=== PATIENT | male | born 1960 | race Caucasian/White ===

== ENCOUNTER 2018-07-24 13:16 | Outpatient (CLI) | payer MEDICAID, SELFPAY ==
--- NOTE | 2018-07-24 13:39 | DI.US_ITS ---
SYMPTOMS/DIAGNOSIS: RIGHT INGUINAL HERNIA REPAIR IN 2016, PAIN X 2 WEEKS, R10.31 ULTRASOUND OF THE RIGHT GROIN: No hernia is identified. No mass or hematoma is seen. Small lymph nodes are seen, which have a normal configuration with a central fatty hilum. The largest measures 11 mm in greatest dimension. Some tenderness was associated with the larger of the lymph nodes. IMPRESSION: Normal-appearing groin lymph nodes. No evidence of an inguinal hernia.
== END 2018-07-24 13:36 ==
PROVIDERS: PCP Family Medicine; Visit Provider Surgery
DX: R10.31 Right lower quadrant pain (principal); Z98.890 Other specified postprocedural states
CPT/HCPCS: 76857

== ENCOUNTER 2018-08-01 12:00 | Emergency (ER) | payer MEDICAID, SELFPAY ==
[2018-08-01 12:07] VITALS: BP 143/92; PULSE 79; RESP 16; TEMP 37; O2SAT 97
--- NOTE | 2018-08-01 12:17 | DI.CT_ITS ---
SYMPTOMS/DIAGNOSIS: RT FLANK PAIN RENAL COLIC CT: The extreme cephalad portion of the kidneys has been coned from this examination. There is bilateral nonobstructing nephrolithiasis. There is no evidence of hydronephrosis. There is no evidence of ureterectasis or ureterolithiasis. The bladder is intact. The visualized portions of the liver appear unremarkable. The gallbladder, pancreas, spleen and adrenals appear intact. There is no evidence of bowel obstruction, free air or free fluid in the abdomen or pelvis. A considerable quantity of fecal material and scattered gas is noted in the right colon. The appendix is normal. There is no abnormality involving the reproductive organs as visualized. There is no evidence of a hernia. There are atherosclerotic changes involving the aorta without evidence of an aneurysm. Minimal degenerative changes involving the lumbar spine are apparent. No other bony abnormality is seen. SUMMARY: There is evidence of nonobstructing bilateral nephrolithiasis. There is no evidence of ureterolithiasis or ureterectasis. Note is also made of a considerable quantity of fecal material and scattered gas in the right colon. Findings consistent with constipation.
--- NOTE | 2018-08-01 12:19 | W.ED.GENAD ---
Discharge Plan Disposition Patient Disposition: HOME Condition: Stable Discharge Details Chief Complaint: FlankPain Clinical Impression: Bilateral kidney stones, Right lumbar pain, Lumbar strain Primary Care Provider: Calderon Huynh ED Provider: Richard Kwan Home Meds and New Rx's Prescriptions: No Action aspirin [Aspir-81] 81 MG tablet,delayed release (DR/EC) 81 mg PO DAILY Qty: 90 RF: 3 terazosin 1 MG capsule 1 mg PO HS Qty: 90 RF: 3 Discharge Instructions Additional Instructions: Your blood work did not show any concerning findings Your cat scan showed kidney stones in both kidneys, but none in the ureter which typically causes the pain due to kidney stones This could be a back strain. You can take 1000mg tylenol and 600mg ibuprofen every 6 hours for pain as needed Follow up with your primary care provider in 1-2 weeks especially if symptoms continue return to the emergency department for severe worsening of pain, fevers, or persistent vomit Medical Decision Making 58 yo male who has a hx of prior right groin hernia and had u/s of this last week and was told it was normal as he was having some discomfort in the right groin. He states the right groin feels well since but has had right lower back pain for a week. Denies fevers, vomit, dysuria, chest pain or abdominal pain. Has pain in the right lower lumbar region. Denies midline pain, ivdu, fevers, difficulty urinating and has no weakness, sensation deficits and no saddle anesthesia. Suspect possible lumbar strain but given location of pain eval for kidney stone. Has no abodminal tenderness so doubt surgical pathology such as appendicitis. HAs no findings to suggest sea or cauda equina at this time and do not feel emergent mri indicated pt has remained stable, still no deficits on exam and no tenderness. CT per Dr. Salomon shows bilateral nonbustructing stones otherwise no acute findings. Given lack of other concering findings, reassuring abdominal and neuro exam I feel the pt can be safely d/c'd and advised he f/u with pcp with return precautions go come to the ED Differential Diagnosis kidney stone, muscle spasm, lumbar strain Imaging Data Radiologic Study: Attestation: I personally reviewed and interpreted this imaging study as follows: Imaging: CT Scan Radiologist's impression: bilateral nonobstructing kidney stones Lab Data Lab results reviewed: Yes I reviewed the patient's lab results. HPI General Mode of arrival: ambulatory. Date/Time Provider Initiated Documentation: 08/01/18 12:01. Limitations to Documentation: no limitations. Information obtained by: patient. History of Present Illness 58 year old M presents to the emergency department with the chief complaint of right lower back pain, described as moderate, with intensity rated at 5. Quality is described as aching, and is localized to the back. Patient reports no radiation. Patient started experiencing this week(s) (1) and it has been constant. No relieving factors improve symptom(s), No exacerbating factors reported . Patient notes no other symptoms.. Related Data Home Medications Medication Instructions Recorded Confirmed aspirin [Aspir 81] 81 mg PO DAILY #90 tab-cap 17 08/01/18 terazosin 1 mg PO HS #90 tab-cap 11/19/17 08/01/18 Previous Rx's Medication Instructions Recorded aspirin [Aspir 81] 81 mg PO DAILY #90 tab-cap 04/10/17 terazosin 1 mg PO HS #90 tab-cap 11/19/17 Allergies Allergy/AdvReac Type Severity Reaction Status Date / Time bupropion HCl [From Zyban] Allergy Severe swelling Unverified 08/01/18 12:11 Penicillins Allergy Severe Swelling Unverified 08/01/18 12:11 General Stated Complaint: FlankPain ROB: 3 Review of Systems Review of Systems All systems reviewed & are unremarkable except as noted in HPI and below Constitutional Denies chills, Denies fever(s) and Denies weakness Cardiovascular Denies chest pain and Denies dyspnea Respiratory Denies cough and Denies dyspnea Gastrointestinal Denies nausea and Denies vomiting Genitourinary Denies dysuria Musculoskeletal Denies joint swelling Integumentary/Breasts Denies rash Neurologic Denies weakness Psychiatric Denies depression Endocrine Denies cold intolerance and Denies heat intolerance Allergic/Immunologic Denies urticaria [facility] Medical History Colon polyp Headache Hyperlipidemia Reflux esophagitis Surgical History H/O right inguinal hernia repair (Acute ~2015) Colonoscopy - IV Sedation (05/03/16) Extraction of cataract Social History household members: other details: 2 highest education level completed: high school graduate pets and animals: Yes pets and animals: cat(s) frequency: does not exercise Smoking and Tabacco status: Current every day tobacco type: cigarettes Pasive smoking exposure: Yes alcohol intake: former substance use type: does not use sebas/lutheran: No preference special sebas needs: No Course Vital Signs Temperature 37 C 08/01/18 12:07 Pulse 79 08/01/18 12:07 Respiratory Rate 16 08/01/18 12:07 Blood Pressure 143/92 H 08/01/18 12:07 Pulse Oximetry 97 08/01/18 12:07 Temperature 37 C 08/01/18 12:07 Temperature Source Skin 08/01/18 12:07 Pulse 79 08/01/18 12:07 Respiratory Rate 16 08/01/18 12:07 Respiratory Effort Non-Labored 08/01/18 12:07 Blood Pressure 143/92 H 08/01/18 12:07 Blood Pressure Position Sitting 08/01/18 12:07 Pulse Oximetry 97 08/01/18 12:07 Oxygen Delivery Method Room Air 08/01/18 12:07 Oxygen Flow Rate 0 08/01/18 12:07 Pain Level 10 08/01/18 12:07
[2018-08-01 12:30] LABS: Abs Immature Grans 0.02 k/cumm (0.0-0.09); Absolute Basophil Count 0.02 k/cumm (0.0-0.2); Absolute Eosinophil Count 0.11 k/cumm (0.0-0.7); Absolute Lymphocyte Count 1.56 k/cumm (1.2-3.4); Absolute Monocyte Count 0.49 k/cumm (0.11-0.7); Absolute Neutrophil Count 4.89 k/cumm (1.2-6.7); Basophils % 0.3; Eosinophils % 1.6; HCT 45.3 % (40.0-50.0); HGB 15.7 g/dL (13.5-17.5); Immature Grans % 0.3; Mean Corp. HGB Concentration 34.7 g/dL (32.0-36.0); Mean Corpuscular Hemoglobin 32.2 pg (27.0-33.0); Mean Corpuscular Volume 92.8 fL (80-95); Mean Platelet Volume 10.9 fL (8.0-11.0); Monocytes % 6.9; Neutrophils % 68.9; Platelet Count 151 x1000/uL (130-400); RBC 4.88 m/cumm (4.50-6.00); RBC Distribution Width 12.1 % (11.8-14.1); White Blood Cell Count 7.09 k/cumm (4.4-10.8)
[2018-08-01 12:46] LABS: ALT 51 U/L (12-78); AST 28 U/L (15-37); Alkaline Phosphatase 84 U/L (46-116); Anion Gap 11.6 mmol/L (3-11); BUN 13 mg/dL (7-18); Bilirubin, Total 0.4 mg/dL (0.2-1.0); CO2 26.4 mmol/L (21.0-32.0); CREATININE 0.96 mg/dL (0.70-1.30); Calcium 9.1 mg/dL (8.5-10.1); Chloride 104 mmol/L (98-107); Glucose 99 mg/dL (70-100); Lipase 211 U/L (73-393); Magnesium 1.9 mg/dL (1.8-2.4); Potassium 4.1 mmol/L (3.5-5.1); Sodium 142 mmol/L (136-145); Total Protein 7.7 g/dL (6.4-8.2)
[2018-08-01 13:27] LABS: Bilirubin Negative (Negative); Blood Negative (Negative); Clarity Clear; Glucose Negative (Negative); Ketones Negative (Negative); Leukocyte Esterase Negative (Negative); Nitrite Negative (Negative); Urobilinogen 0.2 EU/dL (Up TO 0.2); pH 6.5 (5-8)
[2018-08-01 14:01] VITALS: BP 107/70; PULSE 62; RESP 18; TEMP 36.6; O2SAT 96
== END 2018-08-01 14:05 | disposition home or self-care (01) ==
PROVIDERS: Emergency Provider Emergency Medicine; PCP Family Medicine
DX: N20.0 Calculus of kidney (principal)
CPT/HCPCS: 36415; 80053; 80076; 83690; 99284; 74176; 81003; 83735; 85025; J3490

== ENCOUNTER 2019-04-15 09:58 | Outpatient (CLI) | payer BC, SELFPAY ==
[2019-04-15 13:08] LABS: Calculated LDL 112 mg/dL; Cholesterol 169 mg/dL (50-200); HDL Cholesterol 29 mg/dL (40-60); Triglyceride 143 mg/dL (30-150)
[2019-04-16 10:25] LABS: PSA, Screening 0.4 ng/ml (0-3.5)
== END 2019-04-15 10:18 ==
PROVIDERS: PCP Family Medicine; Visit Provider Family Medicine
DX: Z00.00 Encounter for general adult medical examination without abnormal findings (principal); Z13.220 Encounter for screening for lipoid disorders; Z12.5 Encounter for screening for malignant neoplasm of prostate
CPT/HCPCS: 36415; 80061; 84153

== ENCOUNTER 2019-07-10 01:32 | Outpatient (CLI) | payer BC, SELFPAY ==
--- NOTE | 2019-07-10 08:35 | DI.CT_ITS ---
EXAM: CT CHEST WO CLINICAL HISTORY: reassess lung nodule,R91.1. TECHNIQUE: Imaging protocol: Axial computed tomography images were obtained and coronal and sagittal reformatted images were created and reviewed. COMPARISON: CHEST WITHOUT CONTRAST from 10/22/2017 CT renal colic wo from 08/01/2018 CT renal colic wo from 08/01/2018 FINDINGS: Tracheobronchial tree: Patent where visualized. Mediastinum and Rissa: Stable lymph nodes in the mediastinum. Pulmonary parenchyma: Moderate emphysematous changes are present in the lungs. There are now multipl e nodular opacities within the lungs. Findings are suspicious for metastatic disease. There are als o ground-glass opacities scattered throughout the lungs. Findings are most marked in the upper lobes . No focal consolidating infiltrate is present. The nodule in the anterior aspect of the right uppe r lobe appears stable. Scarring or atelectasis is seen in the left lung base. Pleura: No effusion or pneumothorax. Heart: The heart is not dilated. Minimal coronary artery calcification is present. Aorta: Thoracic aorta non-dilated. Atherosclerosis. Upper abdomen: Unremarkable. Lymph nodes: Within normal limits. Bones:There is an unchanged sclerotic focus in the right 2nd rib. IMPRESSION: 1. Multiple pulmonary nodules. Multiple small foci of ground-glass opacity in the lungs. Differenti al considerations include metastatic disease, infectious or inflammatory process. 2. Moderate pulmonary emphysema. DATA REPOSITORY: All CT scans at this facility are submitted to the National Radiology Data Registry (NRDR) Dose Index Registry (DIR) with the [employer] (ACR). RADIATION OPTIMIZATION: All CT scans at this facility use at least one of these dose optimization te chniques: automated exposure control; mA and/or kV adjustment per patient size (includes targeted exa ms where dose is matched to clinical indication); or iterative reconstruction.
== END 2019-07-10 01:52 ==
PROVIDERS: PCP Family Medicine; Visit Provider Family Medicine
DX: R91.1 Solitary pulmonary nodule (principal); J43.8 Other emphysema; R91.8 Other nonspecific abnormal finding of lung field; J98.4 Other disorders of lung
CPT/HCPCS: 71250

== ENCOUNTER 2019-12-09 10:59 | Outpatient (REF) | payer BC, SELFPAY ==
[2020-01-06 10:10] LABS: Fungus Smear No Fungi Seen
== END 2019-12-09 11:19 ==
LOC: LBN 10:59
PROVIDERS: PCP Family Medicine; Visit Provider Internal Medicine
DX: R05 Cough (principal)
CPT/HCPCS: 87102; 87116; 87206; 87070; 87205

== ENCOUNTER 2020-03-02 00:42 | Outpatient (CLI) | payer BC, SELFPAY ==
--- NOTE | 2020-03-02 08:30 | DI.CT_ITS ---
EXAM: CT CHEST WO CLINICAL HISTORY: BRONCHIECTASIS,J47.9,F/U LUNG NODULES TECHNIQUE: COMPARISON: CT CT CHEST WO from 07/10/2019 FINDINGS: CT examination the chest was performed without contrast administration. Current examination is [place] red with prior study July 10, 2019 which showed numerous bilateral small ground-glass opacities an d predominantly ground-glass intrapulmonary nodules. On today's examination, the previously noted no dules and ground-glass opacities have essentially resolved. There is a 3 millimeter incidental right upper lobe noncalcified nodule seen anteriorly, unchanged from prior study. There are severe change s of centrilobular emphysema and slight bronchiectasis. No mediastinal or hilar adenopathy. No pleu ral effusion. Ectasias of ascending aorta at noted at 40 millimeters. Images obtained through the upper abdomen show unremarkable appearance of visualized portions of live r, spleen, pancreas, kidneys, and adrenals. IMPRESSION: Resolution of previously noted scattered nodular and and ground-glass opacities seen on CT of June 2019. Severe underlying emphysema noted. RADIATION DOSE DELIVERED: 532.01mGy.cm Total DLP
== END 2020-03-02 01:02 ==
PROVIDERS: PCP Family Medicine; Visit Provider Internal Medicine
DX: J43.9 Emphysema, unspecified (principal); J47.9 Bronchiectasis, uncomplicated
CPT/HCPCS: 71250

== ENCOUNTER 2020-05-03 00:25 | Outpatient (CLI) | payer BC, SELFPAY ==
--- NOTE | 2020-05-03 07:00 | DI.US_ITS ---
EXAM: US AAA SCREENING CLINICAL HISTORY: screening FOR AAA,H/O TOBACCO ABUSE,Z87.891 COMPARISON: CT CT renal colic wo from 08/01/2018 FINDINGS: Abdominal Aorta: Proximal: 2.6 x 2.8 cm Mid: 2.1 x 2.2 cm Distal: 1.9 x 2.3 cm Iliac's: Right: 1.2 x 1.3 cm Left: 1.2 x 1.2 cm Mild atherosclerosis is present. IMPRESSION: No evidence of abdominal aortic aneurysm. DATA REPOSITORY:
== END 2020-05-03 00:45 ==
PROVIDERS: PCP Family Medicine; Visit Provider Family Medicine
DX: Z87.891 Personal history of nicotine dependence (principal)
CPT/HCPCS: 76706

== ENCOUNTER 2020-07-16 21:51 | Emergency (ER) | payer BC, SELFPAY ==
[2020-07-16 22:01] VITALS: BP 146/99; PULSE 90; RESP 16; TEMP 36.7; O2SAT 95
[2020-07-16] MEDS: Normal Saline 500 ML IV (22:22)
--- NOTE | 2020-07-16 22:27 | W.ED.GENAD ---
Discharge Plan Disposition Patient Disposition: HOME Condition: Good Discharge Details Clinical Impression: Calculus of left kidney, Hematuria Primary Care Provider: Calderon Huynh ED Provider: Jeremy Aranda Home Meds and New Rx's Prescriptions: Continued Chantix Continuing Month Box 1 mg tablet 1 mg PO BID Qty: 56 RF: 5 terazosin 2 mg capsule 2 mg PO QHS Qty: 90 RF: 3 fluticasone propion-salmeterol [Advair Diskus] 250-50 mcg/dose blister with device 1 inh inhalation BID Qty: 60 RF: 11 mirtazapine 45 mg tablet 45 mg PO QHS Qty: 30 RF: 11 aspirin [Aspir-81] 81 MG tablet,delayed release (DR/EC) 81 mg PO DAILY Qty: 90 RF: 3 Discharge Instructions Instructions: Kidney Stones (ED) Additional Instructions: At this time you have evidence of a kidney stone in your left ureter. It is not the smallest of stones, so there is a chance that it may not pass. Please continue taking your Terazosin, but doubled the dose to 4 mg. Please take this while you are still having the blood in your urine and discomfort. This may help it pass more quickly. You can take Tylenol and Motrin to help with your pain. You can take a maximum dose of 1000 mg of Tylenol every 6 hours and a maximum dose of 600 mg of ibuprofen every 6 hours. Drink plenty of fluids, as well as cranberry juice. Please take the [place] pill only as needed for breakthrough pain. If you do take the [place] pills, do not take any Tylenol with it as it has Tylenol in it. If you notice any worsening of your symptoms, or any new symptoms such as vomiting, diarrhea, fever, chills, shortness of breath, chest pain, numbness, weakness, or fainting , please return immediately to the emergency department for reevaluation. Please follow up with Dr. Graham as soon as possible for reassessment and reevaluation. As always, it was a pleasure participating in your medical care today. 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 Patient states that 2 hours ago he had a sudden onset notable hematuria, no clots present. He admits to mild bilateral back soreness, but denies any significant pain to speak of. He denies any falls or trauma. No dysuria or difficulty urinating. He is not on any blood thinners aside for aspirin, and he denies any history of hematuria. He does have a history of previous renal pelvis stones noted on CT scan incidentally, but no other complaints or problems aside for this. Patient denies any other modifying factors. Physical exam demonstrates an unremarkable genital exam, no blood at the urethral meatus. He has a chronic small lesion by the epididymis/right testicle. No other abnormalities though. Normal cremasteric reflex. Differential includes prostate issue causing mild hematuria, bladder ulcer or lesion, or potential kidney stone. Discussed risk and benefits of imaging and work-up, we will get a CT scan at this time to evaluate for presence of stone or notable renal mass, will gently rehydrate, get basic labs. 11:[address] scan results have returned, 4 mm calculus noted in the left proximal ureter, mild hydronephrosis. Renal function good, no evidence of infection, no white count, fever, or other significant abnormality noted. Patient's pain well tolerated, he does not want anything for pain at this time. No other significant abnormalities noted on imaging. Hemoglobin stable. At this time patient stable for discharge, source of hematuria likely the small stone. Will recommend that he increase his Peng and dose to 4 mg daily, strain his urine, drink plenty of fluids, and follow-up closely with Dr. Graham. I discussed the case with the patient as well as his significant other over the phone. I have extensively reviewed the treatment plan and discharge instructions with the patient and their family. I have addressed all patient concerns at this time. The patient and family was made aware of what symptoms to monitor for that would warrant a return to the emergency department. Discussed the plan with the patient and family, they demonstrate verbal understanding and agreement with our assessment and plan at this time. The documentation in this chart was dictated using [email or web address] dictation software. Please excuse any dictation errors. FINDINGS: Liver: The visualized liver is unremarkable. Gallbladder and bile ducts: No calcified stones. No ductal dilation. Pancreas: No ductal dilation. No masses. Spleen: No splenomegaly or focal lesions. Adrenal glands: No mass. Kidneys and ureters: Nonobstructive subcentimeter right nephrolithiasis. 4 mm calculus in the proximal left ureter causing mild left hydronephrosis. No left nephrolithiasis. Stomach and bowel: 1-2 distal colonic diverticula without inflammation. No focal pathology in the small bowel. Appendix: No evidence of appendicitis. Intraperitoneal space: No free air. No significant fluid collection. Vasculature: Atherosclerosis with minimal dilation of the aortoiliac system. Lymph nodes: No significantly enlarged lymph nodes. Urinary bladder: Unremarkable as visualized. Reproductive: Unremarkable as visualized. Bones/joints: No acute fracture. Soft tissues: No suspicious lesions. IMPRESSION: 1. 4 mm calculus in the proximal left ureter causing mild left hydronephrosis. 2. Nonobstructive subcentimeter right nephrolithiasis. Thank you for allowing us to participate in the care of your patient. Dictated and Authenticated by: Sindi Moseley MD 07/16/2020 11:10 PM Eastern Time ([place] & [place]) HPI General Date/Time Provider Initiated Documentation: 07/16/20 21:59. 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 Patient states that 2 hours ago he had a sudden onset notable hematuria, no clots present. He admits to mild bilateral back soreness, but denies any significant pain to speak of. He denies any falls or trauma. No dysuria or difficulty urinating. He is not on any blood thinners aside for aspirin, and he denies any history of hematuria. He does have a history of previous renal pelvis stones noted on CT scan incidentally, but no other complaints or problems aside for this. Patient denies any other modifying factors. Related Data Home Medications Medication Instructions Recorded Confirmed aspirin [Aspir-81] 81 mg PO DAILY #90 tab-cap 04/10/17 07/16/20 varenicline 1 mg tablet 1 mg PO BID #56 tab 01/21/20 07/16/20 fluticasone 250 mcg-salmeterol 50 1 inh INHALATION BID #60 ea 04/23/20 07/16/20 mcg/dose blistr powdr for inhalation mirtazapine 45 mg tablet 45 mg PO QHS #30 tab 04/23/20 07/16/20 terazosin 2 mg capsule 2 mg PO QHS #90 cap 04/23/20 07/16/20 Previous Rx's Medication Instructions Recorded aspirin [Aspir-81] 81 mg PO DAILY #90 tab-cap 04/10/17 varenicline 1 mg tablet 1 mg PO BID #56 tab 01/21/20 fluticasone 250 mcg-salmeterol 50 1 inh INHALATION BID #60 ea 04/23/20 mcg/dose blistr powdr for inhalation mirtazapine 45 mg tablet 45 mg PO QHS #30 tab 04/23/20 terazosin 2 mg capsule 2 mg PO QHS #90 cap 04/23/20 Allergies Allergy/AdvReac Type Severity Reaction Status Date / Time bupropion HCl [From Evento] Allergy Severe swelling Verified 07/16/20 22:12 Penicillins Allergy Severe Swelling Verified 07/16/20 22:12 General Stated Complaint: FlankPain ROB: 2 Review of Systems All systems reviewed & are unremarkable except as noted in HPI and below PFSH Medical History Colon polyp COPD (chronic obstructive pulmonary disease) Headache Hyperlipidemia Insomnia Lung nodule Reflux esophagitis Tobacco abuse Surgical History Colonoscopy - IV Sedation (05/03/16) Extraction of cataract 02/17/16; LEFT H/O right inguinal hernia repair (~2014) Dr. Tapia Family History Mother , AGE 67 Heart disease Father , AGE 72 Heart disease Sister Essential hypertension Sister No problems noted. Sister No problems noted. Sister No problems noted. Brother Essential hypertension Brother No problems noted. Brother No problems noted. Brother No problems noted. Brother No problems noted. Daughter No problems noted. Daughter Depression Social History Smoking/Tobacco Use Status: Current every day Tobacco Type: cigarettes Tobacco: How many years used: 20 Quit status: has quit before Smoking risk assessment performed?: Yes Alcohol Intake: never Drug use: Never Substance use type: does not use Caregiver/Support person: No Household members: significant other and other Details: 2 Housing: house Do you need help understanding health information?: Never Pets and animals: Yes Pets and animals: cat(s) Sexually active: No Do you think of yourself as: straight/heterosexual Current gender identity: male What is your relationship status?: living with partner How often do you talk on the phone with friends or family?: decline to answer How often do you get together with friends or relatives?: decline to answer How often do you attend orthodoxy or judaism services?: decline to answer Do you belong to any clubs or organized social groups?: decline to answer Panel score (0-1 are the most socially isolated patients): 1 What type of physical activity do you participate in: walking Duration: > 90 minutes/day Frequency: 5-6 times per week Taylor/Sabianist: None Special taylor needs: No Seatbelt use: always Helmet use: No Drive intox or ride w/intox four horse hitch driver: No Do you feel safe at home: Yes Do you feel safe in your relationship?: Yes Exam Narrative Exam Narrative: 1.Const: Well-nourished, Well-developed, appearing stated age 2.Eyes: PERRL, no conjunctival injection, and symmetrical lids. 3.ENT: Atraumatic external nose and ears. Moist MM. Neck: Symmetric, trachea midline, No thyromegaly. 4.CVS: +S1/S2, No murmurs or gallops. Peripheral pulses 2+ and equal in all extremities. Brisk capillary refill in all extremities. 5.RESP: Unlabored respiratory effort. Clear to auscultation bilaterally. No wheezes rales or rhonchi 6.GI: Soft, Nontender/Nondistended, No hepatosplenomegaly. No guarding or rebound. Genital exam demonstrates circumcised penis, right testicle demonstrates a chronic nontender mass near the testicle/epididymis. No inguinal mass. No genital tenderness, no penile tenderness, no blood at the urethral meatus. No abdominal tenderness on exam, minimal left CVA tenderness. No right CVA tenderness. 7.MSK: Normocephalic/Atraumatic, Extremities w/o deformity or ttp No cyanosis or clubbing, Normal movement of all extremities 8.Skin: Warm, Dry. No rashes or lesions. 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 Sensation grossly intact, no focal neurologic deficits. 10.Psych: (AAO) x3. Appropriate mood and affect Course Vital Signs Vital signs: Vital Signs Temperature 36.7 C 07/16/20 22:01 Pulse 90 07/16/20 22:01 Respiratory Rate 16 07/16/20 22:01 Blood Pressure 146/99 H 07/16/20 22:01 Pulse Oximetry 95 07/16/20 22:01 Temperature 36.7 C 07/16/20 22:01 Temperature Source Skin 07/16/20 22:01 Pulse 90 07/16/20 22:01 Respiratory Rate 16 07/16/20 22:01 Blood Pressure 146/99 H 07/16/20 22:01 Blood Pressure Position Sitting 07/16/20 22:01 Pulse Oximetry 95 07/16/20 22:01 Oxygen Delivery Method Room Air 07/16/20 22:01 Oxygen Flow Rate 0 07/16/20 22:01 Pain Level 4 07/16/20 22:01
[2020-07-16 22:32] LABS: Abs Immature Grans 0.02 10^3/uL (0.0-0.06); Absolute Basophil Count 0.06 10^3/uL (0.0-0.2); Absolute Eosinophil Count 0.21 10^3/uL (0.0-0.7); Absolute Lymphocyte Count 1.98 10^3/uL (1.2-3.4); Absolute Monocyte Count 0.72 10^3/uL (0.1-0.8); Absolute Neutrophil Count 4.73 10^3/uL (1.2-6.7); Basophils % 0.8; Eosinophils % 2.7; HCT 45.2 % (40.0-50.0); HGB 15.4 g/dL (13.5-17.5); Immature Grans % 0.3; Lymphocytes % 25.6; MCH 31.4 pg (27.0-33.0); MCHC 34.1 % (32.0-36.0); MCV 92.2 fL (80-95); MPV 10.6 fL (8.0-11.0); Monocytes % 9.3; Neutrophils % 61.3; Nucleated RBC 0 %; Platelet Count 198 10^3/uL (130-400); RDW 11.8 % (11.8-14.1); RDW-SD 39.8 fL; WBC 7.72 10^3/uL (4.4-10.8)
[2020-07-16 22:36] LABS: Clarity Cloudy (Clear)
--- NOTE | 2020-07-16 22:39 | DI.CT_ITS ---
EXAM: CT RENAL COLIC WO CLINICAL HISTORY: hematuria, tiny bit L flank pain,r/o stone. TECHNIQUE: Imaging Protocol: Axial computed tomography images with coronal and sagittal reformatted images were created and reviewed. CONTRAST MATERIAL: Noncontrast COMPARISON: CT CT renal colic wo from 08/01/2018 FINDINGS: ABDOMEN: Lung Bases: Normal where visualized. Liver: Normal attenuation. No measurable mass. Gallbladder and biliary tract: No radiodense calculus or dilation. Pancreas: Normal density, no calcifications or inflammatory process. Spleen: Normal. Kidneys: Normal size, contour and axis. 9 x 5 millimeter smoothly marginated stone just beneath the l eft ureteropelvic junction causing mild left hydronephrosis. Tiny nonobstructing stone lower pole ri ght kidney. No masses seen. Adrenal glands: No masses seen. Abdominal Aorta: Abdominal portion non-dilated. Mildly ectatic. Moderate calcification. PELVIS: Bladder: Symmetric distention, no wall thickening or stones. Bowel: Normal appendix. No obstruction or bowel wall thickening. Moderate quantity of stool. Peritoneal cavity: No ascites, collection or mesenteric inflammatory response. Bones: Degenerative disc changes. Reproductive: Normal size prostate. Mild prostate calcifications. IMPRESSION: Mild left hydronephrosis secondary to 5 x 9 millimeter stone just beneath the level of the ureteropel irish junction. RADIATION DOSE DELIVERED: 845.18mGy.cm Total DLP DATA REPOSITORY: All CT scans at this facility are submitted to the National Radiology Data Registry (NRDR) Dose Index Registry (DIR) with the [employer] (A[employer]). RADIATION OPTIMIZATION: All CT scans at this facility use at least one of these dose optimization te chniques: automated exposure control; mA and/or kV adjustment per patient size (includes targeted exa ms where dose is matched to clinical indication); or iterative reconstruction.
[2020-07-16 22:44] LABS: C & S Indicated? No; RBC >50 HPF (0-2)
[2020-07-16 22:46] LABS: PTT Activated 23.9 sec (21.0-27.5); Prothrombin Time 10.2 sec (9.3-11.0)
[2020-07-16 22:51] LABS: ALT 44 U/L (16-63); AST 21 U/L (15-37); Alkaline Phosphatase 85 U/L (46-116); Anion Gap 7.4 mmol/L (3-11); BUN 19 mg/dL (7-18); Bilirubin, Total 0.3 mg/dL (0.2-1.0); CO2 27.6 mmol/L (21.0-32.0); Calcium 8.8 mg/dL (8.5-10.1); Chloride 102 mmol/L (98-107); Glucose 97 mg/dL (74-106); Sodium 137 mmol/L (136-145); Total Protein 7.7 g/dL (6.4-8.2)
--- NOTE | 2020-07-16 23:10 | DI.VRAD_ITS ---
PROCEDURE INFORMATION: Exam: CT Abdomen And Pelvis Without Contrast Exam date and time: 07/16/2020 22:12 Age: 60 years old Clinical indication: Abdominal pain; Patient HX: Left flank pain with hematuria TECHNIQUE: Imaging protocol: Computed tomography of the abdomen and pelvis without contrast. Radiation optimization: All CT scans at this facility use at least one of these dose optimization techniques: automated exposure control; mA and/or kV adjustment per patient size (includes targeted exams where dose is matched to clinical indication); or iterative reconstruction. COMPARISON: CT renal colic wo 08/01/2018 12:47 FINDINGS: Liver: The visualized liver is unremarkable. Gallbladder and bile ducts: No calcified stones. No ductal dilation. Pancreas: No ductal dilation. No masses. Spleen: No splenomegaly or focal lesions. Adrenal glands: No mass. Kidneys and ureters: Nonobstructive subcentimeter right nephrolithiasis. 4 mm calculus in the proximal left ureter causing mild left hydronephrosis. No left nephrolithiasis. Stomach and bowel: 1-2 distal colonic diverticula without inflammation. No focal pathology in the small bowel. Appendix: No evidence of appendicitis. Intraperitoneal space: No free air. No significant fluid collection. Vasculature: Atherosclerosis with minimal dilation of the aortoiliac system. Lymph nodes: No significantly enlarged lymph nodes. Urinary bladder: Unremarkable as visualized. Reproductive: Unremarkable as visualized. Bones/joints: No acute fracture. Soft tissues: No suspicious lesions. IMPRESSION: 1. 4 mm calculus in the proximal left ureter causing mild left hydronephrosis. 2. Nonobstructive subcentimeter right nephrolithiasis. Dictated and Authenticated by: Sindi Moseley MD. Ordering:TAMERA Luna MD
--- NOTE | 2020-07-16 23:35 | NUR.NOTE ---
Sent referral to urology for 4 mm kidneystone follow up Ned Machuca Note:
== END 2020-07-16 22:30 | disposition home or self-care (01) ==
PROVIDERS: Emergency Provider Student in an Organized Health Care Education/Training Program; PCP Family Medicine
DX: N13.2 Hydronephrosis with renal and ureteral calculous obstruction (principal); R31.9 Hematuria, unspecified; M54.5 Low back pain; J44.9 Chronic obstructive pulmonary disease, unspecified; F17.210 Nicotine dependence, cigarettes, uncomplicated
CPT/HCPCS: 36415; 80053; 96360; 99285; 74176; 81003; 81015; 85025; 85610; 85730

== ENCOUNTER 2020-07-19 05:22 | Observation (INO) | payer BC, SELFPAY ==
[2020-07-19] VITALS (9 sets, daily range): BP systolic 117–148; BP diastolic 60–92; PULSE 60–95; RESP 15–20; TEMP 35.8–36.9; O2SAT 94–97
--- NOTE | 2020-07-19 05:31 | W.ED.GENAD ---
Discharge Plan Disposition Patient Disposition: [facility] INPATIENT Condition: Good Discharge Details Clinical Impression: Kidney stone Primary Care Provider: Calderon Huynh ED Provider: Jeremy Aranda Home Meds and New Rx's Prescriptions: No Action Chantix Continuing Month Box 1 mg tablet 1 mg PO BID Qty: 56 RF: 5 terazosin 2 mg capsule 2 mg PO QHS Qty: 90 RF: 3 fluticasone propion-salmeterol [Advair Diskus] 250-50 mcg/dose blister with device 1 inh inhalation BID Qty: 60 RF: 11 mirtazapine 45 mg tablet 45 mg PO QHS Qty: 30 RF: 11 aspirin [Aspir-81] 81 MG tablet,delayed release (DR/EC) 81 mg PO DAILY Qty: 90 RF: 3 Medical Decision Making Very pleasant 60-year-old male with a past medical history of COPD, high cholesterol, right scrotal mass that is chronic, prostatic hypertrophy and lower urinary tract syndrome, who was diagnosed with a kidney stone on 07/16/2020. Per virtual radiology it was 4 mm and noted in the proximal left ureter, with mild hydronephrosis. Pain was well controlled with NSAIDs, patient was discharged home recommendations for continued fluid. Patient returns again tonight with continuation of the pain, this evening he began vomiting because of the pain, he took a Browns but this did not help. He is noticing a decrease in his urinary output, he denies any significant change in hematuria. No other complaints this time. No other changes in symptomatology otherwise. Physical exam demonstrates mild left CVA tenderness. Concern is for a stone that will not pass. We will get laboratory work-up to evaluate for change in renal function, we will control his pain, gently rehydrate, and contact Dr. Graham for potential stenting. 6:30 AM Patient's laboratory work-up shows a minimal white count overloaded foot 3 8, no bandemia. Electrolytes stable, renal function normal. Still pending urinalysis. Pain was not controlled with morphine, Zofran and Dilaudid was subsequently given which did give adequate pain control. Contacted Dr. Graham and discussed the case with him. He recommends admission for evaluation for potential stenting. Contacted the hospitalist Dr. Wayne, he agrees with the assessment and plan. I will place bridging orders on his behalf. Patient will be admitted to the floor. I have extensively reviewed the treatment plan with the patient. I have addressed all patient concerns at this time. I have also discussed the plan with the admitting physician and they agree with the current assessment and plan and have agreed to assume responsibility for the patient. All parties demonstrate verbal understanding and agreement with our assessment and plan at this time. The documentation in this chart was dictated using [employer] dictation software. Please excuse any dictation errors. HPI General Date/Time Provider Initiated Documentation: 07/19/20 05:23. HPI Narrative: Very pleasant 60-year-old male with a past medical history of COPD, high cholesterol, right scrotal mass that is chronic, prostatic hypertrophy and lower urinary tract syndrome, who was diagnosed with a kidney stone on 07/16/2020. Per virtual radiology it was 4 mm and noted in the proximal left ureter, with mild hydronephrosis. Pain was well controlled with NSAIDs, patient was discharged home recommendations for continued fluid. Patient returns again tonight with continuation of the pain, this evening he began vomiting because of the pain, he took a Browns but this did not help. He is noticing a decrease in his urinary output, he denies any significant change in hematuria. No other complaints this time. No other changes in symptomatology otherwise. Related Data Home Medications Medication Instructions Recorded Confirmed aspirin [Aspir-81] 81 mg PO DAILY #90 tab-cap 04/10/17 07/19/20 varenicline 1 mg tablet 1 mg PO BID #56 tab 01/21/20 07/19/20 fluticasone 250 mcg-salmeterol 50 1 inh INHALATION BID #60 ea 04/23/20 07/19/20 mcg/dose blistr powdr for inhalation mirtazapine 45 mg tablet 45 mg PO QHS #30 tab 04/23/20 07/19/20 terazosin 2 mg capsule 2 mg PO QHS #90 cap 04/23/20 07/19/20 Previous Rx's Medication Instructions Recorded aspirin [Aspir-81] 81 mg PO DAILY #90 tab-cap 04/10/17 varenicline 1 mg tablet 1 mg PO BID #56 tab 01/21/20 fluticasone 250 mcg-salmeterol 50 1 inh INHALATION BID #60 ea 04/23/20 mcg/dose blistr powdr for inhalation mirtazapine 45 mg tablet 45 mg PO QHS #30 tab 04/23/20 terazosin 2 mg capsule 2 mg PO QHS #90 cap 04/23/20 Allergies Allergy/AdvReac Type Severity Reaction Status Date / Time bupropion HCl [From Zyban] Allergy Severe swelling Verified 07/16/20 22:12 Penicillins Allergy Severe Swelling Verified 07/16/20 22:12 General Stated Complaint: FlankPain ROB: 3 Review of Systems All systems reviewed & are unremarkable except as noted in HPI and below PFSH Medical History Colon polyp COPD (chronic obstructive pulmonary disease) Headache Hyperlipidemia Insomnia Lung nodule Reflux esophagitis Tobacco abuse Surgical History Colonoscopy - IV Sedation (05/03/16) Extraction of cataract 02/17/16; LEFT H/O right inguinal hernia repair (~2014) Dr. Tapia Family History Mother , AGE 67 Heart disease Father , AGE 72 Heart disease Sister Essential hypertension Sister No problems noted. Sister No problems noted. Sister No problems noted. Brother Essential hypertension Brother No problems noted. Brother No problems noted. Brother No problems noted. Brother No problems noted. Daughter No problems noted. Daughter Depression Social History Smoking/Tobacco Use Status: Current every day Tobacco Type: cigarettes Tobacco: How many years used: 20 Quit status: has quit before Smoking risk assessment performed?: Yes Alcohol Intake: never Drug use: Never Substance use type: does not use Caregiver/Support person: No Household members: significant other and other Details: 2 Housing: house Do you need help understanding health information?: Never Pets and animals: Yes Pets and animals: cat(s) Sexually active: No Do you think of yourself as: straight/heterosexual Current gender identity: male What is your relationship status?: living with partner How often do you talk on the phone with friends or family?: decline to answer How often do you get together with friends or relatives?: decline to answer How often do you attend oriental orthodox or restorationist services?: decline to answer Do you belong to any clubs or organized social groups?: decline to answer Panel score (0-1 are the most socially isolated patients): 1 What type of physical activity do you participate in: walking Duration: > 90 minutes/day Frequency: 5-6 times per week Taylor/Spiritism: None Special taylor needs: No Seatbelt use: always Helmet use: No Drive intox or ride w/intox cat driver: No Do you feel safe at home: Yes Do you feel safe in your relationship?: Yes Exam Narrative Exam Narrative: 1.Const: Well-nourished, Well-developed, appearing stated age 2.Eyes: PERRL, no conjunctival injection, and symmetrical lids. 3.ENT: Atraumatic external nose and ears. Moist MM. Neck: Symmetric, trachea midline, No thyromegaly. 4.CVS: +S1/S2, No murmurs or gallops. Peripheral pulses 2+ and equal in all extremities. Brisk capillary refill in all extremities. 5.RESP: Unlabored respiratory effort. Clear to auscultation bilaterally. No wheezes rales or rhonchi 6.GI: Soft, nondistended, mild left CVA tenderness. Mild abdominal discomfort on palpation in the left. 7.MSK: Normocephalic/Atraumatic, Extremities w/o deformity or ttp No cyanosis or clubbing, Normal movement of all extremities 8.Skin: Warm, Dry. No rashes or lesions. 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 Sensation grossly intact, no focal neurologic deficits. 10.Psych: (AAO) x3. Appropriate mood and affect Course Vital Signs Vital signs: Vital Signs Temperature 36.1 C L 07/19/20 05:26 Pulse 95 H 07/19/20 05:26 Respiratory Rate 16 07/19/20 05:26 Blood Pressure 133/92 H 07/19/20 05:26 Pulse Oximetry 95 07/19/20 05:26 Temperature 36.1 C L 07/19/20 05:26 Temperature Source Skin 07/19/20 05:26 Pulse 95 H 07/19/20 05:26 Respiratory Rate 16 07/19/20 05:26 Blood Pressure 133/92 H 07/19/20 05:26 Blood Pressure Position Sitting 07/19/20 05:26 Pulse Oximetry 95 07/19/20 05:26 Pain Level 10 07/19/20 05:26
[2020-07-19] MEDS: Normal Saline 1,000 ML 1000 ML IV (05:41)
[2020-07-19 05:42] LABS: Abs Immature Grans 0.03 10^3/uL (0.0-0.06); Absolute Basophil Count 0.05 10^3/uL (0.0-0.2); Absolute Eosinophil Count 0.03 10^3/uL (0.0-0.7); Absolute Lymphocyte Count 0.98 10^3/uL (1.2-3.4); Absolute Monocyte Count 0.59 10^3/uL (0.1-0.8); Basophils % 0.4; Eosinophils % 0.3; HCT 45.7 % (40.0-50.0); HGB 15.6 g/dL (13.5-17.5); Immature Grans % 0.3; Lymphocytes % 8.6; MCH 31.3 pg (27.0-33.0); MCHC 34.1 % (32.0-36.0); MCV 91.6 fL (80-95); MPV 10.6 fL (8.0-11.0); Monocytes % 5.2; Neutrophils % 85.2; Nucleated RBC 0 %; Platelet Count 169 10^3/uL (130-400); RBC 4.99 10^6/uL (4.36-5.78); RDW 11.7 % (11.8-14.1); RDW-SD 39.4 fL; WBC 11.38 10^3/uL (4.4-10.8)
[2020-07-19 05:56] LABS: ALT 36 U/L (16-63); AST 17 U/L (15-37); Alkaline Phosphatase 87 U/L (46-116); Anion Gap 11.8 mmol/L (3-11); BUN 18 mg/dL (7-18); Bilirubin, Total 0.4 mg/dL (0.2-1.0); CO2 25.2 mmol/L (21.0-32.0); CREATININE 1.2 mg/dL (0.70-1.30); Calcium 9.5 mg/dL (8.5-10.1); Chloride 103 mmol/L (98-107); Glucose 150 mg/dL (74-106); Sodium 140 mmol/L (136-145); Total Protein 7.4 g/dL (6.4-8.2)
[2020-07-19] MEDS: Ondansetron 4 MG/2 ML VIAL IVP (05:58)
[2020-07-19] MEDS: HYDROmorphone 2 MG/ML VIAL 1 MG IVP (05:58)
[2020-07-19 06:47] LABS: Source Nasopharynx
[2020-07-19 07:26] LABS: COVID-19 PCR Negative (Negative); Influenza A PCR Negative (Negative); Influenza B PCR Negative (Negative); RSV PCR Negative (Negative)
[2020-07-19] MEDS: Normal Saline 1,000 ML 150 ML IV ×3 (08:05→21:37)
[2020-07-19] MEDS: Budesonide/Formoterol 160/4.5 6 GM 60 PUFF INH IH ×2 (09:42→20:21)
--- NOTE | 2020-07-19 10:24 | W.UROLOGYCON ---
Date of service: 07/19/20 Time of Service: 10:25 Assessment and Plan Assessment and plan (1) Left ureteral stone: Status: Acute Assessment and plan: He is quite symptomatic, so we have agreed to move forward with cystoscopy left retrograde pyelogram and stent placement. If we are able to pass the flexible ureteroscope up the ureter, treat the stone with the holmium laser lithotripsy and extract the stone fragments, we will do so at the same anesthetic. If we are unable to access the stone, we will place a stent and make arrangements for a staged procedure. History of Present Illness History of Present Illness Chief Complaint: Left ureteral stone Narrative: This is a 60-year-old gentleman who is followed in my office for lower urinary tract symptoms and an epididymal cyst. He noticed gross painless hematuria about 3 days ago and presented to the emergency room. He was not having any flank pain at that time but he was identified as having a 4 mm left proximal ureteral stone with mild hydronephrosis. He was discharged with oral pain medications and alpha blockers. He returned to the emergency room when he developed an acute onset of the left abdominal and flank pain last evening. His pain could not be well controlled for outpatient management, so he was admitted to the hospital. He is known that he had bilateral kidney stones for a few years now, but he has never had symptoms until this episode. He has no known metabolic abnormality such as gout or hyperparathyroid disease. He has never had any type of urologic surgery. Review of Systems Narrative: No fevers or chills No vision change or dysphasia No diabetes or thyroid No r hemoptysis No chest pain or palpitations No hepatitis, ulcers, jaundice, diarrhea or constipation No seizures, strokes or peripheral neuropathy No bleeding disorders or anemia No gout [facility] Medical History Colon polyp COPD (chronic obstructive pulmonary disease) Headache Hyperlipidemia Insomnia Lung nodule Reflux esophagitis Tobacco abuse Surgical History Colonoscopy - IV Sedation (05/03/16) Extraction of cataract 02/17/16; LEFT H/O right inguinal hernia repair (~2014) Dr. Tapia Family History Mother , AGE 67 Heart disease Father , AGE 72 Heart disease Sister Essential hypertension Sister No problems noted. Sister No problems noted. Sister No problems noted. Brother Essential hypertension Brother No problems noted. Brother No problems noted. Brother No problems noted. Brother No problems noted. Daughter No problems noted. Daughter Depression Social History Smoking/Tobacco Use Status: Current every day Tobacco Type: cigarettes Tobacco: How many years used: 20 Quit status: has quit before Smoking risk assessment performed?: Yes Alcohol Intake: never Drug use: Never Substance use type: does not use Caregiver/Support person: No Household members: significant other and other Details: 2 Housing: house Do you need help understanding health information?: Never Pets and animals: Yes Pets and animals: cat(s) Sexually active: No Do you think of yourself as: straight/heterosexual Current gender identity: male What is your relationship status?: living with partner How often do you talk on the phone with friends or family?: decline to answer How often do you get together with friends or relatives?: decline to answer How often do you attend sikhism or pentecostalism services?: decline to answer Do you belong to any clubs or organized social groups?: decline to answer Panel score (0-1 are the most socially isolated patients): 1 What type of physical activity do you participate in: walking Duration: > 90 minutes/day Frequency: 5-6 times per week Taylor/Anglican: None Special taylor needs: No Seatbelt use: always Helmet use: No Drive intox or ride w/intox sanitation truck driver: No Do you feel safe at home: Yes Do you feel safe in your relationship?: Yes Exam Narrative Exam Narrative: I reviewed his CT scan along with the scan from 2019. On his previous scan, there were nonobstructing stones bilaterally. The previously identified left lower pole stone is now present in the left proximal ureter. Const General: cooperative and uncomfortable Neck Neck: supple Resp Effort & Inspection: normal respiratory effort Cardio Rate: regular rate Rhythm: regular rhythm GI Palpation: soft, no guarding and no masses Neuro General: patient alert, patient awake and patient oriented x3 Results Last Vital Signs Temp 36.2 C L 07/19/20 08:06 Pulse 65 07/19/20 08:06 Resp 18 07/19/20 08:06 BP 132/80 07/19/20 08:06 Pulse Ox 94 07/19/20 08:06 Labs Result diagrams: 07/19/20 05:35 07/19/20 05:35 Labs: Laboratory Results - last 24 hr 07/19/20 07/19/20 07/19/20 05:35 05:35 06:35 WBC 11.38 H RBC 4.99 Hgb 15.6 Hct 45.7 MCV 91.6 MCH 31.3 MCHC 34.1 RDW 11.7 L Plt Count 169 MPV 10.6 Immature Gran % 0.3 Neutrophils % 85.2 Lymphocytes % 8.6 Monocytes % 5.2 Eosinophils % 0.3 Basophils % 0.4 Nucleated RBC % 0 Absolute Neutrophils 9.70 H Absolute Lymphocytes 0.98 L Absolute Monocytes 0.59 Absolute Eosinophils 0.03 Absolute Basophils 0.05 Sodium 140 Potassium 4.0 Chloride 103 Carbon Dioxide 25.2 Anion Gap 11.8 H BUN 18 Creatinine 1.2 Estimated GFR/1.73 m2 >= 60.00 Glucose 150 H Calcium 9.5 Total Bilirubin 0.4 AST 17 ALT 36 Alkaline Phosphatase 87 Total Protein 7.4 Albumin 4.0 COVID-19 Source Nasopharynx SARS-CoV-2 (PCR) Negative Influenza Type A (PCR) Negative Influenza Type B (PCR) Negative RSV (PCR) Negative
[2020-07-19] MEDS: Ketorolac 15 MG/ML VIAL IVP (10:41)
[2020-07-19] MEDS: HYDROmorphone 2 MG/ML VIAL IVP (10:41)
[2020-07-19] MEDS: Normal Saline Flush 10 ML SYR IVP (10:42)
--- NOTE | 2020-07-19 12:30 | DI.RAD_ITS ---
EXAM: XR RETROGRADE IN OR CLINICAL HISTORY: LEFT URETERAL STONE TECHNIQUE: 2D and realtime digital imaging was performed. CONTRAST MATERIAL: Refer to procedure report. COMPARISON: No exams were available for comparison FINDINGS: Fluoroscopy was provided for Dr. Graham during the performance of a retrograde evaluation of the laxmi l collecting system. Please refer to the procedure report for complete details. Fluoro time: 72.6 seconds IMPRESSION:
[2020-07-19] MEDS: Lidocaine 2% Jelly 6 ML SYR (13:27)
--- NOTE | 2020-07-19 13:48 | PDOC.CMIN ---
- If Service Date Differs Date of service: 07/19/20 Time of Service: 13:48 Care Management Initial Assess REASON FOR HOSPITALIZATION:: left ureteral stone PAST MEDICAL HISTORY/PAST SURGICAL HISTORY:: Medical History . Colon polyp. COPD (chronic obstructive pulmonary disease). Headache. Hyperlipidemia. Insomnia. Lung nodule. Reflux esophagitis. Tobacco abuse. Surgical History . Colonoscopy - IV Sedation (05/03/16). Extraction of cataract. 02/17/16; LEFT. H/O right inguinal hernia repair (~2014). Dr. Tapia PREVIOUS FUNCTIONAL STATUS/SOCIAL/FAMILY SUPPORTS:: Blair lives in [place] with his long time partner of 24 years, Syl. 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 He does not need or use any assistive devices and does not receive any community services. Blair is independent at baseline. CURRENT FUNCTIONAL STATUS:: Blair was sitting up in bed and was very receptive to conversation when CM met with him. He shared that he anticipates going to the OR this afternoon. He hopes to be discharged soon but has not been given a time line by his physician. Blair stated he does not anticipate needing any services at home. ADVANCE DIRECTIVES:: None completed. CM supplied him with 2 copies of [place]. AD forms as requested. Has patient been provided with info about the portal/API?: Yes Did the patient sign up for the portal?: Yes (previously) CODE STATUS:: Full Code INSURANCE COVERAGE / FINANCIAL ISSUES:: BS CURRENT HOME/COMMUNITY SERVICES/EQUIPMENT:: none currently PRIMARY CARE PHYSICIAN:: Calderon Huynh POTENTIAL DISCHARGE NEEDS:: Follow up with Urology and PCP PATIENT/FAMILY EDUCATION NEEDS:: Discharge plan, expectations, limitations, follow up plan, Ask Me Three TRANSPORTATION:: via private vehicle with family PLAN:: Blair will likely be discharged home with no new services. He will follow up with his community providers and discharge plan of care. Blair will transport with family via private vehicle. CM will continue to support patient, family and assess for discharge planning needs.
[2020-07-19] MEDS: Omnipaque 300 MG/ML 50 ML BTL (13:50)
--- NOTE | 2020-07-19 14:06 | ROE_ITS ---
Date of service: 07/19/20 Time of Service: 14:06 Operative Note Operative Note DATE OF PROCEDURE: 07/19/20 PRE-OP DIAGNOSIS: Left ureteral stone POST-OP DIAGNOSIS: same PROCEDURE: Cystoscopy, left retrograde pyelogram, left flexible ureteroscopy, holmium laser lithotripsy of left ureteral stone, extraction of stone fragments, insert left ureteral stent SURGEON: Terence Graham ANESTHESIA: other (General without intubation) ESTIMATED BLOOD LOSS: 10 PATHOLOGY: other (stone for chemical analysis) Patient was transported to: PACU Patient's condition: stable Implants: 4.8 Tristanian by 22 to 30 cm left ureteral stent Indications: This is a 60-year-old gentleman who was found to have nonobstructing stones in each kidney about 2 years ago. He remained asymptomatic until 3 days ago when he developed gross hematuria. He was evaluated in the emergency room and it was found that his left kidney stone had migrated into the proximal ureter. He was treated conservatively but he developed severe left flank and abdominal pain earlier today. He no longer could be managed as an outpatient, so he was admitted to the hospital with plans for surgical intervention Findings: Impacted left proximal ureteral stone Procedure Description: The patient was brought to the operating room on 07/19/2020. After successful induction of general anesthesia, he was placed in the dorsal lithotomy position. His genitalia was prepped and draped. 2% Xylocaine jelly was instilled into the urethra to act as a local anesthetic. A 21 Tristanian rigid cystoscope was passed through the urethra into the bladder. The urethra and bladder were inspected with the 30 degree lens. The pendulous, bulbous membranous urethra was all appeared normal. The prostatic urethra showed some lateral lobe enlargement but no papillary or nodular lesions. The bladder neck was entered and the bladder mucosa was inspected. The left ureteral orifice was identified and the orifice was cannulated with a 6 Tristanian access catheter. Retrograde film was obtained by injecting Omnipaque through th e access catheter under fluoroscopic guidance. The previously identified left proximal ureteral stone was again visualized on retrograde pyelogram. We then passed a guidewire through the access catheter and removed the catheter. A dual-lumen catheter was passed over the wire and a second wire was positioned. We chose one of the wires as a working wire and the other is a safety wire. We passed a ureteral access sheath over the working wire leaving the safety wire in place. We then passed a flexible ureteroscope through the lumen of the access sheath and advanced the scope up until the stone could be visualized. We were able to treat the stone with a 272 ?m holmium laser fiber. We utilized dusting settings with a rate of 8 and a power of 200. As the stone was broken, it became more mobilized from the wall of the ureter. I was eventually able to grasp the largest remaining stone fragment in a ZeroTip basket and remove the fragment in its entirety. That stone was sent to pathology for chemical analysis. I then passed a 6 Tristanian access catheter back over the safety wire. I did a retrograde pyelogram and no urine extravasation was seen from the ureter. Because of the trauma however, we elected to place a ureteral stent. We chose a 4.8 Tristanian variable length stent and left the safety string attached. The stent was placed such that the proximal end was curled in the renal pelvis and the distal end was curled in the bladder. The safety string was brought out through the patient's urethra and taped onto the dorsum of the penis. He tolerated the procedure well with no complications.
--- NOTE | 2020-07-19 15:37 | NUR.NOTE ---
Nursing Note: 1220 pt transferred from OR to med/surg floor at this time. VSS and pt is comfortable.
[2020-07-19] MEDS: Varenicline 1 MG TAB PO (20:21)
[2020-07-19] MEDS: Mirtazapine 15 MG TAB 45 MG PO (21:37)
[2020-07-19] MEDS: Terazosin 2 MG CAP PO (21:37)
[2020-07-20 03:35] VITALS: BP 129/73; PULSE 79; RESP 17; TEMP 38.2; O2SAT 95
[2020-07-20] MEDS: Normal Saline 1,000 ML 150 ML IV ×2 (03:57→12:01)
[2020-07-20] MEDS: CIPROFLOXACIN 400 MG/200 ML BAG 200 MG IVPB (05:10)
[2020-07-20 05:11] VITALS: TEMP 38.2
[2020-07-20] MEDS: Acetaminophen 500 MG TAB 1000 MG PO (05:11)
[2020-07-20 07:05] VITALS: TEMP 37.3
[2020-07-20 07:23] VITALS: BP 118/70; PULSE 66; RESP 18; TEMP 36.9; O2SAT 94
--- NOTE | 2020-07-20 07:29 | W.PM.PROGNOT ---
Date of Service Date of service: 07/20/20 Time of Service: 07:30 Assessment and Plan Assessment and plan (1) Left ureteral stone: Status: Acute Assessment and plan: He looks good clinically, although the development of a fever postoperatively can be concerning. We had given him a preop dose of gentamicin and he has received a postop dose of ciprofloxacin. We will see what this morning's blood work looks like. As long as the blood work is stable and he remains afebrile this morning, we should be able to discharge him to home with oral antibiotics. He would then need to come into my office later this week to have his stent removed. Subjective Subjective Interval history since last seen: He no longer has flank pain, but he did develop a fever overnight. He had no chills and no real dysuria. He has noticed that the urine remains discolored. He was given a dose of Cipro and acetaminophen overnight and he defervesced. His morning blood work is pending. Exam Narrative Exam Narrative: He looks comfortable. He does not appear septic or toxic. His vital signs are documented elsewhere His abdomen is soft with no guarding or rebound tenderness He is awake and alert Objective Last Vital Signs Temp 36.9 C 07/20/20 07:23 Pulse 66 07/20/20 07:23 Resp 18 07/20/20 07:23 BP 118/70 07/20/20 07:23 Pulse Ox 94 07/20/20 07:23 Laboratory Results - last 24 hr 07/19/20 06:35 COVID-19 Source Nasopharynx SARS-CoV-2 (PCR) Negative Influenza Type A (PCR) Negative Influenza Type B (PCR) Negative RSV (PCR) Negative
[2020-07-20 07:30] VITALS: BP 116/70; PULSE 68; RESP 18; TEMP 37; O2SAT 95
[2020-07-20 07:30] LABS: Abs Immature Grans 0.02 10^3/uL (0.0-0.06); Absolute Basophil Count 0.03 10^3/uL (0.0-0.2); Absolute Monocyte Count 0.77 10^3/uL (0.1-0.8); Absolute Neutrophil Count 5.49 10^3/uL (1.2-6.7); Basophils % 0.4; Eosinophils % 1.2; HCT 37.9 % (40.0-50.0); HGB 12.9 g/dL (13.5-17.5); Immature Grans % 0.2; MCH 31.4 pg (27.0-33.0); MCV 92.2 fL (80-95); MPV 10.9 fL (8.0-11.0); Monocytes % 9.6; Neutrophils % 68.6; Nucleated RBC 0 %; RBC 4.11 10^6/uL (4.36-5.78); RDW 12.1 % (11.8-14.1); RDW-SD 41.4 fL; WBC 8.01 10^3/uL (4.4-10.8)
[2020-07-20 07:53] LABS: ALT 31 U/L (16-63); AST 16 U/L (15-37); Albumin 2.9 g/dL (3.4-5.0); Alkaline Phosphatase 67 U/L (46-116); Anion Gap 9.1 mmol/L (3-11); BUN 11 mg/dL (7-18); Bilirubin, Total 0.4 mg/dL (0.2-1.0); CO2 23.9 mmol/L (21.0-32.0); Calcium 8.1 mg/dL (8.5-10.1); Chloride 108 mmol/L (98-107); Glucose 107 mg/dL (74-106); Potassium 3.6 mmol/L (3.5-5.1); Sodium 141 mmol/L (136-145); Total Protein 5.9 g/dL (6.4-8.2)
[2020-07-20] MEDS: Budesonide/Formoterol 160/4.5 6 GM 60 PUFF INH IH (08:06)
[2020-07-20 08:16] LABS: Platelet Count 142 10^3/uL (130-400)
[2020-07-20 08:17] LABS: Diff Comment PLT Morph Reviewed; RBC Morphology Normal
[2020-07-20] MEDS: Varenicline 1 MG TAB PO (08:30)
[2020-07-20] MEDS: Docusate Sodium 100 MG CAP PO (10:36)
[2020-07-20] MEDS: Milk of Magnesia 30 ML CUP PO (10:36)
[2020-07-20 11:14] VITALS: BP 126/75; PULSE 65; RESP 18; TEMP 36.8; O2SAT 94
--- NOTE | 2020-07-20 12:50 | W.PM.DS.N ---
Date of service: 07/20/20 Time of Service: 12:51 DS: Diagnosis Discharge Diagnosis (1) Left ureteral stone: Status: Acute Discharge Plan Disposition Patient Disposition: HOME Condition: Good Discharge Details Reason For Visit: URETERAL LITHIASIS, LEFT Admit Date/Time: 07/19/20 06:31 Admit Provider: Terence Graham Attending Provider: Terence Graham Primary Care Provider: Calderon Huynh Hospital Course Hospital Course: The patient was admitted and given IV hydration and analgesics. He was taken to the operating room on 07/19/2020 where he underwent ureteroscopic stone manipulation. We did a holmium laser lithotripsy of the stone and extracted the residual stone fragment. We placed a ureteral stent. We kept him hospitalized overnight for continued hydration. He spiked a temperature on the evening of surgery but he defervesced with a dose of antibiotics and Tylenol. His white blood count on postoperative day #1 was back to normal. He remained afebrile on the morning of postoperative day #1, so he is being discharged to home. Home Meds and New Rx's Prescriptions: New ciprofloxacin HCl [Cipro] 500 mg tablet 500 mg PO Q12H Qty: 6 RF: 0 Continued Chantix Continuing Month Box 1 mg tablet 1 mg PO BID Qty: 56 RF: 5 terazosin 2 mg capsule 2 mg PO QHS Qty: 90 RF: 3 fluticasone propion-salmeterol [Advair Diskus] 250-50 mcg/dose blister with device 1 inh inhalation BID Qty: 60 RF: 11 mirtazapine 45 mg tablet 45 mg PO QHS Qty: 30 RF: 11 aspirin [Aspir-81] 81 MG tablet,delayed release (DR/EC) 81 mg PO DAILY Qty: 90 RF: 3 Discharge Instructions Additional Instructions: No need to strain urine Follow-up later this week in my office for stent removal (tell my staff that he has a string on his stent) Follow-up appointment with provider in my office in 4 to 6 weeks with renal ultrasound Activity:: Activity as Tolerated Equipment/Supplies:: No Equipment Needed Diet:: As Tolerated Discharge Orders Discharge Orders: Discharge Order (Routine); Ordered 07/20/20 Ordered By: Terence Graham DS: Summary Time Spent with Patient providing and/or coordinating discharge services: Less than 30 minutes Status at Discharge Functional status at discharge: independent ambulation Overall status at discharge: patient is back to baseline Mental Status: mental status grossly normal Speech and Movement: speech and movement normal Mood: congruent mood Affect: normal affect Exam Narrative Exam Narrative: At the time of discharge, he looks well. He does not appear septic or toxic His vital signs are documented elsewhere His abdomen is soft. There is no CVA tenderness He is awake, alert and oriented. Psych Mental Status: mental status grossly normal Speech and Movement: speech and movement normal Mood: congruent mood Affect: normal affect DS: Data Vitals/I&O Vitals and I&O: Vital Signs Temperature 36.8 C 07/20/20 11:14 Temperature Source Tympanic 07/20/20 11:14 Pulse 65 07/20/20 11:14 Pulse Rhythm Regular 07/20/20 07:34 Respiratory Rate 18 07/20/20 11:14 Respiratory Effort Non-Labored 07/20/20 07:34 Respiratory Depth Normal 07/20/20 07:34 Respiratory Pattern Normal 07/20/20 07:34 Blood Pressure 126/75 07/20/20 11:14 Blood Pressure Position Sitting 07/19/20 05:26 Pulse Oximetry 94 07/20/20 11:14 Oxygen Delivery Method Room Air 07/20/20 11:14 Oxygen Flow Rate 0 07/20/20 11:14 Pain Level 0 07/20/20 12:02 Comment 07/20/20 12:02 Intake & Output 07/19/20 07/20/20 07/20/20 23:59 11:59 23:59 Intake Total 2272 / 3272 2060 / 3060 1000 / 3060 Output Total 1475 / 1475 3050 / 3550 500 / 3550 Balance 797 / 1797 -990 / -490 500 / -490 Weight 91.8 kg Intake: IV 2032 / 3032 1150 / 2150 1000 / 2150 Oral 240 / 240 910 / 910 Output: Urine 1475 / 1475 3050 / 3550 500 / 3550 Other: Urine Color Nunn Dark Randi Nunn Urine Appearance Hematuria Clear Clear Hematuria Urine Odor None Normal Normal Strain Urine Result Negative-No Stones/Gravel Negative-No Stones/Gravel Comment same strained no calculi noted Void x1 in the urinal. No gravel noted. Void x1 in the urinal. No gravel noted. Voiding Methods Urinal Urinal Urinal Data Completed and Pending Labs on day of discharge: Labs from last 24 hours 07/20/20 07/20/20 07/19/20 07:06 07:06 13:59 WBC 8.01 RBC 4.11 L Hgb 12.9 L D Hct 37.9 L MCV 92.2 MCH 31.4 MCHC 34.0 RDW 12.1 Plt Count 142 MPV 10.9 Immature Gran % 0.2 Neutrophils % 68.6 Lymphocytes % 20.0 Monocytes % 9.6 Eosinophils % 1.2 Basophils % 0.4 Nucleated RBC % 0 Absolute Neutrophils 5.49 Absolute Lymphocytes 1.60 Absolute Monocytes 0.77 Absolute Eosinophils 0.10 Absolute Basophils 0.03 RBC Morphology Normal Sodium 141 Potassium 3.6 Chloride 108 H Carbon Dioxide 23.9 Anion Gap 9.1 BUN 11 D Creatinine 1.0 Estimated GFR/1.73 m2 >= 60.00 Glucose 107 H Calcium 8.1 L Total Bilirubin 0.4 AST 16 ALT 31 Alkaline Phosphatase 67 Total Protein 5.9 L Albumin 2.9 L Urine Color Urine Clarity Urine pH Ur Specific [place] Urine Protein Urine Ketones Urine Blood Urine Nitrite Urine Bilirubin Urine Urobilinogen Ur Leukocyte Esterase Urine Glucose Stone Source Pending Stone Comment Pending Kidney Stone Analysis Pending 07/19/20 05:46 WBC RBC Hgb Hct MCV MCH MCHC RDW Plt Count MPV Immature Gran % Neutrophils % Lymphocytes % Monocytes % Eosinophils % Basophils % Nucleated RBC % Absolute Neutrophils Absolute Lymphocytes Absolute Monocytes Absolute Eosinophils Absolute Basophils RBC Morphology Sodium Potassium Chloride Carbon Dioxide Anion Gap BUN Creatinine Estimated GFR/1.73 m2 Glucose Calcium Total Bilirubin AST ALT Alkaline Phosphatase Total Protein Albumin Urine Color Cancelled Urine Clarity Cancelled Urine pH Cancelled Ur Specific [place] Cancelled Urine Protein Cancelled Urine Ketones Cancelled Urine Blood Cancelled Urine Nitrite Cancelled Urine Bilirubin Cancelled Urine Urobilinogen Cancelled Ur Leukocyte Esterase Cancelled Urine Glucose Cancelled Stone Source Stone Comment Kidney Stone Analysis 07/20/20 04:31 Blood Blood Culture - Pending 07/20/20 04:25 Blood Blood Culture - Pending Preliminary micro results at discharge 07/20/20 04:31 Blood Culture - Pending Blood 07/20/20 04:25 Blood Culture - Pending Blood [facility] Medical History Colon polyp COPD (chronic obstructive pulmonary disease) Headache Hyperlipidemia Insomnia Lung nodule Reflux esophagitis Tobacco abuse Surgical History Colonoscopy - IV Sedation (05/03/16) Extraction of cataract 02/17/16; LEFT H/O right inguinal hernia repair (~2014) Dr. Tapia Family History Mother , AGE 67 Heart disease Father , AGE 72 Heart disease Sister Essential hypertension Sister No problems noted. Sister No problems noted. Sister No problems noted. Brother Essential hypertension Brother No problems noted. Brother No problems noted. Brother No problems noted. Brother No problems noted. Daughter No problems noted. Daughter Depression Social History Smoking/Tobacco Use Status: Current every day Tobacco Type: cigarettes Tobacco: How many years used: 20 Quit status: has quit before Smoking risk assessment performed?: Yes Alcohol Intake: never Drug use: Never Substance use type: does not use Caregiver/Support person: No Household members: significant other and other Details: 2 Housing: house Do you need help understanding health information?: Never Pets and animals: Yes Pets and animals: cat(s) Sexually active: No Do you think of yourself as: straight/heterosexual Current gender identity: male What is your relationship status?: living with partner How often do you talk on the phone with friends or family?: decline to answer How often do you get together with friends or relatives?: decline to answer How often do you attend gnosticism or anglican services?: decline to answer Do you belong to any clubs or organized social groups?: decline to answer Panel score (0-1 are the most socially isolated patients): 1 What type of physical activity do you participate in: walking Duration: > 90 minutes/day Frequency: 5-6 times per week Taylor/Shinto: None Special taylor needs: No Seatbelt use: always Helmet use: No 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
--- NOTE | 2020-07-20 16:34 | PDOC.CMDIS ---
- If Service Date Differs Date of service: 07/20/20 Time of Service: 16:34 LACE Index Scoring Tool - Questions: Length of Stay (in days): 1 Acuity (Admit via E.D.?): Yes Comorbidities: Chronic Pulmonary Disease E.D. Visits: 2 - Answers: Total Score: 8 Risk of Readmission: Low Risk Care Management Discharge Reason for Hospitalization: left ureteral stone Discharge Plan: Blair will be discharged home with no new services. He will follow up with his community providers and discharge plan of care. Blair will transport with family via private vehicle. Patient/Family Education Needs: Discharge plan, expectations, limitations, follow up plan, Ask Me Three
[2020-07-23 18:22] LABS: Source: Left Ureter
== END 2020-07-20 14:08 | disposition home or self-care (01) ==
LOC: ER 06:49 → MS 07:03
PROVIDERS: Family Medicine; Admitting Provider Urology; Emergency Provider Student in an Organized Health Care Education/Training Program; PCP Family Medicine; Visit Provider Urology
PROC: (CPT 52356; principal; 2020-07-19 11:45)
DX: N20.1 Calculus of ureter (principal); R31.0 Gross hematuria; J44.9 Chronic obstructive pulmonary disease, unspecified; E78.5 Hyperlipidemia, unspecified; G47.00 Insomnia, unspecified; K21.9 Gastro-esophageal reflux disease without esophagitis; F17.210 Nicotine dependence, cigarettes, uncomplicated
CPT/HCPCS: 52356; 36415; 80053; 87040; 94640; 96361; 96374; 96375; 99232; 99238; 99253; 99285; 74420; 81003; 82365; 85025; 99284; G0378; J0744; J1580; J1885; J2001; J2405; J3490; Q9967

== ENCOUNTER 2020-08-17 01:27 | Outpatient (CLI) | payer BC, SELFPAY ==
--- NOTE | 2020-08-17 06:30 | DI.US_ITS ---
EXAM: US RENAL CLINICAL HISTORY: r/o hydronephrosis after ureteroscopy,CALCULUS OF URETER,N20.1 TECHNIQUE: Ultrasound performed using standard protocol. COMPARISON: US US AAA SCREENING from 05/03/2020 FINDINGS: Renal ultrasounds performed according to the usual protocol. The kidneys are normal in size and shap e. There is no evidence of a renal mass, hydronephrosis, or nephrolithiasis. Ureteral jets are note d in the urinary bladder bilaterally. Urinary bladder shows pre and post void volume measurements 86 cc and 0 cc respectively, bladder wall is unremarkable. IMPRESSION: Negative renal ultrasound. DATA REPOSITORY:
== END 2020-08-17 01:47 ==
PROVIDERS: PCP Family Medicine; Visit Provider Urology
DX: N20.1 Calculus of ureter (principal)
CPT/HCPCS: 76770

== ENCOUNTER 2021-04-27 09:02 | Outpatient (CLI) | payer BC, SELFPAY ==
[2021-04-27 12:47] LABS: HCT 47.6 % (40.0-50.0); HGB 15.7 g/dL (13.5-17.5); MCH 30.7 pg (27.0-33.0); MCV 93.2 fL (80-95); MPV 11.5 fL (8.0-11.0); Platelet Count 174 10^3/uL (130-400); RBC 5.11 10^6/uL (4.36-5.78); RDW 11.9 % (11.8-14.1); WBC 5.14 10^3/uL (4.4-10.8)
[2021-04-27 15:26] LABS: Calculated LDL 121 mg/dL (<100); Cholesterol 180 mg/dL (<200); HDL Cholesterol 35 mg/dL (40-60); Triglyceride 124 mg/dL (<150)
[2021-04-27 15:46] LABS: Hemoglobin A1C 5.2 % (<5.7)
[2021-04-27 22:46] LABS: PSA, Screening 0.4 ng/mL (0.0-4.5)
== END 2021-04-27 09:03 | disposition home or self-care (01) ==
LOC: LOS 09:02
PROVIDERS: PCP Family Medicine; Referring Provider Family Medicine; Visit Provider Family Medicine
DX: E78.5 Hyperlipidemia, unspecified (principal); R53.83 Other fatigue; R73.9 Hyperglycemia, unspecified; Z12.5 Encounter for screening for malignant neoplasm of prostate
CPT/HCPCS: 36415; 80061; 84153; 85027; 83036

== ENCOUNTER 2021-08-03 08:50 | Emergency (ER) | payer OTHER, SELFPAY ==
[2021-08-03 08:54] VITALS: BP 137/86; PULSE 73; RESP 14; TEMP 36.5; O2SAT 96
[2021-08-03] MEDS: Lidocaine 5% Patch 1 PATCH TP (09:13)
--- NOTE | 2021-08-03 09:15 | DI.RAD_ITS ---
Exam(s) XR THORACIC SPINE COMPLETE EXAM: XR THORACIC SPINE COMPLETE CLINICAL HISTORY: pain in mid thoracic spine left. TECHNIQUE: 2D digital imaging was performed of the thoracic spine. Three views were obtained. AP, swimmer's and lateral views were obtained. COMPARISON: CT CHEST WITHOUT CONTRAST from 10/22/[address] CHEST LUNG CANCER SCREEN from 05/11/2021 FINDINGS: BONES: There is no definite fracture or destructive lesion. The vertebral bodies and posterior elemen ts are unremarkable. There is mild anterior wedging of the T7 vertebral body. But no definite fractu re is appreciated. DISKS:Alignment is within normal limits. Interverebral disc spaces are maintained. Mild degenerative changes are seen throughout the thoracic spine. SOFT TISSUE: Visualized lungs are clear. The paraspinal lines are unremarkable. IMPRESSION: No definite acute fracture or subluxation in the thoracic spine. DATA REPOSITORY: RADIATION DOSE DELIVERED:
[2021-08-03] MEDS: Ketorolac 30 MG/ML VIAL IM (09:26)
--- NOTE | 2021-08-03 10:05 | ED.GENADUL_ITS ---
Discharge Plan Disposition Patient Disposition: HOME Condition: Stable Discharge Details Clinical Impression: Acute left-sided thoracic back pain, Paresthesia Primary Care Provider: Calderon Huynh ED Provider: Stewart Montanez Home Meds and New Rx's Prescriptions: Continued mirtazapine 45 mg tablet 45 mg PO QHS Qty: 30 11RF terazosin 2 mg capsule 2 mg PO QHS Qty: 90 3RF aspirin [Aspir-81] 81 MG tablet,delayed release (DR/EC) 81 mg PO DAILY Qty: 90 3RF No Action cyclobenzaprine 10 mg tablet 10 mg PO TID Qty: 30 0RF capsaicin 0.025 % cream 1 applic topical TID Qty: 50 1RF Rx Instructions: do not wash area for at least 30 min after application Discharge Instructions Instructions: Back Pain (ED) Additional Instructions: Please take ibuprofen over the counter. Take 600mg by mouth every 6 hours as needed for pain. Please take acetaminophen (tylenol) - 650mg every 6 hours by mouth as needed for pain. Use lidocaine patches. These are [id number]. Dose according to label. Avoid any activities that worsen pain. Please contact your primary care physician to arrange follow-up. Return to the ER immediately for any worsening or new concerning symptoms. Referrals: Calderon Huynh MD [Primary Care Provider] - Discharge Data Discharge Date/Time-TO BE ENTERED AT DEPARTURE: 08/03/21 11:06 Medical Decision Making 61-year-old male here after back injury yesterday where he experienced a popping sensation in his left upper back mild flexing forward quickly trying to lower a heavy object to the ground. Patient has some mild diminished sensation to light touch left t4-5. Toradol 30mg IM administered and lidocaine patch applied. xray thoracic spine reviewed and interpreted by radiology: FINDINGS: BONES: There is no definite fracture or destructive lesion. The vertebral bodies and posterior elements are unremarkable. There is mild anterior wedging of the T7 vertebral body.? But no definite fracture is appreciated. DISKS:Alignment is within normal limits. Interverebral disc spaces are maintained. Mild degenerative changes are seen throughout the thoracic spine. SOFT TISSUE: Visualized lungs are clear. The paraspinal lines are unremarkable. IMPRESSION: No definite acute fracture or subluxation in the thoracic spine.? Patient was reassessed and did demonstrate improvement in condition. Plan for discharge with outpatient follow-up. Disposition decision was made weighing the risks and benefits of hospitalization versus outpatient treatment, the risk for further decompensation, and the patient's wishes. The patient was stable and requested discharge. Prior to discharge, my usual and customary return precautions were reviewed with the patient - this included follow-up instructions and reason to return to the emergency department if condition worsens, does not improve as expected, or other new concerns arise. HPI General Mode of arrival: ambulatory . Date/Time Provider Initiated Documentation: 08/03/21 09:08 . Limitations to Documentation: no limitations . Information obtained by: patient . HPI Narrative: 61-year-old male presents with chief complaint of back pain. Patient notes he was unloading a cabin cleaner from his truck yesterday evening and lost balance and dropped the object. He felt a pop in his back as he tried to prevent the heavy object from falling. He had pain in his back since the event. Pain is localized to his left upper back. Pain is moderate and worse with certain positions. No associated bowel or bladder dysfunction. No weakness. Patient denies sustaining additional injuries. Related Data Home Medications Medication Instructions Recorded Confirmed aspirin 81 mg tablet,delayed 81 mg PO DAILY #90 tab-cap 04/10/17 08/05/21 release (Aspir-) mirtazapine 45 mg tablet 45 mg PO QHS #30 tab 04/27/21 08/05/21 terazosin 2 mg capsule 2 mg PO QHS #90 cap 04/27/21 08/05/21 capsaicin 0.025 % topical cream 1 applic TOPICAL TID #50 g 08/05/21 08/05/21 cyclobenzaprine 10 mg tablet 10 mg PO TID #30 tab 08/05/21 08/05/21 Previous Rx's Medication Instructions Recorded aspirin 81 mg tablet,delayed 81 mg PO DAILY #90 tab-cap 04/10/17 release (Aspir-) mirtazapine 45 mg tablet 45 mg PO QHS #30 tab 04/27/21 terazosin 2 mg capsule 2 mg PO QHS #90 cap 04/27/21 capsaicin 0.025 % topical cream 1 applic TOPICAL TID #50 g 08/05/21 cyclobenzaprine 10 mg tablet 10 mg PO TID #30 tab 08/05/21 Allergies Allergy/AdvReac Type Severity Reaction Status Date / Time bupropion HCl [From Zyban] Allergy Severe swelling Verified 08/05/21 10:39 Penicillins Allergy Severe Swelling Verified 08/05/21 10:39 General Stated Complaint: Nk/Back Pain ROB: 4 Review of Systems Constitutional Constitutional: Denies fever(s) Cardiovascular Cardiovascular: Denies chest pain Gastrointestinal Gastrointestinal: Denies abdominal pain Genitourinary Genitourinary: Denies urinary incontinence Musculoskeletal Musculoskeletal: Reports as per HPI Neurologic Neurologic: Reports as per HPI PFSH All Active Problems Acute left-sided thoracic back pain (Acute) Paresthesia (Acute) Pinna infection, acute (Acute) Cervical lymphadenopathy (Acute) Mood disorder (Acute) Left ureteral stone (Acute) Kidney stone (Chronic) COPD (chronic obstructive pulmonary disease) (Chronic) Toe pain, left (Acute) Lung nodule (Acute) Tobacco abuse (Acute) Insomnia (Acute) Epididymal cyst (Acute) Bradycardia (Acute) Impacted cerumen of both ears (Acute) History of cataract removal with insertion of prosthetic lens (Acute 02/17/16) History of esophagogastroduodenoscopy (Acute) Status post hernia repair (Acute 06/02/15) BPH (benign prostatic hyperplasia) (Chronic) Bilateral nephrolithiasis (Chronic) Reflux esophagitis (Chronic) Nodule of right lung (Chronic 05/08/17) 04/20/17 RIGHT UPPER LOBE Hyperlipidemia (Chronic) Headache (Acute) Personal history of colonic polyps (Chronic) Medical History Colon polyp Headache Hyperlipidemia Reflux esophagitis Surgical History Colonoscopy - IV Sedation (05/03/16) Extraction of cataract 02/17/16; LEFT H/O right inguinal hernia repair (~2014) Dr. Tapia Family History Mother , AGE 67 Heart disease Father , AGE 72 Heart disease Sister Essential hypertension Sister No problems noted. Sister No problems noted. Sister No problems noted. Brother Essential hypertension Brother No problems noted. Brother No problems noted. Brother No problems noted. Brother No problems noted. Daughter No problems noted. Daughter Depression Social History Smoking/Tobacco Use Status: Current every day Tobacco Type: cigarettes Tobacco: How many years used: 20 Quit status: has quit before Smoking risk assessment performed?: Yes Alcohol Intake: former Drug use: Never Substance use type: does not use Caregiver/Support person: No Do you need help understanding health information?: Never Pets and animals: Yes Pets and animals: cat(s) Sexually active: No Do you think of yourself as: straight/heterosexual Current gender identity: male What is your relationship status?: living with partner Panel score (0-1 are the most socially isolated patients): 1 Taylor/Congregation: None Special taylor needs: No Seatbelt use: always Helmet use: No Drive 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 Do you feel safe at home: Yes Do you feel safe in your relationship?: Yes Exam Const General: cooperative and no acute distress HENMT Head: normocephalic and atraumatic Eyes Conjunctivae: normal conjunctivae Resp Auscultation: clear to auscultation bilaterally, no rales, no rhonchi and no wheezes Cardio Rate: regular rate and not tachycardic Rhythm: regular rhythm GI Palpation: soft and nontender Back/Spine/Pelvis Back: No mass, No erythema and No warmth Cervical Spine: cervical ROM normal, No cervical spinal tenderness and No step off deformity Thoracic/Lumbar Spine: paraspinal tenderness (left upper paraspinal ttp), No thoracic spinal tenderness and No lumbar spinal tenderness Skin General skin exam: no rashes or lesions noted Neuro General: patient alert, patient awake, patient oriented x3 and tone normal Cognition: normal cognition Speech: speech normal Motor: strength 5/5 throughout Sensory Exam: other (Mild paresthesia left T 4-5 to light touch) Extrem General: no edema Course Vital Signs Vital signs: Vital Signs Temperature 36.5 C 08/03/21 08:54 Pulse 73 08/03/21 08:54 Respiratory Rate 14 08/03/21 08:54 Blood Pressure 137/86 08/03/21 08:54 Pulse Oximetry 96 08/03/21 08:54 Temperature 36.5 C 08/03/21 08:54 Temperature Source Temporal Artery Scan 08/03/21 08:54 Pulse 73 08/03/21 08:54 Respiratory Rate 14 08/03/21 08:54 Respiratory Effort Non-Labored 08/03/21 08:57 Blood Pressure 137/86 08/03/21 08:54 Blood Pressure Position Sitting 08/03/21 08:54 Pulse Oximetry 96 08/03/21 08:54 Oxygen Delivery Method Room Air 08/03/21 08:54 Oxygen Flow Rate 0 08/03/21 08:54 Pain Level 5 08/03/21 09:56
[2021-08-03 10:50] VITALS: BP 108/78; PULSE 66; TEMP 36.6; O2SAT 97
--- NOTE | 2021-08-03 10:57 | NUR.NOTE ---
Addendum entered by Winifred Cortes 08/03/21 11:27: Appt for SundayAug 08 Original Note: Nursing Note: Referral faxed to PCP, [facility] for back pain w/paresthias after injury, will need MRI if symptoms persist. Winifred Cortes
== END 2021-08-03 11:06 | disposition home or self-care (01) ==
PROVIDERS: Emergency Provider Student in an Organized Health Care Education/Training Program; PCP Family Medicine
DX: M54.6 Pain in thoracic spine (principal); X50.0XXA Overexertion from strenuous movement or load, initial encounter; R20.2 Paresthesia of skin
CPT/HCPCS: 96372; 99284; 72072; 99283; J1885

== ENCOUNTER 2022-12-02 11:34 | Emergency (ER) | payer BC, SELFPAY ==
--- NOTE | 2022-12-02 11:30 | DI.CT_ITS ---
Exam(s) CT RENAL COLIC WO EXAM: CT RENAL COLIC WO CLINICAL HISTORY: Right flank pain. TECHNIQUE: Imaging Protocol: Axial computed tomography images with coronal and sagittal reformatted images were created and reviewed CONTRAST MATERIAL: Intravenous: none Oral: None COMPARISON: CT CT RENAL COLIC WO from 07/16/2020 FINDINGS: VISUALIZED LUNG BASES: Benign-appearing increased markings noted in the left lower lobe left lung bas e. No pleural effusions.. ABDOMEN: There is no ascites. LIVER: There are no obvious focal hepatic lesions evident of this noninfused study. GALLBLADDER/BILIARY: No obvious gallbladder pathology. CBD is not dilated. PANCREAS: No evidence of pancreatic mass nor dilatation of the pancreatic duct. SPLEEN: Spleen is not enlarged. No obvious intrasplenic lesions. ADRENALS: There are no significant adrenal masses. KIDNEYS:Left kidney unremarkable. There is a nonobstructive calculus towards the lower pole of the r ight kidney which measures approximately 3 mm, slightly increased in size from 07/16/2020. There are no calculi in the renal pelvis nor in the right ureter nor within the urinary bladder. No other kaylin al findings.. ABDOMINAL AORTA: Abdominal aorta is calcified. There is a mild fusiform infrarenal abdominal aortic aneurysm which exhibits maximum diameter 2.9 cm, slightly larger than previous. 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 LYMPH NODES: There is no retroperitoneal nor paraaortic adenopathy. ABDOMINAL WALL: No evidence of significant anterior abdominal wall nor inguinal hernia. GI: There is no evidence of bowel obstruction, free air, nor abscess. PELVIS: LYMPH NODES: There is no intrapelvic nor inguinal adenopathy. GI: No evidence of appendicitis.No evidence of sigmoid diverticulitis. URINARY BLADDER: No calculi nor obvious masses evident REPRODUCTIVE: Unremarkable OSSEOUS: No significant osseous lesions. No fractures. IMPRESSION: 1. There is a 3 millimeter nonobstructive calculus in lower pole the right kidney, slightly larger me asurement but unchanged in location from the previous CT scan of 07/16/2020. No other renal findings and no calculi in the ureters and urinary bladder. 2. Mild abdominal aortic aneurysm 2.9 cm but larger than previous. In addition, there is a 2.5 cm si gnificant aneurysm in the left common iliac artery. RADIATION DOSE DELIVERED: 1,009.61mGy.cm Total DLP DATA REPOSITORY: All CT scans at this facility are submitted to the National Radiology Data Registry (NRDR) Dose Index Registry (DIR) with the [employer] (ACR). RADIATION OPTIMIZATION: All CT scans at this facility use at least one of these dose optimization te chniques: automated exposure control; mA and/or kV adjustment per patient size (includes targeted exa ms where dose is matched to clinical indication); or iterative reconstruction.
[2022-12-02 11:36] VITALS: BP 125/89; PULSE 74; RESP 18; TEMP 36.6; O2SAT 98
--- NOTE | 2022-12-02 11:46 | ED.GENADUL_ITS ---
Discharge Plan Disposition Patient Disposition: Home Discharge Details Clinical Impression: Acute right flank pain, Aneurysm artery, iliac Primary Care Provider: Calderon Huynh ED Provider: Devin Gao Home Meds and New Rx's Prescriptions: Continued mirtazapine 45 mg tablet 45 mg PO QHS Qty: 30 11RF terazosin 2 mg capsule 2 mg PO QHS Qty: 90 3RF aspirin [Aspir-81] 81 MG tablet,delayed release (DR/EC) 81 mg PO DAILY Qty: 90 3RF Discharge Instructions Instructions: Flank Pain (ED) Additional Instructions: At this time no kidney stone or other intra-abdominal pathology was found to explain your right flank pain. This could also be muscular. In either case it is okay to take [id number] pain medication as you normally would for further discomfort. If you have any new or significant worsening of symptoms return immediately to the emergency department for reassessment. On your CT today there was an incidental finding of a iliac aneurysm. At this time it appears to be stable but you will need to follow-up with [facility] vascular surgery team in [place] for further evaluation of this. If you begin having any severe discomfort to your left lower leg, severe left-sided abdominal lower discomfort, or severe tearing abdominal pain please return immediately to the emergency department for reassessment. Referrals: [facility] [Outside] - 1 week (If if you do not hear from [facility] by Sunday please call the office and arrange follow-up appointment) Calderon Huynh MD [Primary Care Provider] - 1 week Discharge Data Discharge Date/Time-TO BE ENTERED AT DEPARTURE: 12/02/22 16:22 Medical Decision Making Patient presenting to the emergency department for chief complaint of right flank pain. Patient reports that yesterday evening while at work just standing he started having severe right flank and kidney pain. Patient states history of renal stones with similar type pain in presentation. He did have to have lithotripsy with his last stone due to its size. He was informed that he had multiple intrarenal stones at that time. Patient denies any blood in the urine, fever chills, abdominal pain bowel or bladder changes. Physical exam does show right CVA tenderness otherwise is unremarkable. Will plan on checking labs and doing CT imaging to evaluate for size of stone given no ultrasound availability. Pending results will give fluids and ketorolac. Reviewed patient's labs and CBC and CMP are unremarkable with no abnormalities noted Reviewed CT imaging and shows no renal calculi or hydronephrosis but does show a 26 mm left iliac artery aneurysm that does not show any signs of rupture. Reassessed patient and patient states pain is significant improved after Toradol, patient has no history of aneurysm in the past is not hypertensive denies any other symptoms. Given new finding of aneurysm will contact vascular surgery for consult at [facility]. Spoke with vascular surgery fellow Julia (?) Whom upon review of imaging and discussing case does feel this is more of a chronic aneurysm which does make sense given that patient has no pain discomfort no peripheral symptoms. She did state that patient should follow up on an outpatient basis for further screening but nothing else needed to be done in the emergency department. Discussed this plan of care with patient who agreed with plan but was informed that he should return for any new or significant worsening of symptoms. After discussion of diagnosis and plan of care patient has no further needs, questions, or concerns and states clear understanding to return to the emergency department for any worsening symptoms. This documentation was generated using [employer] dictation system, please disregard any oddities of phrase or misspellings. Imaging Data Radiologic Study: Attestation: I personally reviewed and interpreted this imaging study as follows: Imaging: CT Scan Radiologist's impression: Exam(s) PROCEDURE INFORMATION: Exam: CT Abdomen And Pelvis Without Contrast Exam date and time: 12/02/2022 12:58 PM Age: 62 years old Clinical indication: Other: Flank pain TECHNIQUE: Imaging protocol: Computed tomography of the abdomen and pelvis without contrast. COMPARISON: CT RENAL COLIC WO 07/16/2020 10:37 PM FINDINGS: Lungs: Bibasilar atelectasis Liver: Normal. No mass. Gallbladder and bile ducts: Normal. No calcified stones. No ductal dilation. Pancreas: Normal. No ductal dilation. Spleen: Normal. No splenomegaly. Adrenal glands: Normal. No mass. Kidneys and ureters: Punctate nonobstructing right renal calculus. No ureteral calculus a Stomach and bowel: Unremarkable. No obstruction. No mucosal thickening. Appendix: No evidence of appendicitis. Intraperitoneal space: Unremarkable. No free air. No significant fluid collection. Vasculature: Unruptured aneurysm left common iliac artery 26 mm. Lymph nodes: Unremarkable. No enlarged lymph nodes. Urinary bladder: Unremarkable as visualized. Reproductive: Unremarkable as visualized. Bones/joints: Unremarkable. No acute fracture. Soft tissues: Unremarkable. IMPRESSION: No acute process Unruptured aneurysm left common iliac artery 26 mm. HPI General Mode of arrival: ambulatory . Date/Time Provider Initiated Documentation: 12/02/22 11:40 . Limitations to Documentation: no limitations . Information obtained by: patient and RN notes reviewed . History of Present Illness 62 year old M presents to the emergency department with the chief complaint of Right flank pain, described as moderate, with intensity rated at 7. Quality is described as aching and sharp, and is localized to the back. Patient reports no radiation. Patient started experiencing this hour(s) (12) and it has been constant. No relieving factors improve symptom(s), No exacerbating factors reported . Patient notes no other symptoms.. Patient did receive the following treatments prior to arrival, none Related Data Home Medications Medication Instructions Recorded Confirmed aspirin 81 mg tablet,delayed 81 mg PO DAILY #90 tab-caps 04/10/17 12/02/22 release (Aspir-) mirtazapine 45 mg tablet 45 mg PO QHS #30 tabs 05/02/22 12/02/22 terazosin 2 mg capsule 2 mg PO QHS #90 caps 05/02/22 12/02/22 Previous Rx's Medication Instructions Recorded aspirin 81 mg tablet,delayed 81 mg PO DAILY #90 tab-caps 04/10/17 release (Aspir-) mirtazapine 45 mg tablet 45 mg PO QHS #30 tabs 05/02/22 terazosin 2 mg capsule 2 mg PO QHS #90 caps 05/02/22 Allergies Allergy/AdvReac Type Severity Reaction Status Date / Time bupropion HCl [From Zyban] Allergy Severe swelling Verified 12/02/22 11:38 Penicillins Allergy Severe Swelling Verified 12/02/22 11:38 General Stated Complaint: FlankPain ROB: 3 Review of Systems Constitutional Constitutional: Denies chills, Denies fever(s) and Denies poor appetite Cardiovascular Cardiovascular: Denies chest pain and Denies dyspnea Respiratory Respiratory: Denies cough and Denies dyspnea Gastrointestinal Gastrointestinal: Reports as per HPI, Denies abdominal pain, Denies melena, Denies change in bowel habits, Denies constipation, Denies diarrhea, Denies nausea and Denies vomiting Genitourinary Genitourinary: Denies hematuria, Denies oliguria, Denies difficulty urinating, Reports flank pain and Denies testicular pain Integumentary/Breasts Skin/Breast: Denies rash PFSH All Active Problems (Updated 12/02/22 @ 15:39 by Devin Gao NP) Acute right flank pain (Acute) Aneurysm artery, iliac (Acute) Screening for colon cancer (Acute) Pinna infection, acute (Acute) Cervical lymphadenopathy (Acute) Mood disorder (Acute) Left ureteral stone (Acute) Kidney stone (Chronic) COPD (chronic obstructive pulmonary disease) (Chronic) Toe pain, left (Acute) Lung nodule (Acute) Tobacco abuse (Acute) Insomnia (Acute) Epididymal cyst (Acute) Bradycardia (Acute) Impacted cerumen of both ears (Acute) History of cataract removal with insertion of prosthetic lens (Acute 02/17/16) History of esophagogastroduodenoscopy (Acute) Status post hernia repair (Acute 06/02/15) BPH (benign prostatic hyperplasia) (Chronic) Bilateral nephrolithiasis (Chronic) Reflux esophagitis (Chronic) Nodule of right lung (Chronic 05/08/17) 04/20/17 RIGHT UPPER LOBE Hyperlipidemia (Chronic) Headache (Acute) Personal history of colonic polyps (Chronic) Medical History Colon polyp Headache Hyperlipidemia Reflux esophagitis Surgical History Colonoscopy - IV Sedation (05/03/16) Extraction of cataract 02/17/16; LEFT H/O right inguinal hernia repair (~2014) Dr. Tapia Family History Mother , AGE 67 Heart disease Father , AGE 72 Heart disease Sister Essential hypertension Sister No problems noted. Sister No problems noted. Sister No problems noted. Brother Essential hypertension Brother No problems noted. Brother No problems noted. Brother No problems noted. Brother No problems noted. Daughter No problems noted. Daughter Depression Social History Smoking/Tobacco Use Status: Current every day Tobacco Type: cigarettes Tobacco: How many years used: 20 Quit status: not considering quitting Counseling given: patient declined Smoking risk assessment performed?: Yes Alcohol Intake: former Drug use: Never Substance use type: does not use Caregiver/Support person: No Household members: significant other Communication Needs: None Do you need help understanding health information?: Never Pets and animals: Yes Pets and animals: cat(s) Sexually active: No Do you think of yourself as: straight/heterosexual Current gender identity: male What is your relationship status?: living with partner How often do you talk on the phone with friends or family?: decline to answer How often do you get together with friends or relatives?: decline to answer How often do you attend confucianism or islam services?: decline to answer Do you belong to any clubs or organized social groups?: decline to answer Panel score (0-1 are the most socially isolated patients): 1 What type of physical activity do you participate in: none Taylor/Jew: None Special taylor needs: No Seatbelt use: always Helmet use: No Drive intox or ride w/intox motor vehicle escort driver: No Do you feel safe at home: Yes Do you feel safe in your relationship?: Yes Exam Const General: cooperative Orientation: alert, awake and oriented x3 Resp Effort & Inspection: normal respiratory effort and able to speak in complete sentences Auscultation: clear to auscultation bilaterally Cardio Rate: regular rate Rhythm: regular rhythm Heart Sounds: S1 normal and S2 normal GI Palpation: soft, no hepatosplenomegaly, not firm, no guarding, no masses, no pulsatile masses, not rigid, no splenomegaly and nontender Auscultation: normal bowel sounds General: CVA tenderness on the right Back/Spine/Pelvis Back: no CVA tenderness Neuro General: patient alert, patient awake, patient oriented x3, gait normal and moves all extremities Course Vital Signs Vital signs: Vital Signs Temperature 36.6 C 12/02/22 11:36 Pulse 74 12/02/22 11:36 Respiratory Rate 18 12/02/22 11:36 Blood Pressure 125/89 12/02/22 11:36 Pulse Oximetry 98 12/02/22 11:36 Temperature 36.6 C 12/02/22 11:36 Temperature Source Oral 12/02/22 11:36 Pulse 74 12/02/22 11:36 Respiratory Rate 18 12/02/22 11:36 Respiratory Effort Normal, Non-Labored 12/02/22 11:38 Blood Pressure 125/89 12/02/22 11:36 Pulse Oximetry 98 12/02/22 11:36 Oxygen Delivery Method Room Air 12/02/22 11:36 Oxygen Flow Rate 0 12/02/22 11:36
[2022-12-02] MEDS: Ketorolac 15 MG/ML VIAL IVP (11:59)
[2022-12-02] MEDS: Normal Saline 1,000 ML 1000 ML IV (12:00)
--- NOTE | 2022-12-02 12:02 | NUR.NOTE ---
Nursing Note: Pt provided with anticipitory guidance for care. PIV established without issue and meds infusing. Call light within reach and blanket offered for comfort. Pt thanked this nurse for care.
[2022-12-02 12:06] LABS: Abs Immature Grans 0.01 10^3/uL (0.0-0.06); Absolute Basophil Count 0.05 10^3/uL (0.0-0.2); Absolute Eosinophil Count 0.12 10^3/uL (0.0-0.7); Absolute Lymphocyte Count 1.34 10^3/uL (1.2-3.4); Absolute Monocyte Count 0.45 10^3/uL (0.1-0.8); Absolute Neutrophil Count 2.84 10^3/uL (1.2-6.7); Eosinophils % 2.5; HCT 46.7 % (40.0-50.0); HGB 16.4 g/dL (13.5-17.5); Immature Grans % 0.2; Lymphocytes % 27.9; MCH 31.7 pg (27.0-33.0); MCHC 35.1 % (32.0-36.0); MCV 90 fL (80-95); MPV 10.7 fL (8.0-11.0); Monocytes % 9.4; Platelet Count 163 10^3/uL (130-400); RBC 5.17 10^6/uL (4.36-5.78); RDW 11.9 % (11.8-14.1); RDW-SD 39.8 fL; WBC 4.81 10^3/uL (4.4-10.8)
[2022-12-02 12:18] LABS: ALT 20 U/L (16-63); AST 16 U/L (15-37); Albumin 3.9 g/dL (3.4-5.0); Alkaline Phosphatase 92 U/L (46-116); Anion Gap 8.9 mmol/L (3-11); BUN 9 mg/dL (7-18); Bilirubin, Total 0.5 mg/dL (0.2-1.0); CO2 27.1 mmol/L (21.0-32.0); CREATININE 0.9 mg/dL (0.70-1.30); Calcium 8.8 mg/dL (8.5-10.1); Chloride 106 mmol/L (98-107); Estimated GFR 95.97 (mL/min/1.73m2); Glucose 94 mg/dL (74-106); Potassium 4.6 mmol/L (3.5-5.1); Sodium 142 mmol/L (136-145); Total Protein 7.7 g/dL (6.4-8.2)
--- NOTE | 2022-12-02 13:20 | NUR.NOTE ---
Nursing Note: Pt and pt's SO updated. Pt denies pain at this time and declined blanket. Call light within reach.
--- NOTE | 2022-12-02 14:08 | DI.VRAD_ITS ---
PROCEDURE INFORMATION: Exam: CT Abdomen And Pelvis Without Contrast Exam date and time: 12/02/2022 12:58 PM Age: 62 years old Clinical indication: Other: Flank pain TECHNIQUE: Imaging protocol: Computed tomography of the abdomen and pelvis without contrast. COMPARISON: CT RENAL COLIC WO 07/16/2020 10:37 PM FINDINGS: Lungs: Bibasilar atelectasis Liver: Normal. No mass. Gallbladder and bile ducts: Normal. No calcified stones. No ductal dilation. Pancreas: Normal. No ductal dilation. Spleen: Normal. No splenomegaly. Adrenal glands: Normal. No mass. Kidneys and ureters: Punctate nonobstructing right renal calculus. No ureteral calculus a Stomach and bowel: Unremarkable. No obstruction. No mucosal thickening. Appendix: No evidence of appendicitis. Intraperitoneal space: Unremarkable. No free air. No significant fluid collection. Vasculature: Unruptured aneurysm left common iliac artery 26 mm. Lymph nodes: Unremarkable. No enlarged lymph nodes. Urinary bladder: Unremarkable as visualized. Reproductive: Unremarkable as visualized. Bones/joints: Unremarkable. No acute fracture. Soft tissues: Unremarkable. IMPRESSION: No acute process Unruptured aneurysm left common iliac artery 26 mm. Dictated and Authenticated by: Hosea England MD. Ordering:RAQUEL Beltran MD
[2022-12-02 15:05] VITALS: BP 148/100; PULSE 58; RESP 18
--- NOTE | 2022-12-02 15:56 | NUR.NOTE ---
Addendum entered by Winifred Cortes 12/02/22 16:31: Referral faxed to [facility] for [facility] Vascular Surgery/ iliac aneurysm/appt at their discretion. Original Note: Nursing Note: Referral faxed to PCP for right flank pain to be seen in 1 week.
[2022-12-02 16:17] VITALS: BP 131/94; PULSE 62; RESP 18; O2SAT 97
== END 2022-12-02 16:22 | disposition home or self-care (01) ==
PROVIDERS: Emergency Provider Nurse Practitioner Family; PCP Family Medicine
DX: I72.3 Aneurysm of iliac artery (principal); R10.9 Unspecified abdominal pain
CPT/HCPCS: 80053; 96361; 96374; 99284; 74176; 85025; J1885

== ENCOUNTER 2023-01-26 10:06 | Day surgery (SDC) | payer BC, SELFPAY ==
--- NOTE | 2023-01-25 22:36 | W.COLOREPORT ---
Date of service: 01/26/23 Time of Service: 13:00 Colonoscopy Report Date of procedure: 01/26/23 Pre-op diagnosis general: adenomatous polyps Post-op diagnosis procedure note: other (polyps) Surgeon: Danyelle Vargas Anesthesia Type: General:No Airway Estimated blood loss (mL): 1 Pathology: other Complications: None Disposition: same day Prep: Miralax/Dulcolax Retraction Time: 12 Procedure Description: After informed consent was obtained the patient was taken to the procedure room and placed in a left decubitous position. Monitors were applied and a time out was done. The patients name, date of , procedure, allergies to medications and metal in their body was reviewed. The patient was then sedated. Once sedated and comfortable a rectal exam was done. External exam was normal. Internal exam revealed a normal sphincter tone and no palpable masses. The prostate normal. The scope was then introduced and retrofelexed. No internal hemorrhoids were identified. The scope was then advanced to the cecum without difficulty. The TI and appendiceal orifice were identified. The prep was BBPS 3 in all segments for a total of 9. The scope was then slowly retracted over 12 minutes back into the rectum. He had two 5 mm flat polyps at 20 cm that are removed with a cold biting forcep. He had a flat 5 mm polyp at 50 cm that is removed with a cold biting forcep. All specimen is retrieved and no bleeding is noted. No diverticula or AVMs are visualized today. The mucosa is pink and healthy with a normal vascular pattern the scope was removed and the patient was woken up and taken back to Same day surgery in stable condition. The patient tolerated the procedure well and there were no immediate complications. Follow up: The patient should follow up in ~7 years, path pd, unless they develop changes in bowel habits or other new gastrointestinal complaints.
--- NOTE | 2023-01-25 22:38 | PDOC.DSDIS_ITS ---
Date of service: 01/26/23 Time of Service: 14:14 Discharge Plan Disposition Patient Disposition: Home Condition: Good Discharge Details Reason For Visit: crc screening Attending Provider: Danyelle Vargas Primary Care Provider: Calderon Huynh Home Meds and New Rx's Prescriptions: Continued mirtazapine 45 mg tablet 45 mg PO QHS Qty: 30 11RF terazosin 2 mg capsule 2 mg PO QHS Qty: 90 3RF polyethylene glycol 3350 17 gram/dose powder 238 g PO ONCE Qty: 238 0RF Rx Instructions: take per colonoscopy instructions Linzess 72 mcg capsule 72 mcg PO DAILY Qty: 30 3RF Patient Comments: new medication, haven't started yet nicotine [Nicoderm CQ] 14 mg/24 hr patch 24 hour 1 patch transdermal DAILY Qty: 14 0RF aspirin [Aspir-81] 81 MG tablet,delayed release (DR/EC) 81 mg PO DAILY Qty: 90 3RF Discontinued bisacodyl [Dulcolax (bisacodyl)] 5 mg tablet,delayed release (DR/EC) 5 mg PO ONCE Qty: 8 0RF Rx Instructions: take per colonoscopy instructions Discharge Instructions Instructions: Aspiration Pneumonia (DC) Additional Instructions: DSU Colonoscopy Post- Op Instructions Instructions for Everyone who is given Anesthesia: For your safety, please do the following for the next twenty-four (24) hours: *Do Not operate a motor vehicle (car, truck, motorcycle, etc.) *Do Not drink alcoholic beverages or use any recreational drugs for the first 24 hours or while taking pain medications. The medications in your body may have a reaction that can be dangerous. *Do Not make any important decisions or sign any important papers. Findings: -polyps (small) Follow up: -My office will send a letter in 2 to 3 weeks time with the results of the pathology and when we want you to repeat the colonoscopy. -You may have a sore throat for the next 1 to 2 days. Gargle with salt water 4- 5 times a day as needed for sore throat.- 1. No lifting over 20 pounds or strenuous activity for the first 24 hours after your procedure. After 24 hours there are no restrictions on your activity but you may feel fatigued for a few days. 2. After you arrive home you may have a light meal and return to your normal diet as you can tolerate it without feeling sick to your stomach. 3. You may have a bloated, gaseous feeling in your belly (abdomen) after a colonoscopy. Passing gas and belching will help. Walking or lying down on your left side with your knees flexed may relieve the discomfort. Call the office at [phone] (Office) or [phone] (Hospital) right away if you notice any of the following: a.Vomiting of blood or ?coffee ground stools?. b.Rectal bleeding 1Tbsp, blood clots or continuous bleeding. c.Severe belly (abdominal) pain. d.A hard distended belly (abdomen) and an inability to pass gas. 4. Please don?t expect to have a normal BM (bowel movement) for 2-3 days after your procedure. 5. If there are questions regarding the findings of your procedure, please contact your doctor 6. If you are unable to contact your doctor with a problem, contact the hospital at [phone]. 7. Continue all your regular medications unless directed otherwise. I understand the above instructions and have no questions. Signature of Patient or Adult Escort Name of Responsible Adult Escort Signature of Nurse Date/Time Stand Alone Forms: Anesthesia Discharge Inst., Press Ganey (DSU) Activity:: see above Diet:: see above Discharge Orders Discharge Orders: Discharge Order (Routine); Ordered 01/26/23 Ordered By: Danyelle Vargas DS: Diagnosis Discharge Diagnosis (1) Chronic idiopathic constipation: Status: Acute (2) Adenomatous polyps: Status: Acute Asessment and Plan: Speaking he has had 3 and 1. It is some in his groin the patient is seen and examined after their colonoscopy.? The patient has been able to pass gas.? They are not having abdominal pain.? They have been able to tolerate liquids and a snack.? They do not have any nausea or vomiting.? They are not having any chest pain or shortness of breath.??? They are not having any rectal bleeding. Their vital signs have been stable-see nursing notes. We discussed findings during their colonoscopy, and any biopsies that were done/polyps that were removed. The patient will be sent a letter with any biopsy results, and when to repeat the colonoscopy.-see discharge instructions. Patient was given explicit instructions to follow-up regarding colonoscopy-refer to discharge instructions.? We reviewed resumption of medications. Patient verbalized understanding and discharged in stable and satisfactory condition- See nursing notes. (3) Atherosclerosis of aorta: Status: Acute (4) TIA (transient ischemic attack): Status: Acute (5) GERD (gastroesophageal reflux disease): Status: Chronic (6) Aneurysm: Status: Acute (7) Right sided abdominal pain: Status: Acute (8) Screening for colon cancer: Status: Acute (9) COPD (chronic obstructive pulmonary disease): Status: Chronic (10) Colon polyp: (11) Hyperlipidemia: (12) Reflux esophagitis: Anemia profile Hgb 16.4 g/dL (13.5-17.5) 12/02/22 Hct 46.7 % (40.0-50.0) 12/02/22 MCV 90 fL (80-95) 12/02/22 RDW 11.9 % (11.8-14.1) 12/02/22 Basic Metabolic Sodium 142 mmol/L (136-145) 12/02/22 Potassium 4.6 mmol/L (3.5-5.1) 12/02/22 Chloride 106 mmol/L (98-107) 12/02/22 Carbon Dioxide 27.1 mmol/L (21.0-32.0) 12/02/22 BUN 9 mg/dL (7-18) 12/02/22 Creatinine 0.9 mg/dL (0.70-1.30) 12/02/22 Estimated GFR/1.73 m2 >= 60.00 (mL/min/1.73m2) 07/20/20 Glucose 94 mg/dL (74-106) 12/02/22 CBC White Blood Count 4.81 10^3/uL (4.4-10.8) 12/02/22 Red Blood Count 5.17 10^6/uL (4.36-5.78) 12/02/22 Hemoglobin 16.4 g/dL (13.5-17.5) 12/02/22 Hematocrit 46.7 % (40.0-50.0) 12/02/22 Mean Corpuscular Volume 90 fL (80-95) 12/02/22 Mean Corpuscular Hemoglobin 31.7 pg (27.0-33.0) 12/02/22 Mean Corpuscular Hemoglobin Concent 35.1 % (32.0-36.0) 11/16 01/07 Red Cell Distribution Width 11.9 % (11.8-14.1) 12/02/22 Platelet Count 163 10^3/uL (130-400) 12/02/22 Mean Platelet Volume 10.7 fL (8.0-11.0) 12/02/22 Neutrophils % 59.0 12/02/22 Lymphocytes % 27.9 12/02/22 Monocytes % 9.4 12/02/22 Eosinophils % 2.5 12/02/22 Basophils % 1.0 12/02/22 Immature Granulocytes % 0.2 12/02/22 Comprehensive Metabolic Panel Sodium 142 mmol/L (136-145) 12/02/22 11:50 Potassium 4.6 mmol/L (3.5-5.1) 12/02/22 11:50 Chloride 106 mmol/L (98-107) 12/02/22 11:50 Carbon Dioxide 27.1 mmol/L (21.0-32.0) 12/02/22 11:50 BUN 9 mg/dL (7-18) 12/02/22 11:50 Creatinine 0.9 mg/dL (0.70-1.30) 12/02/22 11:50 Estimated GFR/1.73 m2 >= 60.00 (mL/min/1.73m2) 07/20/20 07:06 Glucose 94 mg/dL (74-106) 12/02/22 11:50 Calcium 8.8 mg/dL (8.5-10.1) 12/02/22 11:50 Conjugated Bilirubin 0.10 mg/dL (0.00-0.20) 08/01/18 12:25 Total Bilirubin 0.5 mg/dL (0.2-1.0) 12/02/22 11:50 ALT 20 U/L (16-63) 12/02/22 11:50 AST 16 U/L (15-37) 12/02/22 11:50 Alkaline Phosphatase 92 U/L (46-116) 12/02/22 11:50 Total Protein 7.7 g/dL (6.4-8.2) 12/02/22 11:50 Albumin 3.9 g/dL (3.4-5.0) 12/02/22 11:50 Diabetes results Hemoglobin A1c 5.2 % (<5.7) 04/27/21 Glucose 94 mg/dL (74-106) 12/02/22 Total Cholesterol 180 mg/dL (<200) 04/27/21 LDL Cholesterol, Calc 121 mg/dL (<100) H 04/27/21 LDL Cholesterol Direct 114 mg/dL (<100) 02/02/16 HDL Cholesterol 35 mg/dL (40-60) L 04/27/21 Triglycerides 124 mg/dL (<150) 04/27/21 BUN 9 mg/dL (7-18) 12/02/22 Creatinine 0.9 mg/dL (0.70-1.30) 12/02/22 Estimated GFR/1.73 m2 >= 60.00 (mL/min/1.73m2) 07/20/20 Est GFR (CKD-EPI 2020) 95.97 (mL/min/1.73m2) 12/02/22 Sodium 142 mmol/L (136-145) 12/02/22 Potassium 4.6 mmol/L (3.5-5.1) 12/02/22 Chloride 106 mmol/L (98-107) 12/02/22 Carbon Dioxide 27.1 mmol/L (21.0-32.0) 12/02/22 Calcium 8.8 mg/dL (8.5-10.1) 12/02/22 AST 16 U/L (15-37) 12/02/22 ALT 20 U/L (16-63) 12/02/22 Total Protein 7.7 g/dL (6.4-8.2) 12/02/22 Albumin 3.9 g/dL (3.4-5.0) 12/02/22 TSH 1.60 uIU/mL (0.36-3.74) 04/10/17 Stool tests (SJP) No Data to Display Thyroid results Thyroid Dysfunction Results: TSH 1.60 uIU/mL (0.36-3.74) 04/10/17
[2023-01-26 11:14] VITALS: BP 111/79; PULSE 73; RESP 18; TEMP 36.6; O2SAT 94
[2023-01-26] MEDS: Lactated Ringers 1,000 ML 80 ML IV (11:29)
--- NOTE | 2023-01-26 12:25 | W.ANESPRE ---
General Info Date of Service Date Performed: 01/26/23 Height: 6 ft 3 in Weight: 81.7 kg Body Mass Index (BMI): 22.5 Surgical Procedure: Operation Date: 01/26/23 12:05 Proposed Procedure Side Surgeon alex Vargas, Meds Allergies and Home Medications Allergies Allergy/AdvReac Type Severity Reaction Status Date / Time bupropion HCl [From Zyban] Allergy Severe swelling, Verified 01/26/23 11:21 throat-diffuse Penicillins Allergy Severe Swelling , Verified 01/26/23 11:21 throat diffuse Home Medication Medication Instructions Recorded aspirin 81 mg tablet,delayed 81 mg PO DAILY #90 tab-caps 04/10/17 release (Aspir-) mirtazapine 45 mg tablet 45 mg PO QHS #30 tabs 05/02/22 terazosin 2 mg capsule 2 mg PO QHS #90 caps 05/02/22 nicotine 14 mg/24 hr daily 1 patch transdermal DAILY #14 ea 12/05/22 transdermal patch (Nicoderm CQ) linaclotide 72 mcg capsule 72 mcg PO DAILY #30 caps 01/22/23 (Linzess) polyethylene glycol 3350 17 238 g PO ONCE colonoscopy prep 01/22/23 gram/dose oral powder #238 grams Current Visit Medications: Current Medications Generic Name Dose Route Start Last Admin Trade Name Freq PRN Reason Stop Dose Admin Hyoscyamine Sulfate 0.125 mg 01/26/23 07:44 Hyoscyamine 0.125 Mg Sl/Oral/Chew SL 02/25/23 07:43 DIRECTED PRN Ringer's Solution 1,000 mls @ 80 mls/hr 01/26/23 06:00 01/26/23 11:29 IV 02/24/23 23:59 80 mls/hr INFUSION ADAN Administration IV Miscellaneous Supplies 1 each 01/26/23 06:00 Iv Access IV 02/24/23 23:59 DIRECTED ADAN Ondansetron HCl 4 mg 01/26/23 07:44 Ondansetron 4 Mg/2 Ml Vial IVP 02/25/23 07:43 Q4H PRN PRN Nausea / Vomiting Sodium Chloride 0 ml 01/26/23 06:00 Normal Saline Flush 10 Ml Syr IV 02/24/23 23:59 PRN PRN Sodium Chloride 0 ml 01/26/23 06:00 Normal Saline 10 Ml Vial IJ 02/24/23 23:59 DIRECTED PRN Sterile Water 0 ml 01/26/23 06:00 Water,Injection,Sterile 10 Ml Vial IJ 02/24/23 23:59 DIRECTED PRN PFSH Active Problems Active Problems: Problem Status Onset Code Chronic idiopathic constipation K59.04 Adenomatous polyps D36.9 Atherosclerosis of aorta I70.0 TIA (transient ischemic attack) G45.9 GERD (gastroesophageal reflux disease) K21.9 Depression F32.A Right sided abdominal pain R10.9 Aneurysm I72.9 Screening for colon cancer Z12.11 Pinna infection, acute H60.399 Cervical lymphadenopathy R59.0 Mood disorder F39 Left ureteral stone N20.1 Kidney stone N20.0 COPD (chronic obstructive pulmonary disease) J44.9 Toe pain, left M79.675 Lung nodule R91.1 Tobacco abuse Z72.0 Insomnia G47.00 Epididymal cyst N50.3 Bradycardia R00.1 Impacted cerumen of both ears H61.23 History of cataract removal with insertion of prosthetic lens 02/17/16 Z98.49, Z96.1 History of esophagogastroduodenoscopy Z98.890 Status post hernia repair 06/02/15 Z98.890, Z87.19 BPH (benign prostatic hyperplasia) N40.0 Bilateral nephrolithiasis N20.0 Tubular adenoma of colon 05/03/16 D12.6 Reflux esophagitis K21.0 Nodule of right lung 05/08/17 R91.1 Hyperlipidemia E78.5 Headache R51 Personal history of colonic polyps Z86.010 Medical History Medical History Colon polyp Headache Hyperlipidemia Reflux esophagitis Surgical History Surgical History Colonoscopy - IV Sedation (05/03/16) Extraction of cataract 02/17/16; LEFT H/O right inguinal hernia repair (~2014) Dr. Tapia Tobacco Smoking/Tobacco Use Status: Current every day Tobacco Type: cigarettes Passive smoking exposure: Yes Counseling given: patient declined Alcohol Alcohol Intake: former Substance Use Substance use: Never Substance use type: does not use Vital Signs and Lab Results Vital Signs Most Recent Vital Signs in EMR: Most Recent Vital Signs Temp Pulse Resp BP Pulse Ox 36.6 C 73 18 111/79 94 01/26/23 11:14 01/26/23 11:14 01/26/23 11:14 01/26/23 11:14 01/26/23 11:14 Lab Results Blood Type / Crossmatch: No Data to Display Complete Blood Count: No Data to Display Complete Metabolic Panel: No Data to Display Liver Function Panel: No Data to Display Coagulation Panel: No Data to Display Cardiac Panel: No Data to Display Arterial Blood Gas: No Data to Display Venous Blood Gas: No Data to Display Pancreas Panel: No Data to Display Thyroid Panel: No Data to Display Infectious Disease: No Data to Display Blood Cultures: No Data to Display Toxicology Panel: No Data to Display Anesthesia Assessment and Plan Anesthesia History Personal History: No History of Anesthesia Complications Family History: No Family History of Anesthesia Complications Exercise Tolerance Exercise Tolerance: Metabolic Equivalents>4 Pertinent Negatives Pertinent Negatives: No Symptoms of GERD Cardiac & Pulmonary Exam Cardiac Exam: Normal S1/S2 Heart Sounds Pulmonary Exam: Clear Bilateral Breath Sounds Implantable Cardiac Device Does patient have a Pacemaker or an ICD?: No Airway Exam Known Difficult Airway: No Mallampati Class: 2 Mouth Opening: Normal (> 3cm) Thyromental Distance: Greater than 3 cm Neck Range of Motion: Full ROM Neck Circumference: Normal Teeth Condition: Normal Dentition ASA Classification ASA Score: ASA 3 Emergency Case?: No NPO Status NPO Status: NPO Clears >2 hours, Solids >8 hours Anesthesia Plan Resuscitation Status: Full Code Anesthesia Technique: General Anesthesia Airway Planned: Natural Airway Monitors Used: Standard Monitors Preoperative Comments:: Pt denies TIA but states had an asymptomatic CVA 20 years ago.
[2023-01-26 12:29] VITALS: BMI 22.5
--- NOTE | 2023-01-26 12:45 | BOWEL_PTH ---
PATIENT: Blair Taveras LOC: [facility] U#:[id number] AGE/SX: 62/M ROOM: RE01/26/[address]: Danyelle Vargas : 1960 BED: DIS: 01/26/2023 SPEC #: [id number] RECD: 01/26/23 13:29 STATUS: LOW RE #: [id number] RIZWAN: 01/26/23 12:[address]: Danyelle Vargas DEPT: Surgical Specimen RECD BY: Krista Caldwell ENTERED: 01/26/23 13:31 SP TYPE: Bowel OTHR DR: Calderon Huynh MD Tissues: 1 - BIOPSY BOWEL 2 - BIOPSY BOWEL Procedures: GROSS AND MICRO LEVEL 4 Comments: [id number]
[2023-01-26 13:07] VITALS: BP 91/71; PULSE 63; RESP 18; TEMP 36.5; O2SAT 94
[2023-01-26 13:39] VITALS: BP 112/86; PULSE 62; RESP 16; TEMP 36.5; O2SAT 95
--- NOTE | 2023-01-26 14:01 | W.ANESPOSTOP ---
Postoperative Evaluation Date, Time and Location Date Performed: 01/26/23 Time Performed: 14:01 Patient Location: Day Surgery Unit Vital Signs Most Recent Imported Vital Signs: Most Recent Vital Signs Temp Pulse Resp BP Pulse Ox 36.5 C 62 16 112/86 95 01/26/23 13:39 01/26/23 13:39 01/26/23 13:39 01/26/23 13:39 01/26/23 13:39 Pain Score Most Recent Pain Score: Most Recent Pain Score Pain Level 3 01/26/23 13:39 Assessment Mental Status: Awake (Alert & Oriented to Patient Baseline) Airway and Respiratory Function: Patent airway with normal (patient baseline) respiratory exam Cardiovascular Function: Hemodynamically Stable Hydration Status: Adequately Hydrated Nausea & Vomiting: No Nausea or Vomiting Pain: Pain is tolerable per patient (Right abdomen) Peripheral Nerve Block: Patient did not receive a nerve block Postoperative Comments:: Advised on possibility of aspiration event while under anesthesia. He and understand what to watch for and will be given written instructions as well. He is having some abdominal discomfort and I asked for him not to be discharged until surgeon sees him to assess.
== END 2023-01-26 14:40 | disposition home or self-care (01) ==
PROVIDERS: PCP Family Medicine; Visit Provider Surgery
PROC: 0DJD8ZZ Inspection of Lower Intestinal Tract, Via Natural or Artificial Opening Endoscopic (ICD-10-PCS; CPT 45378; principal; 2023-01-26 12:00)
DX: Z12.11 Encounter for screening for malignant neoplasm of colon; K63.5 Polyp of colon; Z86.010 Personal history of colon polyps; K63.89 Other specified diseases of intestine
CPT/HCPCS: 45380; 88305

== ENCOUNTER 2023-05-25 01:37 | Outpatient (CLI) | payer BC, SELFPAY ==
[2023-05-25 12:43] LABS: Calculated LDL 121 mg/dL (<100); Cholesterol 180 mg/dL (<200); HDL Cholesterol 38 mg/dL (40-60); Triglyceride 105 mg/dL (<150)
[2023-05-25 20:05] LABS: PSA, Screening 0.4 ng/mL (<=4.5)
== END 2023-05-25 01:38 | disposition home or self-care (01) ==
LOC: LOS 01:39
PROVIDERS: PCP Family Medicine; Visit Provider Family Medicine
DX: E78.5 Hyperlipidemia, unspecified (principal); Z12.5 Encounter for screening for malignant neoplasm of prostate
CPT/HCPCS: 36415; 80061; 84153

== ENCOUNTER → 2023-12-25 01:10 | Outpatient (CLI) | payer BC, SELFPAY ==
--- NOTE | 2023-12-25 09:17 | DI.RAD_ITS ---
Exam(s) XR CHEST 2V PA LATERAL EXAM: XR CHEST 2V PA LATERAL CLINICAL HISTORY: reassess RLL infiltrate seen on CT,R91.8 TECHNIQUE: 2D digital imaging was performed. Two views. COMPARISON: CR XR THORACIC SPINE COMPLETE from 08/03/[address] CHEST LUNG CANCER SCREEN from 05/18/[address] CHEST LUNG CANCER SCREEN from 06/05/2023 FINDINGS: HEART: Normal size. Aorta: Not dilated. PULMONARY VASCULATURE: Normal. MEDIASTINUM: Unremarkable. LUNGS: Emphysematous changes and fibrotic changes. Faint increased density persists in the posterior right lower lobe. PLEURAL SPACE: No pleural effusion or pneumothorax. BONE:Unremarkable for age. SOFT TISSUES: Unremarkable. IMPRESSION: Vein increased density does persist in the posterior right lower lobe, consistent with findings on pr ior chest CT. Direct comparison difficult due to differences in sensitivity between the modalities. Consider follow-up chest CT. DATA REPOSITORY: RADIATION DOSE DELIVERED:
== END ==
PROVIDERS: PCP Family Medicine; Visit Provider Family Medicine
DX: R91.8 Other nonspecific abnormal finding of lung field (principal)
CPT/HCPCS: 71046

== ENCOUNTER 2024-01-21 03:19 | Outpatient (CLI) | payer BC, SELFPAY ==
[2024-01-21 13:05] LABS: Calculated LDL 121 mg/dL (<100); Cholesterol 179 mg/dL (<200); HDL Cholesterol 39 mg/dL (40-60); Triglyceride 96 mg/dL (<150)
== END 2024-01-21 03:20 | disposition home or self-care (01) ==
PROVIDERS: PCP Family Medicine; Visit Provider Surgery Vascular Surgery
DX: I70.229 Atherosclerosis of native arteries of extremities with rest pain, unspecified extremity (principal); I72.3 Aneurysm of iliac artery
CPT/HCPCS: 36415; 80061

== ENCOUNTER 2024-03-23 17:22 | Inpatient (IN) | payer BC, SELFPAY ==
[2024-03-23] VITALS (91 sets, daily range): BP systolic 104–141; BP diastolic 67–107; PULSE 57–99; RESP 5–22; TEMP 36.9–37; O2SAT 92–97
--- NOTE | 2024-03-23 17:15 | RT.EKG_ITS ---
APPROVED REPORT Exam: Resting ECG Reason for Exam: chest pain Patient Location: E HR:96 bpm ECG Measurements Heart Rate 96 AXIS ID 158 P 74 QRSd 89 QRS -47 QT 349 T 76 QTc 442 Conclusion Sinus rhythm...normal P axis, V-rate 60- 99 Left anterior fascicular block...axis(240,-40), init forces inf Anterior infarct, old...Q >40mS, abnormal ST-T, V2-V5 I have reviewed and interpreted ECG and agree with software generated interpretation. Abnormal Electrocardiogram
[2024-03-23] MEDS: Aspirin 81 MG CHEW 324 MG CH (18:05)
[2024-03-23 18:09] LABS: Abs Immature Grans 0.01 10^3/uL (0.0-0.06); Absolute Basophil Count 0.05 10^3/uL (0.0-0.2); Absolute Lymphocyte Count 1.09 10^3/uL (1.2-3.4); Absolute Monocyte Count 0.52 10^3/uL (0.1-0.8); Absolute Neutrophil Count 4.97 10^3/uL (1.2-6.7); Basophils % 0.7 %; Eosinophils % 1.5 %; HCT 42.3 % (40.0-50.0); HGB 14.2 g/dL (13.5-17.5); Immature Grans % 0.1 %; Lymphocytes % 16.2 %; MCH 30.7 pg (27.0-33.0); MCHC 33.6 % (32.0-36.0); MCV 92 fL (80-95); MPV 10.5 fL (8.0-11.0); Monocytes % 7.7 %; Neutrophils % 73.8 %; Platelet Count 172 10^3/uL (130-400); RBC 4.62 10^6/uL (4.36-5.78); RDW 11.9 % (11.8-14.1); WBC 6.74 10^3/uL (4.4-10.8)
[2024-03-23] MEDS: nitroGLYcerin 0.4 MG TAB SL ×2 (18:10→18:16)
[2024-03-23 18:23] LABS: PTT Activated 24.3 sec (23.6-32.8); Prothrombin Time 10.4 sec (9.1-11.1)
--- NOTE | 2024-03-23 18:30 | RT.EKG_ITS ---
APPROVED REPORT Exam: Resting ECG Reason for Exam: chest p[ain Patient Location: E HR:79 bpm ECG Measurements Heart Rate 79 AXIS OK 161 P 67 QRSd 96 QRS -31 QT 380 T 65 QTc 437 Conclusion Sinus rhythm...normal P axis, V-rate 60- 99 Left axis deviation...QRS axis (-30,-90) Anteroseptal infarct, age indeterminate...Q >35mS, T neg, V1-V2 Abnormal Electrocardiogram, no STEMI I have reviewed and interpreted ECG and agree with software generated interpretation.
[2024-03-23 18:31] LABS: ALT 31 U/L (16-63); AST 22 U/L (15-37); Albumin 3.4 g/dL (3.4-5.0); Alkaline Phosphatase 94 U/L (46-116); Anion Gap 6.8 mmol/L (3-11); BUN 13 mg/dL (7-18); Bilirubin, Total 0.32 mg/dL (0.2-1.0); CO2 28.2 mmol/L (21.0-32.0); CREATININE 0.9 mg/dL (0.70-1.30); Chloride 107 mmol/L (98-107); Estimated GFR 95.37 (mL/min/1.73m2); Glucose 113 mg/dL (74-106); Magnesium 1.8 mg/dL (1.8-2.4); NT-proBNP 868 pg/mL (<300); Potassium 3.6 mmol/L (3.5-5.1); Sodium 142 mmol/L (136-145); Total Protein 7.1 g/dL (6.4-8.2)
--- NOTE | 2024-03-23 18:32 | ED.GENADUL_ITS ---
Discharge Plan Disposition Patient Disposition: Admit to [facility] Condition: Fair Discharge Details Chief Complaint: Chest Pain Clinical Impression: Acute non-ST elevation myocardial infarction (NSTEMI) Primary Care Provider: Calderon Huynh ED Provider: Ajay Morales Home Meds and New Rx's Prescriptions: No Action terazosin 2 mg capsule 2 mg PO QHS Qty: 90 3RF atorvastatin 10 mg tablet 40 mg PO DAILY HPI General Date/Time Provider Initiated Documentation: 03/23/24 17:49 . Limitations to Documentation: no limitations . Information obtained by: patient . HPI Narrative: 63-year-old gentleman with past medical history of tobacco use, incidental iliac aneurysm presents for evaluation of chest pain. Patient reports that for the last week he has been having some indigestion and taking Tums. He reports that this has been intermittent and new, but not really bothering him that much. He reports that a few days ago he had an episode of severe pain that occurred while he was asleep. I woke him up it was very brief and went away so he did not think anything more of it. Today while at the grocery store, just prior to arrival, he reports that initially he had recurrence of the indigestion pain, but then it went up higher in his chest. He reports that the pain was severe very uncomfortable and that it scared him. He reports that he had numbness in the left arm. And no shortness of breath diaphoresis or nausea. He reports the symptoms lasted for some time, but resolved prior to arrival. He reports that he now just has chest pressure. He reports that he quit smoking a couple months ago. He states that he was recently diagnosed with an aneurysm in his groin and was started on a statin for this. Related Data Home Medications ?Medication ?Instructions ?Recorded ?Confirmed terazosin 2 mg capsule 2 mg PO QHS #90 caps 05/22/23 03/23/24 atorvastatin 10 mg tablet 40 mg PO DAILY 03/23/24 03/23/24 Previous Rx's ?Medication ?Instructions ?Recorded terazosin 2 mg capsule 2 mg PO QHS #90 caps 05/22/23 Allergies Allergy/AdvReac Type Severity Reaction Status Date / Time bupropion HCl (From Zyban) Allergy Severe swelling, Verified 03/23/24 17:29 throat-diffuse Penicillins Allergy Severe Swelling , Verified 03/23/24 17:29 throat diffuse General Stated Complaint: Chest Pain ROB: 3 Exam Narrative Exam Narrative: Review of Systems: All systems reviewed & are unremarkable except as noted in HPI and below Well-developed, no acute distress NCAT RRR no murmur Unlabored respiratory effort clear bilaterally Nondistended abdomen soft nontender Extremities w/o edema No rashes or lesions. no focal neurologic deficits Appropriate mood and affect Course Vital Signs Vital signs: Vital Signs Temperature 36.9 C 03/23/24 17:23 Pulse 92 H 03/23/24 17:23 Respiratory Rate 16 03/23/24 17:23 Blood Pressure 115/73 03/23/24 17:23 Pulse Oximetry 96 03/23/24 17:23 Temperature 36.9 C 03/23/24 17:23 Temperature Source Temporal Artery Scan 03/23/24 17:23 Pulse 94 H 03/23/24 18:15 Pulse 95 H 03/23/24 18:15 Respiratory Rate 17 03/23/24 18:15 Respiratory Effort Normal 03/23/24 17:31 Respiratory Depth Normal 03/23/24 17:31 Respiratory Pattern Normal 03/23/24 17:31 Blood Pressure 116/72 03/23/24 18:15 Blood Pressure Mean 80 03/23/24 18:15 Blood Pressure Position Sitting 03/23/24 17:23 Pulse Oximetry 92 03/23/24 18:15 Oxygen Delivery Method Room Air 03/23/24 17:23 Oxygen Flow Rate 0 03/23/24 17:23 Pain Level 0 03/23/24 18:18 Lab/Test Results Lab/Test Results: Laboratory Tests Range/Units 03/23/24 17:59 WBC (4.4-10.8) 10^3/uL 6.74 RBC (4.36-5.78) 10^6/uL 4.62 Hgb (13.5-17.5) g/dL 14.2 Hct (40.0-50.0) % 42.3 MCV (80-95) fL 92 MCH (27.0-33.0) pg 30.7 MCHC (32.0-36.0) % 33.6 RDW (11.8-14.1) % 11.9 Plt Count (130-400) 10^3/uL 172 MPV (8.0-11.0) fL 10.5 Immature Gran % % 0.1 Neutrophils % % 73.8 Lymphocytes % % 16.2 Monocytes % % 7.7 Eosinophils % % 1.5 Basophils % % 0.7 Nucleated RBC % (0.0-0.3) % 0.0 Absolute Neutrophils (1.2-6.7) 10^3/uL 4.97 Absolute Lymphocytes (1.2-3.4) 10^3/uL 1.09 L Absolute Monocytes (0.1-0.8) 10^3/uL 0.52 Absolute Eosinophils (0.0-0.7) 10^3/uL 0.10 Absolute Basophils (0.0-0.2) 10^3/uL 0.05 PT (9.1-11.1) sec 10.4 INR (0.9-1.1) 1.0 APTT (23.6-32.8) sec 24.3 Medical Decision Making Emergent evaluation of chest pain. Initial differential includes unstable angina, ACS, unlikely dissection given vital signs and lack of symptomatology. Patient's risk factors include smoking history. Patient's history is very suspicious. His EKG was reviewed and independently interpreted: Sinus 79 normal axis, no acute ischemic change, Q waves noted. The last EKG in the system was from 2014 and was fairly normal with normal T waves. The patient does not have evidence of a STEMI on his EKG. Plan for full dose aspirin. Nitro for chest pressure, lab work including serial troponins. 1844 Notified of significantly elevated troponin. Will load with Plavix and start heparin infusion. Patient is chest pain-free after 2 doses of nitroglycerin. Given not reporting issues and lack of cardiology, I have reached out to [facility] for transfer. 190 Discussed with [facility] cardiology. They concur this is type I NSTEMI. Recommend nitro as needed. N.p.o. at midnight. Will accept to their facility, currently not listing until tomorrow but when patient arrives tomorrow they plan for cath. They concur with Plavix load, heparin drip. Patient will also be given his nightly Lipitor. The accepting physician is Dr. De La Garza. Given that he will not be leaving until tomorrow, I have reached out to the hospitalist to admit this patient until transfer and continue management of his NSTEMI. Quality:SDOH Health Related Social Needs: No Data to Display Critical Care Time Critical Care Time Critical Care Time: Yes Total Critical Care Time: 34 Attestation: CRITICAL CARE Upon my evaluation, this patient had a high probability of imminent or life- threatening deterioration due to NSTEMI which required my direct attention, intervention, and personal management. I have personally provided 34 minutes of critical care time exclusive of time spent on separately billable procedures. Time includes review of laboratory data, radiology results, discussion with consultants, and monitoring for potential decompensation. Interventions were performed as documented above [facility] All Active Problems (Updated 03/23/24 @ 20:09 by Ajay Morales MD) Acute non-ST elevation myocardial infarction (NSTEMI) (Acute) NSTEMI (non-ST elevated myocardial infarction) (Acute) Right lower lobe pulmonary infiltrate (Acute) Emphysema lung (Acute) Chronic idiopathic constipation (Acute) Adenomatous polyps (Acute) Atherosclerosis of aorta (Acute) TIA (transient ischemic attack) (Acute) GERD (gastroesophageal reflux disease) (Chronic) Depression (Chronic) Right sided abdominal pain (Acute) Aneurysm (Acute) Screening for colon cancer (Acute) Pinna infection, acute (Acute) Cervical lymphadenopathy (Acute) Mood disorder (Acute) Left ureteral stone (Acute) Kidney stone (Chronic) Toe pain, left (Acute) Lung nodule (Acute) Tobacco abuse (Acute) Insomnia (Acute) Epididymal cyst (Acute) Bradycardia (Acute) Impacted cerumen of both ears (Acute) History of cataract removal with insertion of prosthetic lens (Acute 02/17/16) History of esophagogastroduodenoscopy (Acute) Status post hernia repair (Acute 06/02/15) BPH (benign prostatic hyperplasia) (Chronic) Bilateral nephrolithiasis (Chronic) Reflux esophagitis (Chronic) Nodule of right lung (Chronic 05/08/17) 04/20/17 RIGHT UPPER LOBE Hyperlipidemia (Chronic) Headache (Acute) Personal history of colonic polyps (Chronic) Medical History Hyperlipidemia Headache Colon polyp Reflux esophagitis Surgical History H/O right inguinal hernia repair (~2014) Dr. Tapia Colonoscopy - IV Sedation (01/2023) 05/03/16 Extraction of cataract 02/17/16; LEFT Family History Mother , AGE 67 Heart disease Father , AGE 72 Heart disease Sister Essential hypertension Sister No problems noted. Sister No problems noted. Sister No problems noted. Brother Essential hypertension Brother No problems noted. Brother No problems noted. Brother No problems noted. Brother No problems noted. Daughter No problems noted. Daughter Depression Social History Smoking/Tobacco Use Status: Former Tobacco Use Tobacco: How many years used: 30 Smokeless tobacco user: other Quit status: has quit before Smoking risk assessment performed?: Yes Alcohol Intake: former Drug use: Never Substance use type: does not use Caregiver/Support person: No Household members: significant other Housing: house Communication Needs: None Do you need help understanding health information?: Never Pets and animals: Yes Pets and animals: cat(s) Sexually active: No Do you think of yourself as: straight/heterosexual Current gender identity: male What is your relationship status?: living with partner How often do you talk on the phone with friends or family?: decline to answer How often do you get together with friends or relatives?: decline to answer How often do you attend nondenominational or muslim services?: decline to answer Do you belong to any clubs or organized social groups?: decline to answer Panel score (0-1 are the most socially isolated patients): 1 What type of physical activity do you participate in: none Taylor/Worship: None Special taylor needs: No Seatbelt use: always Helmet use: No Drive intox or ride w/intox transporter driver: No Do you feel safe at home: Yes Do you feel safe in your relationship?: Yes
[2024-03-23 18:34] LABS: Troponin I 1152 ng/L (<or=76)
--- NOTE | 2024-03-23 18:45 | DI.RAD_ITS ---
Exam(s) XR PORTABLE CHEST AP EXAM: XR PORTABLE CHEST AP CLINICAL HISTORY: chest pain TECHNIQUE: 2D digital imaging was performed. COMPARISON: CT CT CHEST LUNG CANCER SCREEN from 06/05/2023 CR XR CHEST 2V PA LATERAL from 12/25/2023 FINDINGS: LUNGS: Underlying emphysematous and fibrotic changes. No pleural abnormality seen. HEART: Normal size. Pulmonary arteries: Prominent. AORTA: Tortuous. BONES: Unremarkable for age. Soft tissues: Unremarkable. IMPRESSION: Increased interstitial markings and pulmonary vascular prominence. The findings appear slightly more prominent on the compared to the prior exam and mild CHF is not excluded. DATA REPOSITORY: RADIATION DOSE DELIVERED:
[2024-03-23] MEDS: Clopidogrel 300 MG TAB 600 MG PO (18:46)
[2024-03-23] MEDS: Heparin in 0.45% NaCl 25,000 UNIT/250 ML BAG 10 UNIT IV (18:46)
[2024-03-23 19:23] LABS: Troponin I 1185 ng/L (<or=76)
--- NOTE | 2024-03-23 19:43 | W.PM.HP.N ---
Date of service: 03/23/24 Time of Service: 19:43 Assessment and Plan Assessment and plan (1) NSTEMI (non-ST elevated myocardial infarction): Status: Acute Assessment and plan: NSTEMI. Given the presence of new Q waves on EKG I wonder if it is possible that he may have had an ACS event earlier in the week, though of course this may stem from something more remote. In any case will treat for NSTEMI. Will continue heparin and DUAP but will add NTG infusion given brief return of symptoms here during my visit. Will have NPO after midnight in anticipation of cath in AM. History of Present Illness History of Present Illness Chief Complaint: CP Narrative: 63 male former smoker (30PY) reports one week of resting lower chest burning sensation, lasting between 30 minutes to several hours. Today had episode while grocery shopping in which the discomfort was more mid-sternal, morphing into a pressure, with radiation to LUE and associated SOB. Presented to ER. In ER findings of note for EKG showing Q waves V1-3 (new since 2014) with nonspecific TW changes in similar leads, but no acute ST changes. CXR WNL. Troponin 1 was 1152. Patient given NTG x 2 with relief of pain. Given ASA, Plavix and started on heparin drip. Case reviewed with [facility], accepted for transfer in AM. One hour trop is 1185. I was asked to evaluate for admission. During visit patient states that the burning sensation is starting to come back, though by the end of the visit it has resolved. Review of Systems Narrative: per HPI PFSH All Active Problems (Updated 03/23/24 @ 19:55 by Kamran Cordova MD) NSTEMI (non-ST elevated myocardial infarction) (Acute) Right lower lobe pulmonary infiltrate (Acute) Emphysema lung (Acute) Chronic idiopathic constipation (Acute) Adenomatous polyps (Acute) Atherosclerosis of aorta (Acute) TIA (transient ischemic attack) (Acute) GERD (gastroesophageal reflux disease) (Chronic) Depression (Chronic) Right sided abdominal pain (Acute) Aneurysm (Acute) Screening for colon cancer (Acute) Pinna infection, acute (Acute) Cervical lymphadenopathy (Acute) Mood disorder (Acute) Left ureteral stone (Acute) Kidney stone (Chronic) Toe pain, left (Acute) Lung nodule (Acute) Tobacco abuse (Acute) Insomnia (Acute) Epididymal cyst (Acute) Bradycardia (Acute) Impacted cerumen of both ears (Acute) History of cataract removal with insertion of prosthetic lens (Acute 02/17/16) History of esophagogastroduodenoscopy (Acute) Status post hernia repair (Acute 06/02/15) BPH (benign prostatic hyperplasia) (Chronic) Bilateral nephrolithiasis (Chronic) Reflux esophagitis (Chronic) Nodule of right lung (Chronic 05/08/17) 04/20/17 RIGHT UPPER LOBE Hyperlipidemia (Chronic) Headache (Acute) Personal history of colonic polyps (Chronic) Medical History Hyperlipidemia Headache Colon polyp Reflux esophagitis Surgical History H/O right inguinal hernia repair (~2014) Dr. Tapia Colonoscopy - IV Sedation (01/2023) 05/03/16 Extraction of cataract 02/17/16; LEFT Family History Mother , AGE 67 Heart disease Father , AGE 72 Heart disease Sister Essential hypertension Sister No problems noted. Sister No problems noted. Sister No problems noted. Brother Essential hypertension Brother No problems noted. Brother No problems noted. Brother No problems noted. Brother No problems noted. Daughter No problems noted. Daughter Depression Social History Smoking/Tobacco Use Status: Former Tobacco Use Tobacco: How many years used: 30 Smokeless tobacco user: other Quit status: has quit before Smoking risk assessment performed?: Yes Alcohol Intake: former Drug use: Never Substance use type: does not use Caregiver/Support person: No Household members: significant other Housing: house Communication Needs: None Do you need help understanding health information?: Never Pets and animals: Yes Pets and animals: cat(s) Sexually active: No Do you think of yourself as: straight/heterosexual Current gender identity: male What is your relationship status?: living with partner How often do you talk on the phone with friends or family?: decline to answer How often do you get together with friends or relatives?: decline to answer How often do you attend catholic or islam services?: decline to answer Do you belong to any clubs or organized social groups?: decline to answer Panel score (0-1 are the most socially isolated patients): 1 What type of physical activity do you participate in: none Taylor/Protestant: None Special taylor needs: No Seatbelt use: always Helmet use: No Drive intox or ride w/intox food mobile driver: No Do you feel safe at home: Yes Do you feel safe in your relationship?: Yes Meds Allergies and Home Medications Allergies Allergy/AdvReac Type Severity Reaction Status Date / Time bupropion HCl (From Multistatyban) Allergy Severe swelling, Verified 03/23/24 17:29 throat-diffuse Penicillins Allergy Severe Swelling , Verified 03/23/24 17:29 throat diffuse Home Medications ?Medication ?Instructions ?Recorded ?Confirmed ?Type terazosin 2 mg capsule 2 mg PO QHS #90 caps 05/22/23 03/23/24 Rx atorvastatin 10 mg tablet 40 mg PO DAILY 03/23/24 03/23/24 History Exam Narrative Exam Narrative: 107/78, 75, 36.9, 17, 95% RA. HEENT atraumatic; neck supple, neck veins flat; lungs clear; heart RRR w/o MRG; abdomen soft and NT; extremities w/o edema, pedal pulses 2+/=; neuro Ox3, lucid, moves all 4s Results Labs 03/23/24 17:59 03/23/24 17:59 Labs: Laboratory Results - last 24 hr 03/23/24 03/23/24 17:59 18:52 WBC 6.74 RBC 4.62 Hgb 14.2 Hct 42.3 MCV 92 MCH 30.7 MCHC 33.6 RDW 11.9 Plt Count 172 MPV 10.5 Immature Gran % 0.1 Neutrophils % 73.8 Lymphocytes % 16.2 Monocytes % 7.7 Eosinophils % 1.5 Basophils % 0.7 Nucleated RBC % 0.0 Absolute Neutrophils 4.97 Absolute Lymphocytes 1.09 L Absolute Monocytes 0.52 Absolute Eosinophils 0.10 Absolute Basophils 0.05 PT 10.4 INR 1.0 APTT 24.3 Sodium 142 Potassium 3.6 Chloride 107 Carbon Dioxide 28.2 Anion Gap 6.8 BUN 13 Creatinine 0.9 Est GFR (CKD-EPI 2020) 95.37 Glucose 113 H Calcium 9.0 Magnesium 1.8 Total Bilirubin 0.32 AST 22 ALT 31 Alkaline Phosphatase 94 Troponin I 1152 H* 1185 H* NT-Pro-B Natriuret Pep 868 H Total Protein 7.1 Albumin 3.4 Last Vital Signs Temp 36.9 C 03/23/24 17:23 Pulse 75 03/23/24 18:56 Resp 17 03/23/24 18:56 BP 107/78 03/23/24 18:56 Pulse Ox 95 03/23/24 18:56 Time Spent Time spent with Patient: 55-74 minutes Time was spent: preparing to see the patient(eg.review tests), obtaining and/or reviewing separately otained hiistory, ordering medications,tests, procedures, referring, communicating with other health intensive care unit registered nurse and indepentently interpreting results
[2024-03-23] MEDS: Atorvastatin 40 MG TAB PO (19:46)
[2024-03-23] MEDS: nitroGLYcerin in D5W 50 MG/250 ML BTL IV ×2 (20:03→22:24)
--- NOTE | 2024-03-23 21:23 | DI.VRAD_ITS ---
PROCEDURE INFORMATION: Exam: XR Chest Exam date and time: 03/23/2024 7:06 PM Age: 63 years old Clinical indication: Other: Unspecified; Patient HX: Chest pain TECHNIQUE: Imaging protocol: Radiologic exam of the chest. Views: 1 view. Other technique: Portable exam. COMPARISON: CR XR CHEST 2V PA LATERAL 12/25/2023 9:09 AM. Report not available. FINDINGS: Lungs: Unremarkable. No consolidation. Pleural spaces: Unremarkable. No pleural effusion. No pneumothorax. Heart/Mediastinum: Unremarkable. No cardiomegaly. Vasculature: Aortic ectasia again seen. Bones/joints: Unremarkable. IMPRESSION: No acute abnormality evident in the chest. Dictated and Authenticated by: Lin Stark MD. Ordering:SocratesKITTY Mauro MD
[2024-03-23 21:32] LABS: Troponin I 1374 ng/L (<or=76)
--- NOTE | 2024-03-23 22:09 | W.PC.ACHO ---
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 Pt states he thought he had 'high indigestion' and took a tums while he was walking around the grocery store. Pt states his entire chest hurts and radiates to his left arm. Pt states 'it felt like someone was pushing on my chest'. Denies n/v/d, h/a, dizziness , lightheadedness. Denies cardiac hx. Medical / Surgical History (Last Reviewed 03/23/24 @ 20:04 by Ajay Morales MD) Hyperlipidemia Headache Colon polyp Reflux esophagitis (Last Reviewed 03/23/24 @ 20:04 by Ajay Morales MD) H/O right inguinal hernia repair (~2014) Colonoscopy - IV Sedation (01/2023) Extraction of cataract Most Recent Vital Signs Temperature 36.9 C 03/23/24 17:23 Temperature Source Temporal Artery Scan 03/23/24 17:23 Pulse 75 03/23/24 18:56 Pulse 77 03/23/24 18:56 Respiratory Rate 17 03/23/24 18:56 Respiratory Effort Normal 03/23/24 17:31 Respiratory Depth Normal 03/23/24 17:31 Respiratory Pattern Normal 03/23/24 17:31 Blood Pressure 107/78 03/23/24 18:56 Blood Pressure Mean 82 03/23/24 18:56 Blood Pressure Position Sitting 03/23/24 17:23 Pulse Oximetry 95 03/23/24 18:56 Oxygen Delivery Method Room Air 03/23/24 17:23 Oxygen Flow Rate 0 03/23/24 17:23 Pain Level 0 03/23/24 18:18 Allergies bupropion HCl (From Zyban) Allergy (Severe, Verified 03/23/24 17:29) swelling, throat-diffuse Penicillins Allergy (Severe, Verified 03/23/24 17:29) Swelling , throat diffuse Active Medications Generic Name Dose Route Start Last Admin Trade Name Freq PRN Reason Stop Dose Admin Heparin Sodium/Sodium Chloride 25,000 unit in 250 mls @ 10 mls/hr 03/23/24 18:45 03/23/24 18:46 IV 1,000 units/hr INFUSION ADAN 10 mls/hr Administration Protocol 1,000 UNITS/HR Nitroglycerin 0.4 mg 03/23/24 17:49 03/23/24 18:16 Nitroglycerin 0.4 Mg Tab SL 0.4 mg Q5 MIN PRN X3 PRN Administration IV IV Catheter Type [Left Saline Lock Antecubital] IV Catheter Type [Right Saline Lock Antecubital] IV Catheter Gauge [Left 18 Antecubital] IV Catheter Gauge [Right 18 Antecubital] Diet Orders Category Date Time Status Heart Healthy Eating [DIET] Nutrition 03/24/24 Breakfast Ordered Diagnostics 03/23/24 03/23/24 03/23/24 Range/Units 21:00 18:52 17:59 WBC 6.74 (4.4-10.8) 10^3/uL RBC 4.62 (4.36-5.78) 10^6/uL Hgb 14.2 (13.5-17.5) g/dL Hct 42.3 (40.0-50.0) % MCV 92 (80-95) fL MCH 30.7 (27.0-33.0) pg MCHC 33.6 (32.0-36.0) % RDW 11.9 (11.8-14.1) % Plt Count 172 (130-400) 10^3/uL MPV 10.5 (8.0-11.0) fL Immature Gran % 0.1 % Neutrophils % 73.8 % Lymphocytes % 16.2 % Monocytes % 7.7 % Eosinophils % 1.5 % Basophils % 0.7 % Nucleated RBC % 0.0 (0.0-0.3) % Absolute Neutrophils 4.97 (1.2-6.7) 10^3/uL Absolute Lymphocytes 1.09 L (1.2-3.4) 10^3/uL Absolute Monocytes 0.52 (0.1-0.8) 10^3/uL Absolute Eosinophils 0.10 (0.0-0.7) 10^3/uL Absolute Basophils 0.05 (0.0-0.2) 10^3/uL PT 10.4 (9.1-11.1) sec INR 1.0 (0.9-1.1) APTT 24.3 (23.6-32.8) sec Sodium 142 (136-145) mmol/L Potassium 3.6 (3.5-5.1) mmol/L Chloride 107 (98-107) mmol/L Carbon Dioxide 28.2 (21.0-32.0) mmol/L Anion Gap 6.8 (3-11) mmol/L BUN 13 (7-18) mg/dL Creatinine 0.9 (0.70-1.30) mg/dL Est GFR (CKD-EPI 2020) 95.37 (mL/min/1.73m2) Glucose 113 H (74-106) mg/dL Calcium 9.0 (8.5-10.1) mg/dL Magnesium 1.8 (1.8-2.4) mg/dL Total Bilirubin 0.32 (0.2-1.0) mg/dL AST 22 (15-37) U/L ALT 31 (16-63) U/L Alkaline Phosphatase 94 (46-116) U/L Troponin I 1374 H* 1185 H* 1152 H* (<or=76) ng/L NT-Pro-B Natriuret Pep 868 H (<300) pg/mL Total Protein 7.1 (6.4-8.2) g/dL Albumin 3.4 (3.4-5.0) g/dL Intake and Output - 24 Hour Total 03/23/24 17:22 thru 03/23/24 18:57 Intake Total 20 Balance 20 Weight 88.1 kg Intake: IV 20 Falls Risk Assessment History of Falls No History 03/23/24 17:31 Contributing Factors No Factors 03/23/24 17:31 Ambulatory Aids Independent 03/23/24 17:31 Tubes/Lines None 03/23/24 17:31 Gait Evaluation No gait disturbance 03/23/24 17:31 Cognition No cognitive impairment 03/23/24 17:31 Fall Total Score 0 03/23/24 17:31 Level of Risk Standard/Low Risk 03/23/24 17:31 Problems (Last Reviewed 03/23/24 @ 20:04 by Ajay Morales MD) Acute non-ST elevation myocardial infarction (NSTEMI) (Acute) NSTEMI (non-ST elevated myocardial infarction) (Acute) v v v v v v v v v Sending and/or Receiving Nurses: Please use comment section below to note any information pertinent to the patient hand-off not included above. Information / Comments: Report received from: jerome MEYERS
[2024-03-24] VITALS (35 sets, daily range): BP systolic 109–135; BP diastolic 72–92; PULSE 51–71; RESP 5–24; TEMP 36.8; O2SAT 93–96
[2024-03-24] MEDS: Lactated Ringers 1,000 ML 75 ML IV ×2 (00:06→13:33)
[2024-03-24 03:35] LABS: PTT Activated 35.3 sec (23.6-32.8)
[2024-03-24 07:20] LABS: Troponin I 2231 ng/L (<or=76)
[2024-03-24] MEDS: Clopidogrel 75 MG TAB PO (08:34)
[2024-03-24] MEDS: Normal Saline Flush 10 ML SYR IVP (08:34)
[2024-03-24] MEDS: Aspirin 325 MG TAB PO (08:34)
[2024-03-24] MEDS: Atorvastatin 10 MG TAB 40 MG PO (08:34)
[2024-03-24 09:47] LABS: PTT Activated 47.6 sec (23.6-32.8)
[2024-03-24] MEDS: Heparin in 0.45% NaCl 25,000 UNIT/250 ML BAG 13 UNIT IV (11:28)
--- NOTE | 2024-03-24 14:48 | INITIAL_ITS ---
Date of service: 03/24/24 Time of Service: 13:15 Care Management Initial Assmt Initial Assessment Reason for Hospitalization: NSTEMI Functional Status/Living Situation Patient Presentation: Blair was sitting up in the bed, talking with his daughter who was visiting, when CM met with him this afternoon. He stated he has had about a week of indigestion, and has been using a lot of Tums. Yesterday he went to the grocery store with his , had indigestion, and took Tums. In the store, he noted that the pain had moved, became more severe, and did not seem like indigestion anymore. He finished the shopping, put all of the perishables away, and symptoms were still present so he had his bring him to the ED. Blair looked well, although he had multiple IV lines running, and said he felt really, pretty good. He is in fairly good shape. His work keeps him very physically active, and he no longer smokes. Town of Residence: [place] Resides with: Spouse (Homer) Significant Other/Family: Local (Blair's 2 daughters, Veronica and Adrienne live within 5 minutes. 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 Medications Medication Management: No Issues/Barriers identified Advance Directives Advance Directives: Do you have an Advance Directive: N 03/20/14 09:11 AD On File at [facility]: N 03/20/14 09:11 Date Asked 01/21/24 01/18/24 12:13 AD Date Reviewed COLST On File at [facility] COLST Date Scanned Comment: AD assistance was offered by ANDREW. He stated that he did not want to think about it at this time. Code Status Resuscitation Status Full Code Portal Pt does not currently have a portal and education provided: No Portal Education: Patient declined Insurance Coverage/Financial Issues Insurance: BCBS Financial Issues: denies Care Team Visit Care Team Role Provider Type Calderon Huynh MD Primary Care Provider [facility] STAFF PHYSICIAN Ajay Morales MD Emergency Provider [facility] STAFF PHYSICIAN Kamran Cordova MD Admit Provider [facility] STAFF PHYSICIAN Attending Provider Discharge Potential Discharge Needs: Other ([place] [facility] [place] Anticipated Barriers to Discharge: Bed availability (Currently accepted [place] [facility] Patient/Family Education Needs: Review discharge instructions, discuss Ask Me Three Transportation: EMS Plan: Blair is currently waiting for transfer [place] [facility] [place]. He will transport via EMS facilitated by the warehouse checker wood mill supervisor. Blair and his da marcus are fully aware of this plan. [facility] All Active Problems (Updated 03/23/24 @ 20:09 by Ajay Morales MD) Acute non-ST elevation myocardial infarction (NSTEMI) (Acute) NSTEMI (non-ST elevated myocardial infarction) (Acute) Right lower lobe pulmonary infiltrate (Acute) Emphysema lung (Acute) Chronic idiopathic constipation (Acute) Adenomatous polyps (Acute) Atherosclerosis of aorta (Acute) TIA (transient ischemic attack) (Acute) GERD (gastroesophageal reflux disease) (Chronic) Depression (Chronic) Right sided abdominal pain (Acute) Aneurysm (Acute) Screening for colon cancer (Acute) Pinna infection, acute (Acute) Cervical lymphadenopathy (Acute) Mood disorder (Acute) Left ureteral stone (Acute) Kidney stone (Chronic) Toe pain, left (Acute) Lung nodule (Acute) Tobacco abuse (Acute) Insomnia (Acute) Epididymal cyst (Acute) Bradycardia (Acute) Impacted cerumen of both ears (Acute) History of cataract removal with insertion of prosthetic lens (Acute 02/17/16) History of esophagogastroduodenoscopy (Acute) Status post hernia repair (Acute 06/02/15) BPH (benign prostatic hyperplasia) (Chronic) Bilateral nephrolithiasis (Chronic) Reflux esophagitis (Chronic) Nodule of right lung (Chronic 05/08/17) 04/20/17 RIGHT UPPER LOBE Hyperlipidemia (Chronic) Headache (Acute) Personal history of colonic polyps (Chronic) Medical History Hyperlipidemia Headache Colon polyp Reflux esophagitis Surgical History H/O right inguinal hernia repair (~2014) Dr. Tapia Colonoscopy - IV Sedation (01/2023) 05/03/16 Extraction of cataract 02/17/16; LEFT Family History Mother , AGE 67 Heart disease Father , AGE 72 Heart disease Sister Essential hypertension Sister No problems noted. Sister No problems noted. Sister No problems noted. Brother Essential hypertension Brother No problems noted. Brother No problems noted. Brother No problems noted. Brother No problems noted. Daughter No problems noted. Daughter Depression Social History Smoking/Tobacco Use Status: Former Tobacco Use Tobacco: How many years used: 30 Smokeless tobacco user: other Quit status: has quit before Smoking risk assessment performed?: Yes Alcohol Intake: former Drug use: Never Substance use type: does not use Caregiver/Support person: No Household members: significant other Housing: house Communication Needs: None Do you need help understanding health information?: Never Pets and animals: Yes Pets and animals: cat(s) Sexually active: No Do you think of yourself as: straight/heterosexual Current gender identity: male What is your relationship status?: living with partner How often do you talk on the phone with friends or family?: decline to answer How often do you get together with friends or relatives?: decline to answer How often do you attend methodist or druze services?: decline to answer Do you belong to any clubs or organized social groups?: decline to answer Panel score (0-1 are the most socially isolated patients): 1 What type of physical activity do you participate in: none Taylor/Zoroastrianism: None Special taylor needs: No Seatbelt use: always Helmet use: No Drive intox or ride w/intox route driver: No Do you feel safe at home: Yes Do you feel safe in your relationship?: Yes Readmission Within the Past 30 Days Yes or No: No SDOH(Care Management) Screening Will the Patient Participate in the Screening?: Yes Do you worry about having a steady place to live?: no In the past 12 months, have you had to go without electric, gas, oil or water in your home?: no Have you or anyone in your house had to go without enough food to eat?: no Has lack of transportation kept you from medical appointments or from doing things needed for daily living?: no Has anyone in your support network made you feel unsafe for any reason?: no
--- NOTE | 2024-03-24 15:30 | DSE_ITS ---
Date of service: 03/24/24 Time of Service: 15:30 DS: Diagnosis Discharge Diagnosis (1) NSTEMI (non-ST elevated myocardial infarction): Status: Acute Discharge Plan Disposition Patient Disposition: Transfer-Acute Inpatient Care Specific Acute Inpt Facility: [facility] Condition: Fair Discharge Details Reason For Visit: NSTEMI Admit Date/Time: 03/23/24 19:59 Admit Provider: Kamran Cordova Attending Provider: Kamran Cordova Primary Care Provider: Calderon Huynh Hospital Course Hospital Course: Patient initially presented with chest pain and was determined to have a NSTEMI. [place] [facility] [place] consulted recommended. Patient be placed on dual antiplatelet therapy and heparin drip. He did have recurrence of his chest pain was placed on 5 mics nitro drip for which she has been stable since that time. Ultimately, bed was available [place] [facility] and patient was determined to be stable for transfer for left heart catheterization in the setting of NSTEMI. Home Meds and New Rx's Prescriptions: No Action terazosin 2 mg capsule 2 mg PO QHS Qty: 90 3RF atorvastatin 10 mg tablet 40 mg PO DAILY Discharge Instructions Activity:: Activity as Tolerated Equipment/Supplies:: No Equipment Needed Diet:: As Tolerated Discharge Orders Discharge Orders: Discharge Order (Routine); Ordered 03/24/24 Ordered By: Wiley Stark DS: Summary Time Spent with Patient providing and/or coordinating discharge services: Greater than 30 minutes Status at Discharge Functional status at discharge: independent ambulation Overall status at discharge: patient is back to baseline Mental Status: mental status grossly normal Speech and Movement: speech and movement normal Mood: congruent mood Affect: normal affect Quality:SDOH Health Related Social Needs: No Data to Display Exam Narrative Exam Narrative: Well-appearing gentleman laying in bed in no acute distress, ANO x 4, heart regular rhythm, lungs clear to auscultation bilaterally, abdomen soft, nontender, nondistended Psych Mental Status: mental status grossly normal Speech and Movement: speech and movement normal Mood: congruent mood Affect: normal affect DS: Data Vitals/I&O Vitals and I&O: Vital Signs Temperature 98.2 F 03/24/24 04:01 Temperature Source Temporal Artery Scan 03/24/24 04:01 Pulse 54 L 03/24/24 13:00 Pulse 55 L 03/24/24 13:00 Respiratory Rate 17 03/24/24 13:00 Respiratory Effort Normal 03/23/24 20:20 Respiratory Depth Normal 03/23/24 20:20 Respiratory Pattern Normal 03/23/24 20:20 Blood Pressure 110/86 03/24/24 13:00 Blood Pressure Mean 94 03/24/24 13:00 Blood Pressure Position Sitting 03/23/24 17:23 Pulse Oximetry 94 03/24/24 13:00 Oxygen Delivery Method Room Air 03/23/24 20:20 Oxygen Flow Rate 0 03/23/24 20:20 Pain Level 0 03/23/24 20:20 Intake & Output 03/23/24 03/24/24 03/24/24 17:59 05:59 17:59 Intake Total 99.333 / 012.614 4342.442 / 1096.442 Output Total 600 / 600 Balance 99.333 / 109.333 496.442 / 496.442 Weight 194 lb 3.636 oz 191 lb 9.307 oz Intake: IV 99.333 / 830.873 0380.442 / 1096.442 Output: Urine 600 / 600 Other: Urine Color Yellow Urine Appearance Clear Urine Odor None Data Completed and Pending Labs on day of discharge: Labs from last 24 hours 03/24/24 03/24/24 03/24/24 17:35 09:25 06:19 WBC RBC Hgb Hct MCV MCH MCHC RDW Plt Count MPV Immature Gran % Neutrophils % Lymphocytes % Monocytes % Eosinophils % Basophils % Nucleated RBC % Absolute Neutrophils Absolute Lymphocytes Absolute Monocytes Absolute Eosinophils Absolute Basophils PT INR APTT Pending 47.6 H Sodium Potassium Chloride Carbon Dioxide Anion Gap BUN Creatinine Est GFR (CKD-EPI 2020) Glucose Calcium Magnesium Total Bilirubin AST ALT Alkaline Phosphatase Troponin I 2231 H* NT-Pro-B Natriuret Pep Total Protein Albumin 03/24/24 03/23/24 03/23/24 03:15 21:00 18:52 WBC RBC Hgb Hct MCV MCH MCHC RDW Plt Count MPV Immature Gran % Neutrophils % Lymphocytes % Monocytes % Eosinophils % Basophils % Nucleated RBC % Absolute Neutrophils Absolute Lymphocytes Absolute Monocytes Absolute Eosinophils Absolute Basophils PT INR APTT 35.3 H Sodium Potassium Chloride Carbon Dioxide Anion Gap BUN Creatinine Est GFR (CKD-EPI 2020) Glucose Calcium Magnesium Total Bilirubin AST ALT Alkaline Phosphatase Troponin I 1374 H* 1185 H* NT-Pro-B Natriuret Pep Total Protein Albumin 03/23/24 17:59 WBC 6.74 RBC 4.62 Hgb 14.2 Hct 42.3 MCV 92 MCH 30.7 MCHC 33.6 RDW 11.9 Plt Count 172 MPV 10.5 Immature Gran % 0.1 Neutrophils % 73.8 Lymphocytes % 16.2 Monocytes % 7.7 Eosinophils % 1.5 Basophils % 0.7 Nucleated RBC % 0.0 Absolute Neutrophils 4.97 Absolute Lymphocytes 1.09 L Absolute Monocytes 0.52 Absolute Eosinophils 0.10 Absolute Basophils 0.05 PT 10.4 INR 1.0 APTT 24.3 Sodium 142 Potassium 3.6 Chloride 107 Carbon Dioxide 28.2 Anion Gap 6.8 BUN 13 Creatinine 0.9 Est GFR (CKD-EPI 2020) 95.37 Glucose 113 H Calcium 9.0 Magnesium 1.8 Total Bilirubin 0.32 AST 22 ALT 31 Alkaline Phosphatase 94 Troponin I 1152 H* NT-Pro-B Natriuret Pep 868 H Total Protein 7.1 Albumin 3.4 PFSH All Active Problems (Updated 03/23/24 @ 20:09 by Ajay Morales MD) Acute non-ST elevation myocardial infarction (NSTEMI) (Acute) NSTEMI (non-ST elevated myocardial infarction) (Acute) Right lower lobe pulmonary infiltrate (Acute) Emphysema lung (Acute) Chronic idiopathic constipation (Acute) Adenomatous polyps (Acute) Atherosclerosis of aorta (Acute) TIA (transient ischemic attack) (Acute) GERD (gastroesophageal reflux disease) (Chronic) Depression (Chronic) Right sided abdominal pain (Acute) Aneurysm (Acute) Screening for colon cancer (Acute) Pinna infection, acute (Acute) Cervical lymphadenopathy (Acute) Mood disorder (Acute) Left ureteral stone (Acute) Kidney stone (Chronic) Toe pain, left (Acute) Lung nodule (Acute) Tobacco abuse (Acute) Insomnia (Acute) Epididymal cyst (Acute) Bradycardia (Acute) Impacted cerumen of both ears (Acute) History of cataract removal with insertion of prosthetic lens (Acute 02/17/16) History of esophagogastroduodenoscopy (Acute) Status post hernia repair (Acute 06/02/15) BPH (benign prostatic hyperplasia) (Chronic) Bilateral nephrolithiasis (Chronic) Reflux esophagitis (Chronic) Nodule of right lung (Chronic 05/08/17) 04/20/17 RIGHT UPPER LOBE Hyperlipidemia (Chronic) Headache (Acute) Personal history of colonic polyps (Chronic) Medical History Hyperlipidemia Headache Colon polyp Reflux esophagitis Surgical History H/O right inguinal hernia repair (~2014) Dr. Tapia Colonoscopy - IV Sedation (01/2023) 05/03/16 Extraction of cataract 02/17/16; LEFT Family History Mother , AGE 67 Heart disease Father , AGE 72 Heart disease Sister Essential hypertension Sister No problems noted. Sister No problems noted. Sister No problems noted. Brother Essential hypertension Brother No problems noted. Brother No problems noted. Brother No problems noted. Brother No problems noted. Daughter No problems noted. Daughter Depression Social History Smoking/Tobacco Use Status: Former Tobacco Use Tobacco: How many years used: 30 Smokeless tobacco user: other Quit status: has quit before Smoking risk assessment performed?: Yes Alcohol Intake: former Drug use: Never Substance use type: does not use Caregiver/Support person: No Household members: significant other Housing: house Communication Needs: None Do you need help understanding health information?: Never Pets and animals: Yes Pets and animals: cat(s) Sexually active: No Do you think of yourself as: straight/heterosexual Current gender identity: male What is your relationship status?: living with partner How often do you talk on the phone with friends or family?: decline to answer How often do you get together with friends or relatives?: decline to answer How often do you attend zoroastrianism or gnosticism services?: decline to answer Do you belong to any clubs or organized social groups?: decline to answer Panel score (0-1 are the most socially isolated patients): 1 What type of physical activity do you participate in: none Taylor/Baptism: None Special taylor needs: No Seatbelt use: always Helmet use: No Drive intox or ride w/intox driver education instructor: No Do you feel safe at home: Yes Do you feel safe in your relationship?: Yes Time Spent with Patient Time Spent with Patient: <45 minutes Time was spent: preparing to see the patient(eg.review tests), obtaining and/or reviewing separately otained hiistory, ordering medications,tests, procedures, referring, communicating with other health home care manager, indepentently interpreting results, counseling the patient and care coordination
== END 2024-03-24 18:55 | disposition short-term general hospital (02) | DRG 282 ==
LOC: ER 21:03 → ICU 22:08
PROVIDERS: Admitting Provider General Practice; Emergency Provider Emergency Medicine; PCP Family Medicine; Visit Provider General Practice
DX: I21.4 Non-ST elevation (NSTEMI) myocardial infarction (principal); R06.02 Shortness of breath; J43.9 Emphysema, unspecified; K59.04 Chronic idiopathic constipation; I70.0 Atherosclerosis of aorta; K21.00 Gastro-esophageal reflux disease with esophagitis, without bleeding; F32.A Depression, unspecified; R91.1 Solitary pulmonary nodule; G47.00 Insomnia, unspecified; E78.5 Hyperlipidemia, unspecified; N40.0 Benign prostatic hyperplasia without lower urinary tract symptoms; Z87.891 Personal history of nicotine dependence; Z86.73 Personal history of transient ischemic attack (TIA), and cerebral infarction without residual deficits
CPT/HCPCS: 00123; 36415; 80053; 93005; 96365; 96366; 96375; 99291; 71045; 83735; 83880; 84484; 85025; 85610; 85730; 93010; 99222; 99239; J1644; J2305

== ENCOUNTER 2024-04-16 09:00 | Outpatient (RCR) | payer BC, SELFPAY ==
--- NOTE | 2024-04-02 11:00 | RT.EKG_ITS ---
APPROVED REPORT Exam: Resting ECG Reason for Exam: CR Intake Patient Location: O HR:60 bpm ECG Measurements Heart Rate 60 AXIS ND 174 P 69 QRSd 93 QRS -42 QT 417 T 88 QTc 417 Conclusion Sinus rhythm...normal P axis, V-rate 50- 99 Left anterior fascicular block...axis(240,-40), init forces inf Anteroseptal infarct, age indeterminate...Q >35mS, T neg, V1-V2 Lateral leads are also involved...lat Q or ST-T abnormalities
== END 2024-04-17 23:59 | disposition home or self-care (01) ==
LOC: CR 09:00
PROVIDERS: PCP Family Medicine; Visit Provider Internal Medicine Cardiovascular Disease
DX: Z51.89 Encounter for other specified aftercare (principal); I21.4 Non-ST elevation (NSTEMI) myocardial infarction
CPT/HCPCS: S9472

== ENCOUNTER 2024-04-18 12:08 | Outpatient (CLI) | payer BC, SELFPAY ==
--- NOTE | 2024-04-18 12:00 | RT.EKG_ITS ---
APPROVED REPORT Exam: Resting ECG Reason for Exam: chest pain Patient Location: O HR:108 bpm ECG Measurements Heart Rate 108 AXIS AZ 169 P 76 QRSd 80 QRS -58 QT 317 T 83 QTc 425 Conclusion Sinus tachycardia...rate> 99 Left anterior fascicular block...axis(240,-40), init forces inf Anteroseptal infarct, age indeterminate...Q >35mS, T neg, V1-V2
== END 2024-04-18 12:09 | disposition home or self-care (01) ==
LOC: DI.CM 12:09
PROVIDERS: PCP Family Medicine; Visit Provider Physician Assistant
DX: R07.9 Chest pain, unspecified (principal)
CPT/HCPCS: 93010

== ENCOUNTER 2024-04-18 12:39 | Emergency (ER) | payer BC, SELFPAY ==
[2024-04-18] VITALS (30 sets, daily range): BP systolic 113–136; BP diastolic 67–91; PULSE 61–94; RESP 10–17; TEMP 36.6; O2SAT 93–96
--- NOTE | 2024-04-18 12:30 | RT.EKG_ITS ---
APPROVED REPORT Exam: Resting ECG Reason for Exam: Chest Pain Patient Location: E HR:83 bpm ECG Measurements Heart Rate 83 AXIS AL 174 P 74 QRSd 86 QRS -36 QT 353 T 82 QTc 415 Conclusion Sinus rhythm 83 left axis TWI no change from prior
--- OUTSIDE RECORDS SUMMARY | 2024-04-18 12:51 | XMS_ITS | Clinical Summary ---
Author Organization [facility] Address [facility] [place] [address] Care Team Providers Care Personal Injury Paralegal Name Role Phone Calderon Huynh MD Primary Care Provider [phone] Allergies Active Allergy Reactions Criticality Noted Date Comments Bupropion Hcl CIS - edema Penicillins CIS - edema Medications Medication Sig Dispensed Refills Start Date End Date Status pantoprazole (PROTONIX) 40 mg tablet 04/20/2010 Active topiramate (TOPAMAX) 50 mg tablet 50 MG = 1 Tablet(s), PO, QHS 04/20/2010 Active aspirin (BABY ASPIRIN) 81 mg chewable tablet 04/20/2010 Active naproxen sodium (ALEVE) 220 mg tablet 04/20/2010 Act oswaldo SUMAtriptan (IMITREX) 100 mg tablet 100 MG = 1 Tablet(s), PO, Twice daily,PRN 04/20/2010 Active mirtazapine (Remeron) 45 mg tablet Take 45 mg by mouth nightly. Active terazosin (Hytrin) 2 mg capsule Take 2 mg by mouth nightly. Active clopidogreL (Plavix) 75 mg tablet Take 1 tablet by mouth daily. 90 tablet 3 03/27/2024 Active atorvastatin (Lipitor) 80 mg tablet Take 1 tablet by mouth every evening. 90 tablet 3 03/27/2024 Active losartan (Cozaar) 25 mg tablet Take 0.5 tablets by mouth daily. 90 tablet 3 03/27/2024 Active nitroGLYcerin (Nitrostat) 0.[address] 1 tablet under the tongue every 5 minutes as needed for Chest pain. 90 tablet 12 03/27/2024 Active metoprolol succinate XL (Toprol-XL) 25 mg ER 24 hr tablet Take 1 tablet by mouth daily. 30 tablet 12 03/27/2024 Active Active Problems Problem Noted Date Diagnosed Date NSTEMI (non-ST elevated myocardial infarction) 1 Aneurysm of ascending aorta without rupture 11/2023 Aneurysm of left common iliac artery 01/22/2024 Encounters Date Type Department Care Team Description 03/25/2024 1:30 PM EDT - 03/25/2024 2:30 PM EDT [place] [address] Suleiman Chapa MD CARDIAC CATHETERIZATION 03/25/2024 Orders Only Cardiology [place] [id number] Unknown 03/24/2024 8:16 PM EDT - 03/27/2024 12:14 PM EDT Hospital Encounter Heart and Vascular Unit Level [address] [place] [address] Bryant De La Garza MD Flint, Danette L, MD Ajayi, Tinuola B, MD Acute non-ST elevation myocardial infarction (NSTEMI); NSTEMI (non-ST elevated myocardial infarction) Discharge Disposition: Home 03/23/2024 [place] [id number] Kim Lozano MD 03/23/2024 External [place] [address] 01/18/2024 Orders [place] [address] Juli Mayer RN 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 No 03/25/2024 Hunger Vital Sign Answer Date Recorded Within the past 12 months, y ou worried that your food would run out before you got the money to buy more. Never true 03/25/20 24 Within the past 12 months, t he food you bought just didn't last and you didn't have money to get more. Never true 03/25/2024 PRAPARE - Transportation Answer Date Re corded In the past 12 months, has l ack of transportation kept you from medical appointments or from getting medications? No 01/2024 In the past 12 months, has l ack of transportation kept you from meetings, work, or from getting things needed for daily living? No 03/25/2024 Housing Stability Vital Sign Answer Rolly e Recorded In the last 12 months, was t here a time when you were not able to pay the mortgage or rent on time? No 03/25/2024 In the past 12 months, how m any times have you moved where you were living? 0 03/25/2024 At any time in the past 12 m [facility], were you homeless or living in a fci (including now)? No 03/25/2024 DH IPV Inpatient Questions Answer Date Recorded Does Anyone Try to Keep You From Having Contact with Others or Doing Things Outside Your Home? no 03/25/2024 Feels Threatened by Someone no 01/2024 Feels Unsafe at Home or Work/School no 03/25/2024 Physical Signs of Abuse Present no 03/25/2024 Sex and Gender Information Value Date Recorded Sex Assigned at Not on file Gender Identity Not on file Sexual Orientation Not on file Last Filed Vital Signs Vital Sign Reading Time Taken Comments Blood Pressure 106/68 03/27/2024 11:27 AM EDT Pulse 54 03/27/2024 11:27 AM EDT Temperature 36.4 ??C (97.5 ??F) 03/27/2024 11:27 AM E DT Respiratory Rate 16 03/27/2024 11:27 AM EDT Oxygen Saturation 95% 03/27/2024 11:27 AM EDT Inhaled Oxygen Concentration - - Weight 83.5 kg (184 lb) 03/27/2024 4:07 AM EDT Height 190.5 cm (6' 3) 03/24/2024 8:21 PM EDT Body Mass Index 23 03/24/2024 8:21 PM EDT Plan of Treatment Health Maintenance Due Date Last Done Comments CT Colonography 1959 Colonoscopy 1959 Colorectal Cancer Screening 1959 FIT DNA 1959 FIT 1959 Sigmoidoscopy (10 year) with FIT yearly 1959 Sigmoidoscopy 1959 Pneumococcal Vaccine: At-Ris k 5-64yrs (1 of 2 - PCV) 1965 HIV screen 1977 Hepatitis C Screening 1977 Tetanus/Diphtheria/Pertussis Vaccines (1 - Tdap) 1978 Zoster vaccine (1 of 2) 2009 Covid-19 Vaccine (1 - season) 2024 Influenza (Flu) vaccine (1 o f 1 - Influenza standard series) 02/17/2024 04/20/2006, 04/14/2005 Lipid Screening Discontinued 03/24/2024 Procedures Procedure Name Priority Date/Time Associated Diagnosis Comments SCAN DOC: TELEMETRY STRIPS 03/27/2024 8:07 AM EDT SCAN DOC: TELEMETRY STRIPS 03/27/2024 7:34 AM EDT MAGNESIUM Routine 03/27/2024 2:22 AM EDT BASIC METABOLIC PANEL Routine 03/27/2024 2:22 AM EDT SCAN DOC: TELEMETRY STRIPS 03/26/2024 8:04 PM EDT SCAN DOC: TELEMETRY STRIPS 03/26/2024 7:37 AM EDT SCAN DOC: TELEMETRY STRIPS 03/26/2024 7:32 AM EDT MAGNESIUM Routine 03/26/2024 4:01 AM EDT BASIC METABOLIC PANEL Routine 03/26/2024 4:01 AM EDT CBC (WITH DIFF) Routine 03/26/2024 4:01 AM EDT SCAN DOC: TELEMETRY STRIPS 03/26/2024 1:26 AM EDT SCAN DOC: TELEMETRY STRIPS 03/26/2024 1:26 AM EDT SCAN DOC: TELEMETRY STRIPS 03/25/2024 7:44 PM EDT EKG 12-LEAD Routine 03/25/2024 3:16 PM EDT CARDIAC CATHETERIZATION Routine 03/25/20 3:05 PM EDT SCAN DOC: TELEMETRY STRIPS 03/25/2024 11:04 AM EDT HEPARIN (UNFRACTIONATED) LEVEL Timed 03/25/2024 9:26 AM EDT ECHO COMPLETE W CONTRAST Routine 03/25/2024 8:42 AM EDT Acute non-ST elevation myocardial infarction (NSTEMI) SCAN DOC: TELEMETRY STRIPS 03/25/2024 7:39 AM EDT HEPARIN (UNFRACTIONATED) LEVEL Timed 03/25/2024 3:09 AM EDT MAGNESIUM Routine 03/25/2024 3:09 AM EDT BASIC METABOLIC PANEL Routine 03/25/2024 3:09 AM EDT CBC (WITH DIFF) Routine 03/25/2024 3:09 AM EDT ECHOCARDIOGRAM TRANSTHORACIC Routine 03/25/2024 1:47 AM EDT EKG 12-LEAD Routine 03/24/2024 11:28 PM EDT Acute non-ST elevation myocardial infarction (NSTEMI) TROPONIN-T, HIGH SENSITIVITY 3 HOUR PERFORMABLE STAT 03/24/2024 11:19 PM EDT SCAN DOC: TELEMETRY STRIPS 03/24/2024 10:32 PM EDT XR CHEST ONE VIEW Routine 03/24/2024 9:5 5 PM EDT TROPONIN-T, HIGH SENSITIVITY 1 HOUR PERFORMABLE STAT 03/24/2024 9:38 PM EDT SCAN DOC: TELEMETRY STRIPS 03/24/2024 8:45 PM EDT D-DIMER, QUANTITATIVE Routine 03/24/2024 8:43 PM EDT TSH Routine 03/24/2024 8:42 PM EDT MAGNESIUM Routine 03/24/2024 8:42 PM EDT HEMOGLOBIN A1C Routine 03/24/2024 8:42 PM EDT LIPID PANEL (REFLEX DIRECT LDL) Routine 03/24/2024 8:42 PM EDT PRO-BRAIN NATRIURETIC PEPTIDE Routine 03/24/2024 8:42 PM EDT TROPONIN-T, HIGH SENSITIVITY INITIAL PERFORMABLE STAT 03/24/2024 8:42 PM EDT TROPONIN - SERIES STAT 03/24/2024 8:4 2 PM EDT COMPREHENSIVE METABOLIC PANEL Routine 03/24/2024 8:42 PM EDT CBC (WITH DIFF) Routine 03/24/2024 8:42 PM EDT MISC EXTERNAL CARDIOLOGY RESULT Routine 03/23/2024 6:47 PM EDT from Last 3 Months Results * Scan Doc: Telemetry Strips (03/27/2024 8:07 AM EDT) Only the most recent of12 resultswithin the time period is included. Narrative 03/27/2024 8:07 AM EDT Ordered by an unspecified provider. Scanning Provider MEDIA MGR SCAN EXT O RDR/RSLT * Magnesium (03/27/2024 2:22 AM EDT) Only the most recent of4 resultswithin the time period is included. Magnesium 0.83 0.69 - 1.07 mMol/L 03/27/2024 3:15 AM EDT [facility] Blood VENOUS BLOOD SPECIMEN / Unknown IP Care Team Draw / Unknown 03/27/2024 2:22 AM EDT 03/27/2024 2:45 AM EDT Roman Giang MD CHEMISTRY ORDERABLES [facility] [place] [address] * (ABNORMAL) Basic Metabolic Panel (03/27/2024 2:22 AM EDT) Only the most recent of3 resultswithin the time period is included. Glucose 95 65 - 199 mg/dL 03/27/2024 3:15 AM EDT [facility] Comment:Glucose Concentratio n >=200 mg/dL plus symptoms is consistent with Diabetes Mellitus. Blood Urea Nitrogen 11 10 - 20 mg/dL 03/27/2024 3:15 AM EDT [facility] Creatinine 0.72(L) 0.80 - 1.50 mg/dL 03/27/2024 3:15 AM EDT [facility] Sodium 138 135 - 145 mMol/L 03/27/2024 3:15 AM EDT [facility] Potassium 3.7 3.5 - 5.0 mMol/L 03/27/2024 3:15 AM EDT [facility] Chloride 106 98 - 107 mMol/L 03/27/2024 3:15 AM EDT [facility] Carbon Dioxide 22 22 - 31 mMol/L 03/27/2024 3:15 AM EDT [facility] Anion Gap 10 5 - 15 mMol/L 03/27/2024 3:15 AM EDT [facility] Calcium 9.0 8.5 - 10.5 mg/dL 03/27/2024 3:15 AM EDT [facility] Est Glomerular Filtration Rate - Male 102 mL/min/1. 73 m?? 03/27/2024 3:15 AM EDT [facility] Comment: This patient's estimated GFR was calculated using the 2020 CKD-EPI equation. The estimated GFR can vary from the measured GFR by up to 30% in the absence of rapidly changing kidney function. Assessment of the estimated GFR is not appropriate when creatinine concentrations are rapidly changing. For clinical situations in which a more precise estimate of GFR is necessary, consider alternative methods of GFR estimation such as a 24-hour urine creatinine clearance. Assignment of CKD stage 1 - 5 for patients with an eGFR near the transition point between stages may be based on clinical assessment of muscle mass and symptoms in addition to eGFR. Link: eGFR Calculator [employer] Blood VENOUS BLOOD SPECIMEN / Unknown IP Care Team Draw / Unknown 03/27/2024 2:22 AM EDT 03/27/2024 2:45 AM EDT Roman Giang MD CHEMISTRY ORDERABLES [facility] [place] [address] * CBC (with Diff) (03/26/2024 4:01 AM EDT) Only the most recent of3 resultswithin the time period is included. White Blood Cell 7.80 4.00 - 9.50 x10(3)/mcL 03/26/2024 4:23 AM EDT [facility] Red Blood Cell 4.88 4.58 - 5.54 x10(6)/mcL 03/26/2024 4:[address] [facility] Hemoglobin 14.8 13.7 - 16.5 g/dL 03/26/2024 4:[address] [facility] Hematocrit 44.1 40.5 - 48.5 % 03/26/2024 4:[address] [facility] Mean Cell Volume 90.4 82.9 - 93.1 fL 03/26/2024 4:[address] [facility] Mean Cell Hemoglobin 30.3 27.5 - 32.1 pg 03/26/2024 4:[address] [facility] Mean Cell Hemoglobin Concentration 33.6 32.0 - 35.7 g/dL 03/26/2024 4:[address] [facility] Platelet 180 145 - 357 x10(3)/mcL 03/26/2024 4:[address] [facility] Mean Platelet Volume 11.0 7.6 - 12.9 fL 03/26/2024 4:[address] [facility] RDW Standard Deviation 39.7 36.0 - 45.0 fL 03/26/2024 4:[address] [facility] RDW coefficient of variation 11.9 11.4 - 13.8 % 03/26/2024 4:[address] [facility] NRBC% auto 0.0 % 03/26/2024 4:[address] [facility] NRBC Absolute <0.01 <0.01 x10(3)/mcL 03/26/2024 4:[address] [facility] Neutrophil % 68.9 % 03/26/2024 4:[address] [facility] Neutrophil Absolute (ANC) - Automated 5.38 1.70 - 6.10 x10(3)/mcL 03/26/2024 4:[address] [facility] Lymph % 16.8 % 03/26/2024 4:[address] [facility] Lymph Absolute 1.31 0.90 - 3.20 x10(3)/mcL 03/26/2024 4:23 AM EDT [facility] Monocyte % 10.8 % 03/26/2024 4:23 AM EDT [facility] Monocyte Absolute 0.84 0.30 - 0.90 x10(3)/mcL 03/26/2024 4:23 AM EDT [facility] Eos % 2.6 % 03/26/2024 4:23 AM EDT [facility] Eos Absolute 0.20 0.00 - 0.40 x10(3)/mcL 03/26/2024 4:23 AM EDT [facility] Basophil % 0.6 % 03/26/2024 4:23 AM EDT [facility] Baso Absolute 0.05 0.00 - 0.10 x10(3)/mcL 03/26/2024 4:23 AM EDT [facility] Immature Gran % 0.3 % 4:23 AM EDT [facility] Immature Gran Absolute <0.04 0.00 - 0.04 x10(3)/mcL 03/26/2024 4:23 AM EDT [facility] Blood VENOUS BLOOD SPECIMEN / Unknown IP Care Team Draw / Unknown 03/26/2024 4:01 AM EDT 03/26/2024 4:10 AM EDT Roman Giang MD HEMATOLOGY ORDERABLE S [facility] [place] [address] * EKG 12 Lead (03/25/2024 3:16 PM EDT) Only the most recent of2 resultswithin the time period is included. Ventricular rate 57 BPM MUSE SYSTEM Atrial Rate 57 BPM MUSE SYSTEM P-R Interval 172 ms MUSE SYSTEM QRS Duration 94 ms MUSE SYSTEM Q-T Interval 442 ms MUSE SYSTEM QTC Calculated (Bezet) 430 ms MUSE SYSTEM Calculated P [place] 60 degrees MUSE SYSTEM Calculated R [place] -50 degrees MUSE SYSTEM Calculated T [place] 69 degrees MUSE SYSTEM INTERPRETATION Sinus bradycardia Left anterior fascicular block Septal infarct (cited on or before 24-MAR-2024) T wave abnormality, consider anterior ischemia Abnormal ECG When compared with ECG of 24-MAR-2024 23:28, No significant change was found Confirmed by MD Jesus, Lyndon ([id number]) on 03/26/2024 7:10:06 PM MUSE SYSTEM 03/25/2024 3:16 PM EDT 03/26/2024 7:10 PM EDT Unknown ECG ORDERABLES MUSE SYSTEM * CARDIAC CATHETERIZATION (03/25/2024 3:05 PM EDT) Anatomical Region Laterality Modality Other Narrative 03/25/2024 5:12 PM EDT ?[facility] ? Cardiac Catheterization/Intervention Report ? Patient Name: Yessy Taveras. ? Procedure Date: 03/25/2024 ? A #: [id number] ? Primary Physician: Eduard, Suleiman T ? Case #: [id number] ? File Name: [id number] ? Catheterization Order Number: [id number] ? [facility] ? Final Report [place], [place] ? Patient Name: ? Yessy L. Nitin ?ID#: ?[id number] ? : ?1960 ? Procedure Date: ? March 25, 2024 ?Case #: ? [id number] ? Room: ? 2 ? Case Physician: ? Suleiman Chapa M.D. ?Start: ?14:08 ?Fellow: ? Gerardo Yao M.D. ?Admission: ??03/24/2024 ?Frandy Bowen Jr., M.D. ? Referring Physician: ??Ajay Diaz M.D. ? Procedures: ?* Coronary Angiography ?* Left Heart Catheterization ?* Coronary Ultrasound ?* Coronary Angioplasty ?* Coronary Stent Insertion ? History ?Yessy Taveras is a 63 year old man. He has hypertension. The patient's ?smoking status is Former. He has hypercholesterolemia. The patient is ?also status post an acute non-ST elevation myocardial infarction. Prior ?to the initiation of this procedure, the patient was designated as ASA ?Class III. The [facility] clinical frailty scale is 3: Managing Well. ? Diagnostic Tests: ?Medications Prior to Procedure: ? Aspirin, Beta Russ and Statin. ? Indications for Diagnostic Cath: ?The priority of the diagnostic procedure was Urgent. The indication for ?the lab assistant visit is ACS less than or equal to 24 hrs. Chest pain ?symptom assessment was: Typical Angina. ? Technique: ?A 6 SLFr sheath was inserted in the right radial artery utilizing the ?Seldinger technique. The left coronary artery was injected utilizing a ?5Fr IAN RADIAL catheter. A 5Fr IAN RADIAL catheter was used to inject ?the right coronary artery. Left ventricular pressure was performed ?utilizing a 5Fr IAN RADIAL catheter. Coronary angioplasty and coronary ?stent insertion were performed and the equipment utilized will be ?described in the intervention summary section. 5,000 units of heparin ?were administered. A total of 200cc of Omnipaque were opened, 148cc of ?Omnipaque were administered and 52cc of Omnipaque were wasted. Radiation: ?Fluoro time was 14.9 minutes, dose area product was 44.70 Gy/cm2 and air ?kerma was 645 mGY. See the case log for additional details. ?The patient received the following medications prior to and during the ?procedure: ? Unfractionated Heparin, Glycoprotein IIb IIIa Inhibitors and ? Clopidogrel. ? Hemodynamics: ?Left Heart Pressures ? Resting: ? Syst Diast ? EDP ?a ?v ? m ?Ao 113 ?? 71 ?91 ?LV 112 ? 15 ? Coronary Angiography: ?Dominance: Right ?Left Main ? The left main was normal, free of disease. ?Left Anterior Descending ? There was a 95% hazy and ulcerated single discrete stenosis of the ? mid segment of the left anterior descending artery (LAD). ??The LAD ? was large. ? There was a hazy single discrete total occlusion of the proximal ? segment of the first diagonal branch (Diagonal 1) of the LAD. ??The ? Diagonal 1 was large. ?Left Circumflex ? There was mild diffuse (<=25% stenosis) disease of the entire vessel ? segment of the left circumflex artery (LCX). ??The LCX was large. ?Right Coronary Artery ? There was mild diffuse (<=25% stenosis) disease of the entire vessel ? segment of the right coronary artery (RCA). ??The RCA was large. ? Intravascular Imaging/Physiology: ?Intravascular Ultrasound was performed in the mid LAD using a 6 Fr EBU ?3.75 guiding catheter and a 3.[address] ??20 Mhz using ?Manual pullback. ??Imaging was successful. ?Indication: IVUS performed for post intervention assessment. ?IVUS performed after pre-dilation. ??IVUS performed after vessel ?manipulation. ?Findings Pre-Intervention: diffuse plaque and thrombus. These ?measurements were performed after pre-dilation of the lesion. ?Findings Post-Intervention: The stent was well expanded and apposed. ?Conclusions: stent/intervention appears optimized. ? Indication for Intervention: ?Coronary intervention was indicated for primary therapy for an acute ?myocardial infarction. The priority for the procedure was Urgent. The ?NCDR indication for the procedure was NSTE-ACS. LVEF within one week was ?45%. Syntax Score was Low. ? Intervention Summary: ?Left Anterior Descending Artery ? Mid 95% ? Stent insertion was performed on the 95% stenosis in the mid ? segment of the LAD. This was a de kyra lesion. According to ? the ACC/AHA classification system, this lesion was a type B2 ? moderate risk lesion. Primary prevention of restenosis was the ? indication for stent insertion. This was the culprit lesion. A ? guidewire was placed across this lesion. Vessel flow pre ? intervention was LINDA 2. Lesion length was 14mm. This lesion ? was contiguous with D1-proximal. The lesion involves a ? bifurcation with the D1. This bifurcation lesion was treated ? with a single stent, side branch pre-dilated only technique ? and a final kissing balloon post-dilation. ? Stent insertion was accomplished through a 6 Fr. EBU 3.75 ? guide. ??The lesion was predilated with a 2.50mm EUPHORA 15 MM ? balloon with a maximum inflation pressure of 16 atmospheres. ? A premounted 3.50 x 22 mm Lyons Joaquin (ALFIE) was deployed ? with a maximum inflation pressure of 15 atmospheres. ? Following stent deployment, the lesion was dilated using a ? 4.00mm NC EUPHORA 15 MM balloon with a maximum inflation ? pressure of 18 atmospheres. ? The final outcome was defined as successful. A coronary ? arteriolar vasodilator was administered as part of the ? intervention on this lesion. There was no residual stenosis ? following this intervention. The final LINDA flow was 3. ?First Diagonal Branch of the LAD ? Proximal 100% ? Angioplasty was performed on the total occlusion in the ? proximal segment of the Diagonal 1. This was a de kyra lesion. ? This lesion was designated a type B1 low risk lesion based on ? ACC/AHA classification system. This was the culprit lesion. A ? guidewire was placed across this lesion. Vessel flow pre ? intervention was LINDA 1. Lesion length was 10mm. The lesion ? involves a bifurcation with the D1. This bifurcation lesion ? was treated with a single stent, side branch pre-dilated only ? technique and a final kissing balloon post-dilation. ? Angioplasty was accomplished through a 6 Fr EBU 3.75 guide ? utilizing an EUPHORA 20 MM balloon with a maximum size of ? 2.50mm and a maximum inflation pressure of 14 atmospheres. ? The final outcome was defined as successful. A coronary ? arteriolar vasodilator was administered as part of the ? intervention on this lesion. The residual stenosis following ? this intervention was 40%. The final LINDA flow was 3. ? Vascular Access: ?Vascular Access Management: ? Mechanical Compression of the right radial artery access site was ? performed. ? Dual Antiplatelet (DAPT) Recommendations: ?Drug eluting stent (ALFIE) inserted. ?P2Y12 Loading dose administered prior to arrival in the lab assistant. ?Recommended anti-platelet/anti-thrombotic regimen: ?Continue aspirin 81 mg daily for 12 months then stop. ?Continue clopidogrel 75 mg daily for indefinitely. ?These recommendations are made at the time of the intervention. Patient ?and provider preferences or a changing clinical situation may require ?modification of this regimen. Consult [facility] Interventional Cardiology for ?questions. ? Conclusions: ?* One vessel coronary artery disease (LAD) ?* Successful stent insertion of the mid LAD lesion ?* Successful angioplasty of the proximal D1 lesion ?* See Dual Antiplatelet (DAPT) Recommendations above ? Complications/Events: ?The patient had no complications during these procedures. ? Post Procedure Fluid Recommendations: ?IV fluid at 426 mL/hr for 2 hours for a total of 852 mL. These ?recommendations are made at the time of the procedure. Patient and ?provider preferences or a changing clinical situation may require ?modification of this regimen. ? Recommendations: ?Based upon the results of these procedures, it was recommended that the ?patient be managed with medical therapy and have coronary intervention. ? Comments: ?The patient was found to have high grade disease in the mid LAD and an ?occluded proximal D1. The D1 vessel was of moderate size. A kissing ?inflation was performed to dilate both the mid LAD and D1 vessel. A ?single stent was placed to the mid LAD. ?The attending physician was present for the entire procedure. ?Dr. Suleiman Chapa M.D. was present during the moderate sedation ?intraservice time as documented by the sedation nurse. ??Case time = 00:53. ?Dr. Suleiman Chapa M.D. performed the coronary angiography, left heart ?catheterization, IVUS # coronary, angioplasty-coronary and stent ?insertion-coronary. ? Suleiman Chapa M.D. ? Electronically Signed by: Suleiman Chapa M.D. ? Report Finalized: 03/25/2024 ??17:08 ? Procedure Note Suleiman Chapa MD - 03/25/2024 [facility] Cardiac Catheterization/Intervention Report Patient Name: Yessy Taveras Procedure Date: 03/25/2024 A #: [id number] Primary Physician: Suleiman Chapa Case #: [id number] File Name: [id number] Catheterization Order Number: [id number] [facility] FinalReport [place], [place] Patient Name: Yessy Taveras ID#:[id number] :1960 Procedure Date: March 25, 2024 Case #: [id number] Room: 2 Case Physician: Suleiman Chapa M.D. Start: 14:08 Fellow: Gerardo Yao M.D. Admission:03/24/2024 Frandy Bowen Jr., M.D. Referring Physician: Ajay Diaz M.D. Procedures: * Coronary Angiography * Left Heart Catheterization * Coronary Ultrasound * Coronary Angioplasty * Coronary Stent Insertion History Yessy Taveras is a 63 year old man. He has hypertension. Thepatient's smoking status is Former. He has hypercholesterolemia. The patientis also status post an acute non-ST elevation myocardial infarction.Prior to the initiation of this procedure, the patient was designated asASA Class III. The [facility] clinical frailty scale is 3: Managing Well. Diagnostic Tests: Medications Prior to Procedure: Aspirin, Beta Russ and Statin. Indications for Diagnostic Cath: The priority of the diagnostic procedure was Urgent. The indicationfor the lab assistant visit is ACS less than or equal to 24 hrs. Chest pain symptom assessment was: Typical Angina. Technique: A 6 SLFr sheath was inserted in the right radial artery utilizingthe Seldinger technique. The left coronary artery was injected utilizinga 5Fr IAN RADIAL catheter. A 5Fr IAN RADIAL catheter was used toinject the right coronary artery. Left ventricular pressure was performed utilizing a 5Fr IAN RADIAL catheter. Coronary angioplasty andcoronary stent insertion were performed and the equipment utilized will be described in the intervention summary section. 5,000 units ofheparin were administered. A total of 200cc of Omnipaque were opened, 148ccof Omnipaque were administered and 52cc of Omnipaque were wasted.Radiation: Fluoro time was 14.9 minutes, dose area product was 44.70 Gy/cm2 andair kerma was 645 mGY. See the case log for additional details. The patient received the following medications prior to and duringthe procedure: Unfractionated Heparin, Glycoprotein IIb IIIa Inhibitors and Clopidogrel. Hemodynamics: Left Heart Pressures Resting: Syst Diast EDP a v m Ao 113 71 91 LV 112 15 Coronary Angiography: Dominance: Right Left Main The left main was normal, free of disease. Left Anterior Descending There was a 95% hazy and ulcerated single discrete stenosis ofthe mid segment of the left anterior descending artery (LAD). TheLAD was large. There was a hazy single discrete total occlusion of theproximal segment of the first diagonal branch (Diagonal 1) of the LAD.The Diagonal 1 was large. Left Circumflex There was mild diffuse (<=25% stenosis) disease of the entirevessel segment of the left circumflex artery (LCX). The LCX waslarge. Right Coronary Artery There was mild diffuse (<=25% stenosis) disease of the entirevessel segment of the right coronary artery (RCA). The RCA was large. Intravascular Imaging/Physiology: Intravascular Ultrasound was performed in the mid LAD using a 6 FrEBU 3.75 guiding catheter and a 3.[address] 20 Mhzusing Manual pullback. Imaging was successful. Indication: IVUS performed for post intervention assessment. IVUS performed after pre-dilation. IVUS performed after vessel manipulation. Findings Pre-Intervention: diffuse plaque and thrombus. These measurements were performed after pre-dilation of the lesion. Findings Post-Intervention: The stent was well expanded and apposed. Conclusions: stent/intervention appears optimized. Indication for Intervention: Coronary intervention was indicated for primary therapy for an acute myocardial infarction. The priority for the procedure was Urgent.The NCDR indication for the procedure was NSTE-ACS. LVEF within one weekwas 45%. Syntax Score was Low. Intervention Summary: Left Anterior Descending Artery Mid 95% Stent insertion was performed on the 95% stenosis in themid segment of the LAD. This was a de kyra lesion. Accordingto the ACC/AHA classification system, this lesion was a typeB2 moderate risk lesion. Primary prevention of restenosiswas the indication for stent insertion. This was the culpritlesion. A guidewire was placed across this lesion. Vessel flow pre intervention was LINDA 2. Lesion length was 14mm. Thislesion was contiguous with D1-proximal. The lesion involves a bifurcation with the D1. This bifurcation lesion wastreated with a single stent, side branch pre-dilated onlytechnique and a final kissing balloon post-dilation. Stent insertion was accomplished through a 6 Fr. EBU 3.75 guide. The lesion was predilated with a 2.50mm [id number] MM balloon with a maximum inflation pressure of 16atmospheres. A premounted 3.50 x 22 mm Lyons Joaquin (ALFIE) wasdeployed with a maximum inflation pressure of 15 atmospheres. Following stent deployment, the lesion was dilated usinga 4.00mm NC EUPHORA 15 MM balloon with a maximum inflation pressure of 18 atmospheres. The final outcome was defined as successful. A coronary arteriolar vasodilator was administered as part of the intervention on this lesion. There was no residualstenosis following this intervention. The final LINDA flow was 3. First Diagonal Branch of the LAD Proximal 100% Angioplasty was performed on the total occlusion in the proximal segment of the Diagonal 1. This was a de novolesion. This lesion was designated a type B1 low risk lesionbased on ACC/AHA classification system. This was the culpritlesion. A guidewire was placed across this lesion. Vessel flow pre intervention was LINDA 1. Lesion length was 10mm. Thelesion involves a bifurcation with the D1. This bifurcationlesion was treated with a single stent, side branch pre-dilatedonly technique and a final kissing balloon post-dilation. Angioplasty was accomplished through a 6 Fr EBU 3.75guide utilizing an EUPHORA 20 MM balloon with a maximum size of 2.50mm and a maximum inflation pressure of 14atmospheres. The final outcome was defined as successful. A coronary arteriolar vasodilator was administered as part of the intervention on this lesion. The residual stenosisfollowing this intervention was 40%. The final LINDA flow was 3. Vascular Access: Vascular Access Management: Mechanical Compression of the right radial artery access sitewas performed. Dual Antiplatelet (DAPT) Recommendations: Drug eluting stent (ALFIE) inserted. P2Y12 Loading dose administered prior to arrival in the lab assistant. Recommended anti-platelet/anti-thrombotic regimen: Continue aspirin 81 mg daily for 12 months then stop. Continue clopidogrel 75 mg daily for indefinitely. These recommendations are made at the time of the intervention.Patient and provider preferences or a changing clinical situation mayrequire modification of this regimen. Consult [facility] Interventional Cardiologyfor questions. Conclusions: * One vessel coronary artery disease (LAD) * Successful stent insertion of the mid LAD lesion * Successful angioplasty of the proximal D1 lesion * See Dual Antiplatelet (DAPT) Recommendations above Complications/Events: The patient had no complications during these procedures. Post Procedure Fluid Recommendations: IV fluid at 426 mL/hr for 2 hours for a total of 852 mL. These recommendations are made at the time of the procedure. Patient and provider preferences or a changing clinical situation may require modification of this regimen. Recommendations: Based upon the results of these procedures, it was recommended thatthe patient be managed with medical therapy and have coronaryintervention. Comments: The patient was found to have high grade disease in the mid LAD andan occluded proximal D1. The D1 vessel was of moderate size. A kissing inflation was performed to dilate both the mid LAD and D1 vessel. A single stent was placed to the mid LAD. The attending physician was present for the entire procedure. Dr. Suleiman Chapa M.D. was present during the moderate sedation intraservice time as documented by the sedation nurse. Case time =00:53. Dr. Suleiman Chapa M.D. performed the coronary angiography, leftheart catheterization, IVUS # coronary, angioplasty-coronary and stent insertion-coronary. Suleiman Chapa M.D. Electronically Signed by: Suleiman Chapa M.D. Report Finalized: 03/25/2024 17:08 Suleiman Chapa MD CARDIAC CATH ORDERAB LES * Heparin (unfractionated) Level (03/25/2024 9:26 AM EDT) Only the most recent of2 resultswithin the time period is included. UF Heparin 0.27 IU/mL 03/25/2024 9:48 AM EDT [facility] Comment: Heparin (anti-Xa) levels should be determined in a plasma sample that has been drawn 6 hours after a dose change to approximate steady-state for continuous heparin infusions. Indication specific Heparin (anti-Xa) levels based on order set selection: Acute DVT or PE prevention: ? 0.3-0.7 IU/mL Thrombosis Prevention (e.g. atrial fibrillation, farrukh-procedural bridging, mechanical valves): ? 0.3-0.7 IU/mL Acute Coronary Syndrome: ? 0.3-0.7 IU/mL Stroke Indications: ? 0.3-0.5 IU/mL Ultra-low intensity (select indications in cardiac surgery): ? 0.1-0.3 IU/mL Blood VENOUS BLOOD SPECIMEN / Unknown IP Care Team Draw / Unknown 03/25/2024 9:26 AM EDT 03/25/2024 9:34 AM EDT Roman Giang MD HEMATOLOGY ORDERABLE S [facility] [place] [address] * ECHO COMPLETE W CONTRAST (03/25/2024 8:42 AM EDT) Anatomical Region Laterality Modality Cardiac Other 03/25/2024 7:06 AM EDT Narrative 03/25/2024 9:05 AM EDT [address] [place] [id number] ? Echocardiogram Report Name: YESSY TAVERAS ? Study Date: 03/25/2024 07:06 AMBP: 109/81 mmHg : 1960 ? Height: 191 cm ? Account: [id number] Age: 63 yrs ? Weight: 85 kg Gender: Male ?BSA: 2.1 m2 Ordering Physician: ROMAN GIANG Referring Physician: AJAY DIAZ Performed By: LUCIA Reyes Reason For Study: NSTEMI Exam Location: [facility]. Interpretation Summary -The left ventricular ejection fraction is 47% by Mcintosh's biplane. Left ventricular systolic function is mildly reduced. There are segmental wall motion abnormalities in the LAD territory (apical akinesis and mid septal and anterior hypokinesis). There is contrast swirling in the apex consistent with slow flow. There is no organized thrombus. -Right ventricular systolic function is normal. -No significant valvular disease noted on this study. No prior formal study for comparison. Compared to the overnight study by the data visualization developer fellow there is no significant change. See report for additional findings. Procedure Complete-[id number]. Image enhancement Definity was used for left ventricular opacification. Suboptimal quality. Left Ventricle Left ventricle is of normal size. Wall thickness is normal. The left ventricular ejection fraction is 47% by Mcintosh's biplane. Left ventricular systolic function is mildly reduced. There are segmental wall motion abnormalities. There is contrast swirling in the apex consistent with slow flow without an organized thrombus. Right Ventricle The right ventricle is of normal size. Right ventricular systolic function is normal. RV function by tissue Doppler of the tricuspid annulus is normal. RV function by TAPSE (tricuspid annular plane systolic excursion) is normal. Left Atrium The left atrium is normal. No abnormality of the interatrial septum is identified. Right Atrium The right atrium is normal. Aortic Valve The aortic valve is tricuspid. The aortic valve is mildly thickened. There is calcification of the aortic annulus. There is no aortic stenosis. There is trace aortic regurgitation. Mitral Valve The mitral valve is structurally normal. The mitral valve leaflets are thickened. There is trace mitral regurgitation. Tricuspid Valve The tricuspid valve is structurally and functionally normal. There is trace tricuspid regurgitation. Pulmonic Valve The pulmonic valve appears to be structurally and functionally normal. There is no pulmonic valve regurgitation. Great Arteries The diameter at the level of the sinuses of Valsalva is 3.8 cm. The maximum diameter of the proximal ascending aorta is 4.1 cm. No abnormalities of the pulmonary artery are identified. Venous Inferior vena cava is dilated. Inferior vena cava collapse greater than 50% with respiration. Pericardium/Pleural The pericardium appears normal. Hemodynamics Left ventricular filling pressure is normal. Left ventricular diastolic function is abnormal. There is Grade I LV diastolic dysfunction (abnormal relaxation with normal left ventricular filling pressure). Ejection Fraction ?2D Measurements ? Volumes EF(MOD-bp): 46.9 % ?IVSd: 0.74 cm ?LAV(MOD- bp) Indexed: ?LVIDd: 4.7 cm ?LVIDs: 3.1 cm ?27.5 ml/m2 ?LVPWd: 0.85 cm ? RA A4Cs_phl: 17.3 cm2 ? EDV(MOD-bp) Indexed: ?RWT: 0.36 {ratio} ?LV mass(C)d: 120.3 grams ? 56.7 ml/m2 ?LV mass(C)dI: 56.3 grams/m2 ?ESV(MOD- bp) Indexed: ?Ao root diam: 3.8 cm ? 30.1 ml/m2 ?Ao root diam index: 1.8 ?SV(LVOT): 74.3 ml ?asc Aorta Diam: 4.1 cm ?LVOT diam: 2.2 cm ?SI(LVOT): 34.7 ml/m2 ?TAPSE_phl: 2.4 cm Doppler LV V1 VTI: 20.4 cm Ao V2 VTI: 22.3 cm Ao Max Yimi: 122.3 cm/sec Ao valve max: 6.0 mmHg Ao valve mean: 2.5 mmHg MV E max yimi: 63.6 cm/sec MV A max yimi: 61.2 cm/sec MV E/A: 1.0 Lat Peak E' Yimi: 9.0 cm/sec E/e' (lat): 7.0 Med Peak E' Yimi: 8.4 cm/sec E/e' (med): 7.6 E/e' Average: 7.3 MILAN(I,D): 3.3 cm2 Dimensionless index Aov: 0.92 TR max yimi: 236.1 cm/sec I ?WMSI = 1.69 ? % Normal = 56 ?Segments ??Size X - Cannot ?2 - ?4 - ?1-2 ? small Interpret ?1 - Normal ?? Hypokinetic 3 - Akinetic Dyskinetic ?? 3-5 ? moderate 5 - ? 6-14 ?large Aneurysmal ?15-16 ?? diffuse Procedure Note Magalie Smith MD - 03/25/2024 [address] [place] [address] Echocardiogram Report Name: YESSY TAVERAS Study Date: 407:06 AMBP: 109/81 mmHg : 1960 Height: 191 cm Account: [id number] Age: 63 yrs Weight: 85 kg Gender: Male BSA: 2.1 m2 Ordering Physician: ROMAN GIANG Referring Physician: AJAY DIAZ Performed By: LUCIA Reyes Reason For Study: NSTEMI Exam Location: [facility]. Interpretation Summary -The left ventricular ejection fraction is 47% by Mcintosh's biplane.Left ventricular systolic function is mildly reduced. There are segmental wallmotion abnormalities in the LAD territory (apical akinesis and mid septal andanterior hypokinesis). There is contrast swirling in the apex consistent with slowflow. There is no organized thrombus. -Right ventricular systolic function is normal. -No significant valvular disease noted on this study. No prior formal study for comparison. Compared to the overnight study bythe data visualization developer fellow there is no significant change. See report for additional findings. Procedure Complete-[id number]. Image enhancement Definity was used for left ventricular opacification. Suboptimal quality. Left Ventricle Left ventricle is of normal size. Wall thickness is normal. The leftventricular ejection fraction is 47% by Mcintosh's biplane. Left ventricular systolicfunction is mildly reduced. There are segmental wall motion abnormalities. Thereis contrast swirling in the apex consistent with slow flow without anorganized thrombus. Right Ventricle The right ventricle is of normal size. Right ventricular systolic functionis normal. RV function by tissue Doppler of the tricuspid annulus is normal.RV function by TAPSE (tricuspid annular plane systolic excursion) isnormal. Left Atrium The left atrium is normal. No abnormality of the interatrial septum isidentified. Right Atrium The right atrium is normal. Aortic Valve The aortic valve is tricuspid. The aortic valve is mildly thickened. Thereis calcification of the aortic annulus. There is no aortic stenosis. There istrace aortic regurgitation. Mitral Valve The mitral valve is structurally normal. The mitral valve leaflets arethickened. There is trace mitral regurgitation. Tricuspid Valve The tricuspid valve is structurally and functionally normal. There istrace tricuspid regurgitation. Pulmonic Valve The pulmonic valve appears to be structurally and functionally normal.There is no pulmonic valve regurgitation. Great Arteries The diameter at the level of the sinuses of Valsalva is 3.8 cm. Themaximum diameter of the proximal ascending aorta is 4.1 cm. No abnormalities ofthe pulmonary artery are identified. Venous Inferior vena cava is dilated. Inferior vena cava collapse greater than50% with respiration. Pericardium/Pleural The pericardium appears normal. Hemodynamics Left ventricular filling pressure is normal. Left ventricular diastolicfunction is abnormal. There is Grade I LV diastolic dysfunction (abnormalrelaxation with normal left ventricular filling pressure). Ejection Fraction 2D Measurements Volumes EF(MOD-bp): 46.9 % IVSd: 0.74 cm LAV(MOD-bp)Indexed: LVIDd: 4.7 cm LVIDs: 3.1 cm 27.5 ml/m2 LVPWd: 0.85 cm RA A4Cs_phl: 17.3cm2 EDV(MOD-bp)Indexed: RWT: 0.36 {ratio} LV mass(C)d: 120.3 grams 56.7 ml/m2 LV mass(C)dI: 56.3 grams/m2 ESV(MOD-bp)Indexed: Ao root diam: 3.8 cm 30.1 ml/m2 Ao root diam index: 1.8 SV(LVOT): 74.3ml asc Aorta Diam: 4.1 cm LVOT diam: 2.2 cm SI(LVOT): 34.7ml/m2 TAPSE_phl: 2.4 cm Doppler LV V1 VTI: 20.4 cm Ao V2 VTI: 22.3 cm Ao Max Yimi: 122.3 cm/sec Ao valve max: 6.0 mmHg Ao valve mean: 2.5 mmHg MV E max yimi: 63.6 cm/sec MV A max yimi: 61.2 cm/sec MV E/A: 1.0 Lat Peak E' Yimi: 9.0 cm/sec E/e' (lat): 7.0 Med Peak E' Yimi: 8.4 cm/sec E/e' (med): 7.6 E/e' Average: 7.3 MILAN(I,D): 3.3 cm2 Dimensionless index Aov: 0.92 TR max yimi: 236.1 cm/sec I WMSI = 1.69 % Normal = 56 SegmentsSize X - Cannot 2 - 4 - 1-2small Interpret 1 - Normal Hypokinetic 3 - Akinetic Dyskinetic 3-5moderate 5 - 6-14large Aneurysmal 15-16diffuse Roman Giang MD ECHO ORDERABLES * Echocardiogram Transthoracic (03/25/2024 1:47 AM EDT) Anatomical Region Laterality Modality Cardiac Other 03/25/2024 1:47 AM EDT Narrative 03/27/2024 9:34 AM EDT [address] [place] [address] ? Echocardiogram Report Name: YESSY TAVERAS ? Study Date: 03/25/2024 01:47 AM : 1960 ? Height: 191 cm Age: 63 yrs ? Weight: 85 kg Gender: Male ?BSA: 2.1 m2 Performed By: Kim Lozano MD Reason For Study: NSTEMI History: NSTEMI Interpreting Fellow: Kim Lozano. Interpretation Summary This is a limited study performed by the fellow data visualization developer. Left ventricle is of normal size. Left ventricular systolic function is mildly reduced and estimated visually at 45%. There are RWMAs in an LAD distribution (including apical akinesis); see diagram in PDF. Right ventricle is normal in size and systolic function. No significant valvular abnormalities observed on limited assessment. There is no prior study available for comparison. Procedure Limited - [id number]. Suboptimal quality. There is normal sinus rhythm. Left Ventricle Left ventricle is of normal size. Left ventricular ejection fraction is estimated visually at 45%. Left ventricular systolic function is mildly reduced. There is akinesis of the apical region. Right Ventricle The right ventricle is of normal size. Right ventricular systolic function is normal. Left Atrium The left atrium is mildly dilated. Right Atrium The right atrium is probably normal in size. Aortic Valve The aortic valve is not well visualized. The aortic valve is tricuspid. The aortic leaflet excursion is normal. Mitral Valve The mitral valve is structurally normal. There is trace mitral regurgitation. Tricuspid Valve The tricuspid valve is structurally normal. There is mild tricuspid regurgitation. Pulmonic Valve The pulmonic valve is not well visualized. Pericardium/Pleural There is no pericardial effusion. ? 2D Measurements ?TAPSE_phl: 1.9 cm I ?WMSI = 1.81 ? % Normal = 50 ?Segments ??Size X - Cannot ?2 - ?4 - ?1-2 ? small Interpret ?1 - Normal ?? Hypokinetic 3 - Akinetic Dyskinetic ?? 3-5 ? moderate 5 - ? 6-14 ?large Aneurysmal ?15-16 ?? diffuse Procedure Note Corby Mata MD - 03/27/2024 [address] [place] [address] Echocardiogram Report Name: NITIN YESSY Goode Study Date: 03/25/2024 01:47AM : 1960 Height: 191 cm Age: 63 yrs Weight: 85 kg Gender: Male BSA: 2.1 m2 Performed By: Kim Lozano MD Reason For Study: NSTEMI History: NSTEMI Interpreting Fellow: Kim Lozano. Interpretation Summary This is a limited study performed by the fellow data visualization developer. Left ventricle is of normal size. Left ventricular systolic function ismildly reduced and estimated visually at 45%. There are RWMAs in an LADdistribution (including apical akinesis); see diagram in PDF. Right ventricle is normal in size and systolic function. No significant valvular abnormalities observed on limited assessment. There is no prior study available for comparison. Procedure Limited - [id number]. Suboptimal quality. There is normal sinus rhythm. Left Ventricle Left ventricle is of normal size. Left ventricular ejection fraction isestimated visually at 45%. Left ventricular systolic function is mildly reduced.There is akinesis of the apical region. Right Ventricle The right ventricle is of normal size. Right ventricular systolic functionis normal. Left Atrium The left atrium is mildly dilated. Right Atrium The right atrium is probably normal in size. Aortic Valve The aortic valve is not well visualized. The aortic valve is tricuspid.The aortic leaflet excursion is normal. Mitral Valve The mitral valve is structurally normal. There is trace mitralregurgitation. Tricuspid Valve The tricuspid valve is structurally normal. There is mild tricuspidregurgitation. Pulmonic Valve The pulmonic valve is not well visualized. Pericardium/Pleural There is no pericardial effusion. 2D Measurements TAPSE_phl: 1.9 cm I WMSI = 1.81 % Normal = 50 SegmentsSize X - Cannot 2 - 4 - 1-2small Interpret 1 - Normal Hypokinetic 3 - Akinetic Dyskinetic 3-5moderate 5 - 6-14large Aneurysmal 15-16diffuse Unknown ECHO ORDERABLES * (ABNORMAL) Troponin-T, Nikhil Sensitivity 3 Hour (03/24/2024 11:19 PM EDT) Troponin-T, High Sensitivity 465(H) <=22 ng/L 03/24/2024 11:56 PM EDT [facility] Comment: This patient's troponin T concentration was determined using the [place] 5th Generation troponin T assay. According to the fourth universal definition of myocardial infarction, the term acute myocardial infarction should be used when there is acute myocardial injury with clinical evidence of acute myocardial ischemia and with detection of a rise and/or fall of cardiac troponin values with at least one value above the 99th percentile and at least one of the following: - Symptoms of myocardial ischemia; - New ischemic ECG changes; - Development of pathological Q waves; - Imaging evidence of new loss of viable myocardium or new regional wall motion ?? abnormality in a pattern consistent with an ischemic etiology; - Identification of a coronary thrombus by angiography or autopsy (not for type 2 or 3 ?? MIs) Serial measurement of troponin and the change in troponin concentration over time (delta) is crucial for the diagnosis of acute myocardial infarction. Guidance on the interpretation of the new 5th Generation Troponin T values and the delta troponin value can be found in the [facility] Test Catalog Troponin - [email or web address] Reference: Fourth Dell Definition of Myocardial Infarction. Journal of the [place] [employer] 2018;72:0023-9282 Troponin-T, HS 3 hr delta 03/24/2024 11:56 PM EDT [facility] Comment:Delta troponin value not calculated, sample collected outside of delta calculation time limit. Blood VENOUS BLOOD SPECIMEN / Unknown IP Care Team Draw / Unknown 03/24/2024 11:19 PM EDT 03/24/2024 11:25 PM EDT Roman Giang MD CHEMISTRY ORDERABLES [facility] [place] [address] * XR Chest One View (03/24/2024 9:55 PM EDT) WORKSTATION ID [id number] RAD Anatomical Region Laterality Modality Chest N/A Digital Radiogra phy Impressions 03/24/2024 11:21 PM EDT Pulmonary vascular congestion. Thank you for letting us participate in the care of this patient. ??If you are a health care provider and have any questions regarding this report, please contact the number below. ??For patients who have questions please contact the health daycare teacher that requested your imaging first. ? Electronically signed by: Janine Kunz MD, [facility] ([phone]), at 03/24/2024 11:21 PM Narrative 03/24/2024 11:21 PM EDT EXAMINATION: XR CHEST ONE VIEW CLINICAL HISTORY: 63 yo M with hx of chest pain and elevated troponin TECHNIQUE: 1 view of the chest COMPARISON: CT scan January 14, 2024 FINDINGS: Pulmonary vascular distribution. Bronchovascular haziness throughout. No pleural effusion. No consolidation. Cardiac, mediastinal hilar contours are within normal limits. Right apical scarring. No displaced rib fracture. Procedure Note Janine Kunz MD - 03/24/2024 EXAMINATION: XR CHEST ONE VIEW CLINICAL HISTORY: 63 yo M with hx of chest pain and elevated troponin TECHNIQUE: 1 view of the chest COMPARISON: CT scan January 14, 2024 FINDINGS: Pulmonary vascular distribution. Bronchovascular haziness throughout. Nopleural effusion. No consolidation. Cardiac, mediastinal hilar contours arewithin normal limits. Right apical scarring. No displaced rib fracture. IMPRESSION Pulmonary vascular congestion. Thank you for letting us participate in the care of this patient. If youare a health care provider and have any questions regarding this report,please contact the number below. For patients who have questions please contactthe health daycare teacher that requested your imaging first. Electronically signed by: Janine Kunz MD, [facility]([phone]), at 03/24/2024 11:21 PM Roman Giang MD IMG DX ORDERABLES * (ABNORMAL) Troponin-T, High Sensitivity 1 Hour (03/24/2024 9:38 PM EDT) Troponin-T, High Sensitivity 469(H) <=22 ng/L 03/24/2024 10:29 PM EDT [facility] Comment: This patient's troponin T concentration was determined using the [place] 5th Generation troponin T assay. According to the fourth universal definition of myocardial infarction, the term acute myocardial infarction should be used when there is acute myocardial injury with clinical evidence of acute myocardial ischemia and with detection of a rise and/or fall of cardiac troponin values with at least one value above the 99th percentile and at least one of the following: - Symptoms of myocardial ischemia; - New ischemic ECG changes; - Development of pathological Q waves; - Imaging evidence of new loss of viable myocardium or new regional wall motion ?? abnormality in a pattern consistent with an ischemic etiology; - Identification of a coronary thrombus by angiography or autopsy (not for type 2 or 3 ?? MIs) Serial measurement of troponin and the change in troponin concentration over time (delta) is crucial for the diagnosis of acute myocardial infarction. Guidance on the interpretation of the new 5th Generation Troponin T values and the delta troponin value can be found in the [facility] Test Catalog Troponin - https://[email or web address]-dh.testcatalog.org/catalogs/565/files/86099 Reference: Fourth Dell Definition of Myocardial Infarction. Journal of the [place] [employer] 2018;72:1600-8738 Troponin-T, HS 1 hr delta 27 ng/L 03/24/2024 10:29 PM EDT [facility] Comment:The 1 hour Troponin T delta value is the absolute difference between the Troponin T concentrations of the initial and subsequent sample collected between 45 - 120 minutes following the initial collection. Blood VENOUS BLOOD SPECIMEN / Unknown IP Care Team Draw / Unknown 03/24/2024 9:38 PM EDT 03/24/2024 9:53 PM EDT Roman Giagn MD CHEMISTRY ORDERABLES [facility] [place] [address] * (ABNORMAL) D-Dimer, Quantitative (03/24/2024 8:43 PM EDT) Pathologist [facility] D-Dimer 576(H) 0 - 500 FEU ng/ml 03/24/2024 9:03 PM EDT [facility] Comment: The D-Dimer assay is used to aid in the diagnosis of deep vein thrombosis and pulmonary embolism. A normal D-Dimer result (less than 500 FEU ng/mL) has a negative predictive value of approximately 95% for the exclusion of acute PE and DVT when there is a low to moderate pretest probability. Blood VENOUS BLOOD SPECIMEN / Unknown Venipuncture / Unknown 03/24/2024 8:43 PM EDT 03/24/2024 8:50 PM EDT Roman Giang MD HEMATOLOGY ORDERABLE S [facility] [place] [address] * (ABNORMAL) Troponin-T, High Sensitivity (03/24/2024 8:42 PM EDT) [facility] Troponin-T, High Sensitivity Initial 496(H) <=22 ng/L 03/24/2024 9:32 PM EDT [facility] Comment: This patient's troponin T concentration was determined using the [place] 5th Generation troponin T assay. The 99th percentile for Troponin T for this test is 14 ng/L for females, and 22 ng/L for males. According to the fourth universal definition of myocardial infarction, the term acute myocardial infarction should be used when there is acute myocardial injury with clinical evidence of acute myocardial ischemia and with detection of a rise and/or fall of cardiac troponin values with at least one value above the 99th percentile and at least one of the following: - Symptoms of myocardial ischemia; - New ischemic ECG changes; - Development of pathological Q waves; - Imaging evidence of new loss of viable myocardium or new regional wall motion ?? abnormality in a pattern consistent with an ischemic etiology; - Identification of a coronary thrombus by angiography or autopsy (not for type 2 or 3 ?? MIs) Serial measurement of troponin and the change in troponin concentration over time (delta) is crucial for the diagnosis of acute myocardial infarction. Guidance on the interpretation of the new 5th Generation Troponin T values and the delta troponin value can be found in the [facility] Test Catalog Troponin - https://one-.testcatalog.org/catalogs/565/files/98416 Reference: Fourth Dell Definition of Myocardial Infarction. Journal of the [place] [employer] 2018;72:0498-5964 Blood VENOUS BLOOD SPECIMEN / Unknown Venipuncture / Unknown 03/24/2024 8:42 PM EDT 03/24/2024 8:50 PM EDT Roman Giang MD CHEMISTRY ORDERABLES Performing Organization Address City/[facility]/ZIP Co de Phone Number [facility] [place] [address] * TSH (03/24/2024 8:42 PM EDT) Thyroid Stimulating Hormone 2.01 0.27 - 4.20 mcIU/mL 03/24/2024 9:32 PM EDT [facility] Blood VENOUS BLOOD SPECIMEN / Unknown Venipuncture / Unknown 03/24/2024 8:42 PM EDT 03/24/2024 8:50 PM EDT Roman Giang MD CHEMISTRY ORDERABLES [facility] [place] [address] * (ABNORMAL) pro-Brain Natriuretic Peptide (03/24/2024 8:42 PM EDT) NT-proBNP 1,310(H) <=124 pg/mL 03/24/2024 9:32 PM EDT [facility] Blood VENOUS BLOOD SPECIMEN / Unknown Venipuncture / Unknown 03/24/2024 8:42 PM EDT 03/24/2024 8:50 PM EDT Roman Giang MD CHEMISTRY ORDERABLES [facility] [place] [address] * Hemoglobin A1c (03/24/2024 8:42 PM EDT) Pathologist [facility] Hemoglobin A1c 5.3 4.3 - 5.6 % 03/24/2024 9:21 PM EDT [facility] Comment: Per ADA guidelines, without clear symptoms of hyperglycemia or a random plasma glucose >199 mg/dL, a single abnormal A1c measurement cannot be used to diagnose diabetes mellitus. The diagnosis must be confirmed by either 1) a concurrent abnormal fasting plasma glucose or impaired response to oral glucose tolerance testing, or 2) an additional abnormal A1c, impaired fasting plasma glucose, or impaired response to oral glucose tolerance testing on a different day. A1c results obtained on patients with altered red blood cell turnover may not be contact center representative of glycemic control. Reference Interval: 4.3 - 5.6% 5.7 - 6.4%: Consistent with prediabetes >=6.5%: Consistent with diagnosis of diabetes mellitus Estimated Average Glucose 105 mg/dL 03/24/2024 9:21 PM EDT [facility] Blood VENOUS BLOOD SPECIMEN / Unknown Venipuncture / Unknown 03/24/2024 8:42 PM EDT 03/24/2024 8:50 PM EDT Roman Giang MD CHEMISTRY ORDERABLES [facility] [place] [address] * Lipid Panel (Reflex Direct LDL) (03/24/2024 8:42 PM EDT) Cholesterol, Total 80 mg/dL 03/24/2024 9:32 PM EDT [facility] Comment: Desirable: < 200 mg/dL Borderline High: 200 - 239 mg/dL High: > or = 240 mg/dL Triglyceride 52 mg/dL 03/24/2024 9:32 PM EDT [facility] Comment: Normal: <150 mg/dL Borderline High: 150-199 mg/dL High: 200-499 mg/dL Very High: > or =500 mg/dL HDL Cholesterol 35 mg/dL 9:32 PM EDT [facility] Comment:Males: High Risk: <4 0 mg/dL LDL Cholesterol 32 mg/dL 9:32 PM EDT [facility] Comment: Desirable: <100 mg/dL Above Desirable: 100-129 mg/dL Borderline High: 130-159 mg/dL High: 160-189 mg/dL Very High: > or =190 mg/dL Note: LDL calculation updated to the NIH LDL formula as of 01/20/2024 Non-HDL Cholesterol 45 mg/dL 03/24/2024 9:32 PM EDT [facility] Comment: Desirable: <130 mg/dL Above Desirable: 130-159 mg/dL Borderline High: 160-189 mg/dL High: 190-219 mg/dL Very High: > or = 220 mg/dL Blood VENOUS BLOOD SPECIMEN / Unknown Venipuncture / Unknown 03/24/2024 8:42 PM EDT 03/24/2024 8:50 PM EDT [facility] - 03/24/2024 9:32 PM EDT It is important to review the results of your lipid panel with your health care provider. You can compare your lipid results to the ranges below and whether they are in the desirable range. These ranges are only meant to be used for people without known cardiac disease, history of stroke, or peripheral vascular disease (blockages in the leg arteries or diabetes). If you have one of these conditions, your desirable LDL-C (bad cholesterol) will likely be even lower. ?? ACC/AHA Guidelines (most recently Calli et al. [facility] 03/21/22): * For individuals with atherosclerotic cardiovascular disease (ASCVD) or LDL >=190 mg/dL, use a high-intensity statin(40-80 mg atorvastatin or 20-40 mg rosuvastatin with goal >=50% LDL reduction) * For individuals with diabetes, age 40-75 without ASCVD, moderate-intensity statin (goal 30-49% LDL reduction); consider high intensity statin for those with increased risk. * For adults without diabetes or ASCVD, aged 40-75 with LDL 70-189 mg/dL, estimate 10 year ASCVD risk with smartphrase ??.ASCVDRISK ??or Dynamed Decisions. If 10 year risk is 7.5%-19.9% (intermediate risk), consider moderate intensity statin based on risk enhancers and patient preference. Consider coronary artery calcium test (CT)if there is concern regarding the benefit of a statin. If ten year risk is >=20%, initiate high-intensity statin. * Evaluate for secondary causes of Triglycerides >500 mg/dL or LDL >190 mg/dL. * Lifestyle modification is a critical component of ASCVD risk reduction. * If not reaching LDL goals on maximally tolerated statin, consider ezetimibe and/or a PCSK9 inhibitor: ?* Target for primary prevention: LDL<100 ?* Target for those with ASCVD or diabetes and 10-year risk >=20%: LDL<70 ?* Target for those with very high risk ASCVD: LDL<55 (Very high risk being the presence of 2 or more of: recent acute coronary syndrome, past ? myocardial infarction, ischemic stroke, symptomatic peripheral artery disease) Roman Giang MD CHEMISTRY ORDERABLES [facility] [place] [address] * (ABNORMAL) Comprehensive metabolic panel (03/24/2024 8:42 PM EDT) [facility] Glucose 81 65 - 199 mg/dL 03/24/2024 9:32 PM EDT [facility] Comment:Glucose Concentratio n >=200 mg/dL plus symptoms is consistent with Diabetes Mellitus. Blood Urea Nitrogen 9(L) 10 - 20 mg/dL 03/24/2024 9:32 PM EDT [facility] Creatinine 0.70(L) 0.80 - 1.50 mg/dL 03/24/2024 9:32 PM EDT [facility] Sodium 138 135 - 145 mMol/L 03/24/2024 9:[address] [facility] Potassium 3.9 3.5 - 5.0 mMol/L 03/24/2024 9:[address] [facility] Chloride 105 98 - 107 mMol/L 03/24/2024 9:[address] [facility] Carbon Dioxide 21(L) 22 - 31 mMol/L 03/24/2024 9:[address] [facility] Anion Gap 12 5 - 15 mMol/L 03/24/2024 9:[address] [facility] Calcium 8.8 8.5 - 10.5 mg/dL 03/24/2024 9:[address] [facility] Protein, Total 6.8 6.1 - 8.0 g/dL 03/24/2024 9:[address] [facility] Albumin 3.8 3.2 - 5.2 g/dL 03/24/2024 9:[address] [facility] Aspartate Aminotransferase 18 <=39 unit/L 03/24/2024 9:[address] [facility] Alanine Aminotransferase 21 0 - 55 unit/L 03/24/2024 9:[address] [facility] Alkaline Phosphatase 91 40 - 130 unit/L 03/24/2024 9:[address] [facility] Bilirubin, Total 0.6 <=1.3 mg/dL 03/24/2024 9:[address] [facility] Est Glomerular Filtration Rate - Male 103 mL/min/1. 73 m?? 03/24/2024 9:[address] [facility] Comment: This patient's estimated GFR was calculated using the 2020 CKD-EPI equation. The estimated GFR can vary from the measured GFR by up to 30% in the absence of rapidly changing kidney function. Assessment of the estimated GFR is not appropriate when creatinine concentrations are rapidly changing. For clinical situations in which a more precise estimate of GFR is necessary, consider alternative methods of GFR estimation such as a 24-hour urine creatinine clearance. Assignment of CKD stage 1 - 5 for patients with an eGFR near the transition point between stages may be based on clinical assessment of muscle mass and symptoms in addition to eGFR. 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
--- OUTSIDE RECORDS SUMMARY | 2024-04-18 12:51 | XMS_ITS | Encounter Summary ---
Author Organization [facility] [place] [address] Care Team Providers Care Electrical Service Technician Name Role Phone Calderon Huynh MD Primary Care Provider [phone] Reason for Referral * Consultation (Routine) - Authorized Specialty Diagnoses / Procedures Referred By Zac del toro Referred To Contact Cardiology Diagnoses Acute non-ST elevation myocardial infarction (NSTEMI) NSTEMI (non-ST elevated myocardial infarction) S/P D/C - LAD stent placed @ Soham Aviles MD [facility] [place] [address] [facility] [address] [place] [phone] Referral ID Status Reason Start Date Expiration Date Visits Requested Visits Authorized [id number] Authorized Consult, Test & Treat 03/27/2024 03/27/2025 1 1 * Consultation (Routine) - Authorized Specialty Diagnoses / Procedures Referred By Zac t Referred To Contact Cardiology Diagnoses Acute non-ST elevation myocardial infarction (NSTEMI) Joie Mejia MD [facility] [place] [address] Cardiac Rehab, [address] [place] [address] Referral ID Status Reason Start Date Expiration Date Visits Requested Visits Authorized [id number] Authorized Consult, Test & Treat 03/27/2024 09/23/2024 36 36 Reason for Visit * Auth/Cert (Routine) Specialty Diagnoses / Procedures Referred By Contac t Referred To Contact Diagnoses NSTEMI (non-ST elevated myocardial infarction) NSTEMI Procedures EMERGENCY IPI Roman Giang MD [facility] [place] [place] [address] [facility] Referral ID Status Reason Start Date Expiration Date Visits Re quested Visits Authorized [id number] 1 1 Encounter Details Date Type Department Care Team (Latest Contact Info) Description 03/24/2024 8:16 PM EDT - 03/27/2024 12:14 PM EDT Hospital Encounter Heart and Vascular Unit Level 3 [place] [id number] Marlys De La Garza MD [facility] [place] [address] Joie Mejia MD [facility] [place] [place] [address] Roman Giang MD [facility] [place] [place] [address] Acute non-ST elevation myocardial infarction (NSTEMI); NSTEMI (non-ST elevated myocardial infarction) Discharge Disposition: Home Social History Tobacco Use Types Packs/Day Years Used Date Smoking Tobacco: Former Cigarettes 0.5 30 Q uit: 12/2022 Smokeless Tobacco: Never [facility] Utilities Answer Date Recorded In the past 12 months has [employer], gas, oil, or water company threatened to [...] any time in the past 12 m [facility], were you homeless or living in a correction (including now)? No 03/25/2024 DH IPV Inpatient [...] on file Sexual Orientation Not on file documented as of this encounter Last Filed Vital Signs Vital Sign Reading [...] Mass Index 23 03/24/2024 8:21 PM EDT documented in this encounter Discharge Summaries * Wiley Díaz, - 03/27/2024 9:08 AM EDT Discharge Summary Patient Name: Yessy Taveras Patient Age: 63 y.o. Language: Afghan Race: White Ethnicity: Not nor Admit date: 03/24/2024 Discharge date and time: 03/27/2024 11:35 AM Attending Physician: Marlys De La Garza MD Discharge Physician: Wiley Díaz, Follow-up Recommendations for Providers: Patient received PCI s/p stent in mid LAD artery and angioplasty of proximal D1 lesion. Should continue Dual antiplatelet therapy. Aspirin 81 mg daily for 12 months then stop. Continue Plavix 75 mg daily for indefinitely. Medications he is discharged at aspirin 81 mg, clopidogrel 75 mg, Metoprolol XL 25 mg, Losartan 12.5 mg DIANA and atorvastatin 80 mg. Regular monitoring of blood pressure, cholesterol levels, and other relevant labs. Follow-up appointment with the drama critic. Education on Lifestyle Modifications and dietary changes (e.g., low sodium, heart-healthy diet). Recommend regular physical activity, tailored to the patient???s condition. Follow-up on Referral to cardiac rehabilitation Provide education on the importance of adherence to medication and lifestyle changes. Inpatient Provider Contact Information: For questions regarding this document or issues relating to this hospitalization on the Medical Service, please contact your inpatient physician through the [facility] Supply Chain Project Manager . Issues afterhours and on weekends will be handled by the Hospitalist staff on-call. Discharge Diagnoses (Hospital Problems) and Secondary Diagnoses (Chronic Problems): Active Hospital Problems Diagnosis NSTEMI (non-ST elevated myocardial infarction) Resolved Hospital Problems No resolved problems to display. Active Non-Hospital Problems Diagnosis Aneurysm of ascending aorta without rupture Aneurysm of left common iliac artery ID: [id number] w.h.o HTN, HLD, TUD in remission, L common iliac aneurysm (followed by Dr. Beth, Vascular Surgery) who had 2-3 days of stuttering chest pain followed by a persistent episode prompting him to seek care. History of Presentation: (per 03/24/2024 Admission H&P): The patient was in his usual state of health until 1 week ago when he began experiencing intermittent nonexertional chest pressure and epigastric discomfort. 3 nights ago patient had an episode of severe central chest pain which was transient lasting about an hour. It was 10/10 in intensity. The next day during grocery shopping, he noted similar chest pain chest pain was radiating to the left arm, but in this case it did not resolve hence he presented to the ED at [facility]. He denies associated cough , shortness of breath, lower extremity edema, orthopnea, PND, p alpitations, loss of consciousness, focal weakness. Mother of a heart attack at 72 years old and mother of heart failure In the ED he was given sublingual nitro x 2 which improved his pain. VS BP 115/73, HR 92 , Spo2 96,EKG: uploaded, pertinent for T wave inversion in aVL, poor R wave progression, and pathologic Q waves in anterior leads. BNP 868 Troponin I 2231-->1374-->1152-->1152. CBC wnl Na 142 ,K 3.6 Cr 0.6 Mg 1.8 . CXR wnlHe was given aspirin and Plavix load and started on heparin and nitro drip forconcern for NSTEMI type I. He was transferred to [facility] for further ischemic evaluation. Hospital Course: Yessy Taveras was admitted to the cardiology Service on 03/24/2024. The following issues were addressed and he was discharged on 03/27/2024 #NSTEMI type I vs (missed) STEMI: Patient presented with 2-4 days of stuttering chest pain and significantly positive troponin. His EKG showed recent anterolateral MT with Q waves and TTE with LAD territory WMAs. He was referred for cardiac catheterization which showed high grade LAD disease with evidence of thrombus. He received PCI to LAD/Diag bifurcation lesion and treated with integrelin. Probably it looked like missed STEMI.He received aspirin and Plavix load OSH and we continued with aspirin 81 mg and Plavix 75 mg daily.We optimized his medical therpay as tolerated. His new meds include metoprolol succinate XL 25 mg and losartan 12.[address] referral to cardiac rehab. #HTN We discontinued his home medicine terazosin and started him om losartan 12.5 mg daily given his BP remained soft during hospital course. #Left iliac artery Aneurysm #Dilation of ascending aorta Patient should follow Outpatient vascular surgery. Vital Signs at Discharge: BP: 106/68, Heart Rate: 54, Temp: 36.4 ??C (97.5 ??F), Resp: 16, BMI (Calculated): 23.52 Height: 190.5 cm (6' 3) (03/24/242020) Weight: 83.5 kg (184 lb) (03/27/24 0407) Functional and Cognitive Status: Mental status at baseline, ambulating independently/ with Physical Exam Day of Discharge General: awake, not in acute distress. HEENT: normocephalic, anicteric sclerae, no conjunctival pallor CV: cardiac sounds regular, rhythmic. No murmurs, rubs, or gallops Pulm: lungs clear to auscultation bilaterally, no crackles/wheezes/ronchi, normal work of breathing Abd: soft, non-tender, no rebound or guarding Ext: Warm, well perfused. No cyanosis or edema. Distal pulses 2+ and symmetric Neuro: oriented in time, space, and person. No focal deficits noted, sensation grossly intact Skin: no rashes, lesions, or ulcerations noted Important Studies and Lab Data: Labs: Recent Labs 03/26/2440003/25/2430803/24/242041 WBC 7.80 6.81 8.18 HGB 14.8 14.6 14.8 PLATELET 180 173 160 Recent Labs 03/27/242 03/26/24 0401 03/25/24 0309 NA 138 136 139 K 3.7 3.8 4.0 CL 106 105 106 CO2 22 20* 21* BUN 11 11 10 CREATININE 0.72* 0.74* 0.71* Recent Labs 03/27/242 03/26/2440003/25/24 030 CALCIUM 9.0 8.9 8.7 MAGNESIUM 0.83 0.81 0.86 Recent Labs 03/24/242041 AST 18 ALT 21 ALKPHOS 91 BILITOT 0.6 TTE 03/24/2024: Interpretation Summary -The left ventricular ejection fraction [...] Compared to the overnight study by the educational psychology teacher fellow there is no significant change. Left Ventricle Left ventricle is of normal [...] Volumes EF(MOD-bp): 46.9 % IVSd: 0.74 cm LAV(MOD-bp) Indexed: LVIDd: 4.7 cm LVIDs: 3.1 cm 27.5 ml/m2 LVPWd: 0.85 cm RA A4Cs_phl: 17.3 cm2 EDV(MOD-bp) Indexed: RWT: 0.36 LV mass(C)d: 120.3 grams 56.7 ml/m2 LV mass(C)dI: 56.3 grams/m2 ESV(MOD-bp) Indexed: Ao root diam: 3.8 cm 30.1 ml/m2 Ao root diam index: 1.8 SV(LVOT): 74.3 ml asc Aorta Diam: 4.1 cm LVOT diam: 2.2 cm SI(LVOT): 34.7 ml/m2 TAPSE_phl: 2.4 cm Doppler LV V1 VTI: [...] WMSI = 1.69 % Normal = 56 Segments Size X - Cannot 2 - 4 - 1-2 small Interpret 1 - Normal Hypokinetic 3 - Akinetic Dyskinetic 3-5 moderate 5 - 6-14 large Aneurysmal 15-16 diffuse Cardiac Catheterization: Procedures: * Coronary Angiography * Left Heart Catheterization * Coronary Ultrasound * Coronary Angioplasty * Coronary Stent Insertion Discharge Conditions/Prognosis: good Vital Signs: Last value Range last 24 hrs Temperature Temp: 36.4 ??C (97.5 ??F) Temp: [36.4 ??C (97.5 ??F)-36.8 ??C (98.2 ??F)] Heart Rate Heart Rate: 54 Heart Rate: [54-80] Blood Pressure BP: 106/68 BP: (103-113)/(67-79) Respiratory Rate Resp: 16 Resp: [16-18] SpO2 SpO2: 95 % SpO2: [95 %-97 %] Discharge to: Home Discharge Medications: Your Medications New Medications Dose Details clopidogreL 75 mg tablet Commonly known as: Plavix Take 1 tablet by mouth daily. 75 mg Quantity: 90 tablet Refills: 3 losartan 25 mg tablet Commonly known as: Cozaar Take 0.5 tablets by mouth daily. 12.5 mg Quantity: 90 tablet Refills: 3 metoprolol succinate XL 25 mg ER 24 hr tablet Commonly known as: Toprol-XL Take 1 tablet by mouth daily. 25 mg Quantity: 30 tablet Refills: 12 nitroGLYcerin 0.4 mg sublingual tablet Commonly known as: Nitrostat Place 1 tablet under the tongue every 5 minutes as needed for Chest pain. 0.4 mg Quantity: 90 tablet Refills: 12 Continued medications with new dosing Dose Details atorvastatin 80 mg tablet Commonly known as: Lipitor Take 1 tablet by mouth every evening. What changed: medication strength how much to take when to take this 80 mg Quantity: 90 tablet Refills: 3 Continued medications, unchanged Dose Details Aleve 220 mg tablet Generic drug: naproxen sodium Refills: 0 Baby Aspirin 81 mg chewable tablet Generic drug: aspirin Refills: 0 Imitrex 100 mg tablet 100 MG = 1 Tablet(s), PO, Twice daily,PRN Generic drug: SUMAtriptan Refills: 0 mirtazapine 45 mg tablet Commonly known as: Remeron Take 45 mg by mouth nightly. 45 mg Refills: [address] tablet Generic drug: pantoprazole EC Refills: 0 terazosin 2 mg capsule Commonly known as: Hytrin Take 2 mg by mouth nightly. 2 mg Refills: 0 Topamax 50 mg tablet 50 MG = 1 Tablet(s), PO, QHS Generic drug: topiramate Refills: 0 STOPPED Medications Inderal LA 80 mg ER 24 hr capsule Generic drug: propranolol LA Zocor 20 mg tablet Generic drug: simvastatin Updated Allergies/ADRs: Allergies Allergen Reactions Bupropion Hcl CIS - edema Penicillins CIS - edema Instructions Given to Patient at Discharge: Patient Instructions Patient Instructions on Discharge to Home Why you were hospitalized: You had a heart attack, which was caused by a blockage in one of your heart arteries. This was fixed with a stent that was placed during a cardiac catheretization. Because you had this procedure, youshouldn't lift anything greater than 10 lbs for the next week and nothing greater than 20 lbs for 2 weeks. After that time you may go back to regular activity and work. Call your doctor if your right wrist pain gets worse, or you develop swelling or redness in that area. Also, call your doctor if you develop sudden chest pain or shortness of breath, especially chestpain that does not go away with nitroglycerin. It is important that you take your aspirin 81mg daily forever and clopidogrel 75mg daily for at least 1 year. Do not miss any doses of these medications! New Medications: Clopidogrel (plavix): this is a second platelet inhibitor that will help prevent clot build up in the stent that was placed. It is very important that you take this medication every day at least forone year to help keep your stent open. Follow up with your doctor before stopping this medication. Atorvastatin (lipitor): this is a cholesterol-lowering medication that helps prevent build up of plaque in your arteries. Take this every evening. Metoprolol (toprol): this is a beta russ, that helps protect your heart. Take this every day. Losartan: this is an ARB medication that also helps protect your heart, as well as help control your blood pressure. Take this every day. Nitroglycerin: this is a medication that can be placed under your tongue as needed for chest pain. If you experience chest pain, especially that similar to what you had before you were admitted to the hospital, sit down and place one tab under your tongue (it may make you dizzy, so sitting down before taking this is safest). If your chest pain does not improve, call your doctor. Changed Medications: Atorvastatin: This is a medication which lowers cholesterol and also stabilizes plaque, helping to prevent risk of future heart attacks/strokes. We have increased the dosage to 80mg daily. Stopped Medications: Simvastatin: Atorvastatin is a higher intensity statin. You no longer should take simvastatin. Propranolol: You are on a new medication in this same class, metoprolol, so you no longer should take propranolol. Continued Medications: Aspirin: this is a platelet inhibitor that will help prevent clot build up in your arteries, as well as in the stent that was placed. Continue taking 81mg daily indefinitely. Sumatriptan Topiramate Mirtazapine Protonix Terazosin Your Discharge Medication List Your Medications New Medications Dose Details clopidogreL 75 mg tablet Commonly known as: Plavix Take 1 tablet by mouth daily. 75 mg Quantity: 90 tablet Refills: 3 losartan 25 mg tablet Commonly known as: Cozaar Take 0.5 tablets by mouth daily. 12.5 mg Quantity: 90 tablet Refills: 3 metoprolol succinate XL 25 mg ER 24 hr tablet Commonly known as: Toprol-XL Take 1 tablet by mouth daily. 25 mg Quantity: 30 tablet Refills: 12 nitroGLYcerin 0.4 mg sublingual tablet Commonly known as: Nitrostat Place 1 tablet under the tongue every 5 minutes as needed for Chest pain. 0.4 mg Quantity: 90 tablet Refills: 12 Continued medications with new dosing Dose Details atorvastatin 80 mg tablet Commonly known as: Lipitor Take 1 tablet by mouth every evening. What changed: medication strength how much to take when to take this 80 mg Quantity: 90 tablet Refills: 3 Continued medications, unchanged Dose Details Aleve 220 mg tablet Generic drug: naproxen sodium Refills: 0 Baby Aspirin 81 mg chewable tablet Generic drug: aspirin Refills: 0 Imitrex 100 mg tablet 100 MG = 1 Tablet(s), PO, Twice daily,PRN Generic drug: SUMAtriptan Refills: 0 mirtazapine 45 mg tablet Commonly known as: Remeron Take 45 mg by mouth nightly. 45 mg Refills: [address] tablet Generic drug: pantoprazole EC Refills: 0 terazosin 2 mg capsule Commonly known as: Hytrin Take 2 mg by mouth nightly. 2 mg Refills: 0 Topamax 50 mg tablet 50 MG = 1 Tablet(s), PO, QHS Generic drug: topiramate Refills: 0 STOPPED Medications Inderal LA 80 mg ER 24 hr capsule Generic drug: propranolol LA Zocor 20 mg tablet Generic drug: simvastatin When to call your doctor: - Chest pain, worsening shortness of breath, fatigue with usual exertion, or new rest/night time symptoms. - Weigh yourself daily and record; if you note an increase of more than 2-3 pounds in 2 days, or 5 pounds over a week, contact your health care provider. - If you become short of breath, cannot lie down to sleep, or have swelling in your legs/ankles or abdomen, contact your health care provider. - Call if you have reduced urination during the day or increased urination at night. - Call for signs of increased wound drainage, redness, swelling, or increased pain at the site of your cardiac cath. - Call if you develop a temp >100.5 Activity level: - No heavy lifting (more than five pounds) for 48 hours; no more than 10 pounds for one week. - You may return to work in 1 week. Use common sense. Don't exhaust yourself. - No hunting, skiing, jogging, snow shoveling, snowmobiling, lawn mowing, swimming, golf or tennis until after your return appointment with your family doctor. - Do not ride motorcycles, tractors or horses until cleared by your doctor. Diet: - Heart healthy: low salt, low fat, low concentrated sweets. Remember to avoid added salt, canned foods, processed foods (ie hot dogs, sausage, cold meats), and foods naturally high in salt, such as potato chips or pizza. Driving: - Per your routine after [address] if you feel dizzy, light headed, or are taking narcotic medications (ie/ Oxycodone, Morphine, Dilaudid, etc). Shower/Bath: - You may shower 24 hours after cardiac catheterization. - You may not sit in water for 7 days (tub bath, hot tub or pool). Wound Care: - Cath site dressing may be removed in 24 hours. Site may be washed with soap/water. A dressing does not need to be reapplied unless irritation occurs with underclothes. If irritation occurs, apply clean band-aid daily. Exercise: - Exercise 5-7 days per week as tolerated with gradual increase to 30 minutes per day. Smoking cessation: - If you are currently a smoker, you are strongly urged to stop smoking! Smoking increases the severity and incidence of heart disease, and is a risk factor for cancer and emphysema. Your health careprovider can provide specific measures to assist you, including nicotine supplements, anti-anxiety meds, and support groups in your community. Follow up Appointments: No future appointments. Integration Technician: Cardiology follow up will be set up for you PCP: Calderon Huynh MD at [phone] Your Inpatient Doctor(s) at [facility]: Marlys De La Garza MD - Attending physician Wiley Díaz DO - Resident physician Your Primary Care Provider: Calderon Huynh MD [address] [place] [id number] If you have non-emergent questions between now and the time of your follow up appointments: During 8am-5pm Sunday through Sunday call [phone] to speak with a nurse in the cardiology clinic All other times call [phone] and ask to speak to the therapeutic specialist educational psychology teacher. General Instructions None Future Appointments and Orders Future Orders Complete By Expires Referral to Cardiac Rehab [DAT670 Custom] As directed Process Instructions: If no progress note charted, please enter Clinical details in comments. Scheduling Instructions: Questions: My question or request is: NSTEMI, PCI- cardiac rehab at [facility] Referral to Cardiology [REF12 Custom] As directed Process Instructions: If no progress note charted, please enter Clinical details in comments. Scheduling Instructions: Questions: My question or request is: Follow up from hospital after LAD stent placed Primary Team Inpatient Physicians at [facility] was: Attending Physician(s): MARLYS DE LA GARZA DANETTE L SUBRAHMANYAN, LAKSHMAN Inpatient Provider Contact Information: If you have questions about this document please contact the [facility] outboard system operator at and ask for one of the providers above. If these providers are unavailable your call will be answered by an on- call hospital physician. Discharge References/Attachments: Discharge References/Attachments None Wiley Díaz DO Internal Medicine PGY-1 03/27/24 11:35 AM documented in this encounter Discharge Instructions * Patient Instructions* Wiley Díaz DO - 03/27/2024 11:07 AM EDT Patient Instructions on Discharge to Home Why you were hospitalized: You had a heart attack, which was caused by a blockage in one of your heart arteries. This was fixed with a stent that was placed during a cardiac catheretization. Because you had this procedure, youshouldn't lift anything greater than 10 lbs for the next week and nothing greater than 20 lbs for 2 weeks. After that time you may go back to regular activity and work. Call your doctor if your right wrist pain gets worse, or you develop swelling or redness in that area. Also, call your doctor if you develop sudden chest pain or shortness of breath, especially chestpain that does not go away with nitroglycerin. It is important that you take your aspirin 81mg daily forever and clopidogrel 75mg daily for at least 1 year. Do not miss any doses of these medications! New Medications: Clopidogrel (plavix): this is a second platelet inhibitor that will help prevent clot build up in the stent that was placed. It is very important that you take this medication every day at least forone year to help keep your stent open. Follow up with your doctor before stopping this medication. Atorvastatin (lipitor): this is a cholesterol-lowering medication that helps prevent build up of plaque in your arteries. Take this every evening. Metoprolol (toprol): this is a beta russ, that helps protect your heart. Take this every day. Losartan: this is an ARB medication that also helps protect your heart, as well as help control your blood pressure. Take this every day. Nitroglycerin: this is a medication that can be placed under your tongue as needed for chest pain. If you experience chest pain, especially that similar to what you had before you were admitted to the hospital, sit down and place one tab under your tongue (it may make you dizzy, so sitting down before taking this is safest). If your chest pain does not improve, call your doctor. Changed Medications: Atorvastatin: This is a medication which lowers cholesterol and also stabilizes plaque, helping to prevent risk of future heart attacks/strokes. We have increased the dosage to 80mg daily. Stopped Medications: Simvastatin: Atorvastatin is a higher intensity statin. You no longer should take simvastatin. Propranolol: You are on a new medication in this same class, metoprolol, so you no longer should take propranolol. Continued Medications: Aspirin: this is a platelet inhibitor that will help prevent clot build up in your arteries, as well as in the stent that was placed. Continue taking 81mg daily indefinitely. Sumatriptan Topiramate Mirtazapine Protonix Terazosin Your Discharge Medication List Your Medications New Medications Dose Details clopidogreL 75 mg tablet Commonly known as: Plavix Take 1 tablet by mouth daily. 75 mg Quantity: 90 tablet Refills: 3 losartan 25 mg tablet Commonly known as: Cozaar Take 0.5 tablets by mouth daily. 12.5 mg Quantity: 90 tablet Refills: 3 metoprolol succinate XL 25 mg ER 24 hr tablet Commonly known as: Toprol-XL Take 1 tablet by mouth daily. 25 mg Quantity: 30 tablet Refills: 12 nitroGLYcerin 0.4 mg sublingual tablet Commonly known as: Nitrostat Place 1 tablet under the tongue every 5 minutes as needed for Chest pain. 0.4 mg Quantity: 90 tablet Refills: 12 Continued medications with new dosing Dose Details atorvastatin 80 mg tablet Commonly known as: Lipitor Take 1 tablet by mouth every evening. What changed: medication strength how much to take when to take this 80 mg Quantity: 90 tablet Refills: 3 Continued medications, unchanged Dose Details Aleve 220 mg tablet Generic drug: naproxen sodium Refills: 0 Baby Aspirin 81 mg chewable tablet Generic drug: aspirin Refills: 0 Imitrex 100 mg tablet 100 MG = 1 Tablet(s), PO, Twice daily,PRN Generic drug: SUMAtriptan Refills: 0 mirtazapine 45 mg tablet Commonly known as: Remeron Take 45 mg by mouth nightly. 45 mg Refills: [address] tablet Generic drug: pantoprazole EC Refills: 0 terazosin 2 mg capsule Commonly known as: Hytrin Take 2 mg by mouth nightly. 2 mg Refills: 0 Topamax 50 mg tablet 50 MG = 1 Tablet(s), PO, QHS Generic drug: topiramate Refills: 0 STOPPED Medications Inderal LA 80 mg ER 24 hr capsule Generic drug: propranolol LA Zocor 20 mg tablet Generic drug: simvastatin When to call your doctor: - Chest pain, worsening shortness of breath, fatigue with usual exertion, or new rest/night time symptoms. - Weigh yourself daily and record; if you note an increase of more than 2-3 pounds in 2 days, or 5 pounds over a week, contact your health care provider. - If you become short of breath, cannot lie down to sleep, or have swelling in your legs/ankles or abdomen, contact your health care provider. - Call if you have reduced urination during the day or increased urination at night. - Call for signs of increased wound drainage, redness, swelling, or increased pain at the site of your cardiac cath. - Call if you develop a temp >100.5 Activity level: - No heavy lifting (more than five pounds) for 48 hours; no more than 10 pounds for one week. - You may return to work in 1 week. Use common sense. Don't exhaust yourself. - No hunting, skiing, jogging, snow shoveling, snowmobiling, lawn mowing, swimming, golf or tennis until after your return appointment with your family doctor. - Do not ride motorcycles, tractors or horses until cleared by your doctor. Diet: - Heart healthy: low salt, low fat, low concentrated sweets. Remember to avoid added salt, canned foods, processed foods (ie hot dogs, sausage, cold meats), and foods naturally high in salt, such as potato chips or pizza. Driving: - Per your routine after [address] if you feel dizzy, light headed, or are taking narcotic medications (ie/ Oxycodone, Morphine, Dilaudid, etc). Shower/Bath: - You may shower 24 hours after cardiac catheterization. - You may not sit in water for 7 days (tub bath, hot tub or pool). Wound Care: - Cath site dressing may be removed in 24 hours. Site may be washed with soap/water. A dressing does not need to be reapplied unless irritation occurs with underclothes. If irritation occurs, apply clean band-aid daily. Exercise: - Exercise 5-7 days per week as tolerated with gradual increase to 30 minutes per day. Smoking cessation: - If you are currently a smoker, you are strongly urged to stop smoking! Smoking increases the severity and incidence of heart disease, and is a risk factor for cancer and emphysema. Your health careprovider can provide specific measures to assist you, including nicotine supplements, anti-anxiety meds, and support groups in your community. Follow up Appointments: No future appointments. Integration Technician: Cardiology follow up will be set up for you PCP: Calderon Huynh MD at [phone] Your Inpatient Doctor(s) at [facility] [place]: Marlys De La Garza MD - Attending physician Wiley Díaz DO - Resident physician Your Primary Care Provider: Calderon Huynh MD [address] [place], [place] [address] [address] [address] If you have non-emergent questions between now and the time of your follow up appointments: During 8am-5pm Sunday through Sunday call [phone] to speak with a nurse in the cardiology clinic All other times call [phone] and ask to speak to the therapeutic specialist educational psychology teacher. documented in this encounter Medications at Time of Discharge Medication Sig Dispensed Refills Start Date End Date clopidogreL (Plavix) 75 mg tablet Take 1 tablet by mouth daily. 90 tablet 3 03/27/2024 atorvastatin (Lipitor) 80 mg tablet Take 1 tablet by mouth every evening. 90 tablet 3 03/27/2024 losartan (Cozaar) 25 mg tablet Take 0.5 tablets by mouth daily. 90 tablet 3 03/27/2024 nitroGLYcerin (Nitrostat) 0.[address] 1 tablet under the tongue every 5 minutes as needed for Chest pain. 90 tablet 12 03/27/2024 metoprolol succinate XL (Toprol-XL) 25 mg ER 24 hr tablet Take 1 tablet by mouth daily. 30 tablet 12 03/27/2024 mirtazapine (Remeron) 45 mg tablet Take 45 mg by mouth nightly. terazosin (Hytrin) 2 mg capsule Take 2 mg by mouth nightly. pantoprazole (PROTONIX) 40 mg tablet 04/20/2010 topiramate (TOPAMAX) 50 mg tablet 50 MG = 1 Tablet(s), PO, QHS 04/20/2010 aspirin (BABY ASPIRIN) 81 mg chewable tablet 04/20/2010 naproxen sodium (ALEVE) 220 mg tablet 04/20/2010 SUMAtriptan (IMITREX) 100 mg tablet 100 MG = 1 Tablet(s), PO, Twice daily,PRN 04/20/2010 documented as of this encounter Progress Notes * Monique Anderson MD - 03/26/2024 4:21 AM EDT Images from the original note were not included. Cardiology Progress Note Patient info: Name: Yessy Taveras : 1960 PCP: Calderon Huynh MD PCP phone number: [phone] Date of Admission: 03/24/2024 ( Hospital Day 2 days ) Attending: Joie Mejia MD ID: Mr Nitin Pinto is a 63 Yo M with a renal stones, left 2.6 cm common iliac artery aneurysm and 4 cm dilation of ascending aorta followed by vascular surgery, former tobacco use disorder, HTN, HLDwho is who is referred for left heart catheterization and coronary angiogram in the setting of chest pain and elevated and changing troponin. 24 Hour Events/Subjective: Yesterday: Underwent procedures: Coronary Angiography * Left Heart Catheterization * Coronary Ultrasound * Coronary Angioplasty * Coronary Stent Insertion Findings: One vessel coronary artery disease (LAD) * Successful stent insertion of the mid LAD lesion * Successful angioplasty of the proximal D1 lesion * Dual Antiplatelet (DAPT) Recommendations Overnight: NAEON This AM: -Denies chest pain, SOB, light headedness, dizziness. - cardiac rehab Objective: Vitals Last value Range last 24 hrs Temperature Temp: 36.5 ??C (97.7 ??F) Temp: [36.4 ??C (97.5 ??F)-36.6 ??C (97.9 ??F)] Heart Rate Heart Rate: 55 Heart Rate: [52-78] Blood Pressure BP: 115/78 BP: (101-144)/(68-91) Art Line BP BP (Arterial Line): -- MAP (NBP): [80 mmHg-96 mmHg] Respiratory Rate Resp: 16 Resp: [13-18] SpO2 SpO2: 92 % SpO2: [92 %-97 %] Oxygen Delivery Oxygen Therapy O2 Device: None (Room air) Reason for Oxygen: Patient currently on room air I&O's/ Weights Intake/Output Summary (Last 24 hours) at 03/26/2024 0421 Last data filed at 03/26/2024 0400 Gross per 24 hour Intake 120 ml Output 2075 ml Net -1955 ml Admit wt: 85.37 kg Physical Exam General: awake, not in acute distress. HEENT: normocephalic, anicteric sclerae, no conjunctival pallor CV: cardiac sounds regular, rhythmic. No murmurs, rubs, or gallops Pulm: lungs clear to auscultation bilaterally, no crackles/wheezes/ronchi, normal work of breathing Abd: soft, non-tender, no rebound or guarding Ext: Warm, well perfused. No cyanosis or edema. Distal pulses 2+ and symmetric Neuro: oriented in time, space, and person. No focal deficits noted, sensation grossly intact Skin: no rashes, lesions, or ulcerations noted Lines/Drains/Airways: PIV 03/24/242044 20 gauge median cubital vein (antecubital fossa), left (Active) Indication/Daily Review of Necessity medication therapy intermittent 03/24/242099 Site Preparation/Maintenance dressing: dry and intact 03/25/24399 Securement catheter stabilization device, secured with;sterile tape strips, secured with 03/24/242099 Patency/Maintenance flushed without difficulty;alcohol impregnated cap applied 03/25/24399 Phlebitis 0-->no symptoms 03/25/24399 Infiltration 0-->no symptoms 03/25/24399 Labs Recent Labs 03/25/2430803/24/242041 WBC 6.81 8.18 HGB 14.6 14.8 HCT 43.4 43.2 PLATELET 173 160 MCV 90.2 90.0 Recent Labs 03/25/2430803/24/242041 NA 139 138 CL 106 105 CO2 21* 21* K 4.0 3.9 MAGNESIUM 0.86 0.81 CALCIUM 8.7 8.8 BUN 10 9* CREATININE 0.71* 0.70* LFTs Recent Labs 03/24/242041 PROT 6.8 ALBUMIN 3.8 AST 18 ALT 21 ALKPHOS 91 BILITOT 0.6 Coags Recent Labs 03/24/242042 DDIMER 576* Cardiac Enzymes Recent Labs 03/24/242041 PROBNP 1,310* Endocrine Recent Labs 03/24/242041 TSH 2.01 No results for input(s): POCGLU in the last 168 hours. Heme No results for input(s): LDH, HAPTOGLOBIN, URICACID in the last 168 hours. Microbiology Microbiology Results (Last 30 days) No results found for the last 720 hours. Imaging Chest Xray 03/24 Pulmonary vascular distribution. Bronchovascular haziness throughout. No pleural effusion. No consolidation. Cardiac, mediastinal hilar contours are within normal limits. Right apical scarring. No displaced rib fracture. IMPRESSION: Pulmonary vascular congestion. TTE pending Medications Scheduled Meds: pantoprazole EC 40 mg Oral Daily metoproloL tartrate 12.5 mg Oral 2 times per day sodium chloride 0.9 % (flush) 5 mL Intravenous BID aspirin EC 81 mg Oral Daily atorvastatin 80 mg Oral QPM clopidogreL 75 mg Oral Daily Continuous Infusions: heparin (porcine) infusion 1,300 Units/hr (03/25/24 1040) nitroGLYcerin PRN Meds:.sodium chloride 0.9 % (flush), lidocaine, nitroGLYcerin, heparin (porcine) infusion AND heparin (porcine) Assessment & Plan: Mr Nitin Pinto is a 63 Yo M with a renal stones, left 2.6 cm common iliac artery aneurysm and 4 cmdilation of ascending aorta followed by vascular surgery, former tobacco use disorder, HTN, HLD whois referred for left heart catheterization and coronary angiogram in the setting of chest pain and elevated and changing troponin. 03/26/24 TTE with LAD territory WMAs. Referred for cardiac catheterization which showed high grade LAD disease with evidence of thrombus. Now s/p PCI to LAD/Diag bifurcation lesion and treated with intergrellin. Will optimize medical therapy as tolerated. -started losartan 12.5 mg today. Hemodynamically stable, will monitor him today and most likely discharge tomorrow.. -#NSTEMI type I: -TTE result (EF, 47% with segmental wall motion abnormalities). -Continue telemonitoring -S/p aspirin load continue aspirin 81 daily -Continue Plavix 75 daily -Increase atorvastatin to 80 mg daily -Start metoprolol succinate 12.5 mg every 12 hours. -TSH, A1c, lipids ordered -Losartan 12.5 mg daily today. #HTN -Hold home terazosin 2 mg -Consider DIANA or ARB pending left heart cath #Left iliac artery Aneurysm #Dilation of ascending aorta -BP control and statin as above -Outpatient follow-up with vascular surgery #Migraines - No loner taking Topamax or Imitrex -PRN tylenol #Bowel Reg: N/A #DVT prophylaxis : On heparin Gtt #GI ulcer prophylaxis: Pantoprazole 40 mg daily #Code Status: Full Code Dispo: Pending CODE STATUS: Attempt Cardiopulmonary Resuscitation - Inpatient Monique Anderson MD Internal Medicine PGY-1 Cardiology, Pager#[phone] 03/26/24 4:21 AM Associated attestation - Joie Mejia MD - 03/26/2024 9:25 PM EDT CARDIOLOGY ATTENDING NOTE Patient: Yessy Taveras Date of Service: 03/26/2024 Date of Admission: 03/24/2024 Length of Stay Hospital Day 2 days Please see the below note by Dr. Anderson for details. I have interviewed and examined the patient independently and I concur with the assessment and plan as documented, with exceptions/additions/emphases as noted below. The case was discussed on cardiology rounds and we reviewed the plan of care with the team and patient. 63yoM w.h.o HTN, HLD, TUD in remission, L common iliac aneurysm (followed by Dr. Beth, Vascular Surgery) who had 2-3 days of stuttering chest pain followed by a persistent episode prompting him to seek care. Troponin significantly positive and EKG showing likely recent anterolateral MT with Q waves. TTE with LAD territory WMAs. Referred for cardiac catheterization which showed high grade LAD disease with evidence of thrombus. Now s/p PCI to LAD/Diag bifurcation lesion and treated with intergrellin on 10/8. Unclear to what degree his myocardium will be recoverable given late presentation (probably missed STEMI). Continuing with medication optimization (soft Bps limiting) and telemetry. Anticipate DC tomorrow. Cardiac rehab referral initiated. Attending Attestation and Certification Please see Monique Anderson MD's note for details of the patient history of presentation and data. I have discussed, reviewed and agree with the documented History, Physical findings, Assessment and Plan of care. I have examined the patient myself and personally reviewed all studies. In addition, I certify thatI am a D-H credentialed attending provider with admitting privileges and that the patient meets or has met medical necessity to require an inpatient IPI level of care meeting a minimum of two midnights or is on the [facility] inpatient only procedure list (status C) due to: acute myocardial infarction requiring titration of IV medication and fluid monitoring Joie Mejia MD Cardiovascular Medicine Personal Pager [phone] 03/26/2024 9:23 PM * Roman Giang MD - 03/25/2024 9:31 PM EDT Post Cardiac Cath Note S: Patient reports no chest pain or shortness of breath. Patient reports no back pain or right wrist pain O: No active bleeding noted at cath site (right radial). No hematoma or ooze, or tenderness noted. Radial pulse intact. Right wrist is clean, dry and intact. Radial pulse is present. Intact color, sensation and motion. Capillary refill is under 2 seconds Last value Range last 12 hrs Temperature Temp: 36.4 ??C (97.5 ??F) Temp: [36.4 ??C (97.5 ??F)-36.4 ??C (97.6 ??F)] Heart Rate Heart Rate: 74 Heart Rate: [52-78] Blood Pressure BP: 112/80 BP: (101-144)/(68-91) Respiratory Rate Resp: 17 Resp: [13-17] SpO2 SpO2: 96 % SpO2: [94 %-97 %] A/P. Post cardiac cath without complications. Roman Giang MD 03/25/2024 * Fransico Dixon RN - 03/25/2024 12:41 PM EDT During VAS Purposeful Rounding, an assessment of your patient's venous access was performed fby theVascular Access Service. The following tasks were performed if needed and communicated to the bedside RN Choose all that apply: [x] PIV(s) checked for patency if daily need for flush needs to be performed [] CVAD was checked for patency if daily flush needs to be performed [x] IV tubing clamped or capped if needed [] Visual inspection of your patient's central line dressing integrity [x] Review of indications for vascular access [] A photo was taken of your patient's central line [x] Visual inspection of your patient's IV dressing integrity [] Other While rounding an intervention was needed and communicated to the bedside RN Choose all that apply: [] Nonocclusive IV dressing addressed [] Nonocclusive CVAD dressing (please identify type of line) [] Infusion site leaking [] IV not patent and removed [] IV not indicated [] IV placed [] IV restarted [] Implanted Port, PICC or ML dressing changed if needed (either PRN or weekly) [] Other * Monique Anderson MD - 03/25/2024 4:12 AM EDT Images from the original note were not included. Cardiology Progress Note Patient info: Name: Yessy Taveras : 1960 PCP: Calderon Huynh MD PCP phone number: [phone] Date of Admission: 03/24/2024 ( Hospital Day 1 day ) Attending: Joie Mejia MD ID: Mr Nitin Pinto is a 63 Yo M with a renal stones, left 2.6 cm common iliac artery aneurysm and 4 cm dilation of ascending aorta followed by vascular surgery, former tobacco use disorder, HTN, HLDwho is who is referred for left heart catheterization and coronary angiogram in the setting of chest pain and elevated and changing troponin. 24 Hour Events/Subjective: Overnight: NAEON This AM: Denies chest pain, SOB, light headedness, dizziness -NPO at midnight for possible cath a.m. Objective: Vitals Last value Range last 24 hrs Temperature Temp: 36.6 ??C (97.9 ??F) Temp: [36.4 ??C (97.5 ??F)-36.6 ??C (97.9 ??F)] Heart Rate Heart Rate: 61 Heart Rate: [60-68] Blood Pressure BP: 111/80 BP: (108-149)/(71-88) Art Line BP BP (Arterial Line): -- MAP (NBP): [82 mmHg-103 mmHg] Respiratory Rate Resp: 18 Resp: [16-20] SpO2 SpO2: 94 % SpO2: [94 %-95 %] Oxygen Delivery Oxygen Therapy O2 Device: None (Room air) Reason for Oxygen: Patient currently on room air I&O's/ Weights Intake/Output Summary (Last 24 hours) at 03/25/2024 0847 Last data filed at 03/25/2024 0804 Gross per 24 hour Intake 10 ml Output 2150 ml Net -2140 ml Admit wt: 85.37 kg Physical Exam General: awake, not in acute distress. HEENT: normocephalic, anicteric sclerae, no conjunctival pallor CV: cardiac sounds regular, rhythmic. No murmurs, rubs, or gallops Pulm: lungs clear to auscultation bilaterally, no crackles/wheezes/ronchi, normal work of breathing Abd: soft, non-tender, no rebound or guarding Ext: Warm, well perfused. No cyanosis or edema. Distal pulses 2+ and symmetric Neuro: oriented in time, space, and person. No focal deficits noted, sensation grossly intact Skin: no rashes, lesions, or ulcerations noted Lines/Drains/Airways: PIV 03/24/242044 20 gauge median cubital vein (antecubital fossa), left (Active) Indication/Daily Review of Necessity medication therapy intermittent 03/24/242099 Site Preparation/Maintenance dressing: dry and intact 03/25/24399 Securement catheter stabilization device, secured with;sterile tape strips, secured with 03/24/242099 Patency/Maintenance flushed without difficulty;alcohol impregnated cap applied 03/25/24399 Phlebitis 0-->no symptoms 03/25/24 0400 Infiltration 0-->no symptoms 03/25/24 0400 Labs Recent Labs 03/25/24 0309 03/24/242041 WBC 6.81 8.18 HGB 14.6 14.8 HCT 43.4 43.2 PLATELET 173 160 MCV 90.2 90.0 Recent Labs 03/25/24 0309 03/24/242041 NA 139 138 CL 106 105 CO2 21* 21* K 4.0 3.9 MAGNESIUM 0.86 0.81 CALCIUM 8.7 8.8 BUN 10 9* CREATININE 0.71* 0.70* LFTs Recent Labs 03/24/242041 PROT 6.8 ALBUMIN 3.8 AST 18 ALT 21 ALKPHOS 91 BILITOT 0.6 Coags Recent Labs 03/24/242042 DDIMER 576* Cardiac Enzymes Recent Labs 03/24/242041 PROBNP 1,310* Endocrine Recent Labs 03/24/242041 TSH 2.01 No results for input(s): POCGLU in the last 168 hours. Heme No results for input(s): LDH, HAPTOGLOBIN, URICACID in the last 168 hours. Microbiology Microbiology Results (Last 30 days) No results found for the last 720 hours. Imaging Chest Xray 03/24 Pulmonary vascular distribution. Bronchovascular haziness throughout. No pleural effusion. No consolidation. Cardiac, mediastinal hilar contours are within normal limits. Right apical scarring. No displaced rib fracture. IMPRESSION: Pulmonary vascular congestion. TTE pending Medications Scheduled Meds: pantoprazole EC 40 mg Oral Daily metoproloL tartrate 12.5 mg Oral 2 times per day sodium chloride 0.9 % (flush) 5 mL Intravenous BID aspirin EC 81 mg Oral Daily atorvastatin 80 mg Oral QPM clopidogreL 75 mg Oral Daily Continuous Infusions: heparin (porcine) infusion 1,150 Units/hr (03/25/24401) nitroGLYcerin PRN Meds:.sodium chloride 0.9 % (flush), lidocaine, nitroGLYcerin, heparin (porcine) infusion AND heparin (porcine) Assessment & Plan: Mr Nitin Pinto is a 63 Yo M with a renal stones, left 2.6 cm common iliac artery aneurysm and 4 cmdilation of ascending aorta followed by vascular surgery, former tobacco use disorder, HTN, HLD whois referred for left heart catheterization and coronary angiogram in the setting of chest pain and elevated and changing troponin. 03/25/24 Patient presented with intermittent chest pain at rest with elevated Troponin I 2231-->1374-->1152-->1152 and ECG with new TWI V2-V4 which is concerning for NSTEMI type I. Given patient's history of tobacco use, hypertension and likely hyperlipidemia, patient at increased risk of obstructive CAD. Will pursue ischemic evaluation with left heart cath today. -#NSTEMI type I: -Follow-up TTE results -Continue telemonitoring -S/p aspirin load continue aspirin 81 daily -Continue Plavix 75 daily -Increase atorvastatin to 80 mg daily -Start metoprolol succinate 12.5 mg every 12 hours. -TSH, A1c, lipids ordered #HTN -Hold home terazosin 2 mg -Consider DIANA or ARB pending left heart cath #Left iliac artery Aneurysm #Dilation of ascending aorta -BP control and statin as above -Outpatient follow-up with vascular surgery #Migraines - No loner taking Topamax or Imitrex -PRN tylenol #Bowel Reg: N/A #DVT prophylaxis : On heparin Gtt #GI ulcer prophylaxis: Pantoprazole 40 mg daily #Code Status: Full Code Dispo: Pending CODE STATUS: Attempt Cardiopulmonary Resuscitation - Inpatient Monique Anderson MD Internal Medicine PGY-1 Cardiology, Pager#[phone] 03/25/24 8:47 AM Associated attestation - oJie Mejia MD - 03/25/2024 3:49 PM EDT CARDIOLOGY ATTENDING NOTE Patient: Yessy Taveras Date of Service: 03/25/2024 Date of Admission: 03/24/2024 Length of Stay Hospital Day 1 day Please see the below note by Dr. Anderson for details. I have interviewed and examined the patient independently and I concur with the assessment and plan as documented, with exceptions/additions/emphases as noted below. The case was discussed on cardiology rounds and we reviewed the plan of care with the team and patient. 63yoM w.h.o HTN, HLD, TUD in remission, L common iliac aneurysm (followed by Dr. Beth, Vascular Surgery) who has had 2-3 days of stuttering chest pain followed by a persistent episode prompting him to seek care. Troponin significantly positive and EKG showing likely recent anterolateral MT with Q waves. TTE with LAD territory WMAs on my personal review. Referred for cardiac catheterization whichshowed high grade LAD disease with evidence of thrombus. Now s/p PCI to LAD/Diag bifurcation lesionand treated with intergrellin. Unclear to what degree his myocardium will be recoverable given latepresentation (probably missed STEMI). Will optimize medical therapy as tolerated. Attending Attestation and Certification Please see Monique Anderson MD's note for details of the patient history of presentation and data. I have discussed, reviewed and agree with the documented History, Physical findings, Assessment and Plan of care. I have examined the patient myself and personally reviewed all studies. In addition, I certify thatI am a D-H credentialed attending provider with admitting privileges and that the patient meets or has met medical necessity to require an inpatient IPI level of care meeting a minimum of two midnights or is on the [facility] inpatient only procedure list (status C) due to: acute myocardial infarction requiring titration of IV medication and fluid monitoring Joie Mejia MD Cardiovascular Medicine Personal Pager [phone] 03/25/2024 3:45 PM documented in this encounter H&P Notes * Soham Aviles MD - 03/25/2024 7:54 AM EDT Images from the original note were not included. [facility] Pre-Procedure H&P and Pre-Sedation Assessment Yessy Taveras is a 63 y.o. male referred for left heart catheterization and coronary angiogram in the setting of chest pain and elevated and changing troponin. There have been no significant changes in health status since the prior H&P documented within the past 30 days. Bleeding concerns:no Kidney disease:no Diabetes:no DAPT Status (if applicable):aspirin and Plavix Anticoagulation status:on heparin NPO status: yes Alcohol History:no Prior issues with sedation/anesthesia/airway: no Medical and surgical history reviewed and updated as appropriate. Allergies Allergen Reactions Bupropion Hcl CIS - edema Penicillins CIS - edema No outpatient medications have been marked as taking for the 03/24/24 encounter (Hospital Encounter). BP 109/81 (BP Location (NBP): Right arm, Patient Position: Lying) Pulse 68 Temp 36.4 ??C (97.5 ??F) (Oral) Resp 16 Ht 190.5 cm (6' 3) Wt 85.3 kg (188 lb 0.8 oz) SpO2 95% BMI 23.50 kg/m?? PE NAD CV: RRR, S1 S2 physiologic Pulm: Non-labored, CTAB, no w/r/r Abd: soft, NT, ND Vasc: 2+ bilat radial Extr: wwp, no edema ASA: 3: Patient with severe systemic disease Mallampati: II: tonsillar pillars are blocked by the tongue Labs reviewed and notable for: Lab Results Component Value Date WBC 6.81 03/25/2024 HGB 14.6 03/25/2024 HCT 43.4 03/25/2024 MCV 90.2 03/25/2024 PLATELET 173 03/25/2024 Lab Results Component Value Date CREATININE 0.71 (L) 03/25/2024 BUN 10 03/25/2024 NA 139 03/25/2024 K 4.0 03/25/2024 CL 106 03/25/2024 CO2 21 (L) 03/25/2024 Echo pending A/P 63 y.o. male here for left heart cath and coronary angiogram. Cath consent A discussion was held reviewing the benefits and attendant risks of diagnostic or therapeutic catheterization. The risks include, but are not limited to: stroke, , myocardial infarction, bleeding, limb loss, infection, dye reaction, vascular injury, arrhythmias. If an intervention is performed, risks would include the potential for vessel closure, need for emergency CABG, subacute closure, restenosis. After a discussion about the above, and having answered all questions posed, the patient was provided with a consent which was reviewed and signed. - Proceed as planned - Consent reviewed and signed - No apparent contraindication to planned procedure - Sedation plan: moderate/conscious sedation - FULL CODE - Patient to return to inpatient bed following procedure completion Soham Aviles MD 03/25/2024 * Roman Giang MD - 03/24/2024 9:06 PM EDT Cardiology Admission H&P Patient Name: Yessy Taveras Date of : 1960 Age: 63 y.o. Hospital Admit Date: 03/24/2024 Inpatient Attending: Marlys De La Garza MD PCP: Calderon Huynh MD Presenting Diagnosis/Chief Complaint: Chest Pain Active Problem List: Active Hospital Problems Diagnosis NSTEMI (non-ST elevated myocardial infarction) Resolved Hospital Problems No resolved problems to display. History of Present Illness: Mr Nitin Pinto is a 63 Yo M with a renal stones, left 2.6 cm iliac artery aneurysm and 4 cm dilation of ascending aorta followed by vascular surgery, former tobacco use disorder who is presenting with worsening chest pain The patient was in his usual state of health until 1 week ago when he began experiencing intermittent nonexertional chest pressure and epigastric discomfort. 3 nights ago patient had an episode of severe central chest pain which was transient lasting about an hour. It was 10/10 in intensity. The next day during grocery shopping, he noted similar chest pain chest pain was radiating to the left arm, but in this case it did not resolve hence he presented to the ED at [facility]. He denies associated cough , shortness of breath, lower extremity edema, orthopnea, PND, p alpitations, loss of consciousness, focal weakness. Mother of a heart attack at 72 years old and mother of heart failure In the ED he was given sublingual nitro x 2 which improved his pain. VS BP 115/73, HR 92 , Spo2 96,EKG: uploaded, pertinent for T wave inversion in aVL, poor R wave progression, and pathologic Q waves in anterior leads. BNP 868 Troponin I 2231-->1374-->1152-->1152. CBC wnl Na 142 ,K 3.6 Cr 0.6 Mg 1.8 . CXR wnlHe was given aspirin and Plavix load and started on heparin and nitro drip forconcern for NSTEMI type I. He was transferred to [facility] for further ischemic evaluation. Past Medical History: Past Medical History: Diagnosis Date Depression GERD (gastroesophageal reflux disease) Kidney stone TIA (transient ischemic attack) Surgical History/Problems: Past Surgical History: Procedure Laterality Date CATARACT REMOVAL INGUINAL HERNIA REPAIR KIDNEY STONE SURGERY Significant Family History: No family history on file. Social History: Social History Socioeconomic History Marital status: Spouse name: Not on file Number of children: Not on file Years of education: Not on file Highest education level: Not on file Occupational History Not on file Tobacco Use Smoking status: Former Current packs/day: 0.00 Average packs/day: 0.5 packs/day for 30.0 years (15.0 ttl pk-yrs) Types: Cigarettes Quit date: 12/2022 Years since quittin.2 Smokeless tobacco: Never Substance and Sexual Activity Alcohol use: Not on file Drug use: Not on file Sexual activity: Not on file Other Topics Concern Not on file Social History Narrative Not on file Social Determinants of Health Financial Resource Strain: Not on file Food Insecurity: Not on file Transportation Needs: Not on file Physical Activity: Not on file Intimate Partner Violence: Not At Risk (03/25/2024) IPV Inpatient Questions Prevent Contact with Others: no Feels Threatened by Someone: no Feels Unsafe at Home: no Physical Signs of Abuse Present: no Housing Stability: Not on file REVIEW OF SYSTEMS: Review of Systems As above Medications: Medications Prior to Admission Medication Sig Dispense Refill Last Dose atorvastatin (Lipitor) 40 mg tablet Take 1 tablet by mouth daily. 30 tablet 3 mirtazapine (Remeron) 45 mg tablet Take 45 mg by mouth nightly. terazosin (Hytrin) 2 mg capsule Take 2 mg by mouth nightly. pantoprazole (PROTONIX) 40 mg tablet topiramate (TOPAMAX) 50 mg tablet 50 MG = 1 Tablet(s), PO, QHS aspirin (BABY ASPIRIN) 81 mg chewable tablet simvastatin (ZOCOR) 20 mg tablet propranolol (INDERAL LA) 80 mg 24 hr capsule 80 MG = 1 Capsule(s), PO, Twice daily naproxen sodium (ALEVE) 220 mg tablet SUMAtriptan (IMITREX) 100 mg tablet 100 MG = 1 Tablet(s), PO, Twice daily,PRN Allergies: Allergies Allergen Reactions Bupropion Hcl CIS - edema Penicillins CIS - edema PHYSICAL EXAM: Last set of vital signs: BP 108/71 (BP Location (NBP): Right arm, Patient Position: Lying) Pulse 68 Temp 36.4 ??C (97.5 ??F) (Oral) Resp 17 Ht 190.5 cm (6' 3) Wt 85.4 kg (188 lb 3.2 oz) SpO2 95% BMI 23.52 kg/m?? Physical Exam General: Alert, cooperative resting in bed with no apparent distress Head: normocephalic, atraumatic Neck: Supple, Carotids without bruits, no JVD Heart: S1 and S2 even regular, normal sinus rhythm. No murmur/rub/gallop. Lungs: Clear to auscultation bilaterally, respirations even unlabored, no adventitious sounds appreciated Abdomen: soft, flat, non-tender, non-distended, bowel sounds active x 4 quadrants, no hepatojugularreflex. Extremities: No femoral bruits auscultated. No cyanosis/clubbing or edema. Skin: No icterus, ecchymosis or dermatitis noted. [place] and warm. Neurologic: Awake, alert, oriented x 3. Strength equal bilaterally in upper extremities and lower extremities. Diagnostics: Chest Xray 03/24 Pulmonary vascular distribution. Bronchovascular haziness throughout. No pleural effusion. No consolidation. Cardiac, mediastinal hilar contours are within normal limits. Right apical scarring. No displaced rib fracture. IMPRESSION Pulmonary vascular congestion. LABS: Recent Results (from the past 24 hour(s)) CBC (with Diff) Result Value Ref Range White Blood Cell 8.18 4.00 - 9.50 x10(3)/mcL Red Blood Cell 4.80 4.58 - 5.54 x10(6)/mcL Hemoglobin 14.8 13.7 - 16.5 g/dL Hematocrit 43.2 40.5 - 48.5 % Mean Cell Volume 90.0 82.9 - 93.1 fL Mean Cell Hemoglobin 30.8 27.5 - 32.1 pg Mean Cell Hemoglobin Concentration 34.3 32.0 - 35.7 g/dL Platelet 160 145 - 357 x10(3)/mcL Mean Platelet Volume 10.9 7.6 - 12.9 fL RDW Standard Deviation 39.7 36.0 - 45.0 fL RDW coefficient of variation 12.0 11.4 - 13.8 % NRBC% auto 0.0 % NRBC Absolute <0.01 <0.01 x10(3)/mcL Neutrophil % 69.9 % Neutrophil Absolute (ANC) - Automated 5.72 1.70 - 6.10 x10(3)/mcL Lymph % 20.2 % Lymph Absolute 1.65 0.90 - 3.20 x10(3)/mcL Monocyte % 7.6 % Monocyte Absolute 0.62 0.30 - 0.90 x10(3)/mcL Eos % 1.5 % Eos Absolute 0.12 0.00 - 0.40 x10(3)/mcL Basophil % 0.6 % Baso Absolute 0.05 0.00 - 0.10 x10(3)/mcL Immature Gran % 0.2 % Immature Gran Absolute <0.04 0.00 - 0.04 x10(3)/mcL Comprehensive metabolic panel Result Value Ref Range Glucose 81 65 - 199 mg/dL Blood Urea Nitrogen 9 (L) 10 - 20 mg/dL Creatinine 0.70 (L) 0.80 - 1.50 mg/dL Sodium 138 135 - 145 mMol/L Potassium 3.9 3.5 - 5.0 mMol/L Chloride 105 98 - 107 mMol/L Carbon Dioxide 21 (L) 22 - 31 mMol/L Anion Gap 12 5 - 15 mMol/L Calcium 8.8 8.5 - 10.5 mg/dL Protein, Total 6.8 6.1 - 8.0 g/dL Albumin 3.8 3.2 - 5.2 g/dL Aspartate Aminotransferase 18 <=39 unit/L Alanine Aminotransferase 21 0 - 55 unit/L Alkaline Phosphatase 91 40 - 130 unit/L Bilirubin, Total 0.6 <=1.3 mg/dL Est Glomerular Filtration Rate - Male 103 mL/min/1.73 m?? Troponin-T, High Sensitivity Result Value Ref Range Troponin-T, High Sensitivity Initial 496 (H) <=22 ng/L pro-Brain Natriuretic Peptide Result Value Ref Range NT-proBNP 1,310 (H) <=124 pg/mL Lipid Panel (Reflex Direct LDL) Result Value Ref Range Cholesterol, Total 80 mg/dL Triglyceride 52 mg/dL HDL Cholesterol 35 mg/dL LDL Cholesterol 32 mg/dL Non-HDL Cholesterol 45 mg/dL Hemoglobin A1c Result Value Ref Range Hemoglobin A1c 5.3 4.3 - 5.6 % Estimated Average Glucose 105 mg/dL Magnesium Result Value Ref Range Magnesium 0.81 0.69 - 1.07 mMol/L TSH Result Value Ref Range Thyroid Stimulating Hormone 2.01 0.27 - 4.20 mcIU/mL D-Dimer, Quantitative Result Value Ref Range D-Dimer 576 (H) 0 - 500 FEU ng/ml Troponin-T, High Sensitivity 1 Hour Result Value Ref Range Troponin-T, High Sensitivity 469 (H) <=22 ng/L Troponin-T, HS 1 hr delta 27 ng/L Troponin-T, Nikhil Sensitivity 3 Hour Result Value Ref Range Troponin-T, High Sensitivity 465 (H) <=22 ng/L Troponin-T, HS 3 hr delta ASSESSMENT: Mr Nitin Pinto is a 63 Yo M with a renal stones, left 2.6 cm iliac artery aneurysm and4 cm dilation of ascending aorta followed by vascular surgery, former tobacco use disorder who is presenting with worsening chest pain with labs showing elevated troponin concerning for NSTEMI type I TREATMENT PLAN: #NSTEMI type I Patient is presenting with intermittent chest pain at rest with elevated Troponin I 2231-->1374-->1152-->1152 and ECG with new TWI V2-V4 which is concerning for NSTEMI type I. Given patient's history of tobacco use, hypertension and likely hyperlipidemia, patient at increased risk of obstructive CAD. Will pursue ischemic evaluation with left heart cath. TTE pending -N.p.o. at midnight for possible cath a.m. -Follow-up TTE results -Trend troponin to peak -Continue telemonitoring -S/p aspirin load continue aspirin 81 daily -Continue Plavix 75 daily -Increase atorvastatin to 80 mg daily -Start metoprolol succinate every 12 -TSH, A1c, lipids ordered #Elevated BNP #CXR evidence of vascular congestion BNP on admit 1310 , chest x-ray with some vascular congestion. However patient appears euvolemic onexam. TTE ordered to evaluate for cardiomyopathy. Will hold on IV diuresis for now -Follow-up TTE #Elevated D-dimer -D-dimer on admits 576, likelihood of PE given patient is not tachycardic, or hypoxic and pain not described as pleuritic. WELLs score 0. Patient likely in the setting of ACS. Consider lower extremity Doppler if suspicion for PE increases -CTM #HTN -Hold home terazosin 2 mg -Consider DIANA or ARB pending left heart cath Chronic Problems #Left iliac artery Aneurysm #Dilation of ascending aorta -BP control and statin as above -Outpatient follow-up with vascular surgery #Migraines - No loner taking Topamax or Imitrex -PRN tylenol #Bowel Reg: N/A #DVT prophylaxis : On heparin Gtt #GI ulcer prohylaxis : H/h omeprazole , ct Pantoprazole 40 mg daily #Code Status : Full Code Provider: Roman Giang MD Provider #: [id number] 03/25/2024 documented in this encounter Miscellaneous Notes * Plan of Care - Evangelina Geller RN - 03/27/2024 12:13 PM EDT AVS reviewed with pt and daughter. Questions answered. PIV removed per policy. VSS. Belongings returned to pt. Pt discharged through entrance 2 to home. Problem: Chest Pain Goal: Resolution of Chest Pain Symptoms Outcome: Outcome (s) achieved Problem: Adult Inpatient Plan of Care Goal: Plan of Care Review Outcome: Outcome (s) achieved Goal: Patient-Specific Goal (Individualized) Outcome: Outcome (s) achieved Goal: Absence of Hospital-Acquired Illness or Injury Outcome: Outcome (s) achieved Goal: Optimal Comfort and Wellbeing Outcome: Outcome (s) achieved Goal: Readiness for Transition of Care Outcome: Outcome (s) achieved * Care Management Discharge - Kim Banegas RN - 03/27/2024 8:25 AM EDT CARE MANAGEMENT FINAL DISCHARGE NOTE Chart reviewed, care reviewed with primary team and at interdisciplinary rounds. Patient is medically ready for discharge to home. Needs for Transition of Care: Per discharge instructions. Plan for discharge is: Home w/o Services Outpatient Agency/Support Group Needs: None Agency Referrals & Follow-up Care: Per discharge instructions Transportation: family or friend will provide *[place], s/o Wheelchair van/Ambulance? No Functional status prior to admission: Independent Home Environment: Others in the home: significant other. Current Living Arrangements: home/apartment/condo. Accessibility Concerns:1 level mobile home, 4 GALINDO, + hand railing. Current Functional Ability: Independent DME used at home: none DME Needed at Discharge: Patient is insured through: Primary Insurance: [employer] [place] [employer] [place] / Plan[place] / Product Type: *No Product type* / Secondary Insurance: N/A Prescription Coverage: Yes Per team, patient is medically ready to discharge to home via POV. This plan was formulated with input from patient and team. All are in agreement with plan. Kim Banegas RN Extension [phone] * Plan of Care - Filiberto Urena RN - 03/27/2024 6:45 AM EDT Patient is alert and oriented with stable vs. Denies chest pain. Ambulating in room independently and tolerating well. * Plan of Care - Evangelina Geller RN - 03/26/2024 6:25 PM EDT OUTCOME EVALUATION NOTE: OUTCOME SUMMARY: Assumed care at 0700. Pt A&Ox4. No reports of CP or SOB. Denies pain. Remains on RA O2. NSR on tele. See scanned docs. Questions answered throughout shift. Call montaño and personal belongings within reach. Rt radial site CDI. PLAN MOVING FORWARD: D/C planning as appropriate. INDIVIDUALIZED FALL PREVENTION INTERVENTIONS: Patient-specific fall risk factors per assessment: [current deficits]: Tele wires, unfamiliar environment Assistance [level of assistance required for transfers and ambulation]: Independent Supervision [direct monitoring required during toileting and ADLs]: Independent Surveillance [continuous indirect monitoring]: Telemetry, purposeful rounding, call montaño within reach CPG GOAL OUTCOME EVALUATION: Ongoing Problem: Chest Pain Goal: Resolution of Chest Pain Symptoms Outcome: Ongoing (Interventions Implemented as Appropriate) Problem: Adult Inpatient Plan of Care Goal: Plan of Care Review Outcome: Ongoing (Interventions Implemented as Appropriate) Goal: Patient-Specific Goal (Individualized) Outcome: Ongoing (Interventions Implemented as Appropriate) Goal: Absence of Hospital-Acquired Illness or Injury Outcome: Ongoing (Interventions Implemented as Appropriate) Goal: Optimal Comfort and Wellbeing Outcome: Ongoing (Interventions Implemented as Appropriate) Goal: Readiness for Transition of Care Outcome: Ongoing (Interventions Implemented as Appropriate) * Consult Note - Annette Robles RN - 03/26/2024 10:26 AM EDT Cardiac Rehabilitation Inpatient Evaluation Primary Cardiac Diagnosis: NSTEMI, PCI Cardiac Risk Factors: Smoking: no Overweight: no Hyperlipidemia: no Sedentary: no HTN: yes Family history: yes DM: no Stress: no Patient Education: Reviewed cardiac cath findings, implications of coronary artery disease, managing angina and risk factor modification. 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 He is very active w/his job, walking 4- 5 miles daily. Given parameters for home exercise. Mediterranean diet guidelines briefly reviewed. Reviewed managing angina /use of sl nitroglycerin. Phase II Referral: Participation in the outpatient cardiac rehabilitation program at [facility] was discussed. Patient agrees to a referral to this program. The referral will be sent at discharge and the patient should be contacted by the Program within 1-2 weeks from discharge. Activity Summary: By discharge, patient will be able to perform self care, walk 5-7 minutes and go up and down stairs without signs or symptoms of ischemia. Activity Baseline Response Walk/stairs HR 60 85 BP 114/82 122/84 O2 Sat 97% 95% ECG SR SR Symptoms/Comments: Kira well, no sx. Enc more walks while in house * Plan of Care - Kenneth Martinez RN - 03/26/2024 4:40 AM EDT Problem: Chest Pain Goal: Resolution of Chest Pain Symptoms Outcome: Ongoing (Interventions Implemented as Appropriate) Problem: Adult Inpatient Plan of Care Goal: Plan of Care Review Outcome: Ongoing (Interventions Implemented as Appropriate) Goal: Patient-Specific Goal (Individualized) Outcome: Ongoing (Interventions Implemented as Appropriate) Goal: Absence of Hospital-Acquired Illness or Injury Outcome: Ongoing (Interventions Implemented as Appropriate) Goal: Optimal Comfort and Wellbeing Outcome: Ongoing (Interventions Implemented as Appropriate) Goal: Readiness for Transition of Care Outcome: Ongoing (Interventions Implemented as Appropriate) * Brief Op Note - Suleiman Chapa MD - 03/25/2024 3:16 PM EDT Images from the original note were not included. Preliminary Cardiac Catheterization Procedure Note: Patient Name: Yessy Taveras : [id number] MR#: [id number] Case Date: 03/25/2024 Supply Chain Project Manager: Surgeons and Role: * Suleiman Chapa MD - Primary * Frandy Bowen Jr., MD - Fellow - Assisting * Gerardo Yao MD - Fellow - Assisting Preoperative diagnosis: NSTEMI Postoperative diagnosis: *NSTEMI* Procedure(s) performed: Left heart cath Coronary angiography Stent insertion coronary IVUS coronary Access: right radial A time-out was conducted prior to the start of the procedure to verify the correct patient and procedure, procedure location, and all relevant critical information. Preliminary findings: Right dominant LM: mild LAD: mid 90% with thrombus, D1 with 99% ostial with LINDA 2 flow LCx: mild RCA: mild LVEDP 12mm Hg Intervention: Stent to LAD and POBA to ostial D1 The patient tolerated the procedures smoothly and was transferred from the cardiac catheterization lab to the next level of care in stable condition. No evident early complications. Full report to follow. Suleiman Chapa MD * Plan of Care - Marisol Magaña RN - 03/25/2024 12:57 PM EDT Assumed care around 0700, assessments and vital signs as documented. Patient NPO until procedure. Patient back to unit with IVF and medications running (see MAR). Patient reports some numbness in fingers, resolving with removal of air from TR band. Problem: Chest Pain Goal: Resolution of Chest Pain Symptoms Outcome: Ongoing (Interventions Implemented as Appropriate) Problem: Adult Inpatient Plan of Care Goal: Plan of Care Review Outcome: Ongoing (Interventions Implemented as Appropriate) Goal: Patient-Specific Goal (Individualized) Outcome: Ongoing (Interventions Implemented as Appropriate) Goal: Absence of Hospital-Acquired Illness or Injury Outcome: Ongoing (Interventions Implemented as Appropriate) Goal: Optimal Comfort and Wellbeing Outcome: Ongoing (Interventions Implemented as Appropriate) Goal: Readiness for Transition of Care Outcome: Ongoing (Interventions Implemented as Appropriate) * Care Management - Cassie Hernandez - 03/25/2024 12:01 PM EDT Patient completed [place] advance directive. Patient identified his SO Homer as his primary health care agent and his daughter Adrienne as his secondary health care agent * Initial Assessments - Kim Banegas RN - 03/25/2024 10:46 AM EDT Office of Care Management Initial Assessment Kim Banegas RN reviewed record and discussed patient with Care Team. Source of Information: Team, bedside nurse, medical record, and Patient, Chart Review Introduced self/reviewed role; services accepted. CM met with patient face to face in patient room to complete IA. Admitted From: Transfer from another hospital Location: [facility] Reason for Hospitalization: chest pain Past medical History: Past Medical History: Diagnosis Date Depression GERD (gastroesophageal reflux disease) Kidney stone TIA (transient ischemic attack) Hospitalizations Within the Past 30 Days: no previous admission in last 30 days Current Decision-Making Capacity: Self If AD's have not been completed the following surrogate would be surrogate decision maker per [place] decision making law. (Only good for 180 days) Any patient receiving care in [place] must abide by [place] law. The hierarchy for surrogate decision making is: (a) Patient???s spouse or civil union partner unless there is a divorce proceeding, separation agreement, or restraining order limiting that person???s relationship with the patient. (b) Any adult son or daughter of the patient. Adrienne Stephens (daughter) [phone] OR Veronica Cavazos (daughter) [phone] (c) Either parent of the patient. (d) Any adult brother or sister of the patient. (e) Any adult grandchild of the patient. (f) Any grandparent of the patient. (g) Any adult aunt, uncle, niece, or nephew of the patient. (h) A close friend of the patient. (i) The agent with financial power of litigation attorney associate or a conservator appointed in accordance with RSA 464-A. (j) The guardian of the patient???s estate. Advance Care Planning: Attempt Cardiopulmonary Resuscitation - Inpatient <no information> -Advanced Directive: No, need to discuss (Expressed interest in completing AD. RS consulted to assist.) Current Coping/Education/Information Needs: Denies Current Functional Ability: Independent Functional Status Prior to Admission: Independent Prior ADLs & IADLs: Independent with all ADLs & IADLs Home Environment: Others in the home: significant other. Current Living Arrangements: home/apartment/condo. Accessibility Concerns:1 level mobile home, 4 [address], + hand railing. In the last 12 months, was there a time when you were not able to pay the mortgage or rent on time?: No In the past 12 months, how many times have you moved where you were living?: 0 At any time in the past 12 months, were you homeless or living in a correction (including now)?: No In the past 12 months has the [employer], gas, oil, or water [employer] threatened to shut off services in your home?: No Within the past 12 months, you worried that your food would run out before you got the money to buymore.: Never true Within the past 12 months, the food you bought just didn't last and you didn't have money to get more.: Never true Resource / Environmental Concerns: Resource/Environmental Concerns: none Home Accessibility Concerns: other (see comments) (no concerns) In the past 12 months, has lack of transportation kept you from medical appointments or from getting medications?: No In the past 12 months, has lack of transportation kept you from meetings, work, or from getting things needed for daily living?: No Current DME: none Home Address confirmed as: [facility] [address] [place] [id number] Physical Address confirmed as: [address] [place] [address] Social & Family Supports: All names listed below confirmed with patient as current and correct Extended Emergency Contact Information Primary Emergency Contact: HOMER FLAHERTY Address: [address] [place] [address] [facility] Relation: Life Partner Secondary Emergency Contact: Adrienne Stephens Mobile Relation: Child Current Care Provided by: self Provides Primary Care For: no one Caregiver if needed: none Quality of Family relationships: supportive, helpful, involved Community Resources being provided currently: none Behavioral Health History: Denies Substance Use/Abuse listed: Social History Tobacco Use Smoking Status Former Current packs/day: 0.00 Average packs/day: 0.5 packs/day for 30.0 years (15.0 ttl pk-yrs) Types: Cigarettes Quit date: 12/2022 Years since quittin.2 Smokeless Tobacco Never In the past year have you used an illegal drug or used a prescription medication for non-medical reasons?: No 0 No problems reported 1-2 Low level 3-5 Moderate level 6-8 Substantial level 9- 10 Severe level In the past year have you had 5 or more drinks a day containing alcohol?: No 0 to 7 points: Low risk 8 to 15 points: Medium risk 16 to 19 points: High risk 20 to 40 points: Addiction likely Other Pertinent/Service Specific Information: None identified Health/Prescription Coverage: Primary Insurance: [employer] [place] [employer] [place] / Plan[place] / Product Type: *No Product type* / Secondary Insurance: N/A ; Prescription Coverage: Yes Preferred Pharmacy: [facility] - [place], [place] - [address] [place] [id number] Status: Patient is a : No Primary Care Provider confirmed: Calderon Huynh MD [phone] Patient/Caregiver Goals of Treatment: Return home at independent level of functioning Potential Needs for Transition of Care: outpatient care Agency Referrals: Not Applicable Transportation: no concerns Transportation Anticipated: family or friend will provide (Charlda, significant other) Concerns to be Addressed: no discharge needs identified, denies needs/concerns at this time Assessment: Patient is admitted to Cardiology S1 service for NSTEMI. 63 y/o male who lives in one level mobile home, 4 [address], + hand railing with s/o. Ambulates without use of assistive devices and is independent will all ADLs/iADLs. Patient has a PCP. Patient with no apparent RNCM/SW needs at this time. No housing, transportation, insurance, resources concerns identified at this time. Supports in place to achieve a safe post-hospital transition. No identified barriers to accessing necessary care and/or follow-up after discharge. Plan: RS to assist with completion of AD. Patient to d/c to home via POV when medically ready. home care rn/Herb Counselor will continue to follow patient???s progress and remain available if situation changes for coordination of care, psychosocial support and/or discharge planning. Kim Banegas RN Extension [phone] * Plan of Care - Dori France RN - 03/25/2024 4:09 AM EDT Problem: Chest Pain Goal: Resolution of Chest Pain Symptoms 03/25/2024408 by Dori France RN Outcome: Ongoing (Interventions Implemented as Appropriate) 03/25/202413 by Dori France RN Outcome: Ongoing (Interventions Implemented as Appropriate) Problem: Adult Inpatient Plan of Care Goal: Plan of Care Review 03/25/2024408 by Dori France RN Outcome: Ongoing (Interventions Implemented as Appropriate) 03/25/202413 by Dori France RN Outcome: Ongoing (Interventions Implemented as Appropriate) Goal: Patient-Specific Goal (Individualized) 03/25/2024408 by Dori France RN Outcome: Ongoing (Interventions Implemented as Appropriate) 03/25/202413 by Dori France RN Outcome: Ongoing (Interventions Implemented as Appropriate) Goal: Absence of Hospital-Acquired Illness or Injury 03/25/2024408 by Dori France RN Outcome: Ongoing (Interventions Implemented as Appropriate) 03/25/202413 by Dori France RN Outcome: Ongoing (Interventions Implemented as Appropriate) Goal: Optimal Comfort and Wellbeing 03/25/2024408 by Dori France RN Outcome: Ongoing (Interventions Implemented as Appropriate) 03/25/202413 by Droi France RN Outcome: Ongoing (Interventions Implemented as Appropriate) Goal: Readiness for Transition of Care 03/25/2024 0409 by Dori France RN Outcome: Ongoing (Interventions Implemented as Appropriate) 03/25/2024 0014 by Dori France RN Outcome: Ongoing (Interventions Implemented as Appropriate) * Plan of Care - Dori France RN - 03/25/2024 12:04 AM EDT Received pt from OSH. Pt arrived via stretcher. VSS. Pt denies CP or SOB. Heparin gtt started per protocol. NTG gtt available for chest pain. Pt AxOx4. Call montaño within reach. Urinal at bedside. On assessment... lungs are clear. No edema noted. +pulses. Family at bedside. Telemetry shows. NSR. Provider into see pt. documented in this encounter Plan of Treatment Scheduled Orders Name Type Priority Associated Diagnoses Orde r Schedule EKG 12 Lead ECG Routine Acute non-ST elevation myocardial infarction (NSTEMI) One Time for 1 Occurrences starting 03/25/2024 until 03/25/2024 Scheduled Referrals Name Type Priority Associated Diagnoses Order Schedule Referral to Cardiac Rehab Outpatient Referral Routine Acute non-ST elevation myocardial infarction (NSTEMI) Ordered: 03/27/2024 Referral to Cardiology Outpatient Referral Routine Acute non-ST elevation myocardial infarction (NSTEMI) NSTEMI (non-ST elevated myocardial infarction) Ordered: 03/27/2024 documented as of this encounter Procedures Procedure Name Priority Date/Time Associated Diagnosis Comments MAGNESIUM Routine 03/27/2024 2:22 AM EDT BASIC METABOLIC PANEL Routine 03/27/2024 2:22 AM EDT CBC (WITH DIFF) Routine 03/26/2024 4:01 AM EDT MAGNESIUM Routine 03/26/2024 4:01 AM EDT BASIC METABOLIC PANEL Routine 03/26/2024 4:01 AM EDT CARDIAC CATHETERIZATION Routine 03/25/20 3:05 PM EDT HEPARIN (UNFRACTIONATED) LEVEL Timed 03/25/2024 9:26 AM EDT ECHO COMPLETE W CONTRAST Routine 03/25/2024 8:42 AM EDT Acute non-ST elevation myocardial infarction (NSTEMI) HEPARIN (UNFRACTIONATED) LEVEL Timed 03/25/2024 3:09 AM EDT CBC (WITH DIFF) Routine 03/25/2024 3:09 AM EDT MAGNESIUM Routine 03/25/2024 3:09 AM EDT BASIC METABOLIC PANEL Routine 03/25/2024 3:09 AM EDT EKG 12-LEAD Routine 03/24/2024 11:28 PM EDT Acute non-ST elevation myocardial infarction (NSTEMI) TROPONIN-T, HIGH SENSITIVITY 3 HOUR PERFORMABLE STAT 03/24/2024 11:19 PM EDT XR CHEST ONE VIEW Routine 03/24/2024 9:5 5 PM EDT TROPONIN-T, HIGH SENSITIVITY 1 HOUR PERFORMABLE STAT 03/24/2024 9:38 PM EDT D-DIMER, QUANTITATIVE Routine 03/24/2024 8:43 PM EDT TROPONIN-T, HIGH SENSITIVITY INITIAL PERFORMABLE STAT 03/24/2024 8:42 PM EDT TROPONIN - SERIES STAT 03/24/2024 8:4 2 PM EDT CBC (WITH DIFF) Routine 03/24/2024 8:42 PM EDT TSH Routine 03/24/2024 8:42 PM EDT PRO-BRAIN NATRIURETIC PEPTIDE Routine 03/24/2024 8:42 PM EDT MAGNESIUM Routine 03/24/2024 8:42 PM EDT HEMOGLOBIN A1C Routine 03/24/2024 8:42 PM EDT LIPID PANEL (REFLEX DIRECT LDL) Routine 03/24/2024 8:42 PM EDT COMPREHENSIVE METABOLIC PANEL Routine 03/24/2024 8:42 PM EDT documented in this encounter Results * Magnesium (03/27/2024 2:22 AM EDT) Magnesium 0.83 0.69 - 1.07 mMol/L 03/27/2024 3:15 AM EDT [facility] Blood VENOUS BLOOD SPECIMEN / Unknown IP Care Team Draw / Unknown 03/27/2024 2:22 AM EDT 03/27/2024 2:45 AM EDT Roman Giang MD CHEMISTRY ORDERABLES [facility] [place] [address] * (ABNORMAL) Basic Metabolic Panel (03/27/2024 2:22 AM EDT) Glucose 95 65 - 199 mg/dL 03/27/2024 3:15 AM EDT [facility] Comment:Glucose Concentratio n >=200 mg/dL plus symptoms is consistent with Diabetes Mellitus. Blood Urea Nitrogen 11 10 - 20 mg/dL 03/27/2024 3:15 AM EDT [facility] Creatinine 0.72(L) 0.80 - 1.50 mg/dL 03/27/2024 3:15 AM EDT [facility] Sodium 138 135 - 145 mMol/L 03/27/2024 3:15 AM EDT [facility] Potassium 3.7 3.5 - 5.0 mMol/L 03/27/2024 3:15 AM [facility] Chloride 106 98 - 107 mMol/L 03/27/2024 3:15 AM [facility] Carbon Dioxide 22 22 - 31 mMol/L 03/27[facility]24 [facility] Anion Gap 10 5 - 15 mMol/L 03/27/2024 3:15 AM [facility] Calcium 9.0 8.5 - 10.5 mg/dL 03/27/2024 3:15 AM [facility] Est Glomerular Filtration Rate - Male 102 mL/min/1. 73 m?? 03/27/2024 3:15 AM [facility] Comment: This patient's estimated [...] AM EDT Roman Giang MD CHEMISTRY ORDERABLES [facility] [place] [address] * Magnesium (03/26/2024 4:01 AM EDT) Magnesium 0.81 0.69 - 1.07 mMol/L 03/26/2024 4:40 AM EDT [facility] Blood VENOUS BLOOD SPECIMEN / Unknown IP Care Team Draw / Unknown 03/26/2024 4:01 AM EDT 03/26/2024 4:11 AM EDT Roman Giang MD CHEMISTRY ORDERABLES [facility] [place] [address] * (ABNORMAL) Basic Metabolic Panel (03/26/2024 4:01 AM EDT) Glucose 93 65 - 199 mg/dL 03/26/2024 4:40 AM EDT [facility] Comment:Glucose Concentratio n >=200 mg/dL plus symptoms is consistent with Diabetes Mellitus. Blood Urea Nitrogen 11 10 - 20 mg/dL 03/26/2024 4:40 [facility] Creatinine 0.74(L) 0.80 - 1.50 mg/dL 03/26/2024 4:40 AM [facility] Sodium 136 135 - 145 mMol/L 03/26/2024 4:40 AM [facility] Potassium 3.8 3.5 - 5.0 mMol/L 03/26/2024 4:40 AM [facility] Chloride 105 98 - 107 mMol/L 03/26/2024 4:40 AM [facility] Carbon Dioxide 20(L) 22 - 31 mMol/L 03/26/2024 4:40 AM [facility] Anion Gap 11 5 - 15 mMol/L 03/26/2024 4:40 AM [facility] Calcium 8.9 8.5 - 10.5 mg/dL 03/26/2024 4:40 AM [facility] Est Glomerular Filtration Rate - Male 101 mL/min/1. 73 m?? 03/26/2024 4:40 AM [facility] Comment: This patient's estimated [...] / Unknown 03/26/2024 4:01 AM EDT 03/26/2024 4:11 AM EDT Roman Giang MD CHEMISTRY ORDERABLES [facility] [place] [address] * CBC (with Diff) (03/26/2024 4:01 AM EDT) White Blood Cell 7.80 4.00 - 9.50 x10(3)/mcL 03/26/2024 4:23 [facility] Red Blood Cell 4.88 4.58 - 5.54 x10(6)/mcL 03/26/2024 4:23 AM [facility] Hemoglobin 14.8 13.7 - 16.5 g/dL 03/26/2024 4:23 AM [facility] Hematocrit 44.1 40.5 - 48.5 % 03/26/2024 4:23 AM [facility] Mean Cell Volume 90.4 82.9 - 93.1 fL 03/26/2024 4:23 AM [facility] Mean Cell Hemoglobin 30.3 27.5 - 32.1 pg 03/26/2024 4:23 AM [facility] Mean Cell Hemoglobin Concentration 33.6 32.0 - 35.7 g/dL 03/26/2024 4:23 AM [facility] Platelet 180 145 - 357 x10(3)/mcL 03/26/2024 4:23 AM [facility] Mean Platelet Volume 11.0 7.6 - 12.9 fL 03/26/2024 4:23 AM [facility] RDW Standard Deviation 39.7 36.0 - 45.0 fL 03/26/2024 4:23 AM [facility] RDW coefficient of variation 11.9 11.4 - 13.8 % 03/26/2024 4:23 AM [facility] NRBC% auto 0.0 % 03/26/2024 4:23 AM [facility] NRBC Absolute <0.01 <0.01 x10(3)/mcL 03/26/2024 4:23 AM [facility] Neutrophil % 68.9 % 03/26/2024 4:23 AM [facility] Neutrophil Absolute (ANC) - Automated 5.38 1.70 - 6.10 x10(3)/mcL 03/26/2024 4:23 AM [facility] Lymph % 16.8 % 03/26/2024 4:23 AM [facility] Lymph Absolute 1.31 0.90 - 3.20 x10(3)/mcL 03/26/2024 4:23 AM [facility] Monocyte % 10.8 % 03/26/2024 4:23 AM [facility] Monocyte Absolute 0.84 0.30 - 0.90 x10(3)/mcL 03/26/2024 4:23 AM [facility] Eos % 2.6 % 03/26/2024 4:23 AM [facility] Eos Absolute 0.20 0.00 - 0.40 x10(3)/mcL 03/26/2024 4:23 AM [facility] Basophil % 0.6 % 03/26/2024 4:23 AM [facility] Baso Absolute 0.05 0.00 - 0.10 x10(3)/mcL 03/26/2024 4:23 AM [facility] Immature Gran % 0.3 % 4:23 AM EDT [facility] Immature Gran Absolute <0.04 0.00 - 0.04 x10(3)/mcL 03/26/2024 4:23 AM EDT [facility] Blood VENOUS BLOOD SPECIMEN / Unknown IP Care Team Draw / Unknown 03/26/2024 4:01 AM EDT 03/26/2024 4:10 AM EDT Roman Giang MD HEMATOLOGY ORDERABLE S [facility] [place] [address] * CARDIAC CATHETERIZATION (03/25/2024 3:05 PM EDT) Anatomical Region Laterality Modality Other Narrative 03/25/2024 5:12 PM EDT ?[facility] ? Cardiac Catheterization/Intervention Report ? Patient Name: Yessy Taveras. ? Procedure Date: 03/25/2024 ? A #: [id number] ? Primary Physician: Eduard, Suleiman Del Toro ? Case #: [id number] ? File Name: [id number] ? Catheterization Order Number: [id number] ? [facility] ? Final Report [place], [place] ? Patient Name: ? Yessy L. Nitin ?ID#: ?[id number] ? : ?1960 ? Procedure Date: ? [...] ?* Coronary Stent Insertion ? History ?Yessy aTveras is a 63 year old man. He has hypertension. The patient's ?smoking status is Former. He has hypercholesterolemia. The patient is ?also status post an acute non-ST elevation myocardial infarction. Prior ?to the initiation of this procedure, the patient was designated as ASA ?Class III. The CSHA clinical frailty scale is 3: Managing Well. ? Diagnostic Tests: ?Medications Prior to Procedure: ? Aspirin, Beta Russ and Statin. ? Indications for Diagnostic Cath: ?The priority of the diagnostic procedure was Urgent. The indication for ?the labor/excavator visit is ACS less than or equal [...] ?3.75 guiding catheter and a 3.5 Fr [place] [facility] [place] [address] ??20 Mhz using ?Manual pullback. ??Imaging [...] ? A premounted 3.50 x 22 mm [place] (ALFIE) was deployed ? with a maximum [...] dose administered prior to arrival in the labor/excavator. ?Recommended anti-platelet/anti-thrombotic regimen: ?Continue aspirin 81 mg daily for 12 months then stop. ?Continue clopidogrel 75 mg daily for indefinitely. ?These recommendations are made at the time of the intervention. Patient ?and provider preferences or a changing clinical situation may require ?modification of this regimen. Consult [facility] Interventional Cardiology for ?questions. ? Conclusions: ?* [...] Procedure Note Suleiman Chapa MD - 03/25/2024 [facility] Cardiac Catheterization/Intervention Report Patient Name: Yessy Taveras Procedure Date: 03/25/2024 A #: [id number] Primary Physician: Suleiman Chapa Case #: [id number] File Name: [id number] Catheterization Order Number: [id number] [facility] FinalReport [place], [place] Patient Name: Yessy Taveras ID#:[id number] :1960 Procedure Date: March 25, 2024 Case [...] patient was designated asASA Class III. The [facility] clinical frailty scale is 3: Managing Well. Diagnostic Tests: Medications Prior to Procedure: Aspirin, Beta Russ and Statin. Indications for Diagnostic Cath: The priority of the diagnostic procedure was Urgent. The indicationfor the labor/excavator visit is ACS less than or equal [...] 3.75 guiding catheter and a 3.[address] [place] [facility] [address] 20 Mhzusing Manual pullback. Imaging was [...] The lesion was predilated with a 2.50mm [id number] MM balloon with a maximum inflation pressure of 16atmospheres. A premounted 3.50 x 22 mm [place] (ALFIE) wasdeployed with a maximum inflation pressure [...] dose administered prior to arrival in the labor/excavator. Recommended anti-platelet/anti-thrombotic regimen: Continue aspirin 81 mg daily for 12 months then stop. Continue clopidogrel 75 mg daily for indefinitely. These recommendations are made at the time of the intervention.Patient and provider preferences or a changing clinical situation mayrequire modification of this regimen. Consult [facility] Interventional Cardiologyfor questions. Conclusions: * One vessel [...] Heparin (unfractionated) Level (03/25/2024 9:26 AM EDT) UF Heparin 0.27 IU/mL 03/25/2024 9:48 AM EDT [facility] Comment: Heparin (anti-Xa) levels should be [...] Roman Giang MD HEMATOLOGY ORDERABLE S [facility] [place] [address] * ECHO COMPLETE W CONTRAST (03/25/2024 8:42 AM EDT) Anatomical Region Laterality Modality Cardiac Other 03/25/2024 7:06 AM EDT Narrative 03/25/2024 9:05 AM EDT [address] [place] [id number] ? Echocardiogram Report Name: YESSY TAVERAS ? Study Date: 03/25/2024 07:06 AMBP: 109/81 mmHg : 1960 ? Height: 191 cm ? Account: [id number] Age: 63 yrs ? Weight: 85 kg Gender: Male ?BSA: 2.1 m2 Ordering Physician: ROMAN GIANG Referring Physician: AJAY DIAZ Performed By: LUCIA Reyes Reason For Study: NSTEMI Exam Location: [facility]. Interpretation Summary -The left ventricular ejection fraction [...] Compared to the overnight study by the educational psychology teacher fellow there is no significant change. See report for additional findings. Procedure Complete-[id number]. Image enhancement Definity was used for left [...] Note Magalie Smith MD - 03/25/2024 1 [place] [address] Echocardiogram Report Name: YESSY TAVERAS Study Date: 407:06 AMBP: 109/81 mmHg : 1960 Height: 191 cm Account: [id number] Age: 63 yrs Weight: 85 kg Gender: Male BSA: 2.1 m2 Ordering Physician: ROMAN GIANG Referring Physician: AJAY DIAZ Performed By: LUCIA Reyes Reason For Study: NSTEMI Exam Location: [facility]. Interpretation Summary -The left ventricular ejection fraction [...] comparison. Compared to the overnight study bythe educational psychology teacher fellow there is no significant change. See report for additional findings. Procedure Complete-[id number]. Image enhancement Definity was used for left [...] 15-16diffuse Roman Giang MD ECHO ORDERABLES * Heparin (unfractionated) Level (03/25/2024 3:09 AM EDT) UF Heparin 0.16 IU/mL 03/25/2024 3:45 AM EDT [facility] Comment: Heparin (anti-Xa) levels should be [...] IP Care Team Draw / Unknown 03/25/2024 3:09 AM EDT 03/25/2024 3:34 AM EDT Marlys De La Garza MD HEMATOLOGY ORDNilo MOORE Performing Organization Address City/[facility]/ZIP Co de Phone Number [facility] [place] [address] * Magnesium (03/25/2024 3:09 AM EDT) Magnesium 0.86 0.69 - 1.07 mMol/L 03/25/2024 4:02 AM EDT [facility] Blood VENOUS BLOOD SPECIMEN / Unknown IP Care Team Draw / Unknown 03/25/2024 3:09 AM EDT 03/25/2024 3:34 AM EDT Roman Giang MD CHEMISTRY ORDERABLES Performing Organization Address City/[facility]/ZIP Co de Phone Number [facility] [place] [address] * (ABNORMAL) Basic Metabolic Panel (03/25/2024 3:09 AM EDT) Glucose 84 65 - 199 mg/dL 03/25/2024 4:02 AM EDT [facility] Comment:Glucose Concentratio n >=200 mg/dL plus symptoms is consistent with Diabetes Mellitus. Blood Urea Nitrogen 10 10 - 20 mg/dL 03/25/2024 4:02 AM EDT [facility] Creatinine 0.71(L) 0.80 - 1.50 mg/dL 03/25/2024 4:02 AM EDT [facility] Sodium 139 135 - 145 mMol/L 03/25/2024 4:02 AM [facility] Potassium 4.0 3.5 - 5.0 mMol/L 03/25/2024 4:02 AM [facility] Chloride 106 98 - 107 mMol/L 03/25/2024 4:02 AM [facility] Carbon Dioxide 21(L) 22 - 31 mMol/L 03/25/2024 4:02 AM [facility] Anion Gap 12 5 - 15 mMol/L 03/25/2024 4:02 AM [facility] Calcium 8.7 8.5 - 10.5 mg/dL 03/25/2024 4:02 AM [facility] Est Glomerular Filtration Rate - Male 102 mL/min/1. 73 m?? 03/25/2024 4:02 AM [facility] Comment: This patient's estimated [...] IP Care Team Draw / Unknown 03/25/2024 3:09 AM EDT 03/25/2024 3:34 AM EDT Roman Giang MD CHEMISTRY ORDERABLES [facility] [place] [address] * CBC (with Diff) (03/25/2024 3:09 AM EDT) White Blood Cell 6.81 4.00 - 9.50 x10(3)/mcL 03/25/2024 3:39 AM [facility] Red Blood Cell 4.81 4.58 - 5.54 x10(6)/mcL 03/25/2024 3:39 AM [facility] Hemoglobin 14.6 13.7 - 16.5 g/dL 03/25/2024 3:39 AM [facility] Hematocrit 43.4 40.5 - 48.5 % 03/25/2024 3:39 AM [facility] Mean Cell Volume 90.2 82.9 - 93.1 fL 03/25/2024 3:39 AM [facility] Mean Cell Hemoglobin 30.4 27.5 - 32.1 pg 03/25/2024 3:39 AM [facility] Mean Cell Hemoglobin Concentration 33.6 32.0 - 35.7 g/dL 03/25/2024 3:39 AM [facility] Platelet 173 145 - 357 x10(3)/mcL 03/25/2024 3:39 AM [facility] Mean Platelet Volume 10.9 7.6 - 12.9 fL 03/25/2024 3:39 AM [facility] RDW Standard Deviation 39.9 36.0 - 45.0 fL 03/25/2024 3:39 AM [facility] RDW coefficient of variation 12.0 11.4 - 13.8 % 03/25/2024 3:39 AM [facility] NRBC% auto 0.0 % 03/25/2024 3:39 AM [facility] NRBC Absolute <0.01 <0.01 x10(3)/mcL 03/25/2024 3:39 AM [facility] Neutrophil % 64.6 % 03/25/2024 3:39 AM [facility] Neutrophil Absolute (ANC) - Automated 4.39 1.70 - 6.10 x10(3)/mcL 03/25/2024 3:39 AM [facility] Lymph % 21.9 % 03/25/2024 3:39 AM EDT [facility] Lymph Absolute 1.49 0.90 - 3.20 x10(3)/mcL 03/25/2024 3:39 AM EDT [facility] Monocyte % 10.4 % 03/25/2024 3:39 AM EDT [facility] Monocyte Absolute 0.71 0.30 - 0.90 x10(3)/mcL 03/25/2024 3:39 AM EDT [facility] Eos % 2.3 % 03/25/2024 3:39 AM EDT [facility] Eos Absolute 0.16 0.00 - 0.40 x10(3)/mcL 03/25/2024 3:39 AM EDT [facility] Basophil % 0.7 % 03/25/2024 3:39 AM EDT [facility] Baso Absolute 0.05 0.00 - 0.10 x10(3)/mcL 03/25/2024 3:39 AM EDT [facility] Immature Gran % 0.1 % 3:39 AM EDT [facility] Immature Gran Absolute <0.04 0.00 - 0.04 x10(3)/mcL 03/25/2024 3:39 AM EDT [facility] Blood VENOUS BLOOD SPECIMEN / Unknown IP Care Team Draw / Unknown 03/25/2024 3:09 AM EDT 03/25/2024 3:34 AM EDT Roman Giang MD HEMATOLOGY ORDERABLE S [facility] [place] [address] * EKG 12 Lead (03/24/2024 11:28 PM EDT) Ventricular rate 57 BPM MUSE SYSTEM Atrial Rate 57 BPM MUSE SYSTEM P-R Interval 170 ms MUSE SYSTEM QRS Duration 100 ms MUSE SYSTEM Q-T Interval 436 ms MUSE SYSTEM QTC Calculated (Bezet) 424 ms MUSE SYSTEM Calculated P [place] 71 degrees MUSE SYSTEM Calculated R [place] -38 degrees MUSE SYSTEM Calculated T [place] 86 degrees MUSE SYSTEM INTERPRETATION Sinus bradycardia Left axis deviation Anteroseptal infarct , possibly recent T wave inversion Anterior leads Abnormal ECG No previous ECGs available I personally reviewed the tracing and edited the fellows interpretation Confirmed by fellow MD Nida, Arturo ([id number]) on 03/25/2024 1:53:00 PM Confirmed by MD Jona, Víctor ([id number]) on 03/25/2024 3:22:35 PM MUSE SYSTEM 03/24/2024 11:2 8 PM EDT 03/25/2024 3:22 PM EDT Roman Giang MD ECG ORDERABLES MUSE SYSTEM * (ABNORMAL) Troponin-T, Nikhil Sensitivity 3 Hour (03/24/2024 11:19 PM EDT) Troponin-T, High Sensitivity 465(H) <=22 ng/L 03/24/2024 11:56 PM EDT [facility] Comment: This patient's troponin T concentration [...] troponin value can be found in the [facility] Laboratory Test Catalog Troponin - https://one-.testcatalog.org/catalogs/565/files/49081 Reference: Fourth [place] Definition of Myocardial Infarction. Journal of the [place] [employer] 2018;72:7628-4385 Troponin-T, HS 3 hr delta 03/24/2024 11:56 PM EDT [facility] Comment:Delta troponin value not calculated, sample collected outside of delta calculation time limit. Blood VENOUS BLOOD SPECIMEN / Unknown IP Care Team Draw / Unknown 03/24/2024 11:19 PM EDT 03/24/2024 11:25 PM EDT Roman Giang MD CHEMISTRY ORDERABLES [facility] [place] [address] * XR Chest One View (03/24/2024 9:55 PM EDT) [employer] WORKSTATION ID [id number] RAD Anatomical Region Laterality Modality Chest N/A Digital Radiogra phy Impressions 03/24/2024 11:21 PM EDT Pulmonary vascular congestion. Thank you for letting us participate in the care of this patient. ??If you are a health care provider and have any questions regarding this report, please contact the number below. ??For patients who have questions please contact the health healthcare risk control consultant that requested your imaging first. ? Narrative 03/24/2024 11:21 PM EDT EXAMINATION: XR [...] patients who have questions please contactthe health healthcare risk control consultant that requested your imaging first. Roman Giang MD IMG DX ORDERABLES * (ABNORMAL) Troponin-T, High Sensitivity 1 Hour (03/24/2024 9:38 PM EDT) Troponin-T, High Sensitivity 469(H) <=22 ng/L 03/24/2024 10:29 PM EDT [facility] Comment: This patient's troponin T concentration was determined using the Lunba 5th Generation troponin T assay. According to [...] troponin value can be found in the [facility] Laboratory Test Catalog Troponin - https://one-.testcatalog.org/catalogs/565/files/89445 Reference: Fourth [place] Definition of Myocardial Infarction. Journal of the [place] [employer] 2018;72:4406-6668 Troponin-T, HS 1 hr delta 27 ng/L 03/24/2024 10:29 PM EDT [facility] Comment:The 1 hour Troponin T delta value is the absolute difference between the Troponin T concentrations of the initial and subsequent sample collected between 45 - 120 minutes following the initial collection. Blood VENOUS BLOOD SPECIMEN / Unknown IP Care Team Draw / Unknown 03/24/2024 9:38 PM EDT 03/24/2024 9:53 PM EDT Roman Giang MD CHEMISTRY ORDERABLES Performing Organization Address City/[facility]/ZIP Co de Phone Number [facility] [place] [address] * (ABNORMAL) D-Dimer, Quantitative (03/24/2024 8:43 PM EDT) [facility] D-Dimer 576(H) 0 - 500 FEU ng/ml 03/24/2024 9:03 PM EDT [facility] Comment: The D-Dimer assay is used [...] EDT Roman Giang MD HEMATOLOGY ORDERABLE S Performing Organization Address City/[facility]/ZIP Co de Phone Number [facility] [place] [address] * TSH (03/24/2024 8:42 PM EDT) Pathologist [facility] [place] Thyroid Stimulating Hormone 2.01 0.27 - 4.20 mcIU/mL 03/24/2024 9:32 PM EDT [facility] Blood VENOUS BLOOD SPECIMEN / Unknown Venipuncture / Unknown 03/24/2024 8:42 PM EDT 03/24/2024 8:50 PM EDT Roman Giang MD CHEMISTRY ORDERABLES [facility] [place] [address] * Magnesium (03/24/2024 8:42 PM EDT) [facility] Magnesium 0.81 0.69 - 1.07 mMol/L 03/24/2024 9:32 PM EDT [facility] Blood VENOUS BLOOD SPECIMEN / Unknown Venipuncture / Unknown 03/24/2024 8:42 PM EDT 03/24/2024 8:50 PM EDT Roman Giang MD CHEMISTRY ORDERABLES Performing Organization Address City/[facility]/ZIP Co de Phone Number [facility] [place] [address] * Hemoglobin A1c (03/24/2024 8:42 PM EDT) [facility] Hemoglobin A1c 5.3 4.3 - 5.6 % 03/24/2024 9:21 PM EDT [facility] Comment: Per ADA guidelines, without clear [...] red blood cell turnover may not be insurance follow up representative of glycemic control. Reference Interval: 4.3 - 5.6% 5.7 - 6.4%: Consistent with prediabetes >=6.5%: Consistent with diagnosis of diabetes mellitus Estimated Average Glucose 105 mg/dL 03/24/2024 9:21 PM EDT [facility] Blood VENOUS BLOOD SPECIMEN / Unknown Venipuncture / Unknown 03/24/2024 8:42 PM EDT 03/24/2024 8:50 PM EDT Roman Giang MD CHEMISTRY ORDERABLES [facility] [place] [address] * Lipid Panel (Reflex Direct LDL) (03/24/2024 8:42 PM EDT) Cholesterol, Total 80 mg/dL 03/24/2024 9:32 PM EDT [facility] Comment: Desirable: < 200 mg/dL Borderline High: 200 - 239 mg/dL High: > or = 240 mg/dL Triglyceride 52 mg/dL 03/24/2024 9:32 PM EDT [facility] Comment: Normal: <150 mg/dL Borderline High: 150-199 mg/dL High: 200-499 mg/dL Very High: > or =500 mg/dL HDL Cholesterol 35 mg/dL 9:32 PM EDT [facility] Comment:Males: High Risk: <4 0 mg/dL LDL Cholesterol 32 mg/dL 9:32 PM EDT [facility] Comment: Desirable: <100 mg/dL Above Desirable: 100-129 mg/dL Borderline High: 130-159 mg/dL High: 160-189 mg/dL Very High: > or =190 mg/dL Note: LDL calculation updated to the NIH LDL formula as of 01/20/2024 Non-HDL Cholesterol 45 mg/dL 03/24/2024 9:32 PM EDT [facility] Comment: Desirable: <130 mg/dL Above Desirable: 130-159 mg/dL Borderline High: 160-189 mg/dL High: 190-219 mg/dL Very High: > or = 220 mg/dL Blood VENOUS BLOOD SPECIMEN / Unknown Venipuncture / Unknown 03/24/2024 8:42 PM EDT 03/24/2024 8:50 PM EDT [facility] - 03/24/2024 9:32 PM EDT It [...] lower. ?? ACC/AHA Guidelines (most recently Calli gil al. [facility] 03/21/22): * For individuals with atherosclerotic cardiovascular [...] artery disease) Roman Giang MD CHEMISTRY ORDERABLES Performing Organization Address [facility] Co de Phone Number [facility] [place] [address] * (ABNORMAL) pro-Brain Natriuretic Peptide (03/24/2024 8:42 PM EDT) NT-proBNP 1,310(H) <=124 pg/mL 03/24/2024 9:32 PM EDT [facility] Blood VENOUS BLOOD SPECIMEN / Unknown Venipuncture / Unknown 03/24/2024 8:42 PM EDT 03/24/2024 8:50 PM EDT Roman Giang MD CHEMISTRY ORDERABLES Performing Organization Address [facility] Co de Phone Number [facility] [place] [address] * (ABNORMAL) Troponin-T, High Sensitivity (03/24/2024 8:42 PM EDT) Troponin-T, High Sensitivity Initial 496(H) <=22 ng/L 03/24/2024 9:32 PM EDT [facility] Comment: This patient's troponin T concentration [...] troponin value can be found in the [facility] Test Catalog Troponin - https://[email or web address]-.testcatalog.org/catalogs/565/files/[email or web address] Reference: Fourth [place] Definition of Myocardial Infarction. Journal of the [place] [employer] 2018;72:0935-5236 Blood VENOUS BLOOD SPECIMEN / Unknown Venipuncture / Unknown 03/24/2024 8:42 PM EDT 03/24/2024 8:50 PM EDT Roman Giang MD CHEMISTRY ORDERABLES [facility] [place] [address] * (ABNORMAL) Comprehensive metabolic panel (03/24/2024 8:42 PM EDT) Glucose 81 65 - 199 mg/dL 03/24/2024 9:32 PM EDT [facility] Comment:Glucose Concentratio n >=200 mg/dL plus symptoms is consistent with Diabetes Mellitus. Blood Urea Nitrogen 9(L) 10 - 20 mg/dL 03/24/2024 9:32 PM EDT [facility] Creatinine 0.70(L) 0.80 - 1.50 mg/dL 03/24/2024 9:32 PM EDT [facility] Sodium 138 135 - 145 mMol/L 03/24/2024 9:32 PM EDT [facility] Potassium 3.9 3.5 - 5.0 mMol/L 03/24/2024 9:32 PM EDT [facility] Chloride 105 98 - 107 mMol/L 03/24/2024 9:32 PM EDT [facility] Carbon Dioxide 21(L) 22 - 31 mMol/L 03/24/2024 9:32 PM [facility] Anion Gap 12 5 - 15 mMol/L 03/24/2024 9:32 PM [facility] Calcium 8.8 8.5 - 10.5 mg/dL 03/24/2024 9:32 PM [facility] Protein, Total 6.8 6.1 - 8.0 g/dL 03/24/2024 9:32 PM [facility] Albumin 3.8 3.2 - 5.2 g/dL 03/24/2024 9:32 PM [facility] Aspartate Aminotransferase 18 <=39 unit/L 03/24/2024 9:32 PM [facility] Alanine Aminotransferase 21 0 - 55 unit/L 03/24/2024 9:32 PM [facility] Alkaline Phosphatase 91 40 - 130 unit/L 03/24/2024 9:32 PM [facility] Bilirubin, Total 0.6 <=1.3 mg/dL 03/24/2024 9:32 PM [facility] Est Glomerular Filtration Rate - Male 103 mL/min/1. 73 m?? 03/24/2024 9:32 PM [facility] Comment: This patient's estimated [...] PM EDT Roman Giang MD CHEMISTRY ORDERABLES [facility] [place] [address] * CBC (with Diff) (03/24/2024 8:42 PM EDT) White Blood Cell 8.18 4.00 - 9.50 x10(3)/mcL 03/24/2024 9:01 PM EDT [facility] Red Blood Cell 4.80 4.58 - 5.54 x10(6)/mcL 03/24/2024 9:01 PM EDT [facility] Hemoglobin 14.8 13.7 - 16.5 g/dL 03/24/2024 9:01 PM EDT [facility] Hematocrit 43.2 40.5 - 48.5 % 03/24/2024 9:01 PM EDT [facility] Mean Cell Volume 90.0 82.9 - 93.1 fL 03/24/2024 9:01 PM EDT [facility] Mean Cell Hemoglobin 30.8 27.5 - 32.1 pg 03/24/2024 9:01 PM EDT [facility] Mean Cell Hemoglobin Concentration 34.3 32.0 - 35.7 g/dL 03/24/2024 9:01 PM EDT [facility] Platelet 160 145 - 357 x10(3)/mcL 03/24/2024 9:01 PM EDT [facility] Mean Platelet Volume 10.9 7.6 - 12.9 fL 03/24/2024 9:01 PM EDT [facility] RDW Standard Deviation 39.7 36.0 - 45.0 fL 03/24/2024 9:01 PM EDT [facility] RDW coefficient of variation 12.0 11.4 - 13.8 % 03/24/2024 9:01 PM EDT [facility] NRBC% auto 0.0 % 03/24/2024 9:01 PM EDT [facility] NRBC Absolute <0.01 <0.01 x10(3)/mcL 03/24/2024 9:01 PM EDT [facility] Neutrophil % 69.9 % 03/24/2024 9:01 PM EDT [facility] Neutrophil Absolute (ANC) - Automated 5.72 1.70 - 6.10 x10(3)/mcL 03/24/2024 9:01 PM EDT [facility] Lymph % 20.2 % 03/24/2024 9:01 PM EDT [facility] Lymph Absolute 1.65 0.90 - 3.20 x10(3)/mcL 03/24/2024 9:01 PM EDT [facility] Monocyte % 7.6 % 03/24/2024 9:01 PM EDT [facility] Monocyte Absolute 0.62 0.30 - 0.90 x10(3)/mcL 03/24/2024 9:01 PM EDT [facility] Eos % 1.5 % 03/24/2024 9:01 PM EDT [facility] Eos Absolute 0.12 0.00 - 0.40 x10(3)/mcL 03/24/2024 9:01 PM EDT [facility] Basophil % 0.6 % 03/24/2024 9:01 PM EDT [facility] Baso Absolute 0.05 0.00 - 0.10 x10(3)/mcL 03/24/2024 9:01 PM EDT [facility] Immature Gran % 0.2 % 9:01 PM EDT [facility] Immature Gran Absolute <0.04 0.00 - 0.04 x10(3)/mcL 03/24/2024 9:01 PM EDT [facility] Blood VENOUS BLOOD SPECIMEN / Unknown Venipuncture / Unknown 03/24/2024 8:42 PM EDT 03/24/2024 8:50 PM EDT Roman Giang MD HEMATOLOGY ORDERABLE S [facility] [place] [address] documented in this encounter Visit Diagnoses Diagnosis NSTEMI (non-ST elevated myocardial infarction)- Primary Acute myocardial infarction, subendocardial infarction, episode of care unspecified Acute non-ST elevation myocardial infarction (NSTEMI) NSTEMI (non-ST elevated myocardial infarction) Acute myocardial infarction, subendocardial infarction, episode of care unspecified documented in this encounter Admitting Diagnoses Diagnosis NSTEMI (non-ST elevated myocardial infarction) Acute myocardial infarction, subendocardial infarction, episode of care unspecified documented in this encounter Administered Medications Inactive Administered Medications - up to 3 most recent administrations Medication Order MAR Action Action Date Dose Rate Site aspirin EC tablet 81 mg 81 mg, Oral, DAILY, First dose on Sun03/25/24 at 0900, Until Discontinued, Routine Given 03/27/2024 9:13 AM EDT 81 mg Given 03/26/2024 8:11 AM EDT 81 mg Given 03/25/2024 8:34 AM EDT 81 mg atorvastatin (Lipitor) tablet 80 mg 80 mg, Oral, EVERY EVENING, First dose on Sun03/25/24 at 1700, Until Discontinued, Routine Given 03/26/2024 5:01 PM EDT 80 mg Given 03/25/2024 4:14 PM EDT 80 mg clopidogreL (Plavix) tablet 75 mg 75 mg, Oral, DAILY, First dose on Sun03/25/24 at 0900, Until Discontinued, Routine Given 03/27/2024 9:13 AM EDT 75 mg Given 03/26/2024 8:10 AM EDT 75 mg Given 03/25/2024 8:34 AM EDT 75 mg eptifibatide (Integrilin) (0.75 mg/mL) IV infusion 2 mcg/kg/min ? 85.3 kg (13.648 mL/hr, rounded to 13.6 mL/hr), Intravenous, CONTINUOUS, Starting on Sun03/25/24 at 1615, Until Sun03/26/24 at 0414, Recovery (Recovery-Hospital Unit) New Bag 03/25/2024 8:53 PM EDT 2 mcg/kg/min 13.6 m L/hr Rate/Dose Verify 03/25/2024 8:13 PM EDT 2 mcg/kg/min 13.6 mL/hr Rate/Dose Verify 03/25/2024 4:15 PM EDT 2 mcg/kg/min 13.6 mL/hr heparin (porcine) (1,000 units/mL) injection 0-4,000 Units 0-4,000 Units, Intravenous, BOLUS PER HEPARIN PROTOCOL, Starting on Sun03/24/24 at 2032, Until Sun03/26/24 at 0611, Per Protocol, START ADJUSTMENT SCHEDULE 6 HOURS AFTER STARTING INFUSION Bolus doses are rounded to the nearest 100 units. If Heparin UFH Level is: - Less than 0.1 international unit/mL: Bolus 60 units/kg (Maximum of 4,000 units) = Bolus 4,000 units - 0.1 - 0.19 International unit/mL: Bolus 30 units/kg (Maximum of 2,000 units) = Bolus 2,000 units - Equal to or greater than 0.2 international unit/mL: No Bolus, Routine Given 03/25/2024 3:57 AM EDT 2,000 Units heparin (porcine) 50 units/mL in dextrose 5% 500 mL infusion 0-5,000 Units/hr (0-100 mL/hr), Intravenous, CONTINUOUS, Starting on Sun03/24/24 at 2100, Until Sun03/26/24 at 0611, Begin infusion at 1,000 units per hr (12 units/kg/hr). Maximum initial infusion rate is 1,000 units/hr. Infusion doses are rounded to the nearest 50 units. Target Heparin UFH Level (anti-Xa activity) = 0.3 - 0.7 international unit/mL Start adjustment schedule 6 hours after starting infusion. If Heparin UFH Level is: - Less than 0.1 international unit/mL: Administer PRN bolus and increase rate by 350 units per hr (4 units/kg/hr) - 0.1 - 0.19 international unit/mL: Administer PRN bolus and increase rate by 150 units per hr (2 units/kg/hr) - 0.2 - 0.29 international unit/mL: NO BOLUS and increase rate by 150 units per hr (2 units/kg/hr) - 0.3 - 0.7 international unit/mL: No change - 0.71 - 0.79 international unit/mL: NO BOLUS and decrease rate by 100 units per hr (1 units/kg/hr) - 0.8 - 0.99 international unit/mL: NO BOLUS and decrease rate by 150 units per hr (2 units/kg/hr) - Greater than or equal to 1.00 international unit/mL: Hold infusion for 60 minutes then decrease rate by 250 units per hour (3 units/kg/hr) Obtain Heparin UFH Level 6 hours after initiating heparin. Then 6 hours after each dose adjustment. When 2 consecutive Heparin UFH Level within target range of 0.3 - 0.7 international unit/mL, change Heparin UFH Level to once every 24 hours with A.M. labs while on heparin. RN to order required Heparin UFH Level - Per Protocol, Routine Rate/Dose Change 03/25/2024 10:40 AM EDT 1,300 Units/hr 26 mL/hr New Bag 03/25/2024 4:02 AM EDT 1,150 Units/hr 23 mL/hr New Bag 03/24/2024 8:45 PM EDT 1,000 Units/hr 20 mL/hr lidocaine (Xylocaine) 1% (10 mg/mL) injection 3 mg 3 mg (0.3 mL), Subcutaneous, ONCE PRN, 1 dose, Starting on Sun03/24/24 at 2026, Until Sun03/27/24 at 1414, for discomfort with PIV insertion, Routine losartan (Cozaar) tablet 12.5 mg 12.5 mg, Oral, DAILY, First dose on Sun03/26/24 at 1100, Until Discontinued, Routine Given 03/27/2024 9:13 AM EDT 12.5 mg Given 03/26/2024 11:35 AM EDT 12.5 mg metoprolol tartrate (Lopressor) tablet 12.5 mg 12.5 mg, Oral, ONCE, 1 dose, On Sun03/24/24 at 2215, Routine Given 03/24/2024 10:15 PM EDT 12.5 mg metoprolol tartrate (Lopressor) tablet 12.5 mg 12.5 mg, Oral, EVERY 12 HOURS SCHEDULED (2 times per day), First dose (after last reorder) on Sun03/25/24 at 0900, Until Discontinued, Routine Given 03/27/2024 9:13 AM EDT 12.5 mg Given 03/26/2024 8:35 PM EDT 12.5 mg Given 03/26/2024 8:10 AM EDT 12.5 mg nitroGLYcerin (200 mcg/mL) in dextrose 5% 250 mL infusion 0-200 mcg/min (0-60 mL/hr), Intravenous, CONTINUOUS, Starting on Sun03/24/24 at 2100, Until Sun03/27/24 at 1414, Titrate to angina pain 3/10 or less. Start at 10 mcg/min for pain not responsive to sublingual nitroGLYcerin and morphine and if systolic blood pressure (SBP) is 100 mmHg or greater. Increase/decrease by 10 mcg/min every 5 minutes if SBP is 100 mmHg or greater until goal reached. Do not exceed 200 mcg/min., Routine nitroGLYcerin (Nitrostat) disintegrating tablet 0.4 mg 0.4 mg, Sublingual, EVERY 5 MIN PRN, Starting on Sun03/24/24 at 2026, Until Valerie 03/27/24 at 1414, Chest pain, May repeat every 5 minutes for a total of three doses. Notify provider if chest pain not relieved with nitroGLYcerin. Do not administer nitroGLYcerin if the patient has received or taken phosphodiesterase (PDE-5) inhibitors such as sildenafiL, tadalafiL or vardenafiL within the last 24 to 72 hours., Routine pantoprazole EC (Protonix) tablet 40 mg 40 mg, Oral, DAILY, First dose on Sun03/25/24 at 0900, Until Discontinued, DO NOT CRUSH OR OPEN, Routine Given 03/27/2024 9:13 AM EDT 40 mg Given 03/26/2024 8:11 AM EDT 40 mg Given 03/25/2024 8:34 AM EDT 40 mg perflutren lipid microspheres (Definity) injection 0.5 mL 0.5 mL, Intravenous, ONCE PRN, 1 dose, Starting on Sun03/25/24 at 0843, Until Sun03/25/24 at 0843, Other, Routine Given 03/25/2024 8:43 AM EDT 0.5 mLs sodium chloride 0.9 % (flush) (BD PosiFlush Normal Saline 0.9) flush 5 mL 5 mL, Intravenous, 2 TIMES DAILY, First dose on Sun03/24/24 at 2100, Until Discontinued, Routine Given 03/27/2024 9:19 AM EDT 5 mLs Given 03/26/2024 8:34 PM EDT 5 mLs Given 03/26/2024 8:11 AM EDT 5 mLs sodium chloride 0.9 % (flush) (BD PosiFlush Normal Saline 0.9) flush 5-20 mL 5-20 mL, Intravenous, EVERY 1 MIN PRN, Starting on 03/24/24 at 2026, Until Valerie 03/27/24 at 1414, flush, Flush pertains to all indwelling lines. Flush per protocol found in the job aid using the link provided on this medication record., Routine sodium chloride 0.9% infusion 300 mL/hr, Intravenous, CONTINUOUS, Starting on Sun03/25/24 at 1545, Until Sun03/25/24 at 1844, Recovery (Recovery-Hospital Unit) Rate/Dose Verify 03/25/2024 3:45 PM EDT 300 mL/hr 300 mL/hr documented in this encounter Active and Recently Administered Medications Times are shown in EDT. Scheduled Medication Order 03/25/2024 03/26/2024 03/27/2024 aspirin EC tablet 81 mg 81 mg, Oral, DAILY, First dose on Sun03/25/24 at 0900, Until Discontinued, Routine 0834 (Given - Provider: Leticia Zaldivar RN)1354 (AUG Hold - Provider: Admin Adt - Reason: Transfer to a Procedural area)1535 (AUG Unhold - Provider: Admin Adt) 0811 (Given - Provider: Evangelina Geller RN) 0913 (Given - Provider: Evangelina Geller, LUIGI) atorvastatin (Lipitor) tablet 80 mg 80 mg, Oral, EVERY EVENING, First dose on Sun03/25/24 at 1700, Until Discontinued, Routine 1354 (AUG Hold - Provider: Admin Adt - Reason: Transfer to a Procedural area)1535 (AUG Unhold - Provider: Admin Adt)1614 (Given - Provider: Marisol Magaña RN) 1701 (Given - Provider: Evangelina Geller RN) clopidogreL (Plavix) tablet 75 mg 75 mg, Oral, DAILY, First dose on Sun03/25/24 at 0900, Until Discontinued, Routine 0834 (Given - Provider: Leticia Zaldivar RN)1354 (AUG Hold - Provider: Admin Adt - Reason: Transfer to a Procedural area)1535 (AUG Unhold - Provider: Admin Adt) 0810 (Given - Provider: Evangelina Geller, LUIGI) 0913 (Given - Provider: Evangelina Geller, LUIGI) losartan (Cozaar) tablet 12.5 mg 12.5 mg, Oral, DAILY, First dose on Sun03/26/24 at 1100, Until Discontinued, Routine 1135 (Given - Provider: Evangelina Geller RN) 0913 (Given - Provider: Evangelina Geller RN) metoprolol tartrate (Lopressor) tablet 12.5 mg 12.5 mg, Oral, EVERY 12 HOURS SCHEDULED (2 times per day), First dose (after last reorder) on Sun03/25/24 at 0900, Until Discontinued, Routine 0834 (Given - Provider: Leticia Zaldivar RN)1354 (AUG Hold - Provider: Admin Adt - Reason: Transfer to a Procedural area)1535 (AUG Unhold - Provider: Admin Adt)2011 (Given - Provider: Kenneth Martinez RN) 0810 (Given - Provider: Evangelina Geller, LUIGI)203 (Given - Provider: Filiberto Urena RN) 0913 (Given - Provider: Evangelina Geller, LUIGI) pantoprazole EC (Protonix) tablet 40 mg 40 mg, Oral, DAILY, First dose on Sun03/25/24 at 0900, Until Discontinued, DO NOT CRUSH OR OPEN, Routine 0834 (Given - Provider: Leticia Zaldivar RN)1354 (AUG Hold - Provider: Admin Adt - Reason: Transfer to a Procedural area)1535 (AUG Unhold - Provider: Admin Adt) 0811 (Given - Provider: Evangelina Geller, LUIGI) 0913 (Given - Provider: Evangelina Geller, LUIGI) sodium chloride 0.9 % (flush) (BD PosiFlush Normal Saline 0.9) flush 5 mL 5 mL, Intravenous, 2 TIMES DAILY, First dose on Sun03/24/24 at 2100, Until Discontinued, Routine 0838 (Given - Provider: Leticia Zaldivar RN)1354 (AUG Hold - Provider: Admin Adt - Reason: Transfer to a Procedural area)1535 (AUG Unhold - Provider: Admin Adt)2013 (Given - Provider: Kenneth Martinez, LUIGI) 810 (Given - Provider: Evangelina Geller, RN)2033 (Given - Provider: Filiberto Urena, LUIGI) 09 (Given - Provider: Evangelina Geller, RN) Continuous Medication Order 03/25/2024 03/26/2024 03/27/2024 eptifibatide (Integrilin) (0.75 mg/mL) IV infusion (CANCELED) 2 mcg/kg/min ? 85.3 kg (13.648 mL/hr, rounded to 13.6 mL/hr), Intravenous, CONTINUOUS, Starting on Sun03/25/24 at 1615, Until Sun03/26/24 at 0414, Recovery (Recovery-Hospital Unit) 1615 (Rate/Dose Verify - Provider: Marisol Magaña, LUIGI)2012 (Rate/Dose Verify - Provider: Kenneth Martinez RN)2052 (New Bag - Provider: Kenneth Martinez RN) 0448 (Stopped - Provider: Kenneth Martinez RN) heparin (porcine) 50 units/mL in dextrose 5% 500 mL infusion (CANCELED)(Linked Group 1) 0-5,000 Units/hr (0-100 mL/hr), Intravenous, CONTINUOUS, Starting on Sun03/24/24 at 2100, Until Sun03/26/24 at 0611, Begin infusion at 1,000 units per hr (12 units/kg/hr). Maximum initial infusion rate is 1,000 units/hr. Infusion doses are rounded to the nearest 50 units. Target Heparin UFH Level (anti-Xa activity) = 0.3 - 0.7 international unit/mL Start adjustment schedule 6 hours after starting infusion. If Heparin UFH Level is: - Less than 0.1 international unit/mL: Administer PRN bolus and increase rate by 350 units per hr (4 units/kg/hr) - 0.1 - 0.19 international unit/mL: Administer PRN bolus and increase rate by 150 units per hr (2 units/kg/hr) - 0.2 - 0.29 international unit/mL: NO BOLUS and increase rate by 150 units per hr (2 units/kg/hr) - 0.3 - 0.7 international unit/mL: No change - 0.71 - 0.79 international unit/mL: NO BOLUS and decrease rate by 100 units per hr (1 units/kg/hr) - 0.8 - 0.99 international unit/mL: NO BOLUS and decrease rate by 150 units per hr (2 units/kg/hr) - Greater than or equal to 1.00 international unit/mL: Hold infusion for 60 minutes then decrease rate by 250 units per hour (3 units/kg/hr) Obtain Heparin UFH Level 6 hours after initiating heparin. Then 6 hours after each dose adjustment. When 2 consecutive Heparin UFH Level within target range of 0.3 - 0.7 international unit/mL, change Heparin UFH Level to once every 24 hours with A.M. labs while on heparin. RN to order required Heparin UFH Level - Per Protocol, Routine 0402 (New Bag - Provider: Dori France RN)1040 (Rate/Dose Change - Provider: Marisol Magaña, LUIGI)1354 (AUG Hold - Provider: Admin Adt - Reason: Transfer to a Procedural area)1535 (MAR Unhold - Provider: Admin Adt) nitroGLYcerin (200 mcg/mL) in dextrose 5% 250 mL infusion 0-200 mcg/min (0-60 mL/hr), Intravenous, CONTINUOUS, Starting on 03/24/24 at 2100, Until Valerie 03/27/24 at 1414, Titrate to angina pain 3/10 or less. Start at 10 mcg/min for pain not responsive to sublingual nitroGLYcerin and morphine and if systolic blood pressure (SBP) is 100 mmHg or greater. Increase/decrease by 10 mcg/min every 5 minutes if SBP is 100 mmHg or greater until goal reached. Do not exceed 200 mcg/min., Routine 1354 (AUG Hold - Provider: Admin Adt - Reason: Transfer to a Procedural area)1535 (AUG Unhold - Provider: Admin Adt) sodium chloride 0.9% infusion () 300 mL/hr, Intravenous, CONTINUOUS, Starting on Sun03/25/24 at 1545, Until Sun03/25/24 at 1844, Recovery (Recovery-Hospital Unit) 1545 (Rate/Dose Verify - Provider: Marisol Magaña, LUIGI) PRN Medication Order 03/25/2024 03/26/2024 03/27/2024 clopidogreL (Plavix) tablet (CANCELED) PRN, Starting on Sun03/25/24 at 1421, Until Sun03/25/24 at 1505, Intra-Operative (Intra-Procedure), Routine 1421 (Given - Provider: Juan Mix RN) eptifibatide (Integrilin) (0.75 mg/mL) IV infusion (COMPLETED) CONTINUOUS PRN, Starting on Sun03/25/24 at 1430, Until Sun03/25/24 at 1535, Intra-Operative (Intra-Procedure) 1430 (New Bag - Provider: Rupert Fischer RN) eptifibatide (Integrilin) (2 mg/mL) IV injection (CANCELED) PRN, Starting on Sun03/25/24 at 1429, Until Sun03/25/24 at 1505, Intra-Operative (Intra-Procedure), Routine 1429 (Given - Provider: Rupert Fischer RN)1439 (Given - Provider: Rupert Fischer RN) fentaNYL (pf) (50 mcg/mL) multi-dose injection (CANCELED) PRN, Starting on Sun03/25/24 at 1404, Until Sun03/25/24 at 1505, Intra-Operative (Intra-Procedure), Routine 1404 (Given - Provider: Juan Mix RN)1412 (Given - Provider: Juan Mix RN)1427 (Given - Provider: Juan Mix RN) heparin (porcine) (1,000 units/mL) injection 0-4,000 Units (CANCELED)(Linked Group 1) 0-4,000 Units, Intravenous, BOLUS PER HEPARIN PROTOCOL, Starting on Sun03/24/24 at 2032, Until Sun03/26/24 at 0611, Per Protocol, START ADJUSTMENT SCHEDULE 6 HOURS AFTER STARTING INFUSION Bolus doses are rounded to the nearest 100 units. If Heparin UFH Level is: - Less than 0.1 international unit/mL: Bolus 60 units/kg (Maximum of 4,000 units) = Bolus 4,000 units - 0.1 - 0.19 International unit/mL: Bolus 30 units/kg (Maximum of 2,000 units) = Bolus 2,000 units - Equal to or greater than 0.2 international unit/mL: No Bolus, Routine 0357 (Given - Provider: Dori France RN)1354 (AUG Hold - Provider: Admin Adt - Reason: Transfer to a Procedural area)1535 (MAR Unhold - Provider: Admin Adt) heparin (porcine) (1,000 units/mL) injection (CANCELED) PRN, Starting on Sun03/25/24 at 1411, Until Sun03/25/24 at 1505, Intra-Operative (Intra-Procedure), Routine 1411 (Given - Provider: Juan Mix RN)1429 (Given - Provider: Juan Mix RN) iohexoL (Omnipaque) (350 mg/mL) solution (CANCELED) PRN, Starting on Sun03/25/24 at 1503, Until Sun03/25/24 at 1505, Intra-Operative (Intra-Procedure), Routine 1503 (Given - Provider: Suleiman Chapa MD) lidocaine (Xylocaine) 1% (10 mg/mL) injection 3 mg 3 mg (0.3 mL), Subcutaneous, ONCE PRN, 1 dose, Starting on Sun03/24/24 at 2026, Until Valerie 03/27/24 at 1414, for discomfort with PIV insertion, Routine 1354 (AUG Hold - Provider: Admin Adt - Reason: Transfer to a Procedural area)1535 (MAR Unhold - Provider: Admin Adt) midazolam (pf) (Versed) (1 mg/mL) multi-dose injection (CANCELED) PRN, Starting on Sun03/25/24 at 1405, Until Sun03/25/24 at 1505, Intra-Operative (Intra-Procedure), Routine 1405 (Given - Provider: Juan Mix RN)1426 (Given - Provider: Juan Mix RN) niCARdipine (Cardene) (100 mcg/mL) dilution (HOME HEALTH CLINICAL SUPERVISOR) (CANCELED) PRN, Starting on Sun03/25/24 at 1453, Until Sun03/25/24 at 1505, Intra-Operative (Intra-Procedure), Routine 1453 (Given - Provider: Suleiman Chapa MD)1456 (Given - Provider: Suleiman Chapa MD) nitroGLYcerin (Nitrostat) disintegrating tablet 0.4 mg 0.4 mg, Sublingual, EVERY 5 MIN PRN, Starting on Sun03/24/24 at 2026, Until Valerie 03/27/24 at 1414, Chest pain, May repeat every 5 minutes for a total of three doses. Notify provider if chest pain not relieved with nitroGLYcerin. Do not administer nitroGLYcerin if the patient has received or taken phosphodiesterase (PDE-5) inhibitors such as sildenafiL, tadalafiL or vardenafiL within the last 24 to 72 hours., Routine 1354 ([facility] Hold - Provider: Admin Adt - Reason: Transfer to a Procedural area)1535 ([facility] Unhold - Provider: Admin Adt) nitroGLYcerin 100 mcg/mL intracoronary dilution (CANCELED) PRN, Starting on Sun03/25/24 at 1409, Until Sun03/25/24 at 1505, Intra-Operative (Intra-Procedure), Routine 1409 (Given - Provider: Gerardo Yao MD)1456 (Given - Provider: Suleiman Chapa MD) perflutren lipid microspheres (Definity) injection 0.5 mL (COMPLETED) 0.5 mL, Intravenous, ONCE PRN, 1 dose, Starting on Sun03/25/24 at 0843, Until Sun03/25/24 at 0843, Other, Routine 0843 (Given - Provider: Kim Hollingsworth) sodium chloride 0.9 % (flush) (BD PosiFlush Normal Saline 0.9) flush 5-20 mL 5-20 mL, Intravenous, EVERY 1 MIN PRN, Starting on Sun03/24/24 at 2026, Until Valerie 03/27/24 at 1414, flush, Flush pertains to all indwelling lines. Flush per protocol found in the job aid using the link provided on this medication record., Routine 1354 (AUG Hold - Provider: Admin Adt - Reason: Transfer to a Procedural area)1535 ([facility] Unhold - Provider: Admin Adt) verapamiL (Isoptin) (2.5 mg/mL) injection (CANCELED) PRN, Starting on Sun03/25/24 at 1409, Until Sun03/25/24 at 1505, Administer over 2 Minutes, Intra-Operative (Intra-Procedure) 1409 (Given - Provider: Gerardo Yao MD) Linked Groups Order Group 1: heparin (porcine) 50 units/mL in dextrose 5% 500 mL infusion (CANCELED)Jump to med 0-5,000 Units/hr (0-100 mL/hr), Intravenous, CONTINUOUS, Starting on Sun03/24/24 at 2100, Until Sun03/26/24 at 0611, Begin infusion at 1,000 units per hr (12 units/kg/hr). Maximum initial infusion rate is 1,000 units/hr. Infusion doses are rounded to the nearest 50 units. Target Heparin UFH Level (anti-Xa activity) = 0.3 - 0.7 international unit/mL Start adjustment schedule 6 hours after starting infusion. If Heparin UFH Level is: - Less than 0.1 international unit/mL: Administer PRN bolus and increase rate by 350 units per hr (4 units/kg/hr) - 0.1 - 0.19 international unit/mL: Administer PRN bolus and increase rate by 150 units per hr (2 units/kg/hr) - 0.2 - 0.29 international unit/mL: NO BOLUS and increase rate by 150 units per hr (2 units/kg/hr) - 0.3 - 0.7 international unit/mL: No change - 0.71 - 0.79 international unit/mL: NO BOLUS and decrease rate by 100 units per hr (1 units/kg/hr) - 0.8 - 0.99 international unit/mL: NO BOLUS and decrease rate by 150 units per hr (2 units/kg/hr) - Greater than or equal to 1.00 international unit/mL: Hold infusion for 60 minutes then decrease rate by 250 units per hour (3 units/kg/hr) Obtain Heparin UFH Level 6 hours after initiating heparin. Then 6 hours after each dose adjustment. When 2 consecutive Heparin UFH Level within target range of 0.3 - 0.7 international unit/mL, change Heparin UFH Level to once every 24 hours with A.M. labs while on heparin. RN to order required Heparin UFH Level - Per Protocol, Routine And heparin (porcine) (1,000 units/mL) injection 0-4,000 Units (CANCELED)Jump to med 0-4,000 Units, Intravenous, BOLUS PER HEPARIN PROTOCOL, Starting on Sun03/24/24 at 2032, Until Sun03/26/24 at 0611, Per Protocol, START ADJUSTMENT SCHEDULE 6 HOURS AFTER STARTING INFUSION Bolus doses are rounded to the nearest 100 units. If Heparin UFH Level is: - Less than 0.1 international unit/mL: Bolus 60 units/kg (Maximum of 4,000 units) = Bolus 4,000 units - 0.1 - 0.19 International unit/mL: Bolus 30 units/kg (Maximum of 2,000 units) = Bolus 2,000 units - Equal to or greater than 0.2 international unit/mL: No Bolus, Routine documented in this encounter Care Teams Electrical Service Technician Relationship Specialty Start Date End Date Calderon Huynh MD [address] [place] [address] PCP - General Family Medicine 01/11/23 documented as of this encounter
--- OUTSIDE RECORDS SUMMARY | 2024-04-18 12:51 | XMS_ITS | Encounter Summary ---
[facility] [place] [address] Care Team Providers Care Cash Clerk Name Role Phone Calderon Huynh MD Primary Care Provider [phone] Encounter Details Date Type Department Care Team (Late st Contact Info) Description 03/25/2024 [place] [id number] Unknown None Social History Tobacco Use Types Packs/Day Years Used Date Smoking Tobacco: Former Cigarettes 0.5 30 Q uit: 12/2022 Smokeless Tobacco: Never [facility] Utilities Answer Date Recorded In [...] any time in the past 12 m onths, were you homeless or living in a [...] on file documented as of this encounter Plan of Treatment Not on file documented as of this encounter Procedures Procedure Name Priority Date/Time Associated Diagnosis Comments ECHOCARDIOGRAM TRANSTHORACIC Routine 03/25/2024 1:47 AM EDT documented in this encounter Results * Echocardiogram Transthoracic (03/25/2024 1:47 AM EDT) Anatomical Region Laterality Modality Cardiac Other 03/25/2024 1:47 AM EDT Narrative 03/27/2024 9:34 AM EDT [address] [place] [address] ? Echocardiogram Report Name: BLAIR TAVERAS ? Study Date: 03/25/2024 01:47 AM : 1960 ? Height: 191 cm Age: 63 yrs ? Weight: 85 kg Gender: Male ?BSA: 2.1 m2 Performed By: Kim Lozano MD Reason For Study: NSTEMI History: NSTEMI Interpreting Fellow: Kim Lozano. Interpretation Summary This is a limited study performed by the fellow supervisor smoke control. Left ventricle is of normal size. Left ventricular systolic function is mildly reduced and estimated visually at 45%. There are RWMAs in an LAD distribution (including apical akinesis); see diagram in PDF. Right ventricle is normal in size and systolic function. No significant valvular abnormalities observed on limited assessment. There is no prior study available for comparison. Procedure Limited - 64113. Suboptimal quality. There is normal sinus rhythm. [...] Note Corby Mata MD - 03/27/2024 [address] [place] [id number] Echocardiogram Report Name: BLAIR TAVERAS Study Date: 03/25/2024 01:47AM : 1960 Height: 191 cm Age: 63 yrs Weight: 85 kg Gender: Male BSA: 2.1 m2 Performed By: Kim Lozano MD Reason For Study: NSTEMI History: NSTEMI Interpreting Fellow: Kim Lozano. Interpretation Summary This is a limited study performed by the fellow supervisor smoke control. Left ventricle is of normal size. Left ventricular systolic function ismildly reduced and estimated visually at 45%. There are RWMAs in an LADdistribution (including apical akinesis); see diagram in PDF. Right ventricle is normal in size and systolic function. No significant valvular abnormalities observed on limited assessment. There is no prior study available for comparison. Procedure Limited - 22373. Suboptimal quality. There is normal sinus rhythm. [...] - 6-14large Aneurysmal 15-16diffuse Unknown ECHO ORDERABLES documented in this encounter Visit Diagnoses Not on filedocumented in this encounter Care Teams Cash Clerk Relationship Specialty Start Date End Date Calderon Huynh MD [address] [place] [address] PCP - General Family Medicine 01/11/23 documented as of this encounter
--- OUTSIDE RECORDS SUMMARY | 2024-04-18 12:52 | XMS_ITS | Encounter Summary ---
Author Organization [facility] Address [facility] [place] [address] Care Team Providers Care Auto Parts Manager Name Role Phone Juancarlos Jamsion MD Primary Care Provider [phone] Encounter Details Date Type Department Care Team (Late st Contact Info) Description 12/02/2022 Notes [place] [address] Julia Buenrostro MD [facility] [place] [address] Social History Tobacco Use Types Packs/Day Years Used Date Smoking Tobacco: Never Assessed Sex and Gender Information Value Date Recorded Sex Assigned at Not on file Gender Identity Not on file Sexual Orientation Not on file documented as of this encounter Progress Notes * Julia Buenrostro MD - 12/02/2022 4:08 PM EDT Received OS transfer center consult request for patient, who is a 62 yo male with a history of kidney stones, presenting with R flank pain. 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 Patient denies LLQ or pelvic pain. Has palpable femoral and pedal pulses. Aneurysm has wall calcifications and no stranding or evidence of inflammation. Likely chronic given wall calcification. Recommended non-urgent referral to vascular surgery clinic at which time we will obtain CTA, and bilateral popliteal artery duplex. documented in this encounter Plan of Treatment Not on file documented as of this encounter Visit Diagnoses Not on filedocumented in this encounter Care Teams Auto Parts Manager Relationship Specialty Start Date End Date Juancarlos Jamison MD [address] [place] [address] PCP - General 05/10/10 01/10/23 documented as of this encounter
--- OUTSIDE RECORDS SUMMARY | 2024-04-18 12:52 | XMS_ITS | Encounter Summary ---
Author Organization [facility] Address [facility] [place] [address] Care Team Providers Care Communications Agent Name Role Phone Juancarlos Jamison MD Primary Care Provider [phone] Encounter Details Date Type Department Care Team (Late st Contact Info) Description 12/02/2022 3:00 PM EDT Ancillary Procedure Radiology Library at [facility] [place] [address] Alexa Beth MD [facility] [address] Social History Tobacco Use Types Packs/Day Years Used Date Smoking Tobacco: Never Assessed Sex and Gender Information Value Date Recorded Sex Assigned at Not on file Gender Identity Not on file Sexual Orientation Not on file documented as of this encounter Plan of Treatment Not on file documented as of this encounter Procedures Procedure Name Priority Date/Time Associated Diagnosis Comments FILM LIBRARY STORAGE ONLY CT ABDOMEN AND PELVIS Routine 12/02/2022 2:56 PM EDT documented in this encounter Results * Film Library- Storage Only CT Abdomen & Pelvis (12/02/2022 2:56 PM EDT) Narrative [facility] - 12/02/2022 2:56 PM EDT This exam is auto-finalizing. It's purpose is for storage only. Alexa Beth MD IMG FILM LIBRARY ORD ERABLES [facility] [place], [place] documented in this encounter Visit Diagnoses Not on filedocumented in this encounter Care Teams Communications Agent Relationship Specialty Start Date End Date Juancarlos Jamison MD [address] [place] [address] PCP - General 05/10/10 01/10/23 documented as of this encounter
--- OUTSIDE RECORDS SUMMARY | 2024-04-18 12:52 | XMS_ITS | Encounter Summary ---
Author Organization [facility] Address [facility] [place] [address] Care Team Providers Care Marina Sales And Service Supervisor Name Role Phone Calderon Huynh MD Primary Care Provider [phone] Encounter Details Date Type Department Care Team (Late st Contact Info) Description 01/12/2023 Orders [place] [address] Alexa Beth MD [facility] [place] [address] Social History Tobacco Use Types Packs/Day Years Used Date Smoking Tobacco: Every Day Cigarettes 0.5 30 Smokeless Tobacco: Never Sex and Gender Information Value Date Recorded Sex Assigned at Not on file Gender Identity Not on file Sexual Orientation Not on file documented as of this encounter Plan of Treatment Not on file documented as of this encounter Visit Diagnoses Not on filedocumented in this encounter Care Teams Marina Sales And Service Supervisor Relationship Specialty Start Date End Date Calderon Huynh MD [address] [place] [address] PCP - General Family Medicine 01/11/23 documented as of this encounter
--- OUTSIDE RECORDS SUMMARY | 2024-04-18 12:52 | XMS_ITS | Encounter Summary ---
Author Organization [facility] Address [place] [address] Care Team Providers Care Strategic Account Executive Name Role Phone Calderon Huynh MD Primary Care Provider [phone] Encounter Details Date Type Department Care Team (Late st Contact Info) Description 03/23/2024 External [place] [id number] Social History Tobacco Use Types Packs/Day Years Used Date Smoking Tobacco: Former Cigarettes 0.5 30 Q uit: 12/2022 Smokeless Tobacco: Never [facility] Utilities Answer Date Recorded In the past [...] any time in the past 12 m [facility], were you homeless or living in a custodial (including now)? No 03/25/2024 [facility] Inpatient [...] Procedure Name Priority Date/Time Associated Diagnosis Comments MISC EXTERNAL CARDIOLOGY RESULT Routine 03/23/2024 6:47 PM EDT documented in this encounter Results * External Cardiology Result (03/23/2024 6:47 PM EDT) Anatomical Region Laterality Modality Other Historical Provider EXTERNAL CARDIOLO GY RESULT documented in this encounter Visit Diagnoses Not on filedocumented in this encounter Care Teams Strategic Account Executive Relationship Specialty Start Date End Date Calderon Huynh MD [address] [place] [address] PCP - General Family Medicine 01/11/23 documented as of this encounter
--- OUTSIDE RECORDS SUMMARY | 2024-04-18 12:52 | XMS_ITS | Encounter Summary ---
Author Organization [facility] Address [address] [place] [address] Care Team Providers Care Proc Tech Name Role Phone Unavailable Primary Care Provider Unavailabl e Encounter Details Date Type Department Care Team (Late st Contact Info) Description 02/10/2002 Results Only [facility] [address] [place] [address] John Pitts, DO [address] [facility] [address] [place], [place] [id number] Social History Tobacco Use Types Packs/Day Years Used Date Smoking Tobacco: Never Assessed Sex and Gender Information Value Date Recorded Sex Assigned at Not on file Gender Identity Not on file Sexual Orientation Not on file documented as of this encounter Plan of Treatment Not on file documented as of this encounter Procedures Procedure Name Priority Date/Time Associated Diagnosis Comments SURGICAL PATHOLOGY Routine 02/10/2002 0:00 EDT documented in this encounter Results * SURGICAL PATHOLOGY (02/10/2002 0:00 EDT) Pathology Report: SURGICAL PATHOLOGY REPORT Reports generated via electronic interface contain original data; however they are lacking the format of the original report. Caution should be taken when reading/interpreti ng unformatted reports. Name: ? BLAIR SCHROEDER ? Accession #: ? [id number] ? : ? 1960 (Age: 41) ??M ? Collect Date: ? 02/10/2002 ? Location: ? [facility] ? Receive Date: ? 02/10/2002 ? Provider: JOHN PITTS DO Copy to: CASSI HALL MD ? Final Pathologic Diagnosis: ? Colon, 30.0 cm, polyp, biopsy: - ??Tubular adenoma; no high grade dysplasia. ??See comment. Comment: ? Deeper levels have been examined. (Dr. Connors)/dtl Document reviewed and electronically signed by: Bee Rausch MD Report ??Date: 02/12/2002 19:29 By the signature above, the attending physician certifies that he/she has personally conducted a gross and/or microscopic examination of the described specimens and rendered or confirmed the above diagnosis. Specimen(s) Received: ? Polyp at 30 cm Clinical History: ? H/o polyps Gross Description: ? Received in Hollande' s fixative labelled Nitin and #1 polyp at 30 cm is a single smooth polypoid tissue measuring 0.3 x 0.2 x 0.2 cm. ??The specimen is submitted intact in one cassette. ??(Dr. Alba-TIFFANIE)/ljn End of Report COURTNEY RAMOS 02/10/2002 02/10/2002 15: 03 EDT John Pitts DO PATHOLOGY ORDER [facility] COURTNEY RAMOS [address] [place] [address] documented in this encounter Visit Diagnoses Not on filedocumented in this encounter
--- OUTSIDE RECORDS SUMMARY | 2024-04-18 12:52 | XMS_ITS | Encounter Summary ---
Author Organization [facility] [place] [address] Care Team Providers Care Epic Manager Name Role Phone Calderon Huynh MD Primary Care Provider [phone] Reason for Visit * Auth/Cert (Routine) Specialty Diagnoses / Procedures Referred By Zac del toro Referred To Contact Diagnoses NSTEMI (non-ST elevated myocardial infarction) NSTEMI Procedures EMERGENCY Roman Garces MD [facility] [place] [address] [facility] Referral ID Status Reason Start Date Expiration Date Visits Re quested Visits Authorized [id number] 1 1 Encounter Details Date Type Department Care Team (Late st Contact Info) Description 03/25/2024 1:30 PM EDT - 03/25/2024 2:30 PM EDT [place] [address] Suleiman Chapa MD [facility] [place] [address] CARDIAC CATHETERIZATION Social History Tobacco Use Types Packs/Day Years Used Date Smoking Tobacco: Former Cigarettes 0.5 30 Q uit: 12/2022 Smokeless Tobacco: Never [facility] Utilities Answer Date Recorded In the past 12 months has [employer] gas, oil, or water [employer] threatened to shut off services in your [...] any time in the past 12 m [facility], were you homeless or living in a usp (including now)? No 03/25/2024 IPV Inpatient Questions Answer Date Recorded Does [...] Sign Reading Time Taken Comments Blood Pressure 124/79 03/25/2024 2:20 PM EDT Pulse 77 03/25/2024 2:20 PM EDT Temperature 36.6 ??C (97.9 ??F) 03/25/2024 12:32 PM E DT Respiratory Rate 16 03/25/2024 2:20 PM EDT Oxygen Saturation 95% 03/25/2024 2:20 PM EDT Inhaled Oxygen Concentration - - Weight 85.3 kg (188 lb 0.8 oz) 03/25/2024 6:00 A M EDT Height 190.5 cm (6' 3) 03/24/2024 8:21 PM EDT Body Mass Index 23 03/24/2024 8:21 PM EDT documented in this encounter Discharge Summaries * Wiley Díaz DO - 03/27/2024 9:08 AM EDT Discharge Summary Patient Name: Yessy Taveras Patient Age: 63 y.o. Language: Iraqi Race: White Ethnicity: Not nor Admit date: 03/24/2024 Discharge date and time: 03/27/2024 11:35 AM Attending Physician: Marlys De La Garza MD Discharge Physician: Wiley Díaz DO Follow-up Recommendations for Providers: Patient received PCI [...] other relevant labs. Follow-up appointment with the mat machine operator. Education on Lifestyle Modifications and dietary changes [...] please contact your inpatient physician through the [facility] Director Of Clinical Education . Issues afterhours and on weekends will [...] hence he presented to the ED at [facility]. He denies associated cough , [...] NSTEMI type I. He was transferred to [facility] for further ischemic evaluation. Hospital Course: Yessy Taveras was admitted to the cardiology Service on 03/24/2024. The following issues were addressed and he was discharged on 03/27/2024 #NSTEMI type I vs (missed) STEMI: Patient presented with 2-4 days of stuttering chest pain and significantly positive troponin. His EKG showed recent anterolateral NC with Q waves and TTE with LAD [...] Studies and Lab Data: Labs: Recent Labs 03/26/24 0401 03/25/24 0309 03/24/242041 WBC 7.80 6.81 8.18 HGB 14.8 14.6 14.8 PLATELET 180 173 160 Recent Labs 03/27/24 0222 03/26/24 0401 03/25/24 0309 NA 138 136 139 K 3.7 3.8 4.0 CL 106 105 106 CO2 22 20* 21* BUN 11 11 10 CREATININE 0.72* 0.74* 0.71* Recent Labs 03/27/24 0222 03/26/24 0401 03/25/24 0309 CALCIUM 9.0 8.9 8.7 MAGNESIUM 0.83 0.81 [...] Compared to the overnight study by the solar installation technician fellow there is no significant change. Left [...] community. Follow up Appointments: No future appointments. Can Technician: Cardiology follow up will be set up for you PCP: Calderon Huynh MD at [phone] Your Inpatient Doctor(s) at [facility]: Marlys De La Garza MD - Attending physician Wiley Díaz DO - Resident physician Your Primary Care Provider: Calderon Huynh MD [address] [place] [address] If you have non-emergent questions between now and the time of your follow up appointments: During 8am-5pm Sunday through Sunday call [phone] to speak with a nurse in the cardiology clinic All other times call [phone] and ask to speak to the field applications specialist solar installation technician. General Instructions None Future Appointments and Orders Future Orders Complete By Expires Referral to Cardiac Rehab [HSQ380 Custom] As directed Process Instructions: If no progress note charted, please enter Clinical details in comments. Scheduling Instructions: Questions: My question or request is: NSTEMI, PCI- cardiac rehab at [facility] Referral to Cardiology [REF12 Custom] As directed Process Instructions: If no progress note charted, please enter Clinical details in comments. Scheduling Instructions: Questions: My question or request is: Follow up from hospital after LAD stent placed Primary Team Inpatient Physicians at [facility] was: Attending Physician(s): MARLYS DE LA GARZA DANETTE L SUBRAHMANYAN, LAKSHMAN Inpatient Provider Contact Information: If you have questions about this document please contact the [facility] commercial front load operator at and ask for one of [...] community. Follow up Appointments: No future appointments. Can Technician: Cardiology follow up will be set up for you PCP: Calderon Huynh MD at [phone] Your Inpatient Doctor(s) at [facility]: Marlys De La Garza MD - Attending physician Wiley Díaz DO - Resident physician Your Primary Care Provider: Calderon Huynh MD [address] [place], [place] [address]Y [address] [address] If you have non-emergent questions between now and the time of your follow up appointments: During 8am-5pm Sunday through Sunday call [phone] to speak with a nurse in the cardiology clinic All other times call [phone] and ask to speak to the field applications specialist solar installation technician. documented in this encounter Medications at Time [...] PCP: Calderon Huynh MD PCP phone number: [phone] Date of Admission: 03/24/2024 ( Hospital Day [...] Monique Anderson MD Internal Medicine PGY-1 Cardiology, Pager#[phone] 03/26/24 4:21 AM Associated attestation - Joie [...] positive and EKG showing likely recent anterolateral NC with Q waves. TTE with LAD territory WMAs. Referred for cardiac catheterization which showed high grade LAD disease with evidence of thrombus. Now s/p PCI to LAD/Diag bifurcation lesion and treated with intergrellin on 03/25. Unclear to what degree his myocardium will [...] of two midnights or is on the [facility] inpatient only procedure list (status C) due to: acute myocardial infarction requiring titration of IV medication and fluid monitoring Joie Mejia MD Cardiovascular Medicine Personal Pager [phone] 03/26/2024 9:23 PM * Roman Giang MD [...] PCP: Calderon Huynh MD PCP phone number: [phone] Date of Admission: 03/24/2024 ( Hospital Day [...] Phlebitis 0-->no symptoms 03/25/24399 Infiltration 0-->no symptoms 03/25/24 040 Labs Recent Labs 03/25/24 0309 03/24/242041 WBC [...] Monique Anderson MD Internal Medicine PGY-1 Cardiology, Pager#[phone] 03/25/24 8:47 AM Associated attestation - Joie Mejia MD - 03/25/2024 3:49 PM EDT [...] positive and EKG showing likely recent anterolateral NC with Q waves. TTE with LAD territory [...] of two midnights or is on the [facility] inpatient only procedure list (status C) due to: acute myocardial infarction requiring titration of IV medication and fluid monitoring Joie Mejia MD Cardiovascular Medicine Personal Pager [phone] 03/25/2024 3:45 PM documented in this encounter H&P Notes * Soham Aviles MD - 03/25/2024 7:54 AM EDT Images from the original note were not included. [facility] Pre-Procedure H&P and Pre-Sedation Assessment Yessy [...] hence he presented to the ED at [facility]. He denies associated cough , [...] NSTEMI type I. He was transferred to [facility] for further ischemic evaluation. Past Medical History: [...] Skin: No icterus, ecchymosis or dermatitis noted. Churdan and warm. Neurologic: Awake, alert, oriented x [...] Discharge: Patient is insured through: Primary Insurance: [employer] [place] [employer] [place] / Plan[place] / Product Type: *No Product type* / Secondary Insurance: N/A Prescription Coverage: Yes Per team, patient is medically ready to discharge to home via POV. This plan was formulated with input from patient and team. All are in agreement with plan. Kim Banegas RN Extension [phone] * Plan of Care - Filiberto Urena [...] risk factor modification. 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 He is very active w/his job, walking 4- 5 miles daily. Given parameters for home exercise. Mediterranean diet guidelines briefly reviewed. Reviewed managing angina /use of sl nitroglycerin. Phase II Referral: Participation in the outpatient cardiac rehabilitation program at [facility] was discussed. Patient agrees to a [...] Procedure Note: Patient Name: Yessy Taveras : [id number] MR#: [id number] Case Date: 03/25/2024 Director Of Clinical Education: Surgeons and Role: * Suleiman Chapa MD [...] - 03/25/2024 12:01 PM EDT Patient completed [place] advance directive. Patient identified his SO Homer [...] Admitted From: Transfer from another hospital Location: [facility] Reason for Hospitalization: chest pain Past medical History: Past Medical History: Diagnosis Date Depression GERD (gastroesophageal reflux disease) Kidney stone TIA (transient ischemic attack) Hospitalizations Within the Past 30 Days: no previous admission in last 30 days Current Decision-Making Capacity: Self If AD's have not been completed the following surrogate would be surrogate decision maker per [place] decision making law. (Only good for 180 days) Any patient receiving care in [place] must abide by [place] law. The hierarchy for surrogate decision making is: (a) Patient???s spouse or civil union partner unless there is a divorce proceeding, separation agreement, or restraining order limiting that person???s relationship with the patient. (b) Any adult son or daughter of the patient. Adrienne Stephens (daughter) [phone] OR Veronica Cavazos (daughter) [phone] (c) Either parent of the patient. (d) Any adult brother or sister of the patient. (e) Any adult grandchild of the patient. (f) Any grandparent of the patient. (g) Any adult aunt, uncle, niece, or nephew of the patient. (h) A close friend of the patient. (i) The agent with financial power of insurance attorney or a conservator appointed in accordance with [...] were you homeless or living in a usp (including now)?: No In the past 12 months has the [employer], gas, oil, or water [employer] threatened to shut off services in your [...] Current DME: none Home Address confirmed as: [facility] [address] [place] [id number] Physical Address confirmed as: [address] [place] [address] Social & Family Supports: All names listed below confirmed with patient as current and correct Extended Emergency Contact Information Primary Emergency Contact: HOMER FLAHERTY Address: [address] [place] [address] [facility] Relation: Life Partner Secondary Emergency [...] Information: None identified Health/Prescription Coverage: Primary Insurance: [employer] [place] [employer] [place] / Plan: [facility] [place] / Product Type: *No Product type* / Secondary Insurance: N/A ; Prescription Coverage: Yes Preferred Pharmacy: [facility] [address] [address] [place] Status: Patient is a : No Primary Care Provider confirmed: Calderon Huynh MD [phone] Patient/Caregiver Goals of Treatment: Return home at [...] to home via POV when medically ready. dog races manager/Tug Boat Captain will continue to follow patient???s progress and remain available if situation changes for coordination of care, psychosocial support and/or discharge planning. Kim Banegas RN Extension [phone] * Plan of Care - Dori France [...] - 1.07 mMol/L 03/27/2024 3:15 AM EDT [facility] Blood VENOUS BLOOD SPECIMEN / Unknown IP Care Team Draw / Unknown 03/27/2024 2:22 AM EDT 03/27/2024 2:45 AM EDT Roman Giang MD CHEMISTRY ORDERABLES [facility] [place] [address] * (ABNORMAL) Basic Metabolic Panel (03/27/2024 2:22 AM EDT) Glucose 95 65 - 199 mg/dL 03/27/2024 3:15 AM EDT [facility] Comment:Glucose Concentratio n >=200 mg/dL plus symptoms is consistent with Diabetes Mellitus. Blood Urea Nitrogen 11 10 - 20 mg/dL 03/27/2024 3:15 AM EDT [facility] Creatinine 0.72(L) 0.80 - 1.50 mg/dL 03/27/2024 3:15 AM EDT [facility] Sodium 138 135 - 145 mMol/L 03/27/2024 3:15 AM EDT [facility] Potassium 3.7 3.5 - 5.0 mMol/L 03/27/2024 3:15 AM EDT [facility] Chloride 106 98 - 107 mMol/L 03/27/2024 3:15 AM EDT [facility] Carbon Dioxide 22 22 - 31 mMol/L 03/27[facility]24 [facility] Anion Gap 10 5 - 15 mMol/L 03/27/2024 3:15 AM EDT [facility] Calcium 9.0 8.5 - 10.5 mg/dL 03/27/2024 3:15 AM [facility] Est Glomerular Filtration Rate - Male 102 mL/min/1. 73 m?? 03/27/2024 3:15 AM [facility] Comment: This patient's estimated [...] AM EDT Roman Giang MD CHEMISTRY ORDERABLES [facility] [place] [address] * Magnesium (03/26/2024 4:01 AM EDT) Magnesium 0.81 0.69 - 1.07 mMol/L 03/26/2024 4:40 AM EDT [facility] Blood VENOUS BLOOD SPECIMEN / Unknown IP Care Team Draw / Unknown 03/26/2024 4:01 AM EDT 03/26/2024 4:11 AM EDT Roman Giang MD CHEMISTRY ORDERABLES [facility] [place] [address] * (ABNORMAL) Basic Metabolic Panel (03/26/2024 4:01 AM EDT) Glucose 93 65 - 199 mg/dL 03/26/2024 4:40 AM EDT [facility] Comment:Glucose Concentratio n >=200 mg/dL plus symptoms is consistent with Diabetes Mellitus. Blood Urea Nitrogen 11 10 - 20 mg/dL 03/26/2024 4:40 AM [facility] Creatinine 0.74(L) 0.80 - 1.50 mg/dL 03/26/2024 4:40 AM [facility] Sodium 136 135 - 145 mMol/L 03/26/2024 4:40 AM [facility] Potassium 3.8 3.5 - 5.0 mMol/L 03/26/2024 4:40 AM [facility] Chloride 105 98 - 107 mMol/L 03/26/2024 4:40 AM [facility] Carbon Dioxide 20(L) 22 - 31 mMol/L 03/26/2024 4:40 AM [facility] Anion Gap 11 5 - 15 mMol/L 03/26/2024 4:40 AM [facility] Calcium 8.9 8.5 - 10.5 mg/dL 03/26/2024 4:40 AM [facility] Est Glomerular Filtration Rate - Male 101 mL/min/1. 73 m?? 03/26/2024 4:40 AM [facility] Comment: This patient's estimated [...] AM EDT Roman Giang MD CHEMISTRY ORDERABLES [facility] [place] [address] * CBC (with Diff) (03/26/2024 4:01 AM EDT) White Blood Cell 7.80 4.00 - 9.50 x10(3)/mcL 03/26/2024 4:23 AM [facility] Red Blood Cell 4.88 4.58 - 5.54 x10(6)/mcL 03/26/2024 4:23 AM [facility] Hemoglobin 14.8 13.7 - 16.5 g/dL 03/26/2024 4:23 AM [facility] Hematocrit 44.1 40.5 - 48.5 % 03/26/2024 4:23 AM [facility] Mean Cell Volume 90.4 82.9 - 93.1 fL 03/26/2024 4:23 AM [facility] Mean Cell Hemoglobin 30.3 27.5 - 32.1 pg 03/26/2024 4:23 AM [facility] Mean Cell Hemoglobin Concentration 33.6 32.0 - 35.7 g/dL 03/26/2024 4:23 AM [facility] Platelet 180 145 - 357 x10(3)/mcL 03/26/2024 4:23 AM [facility] Mean Platelet Volume 11.0 7.6 - 12.9 fL 03/26/2024 4:23 AM [facility] RDW Standard Deviation 39.7 36.0 - 45.0 fL 03/26/2024 4:23 AM [facility] RDW coefficient of variation 11.9 11.4 - 13.8 % 03/26/2024 4:23 AM [facility] NRBC% auto 0.0 % 03/26/2024 4:23 AM [facility] NRBC Absolute <0.01 <0.01 x10(3)/mcL 03/26/2024 4:23 AM [facility] Neutrophil % 68.9 % 03/26/2024 4:23 AM [facility] Neutrophil Absolute (ANC) - Automated 5.38 1.70 - 6.10 x10(3)/mcL 03/26/2024 4:23 AM [facility] Lymph % 16.8 % 03/26/2024 4:23 AM [facility] Lymph Absolute 1.31 0.90 - 3.20 x10(3)/mcL 03/26/2024 4:23 AM [facility] Monocyte % 10.8 % 03/26/2024 4:23 AM [facility] Monocyte Absolute 0.84 0.30 - 0.90 x10(3)/mcL 03/26/2024 4:23 AM [facility] Eos % 2.6 % 03/26/2024 4:23 AM [facility] Eos Absolute 0.20 0.00 - 0.40 x10(3)/mcL 03/26/2024 4:23 AM [facility] Basophil % 0.6 % 03/26/2024 4:23 AM [facility] Baso Absolute 0.05 0.00 - 0.10 x10(3)/mcL 03/26/2024 4:23 AM EDT [facility] Immature Gran % 0.3 % 4:23 AM EDT [facility] Immature Gran Absolute <0.04 0.00 - 0.04 x10(3)/mcL 03/26/2024 4:23 AM EDT [facility] Blood VENOUS BLOOD SPECIMEN / Unknown IP Care Team Draw / Unknown 03/26/2024 4:01 AM EDT 03/26/2024 4:10 AM EDT Roman Giang MD HEMATOLOGY ORDERABLE S Performing Organization Address City/State/[facility] Co de Phone Number [facility] [place] [address] * CARDIAC CATHETERIZATION (03/25/2024 3:05 PM EDT) Anatomical Region Laterality Modality Other Narrative 03/25/2024 5:12 PM EDT ?[facility] ? Cardiac Catheterization/Intervention Report ? Patient Name: Yessy Taveras. ? Procedure Date: 03/25/2024 ? A #: [id number] ? Primary Physician: Eduard, Suleiman T ? Case #: [id number] ? File Name: [id number] ? Catheterization Order Number: [id number] ? [facility] ? Final Report [place], [place] ? Patient Name: ? Yessy L. Nitin ?ID#: ?[id number] ? : ?1960 ? Procedure Date: ? [...] procedure was Urgent. The indication for ?the optical lab technician visit is ACS less than or equal [...] ?3.75 guiding catheter and a 3.[address] [place] [address] ??20 Mhz using ?Manual pullback. ??Imaging [...] ? A premounted 3.50 x 22 mm [place] (ALFIE) was deployed ? with a maximum [...] dose administered prior to arrival in the optical lab technician. ?Recommended anti-platelet/anti-thrombotic regimen: ?Continue aspirin 81 mg daily for 12 months then stop. ?Continue clopidogrel 75 mg daily for indefinitely. ?These recommendations are made at the time of the intervention. Patient ?and provider preferences or a changing clinical situation may require ?modification of this regimen. Consult [facility] Interventional Cardiology for ?questions. ? Conclusions: ?* [...] Procedure Note Suleiman Chapa MD - 03/25/2024 [facility] Cardiac Catheterization/Intervention Report Patient Name: Yessy Taveras Procedure Date: 03/25/2024 A #: [id number] Primary Physician: Suleiman Chapa Case #: [id number] File Name: [id number] Catheterization Order Number: [id number] [facility] FinalReport [place], [place] Patient Name: Yessy Taveras ID#:[id number] :1960 Procedure Date: March 25, 2024 Case [...] patient was designated asASA Class III. The [facility] clinical frailty scale is 3: Managing Well. Diagnostic Tests: Medications Prior to Procedure: Aspirin, Beta Russ and Statin. Indications for Diagnostic Cath: The priority of the diagnostic procedure was Urgent. The indicationfor the optical lab technician visit is ACS less than or equal [...] 3.75 guiding catheter and a 3.[address] 20 Mhzusing Manual pullback. Imaging was [...] The lesion was predilated with a 2.50mm [id number] MM balloon with a maximum inflation pressure of 16atmospheres. A premounted 3.50 x 22 mm [place] (ALFIE) wasdeployed with a maximum inflation pressure [...] dose administered prior to arrival in the optical lab technician. Recommended anti-platelet/anti-thrombotic regimen: Continue aspirin 81 mg daily for 12 months then stop. Continue clopidogrel 75 mg daily for indefinitely. These recommendations are made at the time of the intervention.Patient and provider preferences or a changing clinical situation mayrequire modification of this regimen. Consult [facility] Interventional Cardiologyfor questions. Conclusions: * One vessel [...] Heparin 0.27 IU/mL 03/25/2024 9:48 AM EDT [facility] Comment: Heparin (anti-Xa) levels [...] Roman Giang MD HEMATOLOGY ORDERABLE S [facility] [place] [address] * ECHO COMPLETE W CONTRAST (03/25/2024 8:42 AM EDT) Anatomical Region Laterality Modality Cardiac Other 03/25/2024 7:06 AM EDT Narrative 03/25/2024 9:05 AM EDT [address] [place] [address] ? Echocardiogram Report Name: YESSY TAVERAS ? Study Date: 03/25/2024 07:06 AMBP: 109/81 mmHg : 1960 ? Height: 191 cm ? Account: [id number] Age: 63 yrs ? Weight: 85 kg Gender: Male ?BSA: 2.1 m2 Ordering Physician: ROMAN GIANG Referring Physician: AJAY DIAZ Performed By: LUCIA Reyes Reason For Study: NSTEMI Exam Location: [facility]. Interpretation Summary -The left ventricular ejection fraction [...] Compared to the overnight study by the solar installation technician fellow there is no significant change. See report for additional findings. Procedure Complete-[id number]. Image enhancement Definity was used for left [...] Note Magalie Smith MD - 03/25/2024 [address] [place] [address] Echocardiogram Report Name: YESSY TAVERAS Study Date: 407:06 AMBP: 109/81 mmHg : 1960 Height: 191 cm Account: [id number] Age: 63 yrs Weight: 85 kg Gender: Male BSA: 2.1 m2 Ordering Physician: ROMAN GIANG Referring Physician: AJAY DIAZ Performed By: LUCIA Reyes Reason For Study: NSTEMI Exam Location: [facility]. Interpretation Summary -The left ventricular ejection fraction [...] comparison. Compared to the overnight study bythe solar installation technician fellow there is no significant change. See report for additional findings. Procedure Complete-[id number]. Image enhancement Definity was used for left [...] Heparin 0.16 IU/mL 03/25/2024 3:45 AM EDT [facility] Comment: Heparin (anti-Xa) levels [...] MD HEMATOLOGY ORDNilo MOORE Performing Organization Address City/[facility]/ZIP Co de Phone Number [facility] [place] [address] * Magnesium (03/25/2024 3:09 AM EDT) Magnesium 0.86 0.69 - 1.07 mMol/L 03/25/2024 4:02 AM EDT [facility] Blood VENOUS BLOOD SPECIMEN / Unknown IP Care Team Draw / Unknown 03/25/2024 3:09 AM EDT 03/25/2024 3:34 AM EDT Roman Giang MD CHEMISTRY ORDERABLES Performing Organization Address City/[facility]/ZIP Co de Phone Number [facility] [place] [address] * (ABNORMAL) Basic Metabolic Panel (03/25/2024 3:09 AM EDT) Glucose 84 65 - 199 mg/dL 03/25/2024 4:02 AM EDT [facility] Comment:Glucose Concentratio n >=200 mg/dL plus symptoms is consistent with Diabetes Mellitus. Blood Urea Nitrogen 10 10 - 20 mg/dL 03/25/2024 4:02 AM EDT [facility] Creatinine 0.71(L) 0.80 - 1.50 mg/dL 03/25/2024 4:02 AM [facility] LABORATORY Sodium 139 135 - 145 mMol/L 03/25/2024 4:02 AM [facility] Potassium 4.0 3.5 - 5.0 mMol/L 03/25/2024 4:02 AM [facility] Chloride 106 98 - 107 mMol/L 03/25/2024 4:02 AM [facility] Carbon Dioxide 21(L) 22 - 31 mMol/L 03/25/2024 4:02 AM [facility] Anion Gap 12 5 - 15 mMol/L 03/25/2024 4:02 AM [facility] Calcium 8.7 8.5 - 10.5 mg/dL 03/25/2024 4:02 AM [facility] Est Glomerular Filtration Rate - Male 102 mL/min/1. 73 m?? 03/25/2024 4:02 AM [facility] Comment: This patient's estimated [...] AM EDT Roman Giang MD CHEMISTRY ORDERABLES [facility] [place] [address] * CBC (with Diff) (03/25/2024 3:09 AM EDT) White Blood Cell 6.81 4.00 - 9.50 x10(3)/mcL 03/25/2024 3:39 AM [facility] Red Blood Cell 4.81 4.58 - 5.54 x10(6)/mcL 03/25/2024 3:39 AM [facility] Hemoglobin 14.6 13.7 - 16.5 g/dL 03/25/2024 3:39 AM [facility] Hematocrit 43.4 40.5 - 48.5 % 03/25/2024 3:39 AM [facility] Mean Cell Volume 90.2 82.9 - 93.1 fL 03/25/2024 3:39 AM [facility] Mean Cell Hemoglobin 30.4 27.5 - 32.1 pg 03/25/2024 3:39 AM [facility] Mean Cell Hemoglobin Concentration 33.6 32.0 - 35.7 g/dL 03/25/2024 3:39 AM [facility] Platelet 173 145 - 357 x10(3)/mcL 03/25/2024 3:39 AM [facility] Mean Platelet Volume 10.9 7.6 - 12.9 fL 03/25/2024 3:39 AM [facility] RDW Standard Deviation 39.9 36.0 - 45.0 fL 03/25/2024 3:39 AM [facility] RDW coefficient of variation 12.0 11.4 - 13.8 % 03/25/2024 3:39 AM [facility] NRBC% auto 0.0 % 03/25/2024 3:39 AM [facility] NRBC Absolute <0.01 <0.01 x10(3)/mcL 03/25/2024 3:39 AM [facility] Neutrophil % 64.6 % 03/25/2024 3:39 AM [facility] Neutrophil Absolute (ANC) - Automated 4.39 1.70 - 6.10 x10(3)/mcL 03/25/2024 3:39 AM EDT [facility] Lymph % 21.9 % 03/25/2024 3:39 AM EDT [facility] Lymph Absolute 1.49 0.90 - 3.20 x10(3)/mcL 03/25/2024 3:39 AM EDT [facility] Monocyte % 10.4 % 03/25/2024 3:39 AM EDT [facility] Monocyte Absolute 0.71 0.30 - 0.90 x10(3)/mcL 03/25/2024 3:39 AM EDT [facility] Eos % 2.3 % 03/25/2024 3:39 AM EDT [facility] Eos Absolute 0.16 0.00 - 0.40 x10(3)/mcL 03/25/2024 3:39 AM EDT [facility] Basophil % 0.7 % 03/25/2024 3:39 AM EDT [facility] Baso Absolute 0.05 0.00 - 0.10 x10(3)/mcL 03/25/2024 3:39 AM EDT [facility] Immature Gran % 0.1 % 3:39 AM EDT [facility] Immature Gran Absolute <0.04 0.00 - 0.04 x10(3)/mcL 03/25/2024 3:39 AM EDT [facility] Blood VENOUS BLOOD SPECIMEN / Unknown IP Care Team Draw / Unknown 03/25/2024 3:09 AM EDT 03/25/2024 3:34 AM EDT Roman Giang MD HEMATOLOGY ORDERABLE S [facility] [place] [address] * EKG 12 Lead (03/24/2024 11:28 PM EDT) Ventricular rate 57 BPM MUSE SYSTEM Atrial Rate 57 BPM MUSE SYSTEM P-R Interval 170 ms MUSE SYSTEM QRS Duration 100 ms MUSE SYSTEM Q-T Interval 436 ms MUSE SYSTEM QTC Calculated (Bezet) 424 ms MUSE SYSTEM Calculated P [place] 71 degrees MUSE SYSTEM Calculated R [place] -38 degrees MUSE SYSTEM Calculated T [place] 86 degrees MUSE SYSTEM INTERPRETATION Sinus bradycardia Left axis deviation Anteroseptal infarct , possibly recent T wave inversion Anterior leads Abnormal ECG No previous ECGs available I personally reviewed the tracing and edited the fellows interpretation Confirmed by fellow MD Nida, Arturo ([id number]) on 03/25/2024 1:53:00 PM Confirmed by MD Jona, Víctor ([id number]) on 03/25/2024 3:22:35 PM MUSE SYSTEM 03/24/2024 11:2 8 PM EDT 03/25/2024 3:22 PM EDT Roman Giang MD ECG ORDERABLES MUSE SYSTEM * (ABNORMAL) Troponin-T, Nikhil Sensitivity 3 Hour (03/24/2024 11:19 PM EDT) Troponin-T, High Sensitivity 465(H) <=22 ng/L 03/24/2024 11:56 PM EDT [facility] Comment: This patient's troponin [...] troponin value can be found in the [facility] Test Catalog Troponin - https://one-.testcatalog.org/catalogs/565/files/72814 Reference: Fourth Jackson Definition of Myocardial Infarction. Journal of the [place] [employer] 2018;72:2295-7910 Troponin-T, HS 3 hr delta 03/24/2024 11:56 PM EDT [facility] Comment:Delta troponin value not calculated, sample collected outside of delta calculation time limit. Blood VENOUS BLOOD SPECIMEN / Unknown IP Care Team Draw / Unknown 03/24/2024 11:19 PM EDT 03/24/2024 11:25 PM EDT Roman Giang MD CHEMISTRY ORDERABLES [facility] [place] [address] * XR Chest One View (03/24/2024 9:55 PM EDT) WORKSTATION ID [id number] RAD Anatomical Region Laterality Modality Chest N/A Digital Radiogra phy Impressions 03/24/2024 11:21 PM EDT Pulmonary vascular congestion. Thank you for letting us participate in the care of this patient. ??If you are a health care provider and have any questions regarding this report, please contact the number below. ??For patients who have questions please contact the health health care marketing specialist that requested your imaging first. ? Narrative [...] patients who have questions please contactthe health health care marketing specialist that requested your imaging first. Roman Giang MD IMG DX ORDERABLES * (ABNORMAL) Troponin-T, High Sensitivity 1 Hour (03/24/2024 9:38 PM EDT) [facility] Troponin-T, High Sensitivity 469(H) <=22 ng/L 03/24/2024 10:29 PM EDT [facility] Comment: This patient's troponin [...] troponin value can be found in the [facility] Test Catalog Troponin - https://[facility].testcatalog.org/catalogs/565/files/20083 Reference: Fourth Jackson Definition of Myocardial Infarction. Journal of the [place] [employer] 2018;72:5107-8178 Troponin-T, HS 1 hr delta 27 ng/L 03/24/2024 10:29 PM EDT [facility] Comment:The 1 hour Troponin T delta value is the absolute difference between the Troponin T concentrations of the initial and subsequent sample collected between 45 - 120 minutes following the initial collection. Blood VENOUS BLOOD SPECIMEN / Unknown IP Care Team Draw / Unknown 03/24/2024 9:38 PM EDT 03/24/2024 9:53 PM EDT Roman Giang MD CHEMISTRY ORDERABLES Performing Organization Address City/[facility]/ZIP Co de Phone Number [facility] [place] [address] * (ABNORMAL) D-Dimer, Quantitative (03/24/2024 8:43 PM EDT) [facility] D-Dimer 576(H) 0 - 500 FEU ng/ml 03/24/2024 9:03 PM EDT [facility] Comment: The D-Dimer assay [...] MD HEMATOLOGY ORDERABLE S Performing Organization Address City/[facility]/ZIP Co de Phone Number [facility] [place] [address] * TSH (03/24/2024 8:42 PM EDT) Pathologist [facility] Thyroid Stimulating Hormone 2.01 0.27 - 4.20 mcIU/mL 03/24/2024 9:32 PM EDT [facility] Blood VENOUS BLOOD SPECIMEN / Unknown Venipuncture / Unknown 03/24/2024 8:42 PM EDT 03/24/2024 8:50 PM EDT Roman Giang MD CHEMISTRY ORDERABLES [facility] [place] [address] * Magnesium (03/24/2024 8:42 PM EDT) [facility] Magnesium 0.81 0.69 - 1.07 mMol/L 03/24/2024 9:32 PM EDT [facility] Blood VENOUS BLOOD SPECIMEN / Unknown Venipuncture / Unknown 03/24/2024 8:42 PM EDT 03/24/2024 8:50 PM EDT Roman Giang MD CHEMISTRY ORDERABLES [facility] [place] [address] * Hemoglobin A1c (03/24/2024 8:42 PM EDT) [facility] Hemoglobin A1c 5.3 4.3 - 5.6 % 03/24/2024 9:21 PM EDT [facility] Comment: Per ADA guidelines, [...] red blood cell turnover may not be loan representative of glycemic control. Reference Interval: 4.3 - 5.6% 5.7 - 6.4%: Consistent with prediabetes >=6.5%: Consistent with diagnosis of diabetes mellitus Estimated Average Glucose 105 mg/dL 03/24/2024 9:21 PM EDT [facility] Blood VENOUS BLOOD SPECIMEN / Unknown Venipuncture / Unknown 03/24/2024 8:42 PM EDT 03/24/2024 8:50 PM EDT Roman Giang MD CHEMISTRY ORDERABLES [facility] [place] [address] * Lipid Panel (Reflex Direct LDL) (03/24/2024 8:42 PM EDT) Cholesterol, Total 80 mg/dL 03/24/2024 9:32 PM EDT [facility] Comment: Desirable: < 200 mg/dL Borderline High: 200 - 239 mg/dL High: > or = 240 mg/dL Triglyceride 52 mg/dL 03/24/2024 9:32 PM EDT [facility] Comment: Normal: <150 mg/dL Borderline High: 150-199 mg/dL High: 200-499 mg/dL Very High: > or =500 mg/dL HDL Cholesterol 35 mg/dL 9:32 PM EDT [facility] Comment:Males: High Risk: <4 0 mg/dL LDL Cholesterol 32 mg/dL 9:32 PM EDT [facility] Comment: Desirable: <100 mg/dL Above Desirable: 100-129 mg/dL Borderline High: 130-159 mg/dL High: 160-189 mg/dL Very High: > or =190 mg/dL Note: LDL calculation updated to the NIH LDL formula as of 01/20/2024 Non-HDL Cholesterol 45 mg/dL 03/24/2024 9:32 PM EDT [facility] Comment: Desirable: <130 mg/dL Above Desirable: 130-159 mg/dL Borderline High: 160-189 mg/dL High: 190-219 mg/dL Very High: > or = 220 mg/dL Blood VENOUS BLOOD SPECIMEN / Unknown Venipuncture / Unknown 03/24/2024 8:42 PM EDT 03/24/2024 8:50 PM EDT [facility] - 03/24/2024 9:32 PM EDT [...] ACC/AHA Guidelines (most recently Calli et al. [facility] 03/21/22): * For individuals with [...] Giang MD CHEMISTRY ORDERABLES Performing Organization Address [facility] Co de Phone Number [facility] [place] [address] * (ABNORMAL) pro-Brain Natriuretic Peptide (03/24/2024 8:42 PM EDT) NT-proBNP 1,310(H) <=124 pg/mL 03/24/2024 9:32 PM EDT [facility] Blood VENOUS BLOOD SPECIMEN / Unknown Venipuncture / Unknown 03/24/2024 8:42 PM EDT 03/24/2024 8:50 PM EDT Roman Giang MD CHEMISTRY ORDERABLES Performing Organization Address [facility] Co de Phone Number [facility] [place] [address] * (ABNORMAL) Troponin-T, High Sensitivity (03/24/2024 8:42 PM EDT) Troponin-T, High Sensitivity Initial 496(H) <=22 ng/L 03/24/2024 9:32 PM EDT [facility] Comment: This patient's troponin [...] troponin value can be found in the [facility] Test Catalog Troponin - https://[email or web address].testcatalog.org/catalogs/565/files/89390 Reference: Fourth Jackson Definition of Myocardial Infarction. Journal of the [place] [employer]iology 2018;72:5020-1393 Blood VENOUS BLOOD SPECIMEN / Unknown Venipuncture / Unknown 03/24/2024 8:42 PM EDT 03/24/2024 8:50 PM EDT Roman Giang MD CHEMISTRY ORDERABLES Performing Organization Address City/State/[facility] Co de Phone Number [facility] [place] [address] * (ABNORMAL) Comprehensive metabolic panel (03/24/2024 8:42 PM EDT) Pathologist [facility] Glucose 81 65 - 199 mg/dL 03/24/2024 9:32 PM EDT [facility] Comment:Glucose Concentratio n >=200 mg/dL plus symptoms is consistent with Diabetes Mellitus. Blood Urea Nitrogen 9(L) 10 - 20 mg/dL 03/24/2024 9:32 PM EDT [facility] Creatinine 0.70(L) 0.80 - 1.50 mg/dL 03/24/2024 9:32 PM EDT [facility] Sodium 138 135 - 145 mMol/L 03/24/2024 9:32 PM EDT [facility] Potassium 3.9 3.5 - 5.0 mMol/L 03/24/2024 9:32 PM EDT [facility] Chloride 105 98 - 107 mMol/L 03/24/2024 9:32 PM EDT [facility] Carbon Dioxide 21(L) 22 - 31 mMol/L 03/24/2024 9:32 PM [facility] Anion Gap 12 5 - 15 mMol/L 03/24/2024 9:32 PM [facility] Calcium 8.8 8.5 - 10.5 mg/dL 03/24/2024 9:32 PM [facility] Protein, Total 6.8 6.1 - 8.0 g/dL 03/24/2024 9:32 PM [facility] Albumin 3.8 3.2 - 5.2 g/dL 03/24/2024 9:32 PM [facility] Aspartate Aminotransferase 18 <=39 unit/L 03/24/2024 9:32 PM [facility] Alanine Aminotransferase 21 0 - 55 unit/L 03/24/2024 9:32 PM [facility] Alkaline Phosphatase 91 40 - 130 unit/L 03/24/2024 9:32 PM [facility] Bilirubin, Total 0.6 <=1.3 mg/dL 03/24/2024 9:32 PM [facility] Est Glomerular Filtration Rate - Male 103 mL/min/1. 73 m?? 03/24/2024 9:32 PM [facility] Comment: This patient's estimated [...] 8:42 PM EDT 03/24/2024 8:50 PM EDT Tinuola B Padmaja MD CHEMISTRY ORDERABLES [facility] [place] [address] * CBC (with Diff) (03/24/2024 8:42 PM EDT) White Blood Cell 8.18 4.00 - 9.50 x10(3)/mcL 03/24/2024 9:01 PM EDT [facility] Red Blood Cell 4.80 4.58 - 5.54 x10(6)/mcL 03/24/2024 9:01 PM EDT [facility] Hemoglobin 14.8 13.7 - 16.5 g/dL 03/24/2024 9:01 PM EDT [facility] Hematocrit 43.2 40.5 - 48.5 % 03/24/2024 9:01 PM EDT [facility] Mean Cell Volume 90.0 82.9 - 93.1 fL 03/24/2024 9:01 PM EDT [facility] Mean Cell Hemoglobin 30.8 27.5 - 32.1 pg 03/24/2024 9:01 PM EDT [facility] Mean Cell Hemoglobin Concentration 34.3 32.0 - 35.7 g/dL 03/24/2024 9:01 PM EDT [facility] Platelet 160 145 - 357 x10(3)/mcL 03/24/2024 9:01 PM EDT [facility] Mean Platelet Volume 10.9 7.6 - 12.9 fL 03/24/2024 9:01 PM EDT [facility] RDW Standard Deviation 39.7 36.0 - 45.0 fL 03/24/2024 9:01 PM EDT [facility] RDW coefficient of variation 12.0 11.4 - 13.8 % 03/24/2024 9:01 PM EDT [facility] NRBC% auto 0.0 % 03/24/2024 9:01 PM EDT [facility] NRBC Absolute <0.01 <0.01 x10(3)/mcL 03/24/2024 9:01 PM EDT [facility] Neutrophil % 69.9 % 03/24/2024 9:01 PM EDT [facility] Neutrophil Absolute (ANC) - Automated 5.72 1.70 - 6.10 x10(3)/mcL 03/24/2024 9:01 PM EDT [facility] Lymph % 20.2 % 03/24/2024 9:01 PM EDT [facility] Lymph Absolute 1.65 0.90 - 3.20 x10(3)/mcL 03/24/2024 9:01 PM EDT [facility] Monocyte % 7.6 % 03/24/2024 9:01 PM EDT [facility] Monocyte Absolute 0.62 0.30 - 0.90 x10(3)/mcL 03/24/2024 9:01 PM EDT [facility] Eos % 1.5 % 03/24/2024 9:01 PM EDT [facility] Eos Absolute 0.12 0.00 - 0.40 x10(3)/mcL 03/24/2024 9:01 PM EDT [facility] Basophil % 0.6 % 03/24/2024 9:01 PM EDT [facility] Baso Absolute 0.05 0.00 - 0.10 x10(3)/mcL 03/24/2024 9:01 PM EDT [facility] Immature Gran % 0.2 % 9:01 PM EDT [facility] Immature Gran Absolute <0.04 0.00 - 0.04 x10(3)/mcL 03/24/2024 9:01 PM EDT [facility] Blood VENOUS BLOOD SPECIMEN / Unknown Venipuncture / Unknown 03/24/2024 8:42 PM EDT 03/24/2024 8:50 PM EDT Roman Giang MD HEMATOLOGY ORDERABLE S [facility] [place] [address] documented in this encounter Visit Diagnoses Not on filedocumented in this encounter Admitting Diagnoses Diagnosis NSTEMI [...] Given 03/25/2024 8:34 AM EDT 75 mg clopidogreL (Plavix) tablet PRN, Starting on Sun03/25/24 at 1421, Until Sun03/25/24 at 1505, Intra-Operative (Intra-Procedure), Routine Given 03/25/2024 2:21 PM EDT 600 mg eptifibatide (Integrilin) (0.75 mg/mL) IV infusion CONTINUOUS PRN, Starting on Sun03/25/24 at 1430, Until Sun03/25/24 at 1535, Intra-Operative (Intra-Procedure) New Bag 03/25/2024 2:30 PM EDT 2 mcg/kg/min 13.6 mL/hr eptifibatide (Integrilin) (2 mg/mL) IV injection PRN, Starting on Sun03/25/24 at 1429, Until Sun03/25/24 at 1505, Intra-Operative (Intra-Procedure), Routine Given 03/25/2024 2:39 PM EDT 15,354 mcg Given 03/25/2024 2:29 PM EDT 15,354 mcg fentaNYL (pf) (50 mcg/mL) multi-dose injection PRN, Starting on Sun03/25/24 at 1404, Until Sun03/25/24 at 1505, Intra-Operative (Intra-Procedure), Routine Given 03/25/2024 2:27 PM EDT 25 mcg Given 03/25/2024 2:12 PM EDT 12.5 mcg Given 03/25/2024 2:04 PM EDT 37.5 mcg heparin (porcine) (1,000 units/mL) injection PRN, Starting on Sun03/25/24 at 1411, Until Sun03/25/24 at 1505, Intra-Operative (Intra-Procedure), Routine Given 03/25/2024 2:29 PM EDT 2,000 Units Given 03/25/2024 2:11 PM EDT 5,000 Units iohexoL (Omnipaque) (350 mg/mL) solution PRN, Starting on Sun03/25/24 at 1503, Until Sun03/25/24 at 1505, Intra-Operative (Intra-Procedure), Routine Given 03/25/2024 3:03 PM EDT 148 mLs lidocaine (Xylocaine) 1% (10 mg/mL) injection 3 [...] Given 03/26/2024 8:10 AM EDT 12.5 mg midazolam (pf) (Versed) (1 mg/mL) multi-dose injection PRN, Starting on Sun03/25/24 at 1405, Until Sun03/25/24 at 1505, Intra-Operative (Intra-Procedure), Routine Given 03/25/2024 2:26 PM EDT 0.5 mg Given 03/25/2024 2:05 PM EDT 1 mg niCARdipine (Cardene) (100 mcg/mL) dilution ([employer]) PRN, Starting on Sun03/25/24 at 1453, Until Sun03/25/24 at 1505, Intra-Operative (Intra-Procedure), Routine Given 03/25/2024 2:56 PM EDT 600 mcg Given 03/25/2024 2:53 PM EDT 100 mcg nitroGLYcerin (200 mcg/mL) in dextrose 5% 250 mL infusion 0-200 mcg/min (0-60 mL/hr), Intravenous, CONTINUOUS, Starting on Sun03/24/24 at 2100, Until Valerie 03/27/24 at 1414, [...] the last 24 to 72 hours., Routine nitroGLYcerin 100 mcg/mL intracoronary dilution PRN, Starting on Sun03/25/24 at 1409, Until Sun03/25/24 at 1505, Intra-Operative (Intra-Procedure), Routine Given 03/25/2024 2:56 PM EDT 200 mcg Given 03/25/2024 2:09 PM EDT 150 mcg pantoprazole EC (Protonix) tablet 40 mg 40 mg, Oral, DAILY, First dose on Sun03/25/24 at 0900, Until Discontinued, DO NOT CRUSH OR OPEN, Routine Given 03/27/2024 9:13 AM EDT 40 mg Given 03/26/2024 8:11 AM EDT 40 mg Given 03/25/2024 8:34 AM EDT 40 mg sodium chloride 0.9 % (flush) (BD PosiFlush [...] link provided on this medication record., Routine verapamiL (Isoptin) (2.5 mg/mL) injection PRN, Starting on Sun03/25/24 at 1409, Until Sun03/25/24 at 1505, Administer over 2 Minutes, Intra-Operative (Intra-Procedure) Given 03/25/2024 2:09 PM EDT 5 mg documented in this encounter Active and Recently Administered Medications Times are shown in EDT. Scheduled Medication Order 03/25/2024 03/26/2024 03/27/2024 aspirin EC tablet 81 mg 81 mg, Oral, DAILY, First dose on Sun03/25/24 at 0900, Until Discontinued, Routine 0834 (Given - Provider: Leticia Zaldivar RN)1354 (MAR Hold - Provider: Admin Adt - Reason: Transfer to a Procedural area)1535 (AUG Unhold - Provider: Admin Adt) 0811 (Given - Provider: Evangelina Geller RN) 0913 (Given - Provider: Evangelina Geller RN) atorvastatin (Lipitor) tablet 80 mg 80 mg, Oral, EVERY EVENING, First dose on Sun03/25/24 at 1700, Until Discontinued, Routine 1354 ([facility] Hold - Provider: Admin Adt - Reason: Transfer to a Procedural area)1535 ([facility] Unhold - Provider: Admin Adt)1614 (Given - Provider: Marisol Magaña RN) 1701 (Given - Provider: Evangelina Geller RN) clopidogreL (Plavix) tablet 75 mg 75 mg, Oral, DAILY, First dose on Sun03/25/24 at 0900, Until Discontinued, Routine 0834 (Given - Provider: Leticia Zaldivar, LUIGI)1354 ([facility] Hold - Provider: Admin Adt - Reason: Transfer to a Procedural area)1535 ([facility] Unhold - Provider: Admin Adt) 0810 (Given - Provider: Evangelina Geller RN) 0913 (Given - Provider: Evangelina Geller RN) losartan (Cozaar) tablet 12.5 mg 12.5 mg, Oral, DAILY, First dose on Sun03/26/24 at 1100, Until Discontinued, Routine 1135 (Given - Provider: Evangelina Geller RN) 0913 (Given - Provider: Evangelina Geller, LUIGI) metoprolol tartrate (Lopressor) tablet 12.5 mg 12.5 mg, Oral, EVERY 12 HOURS SCHEDULED (2 times per day), First dose (after last reorder) on Sun03/25/24 at 0900, Until Discontinued, Routine 0834 (Given - Provider: Leticia Zaldivar, LUIGI)1354 ([facility] Hold - Provider: Admin Adt - Reason: Transfer to a Procedural area)1535 ([facility] Unhold - Provider: Admin Adt)2011 (Given - Provider: Kenneth Martinez RN) 0810 (Given - Provider: Evangelina Geller RN)203 (Given - Provider: Filiberto Urena RN) 0913 (Given - Provider: Evangelina Geller RN) pantoprazole EC (Protonix) tablet 40 mg 40 mg, Oral, DAILY, First dose on Sun03/25/24 at 0900, Until Discontinued, DO NOT CRUSH OR OPEN, Routine 0834 (Given - Provider: Leticia Zaldivar, LUIGI)1354 (AUG Hold - Provider: Admin Adt - Reason: Transfer to a Procedural area)1535 (AUG Unhold - Provider: Admin Adt) 08 (Given - Provider: Evangelina Geller, LUIGI) 09 (Given - Provider: Evangelina Geller, LUIGI) sodium [...] Provider: Admin Adt)2013 (Given - Provider: Kenneth Martinez RN) 0811 (Given - Provider: Evangelina Geller, LUIGI)2033 (Given - Provider: Filiberto Urena, LUIGI) 09 (Given - Provider: Evangelina Geller, LUIGI) Continuous Medication Order 03/25/2024 03/26/2024 03/27/2024 eptifibatide [...] CONTINUOUS, Starting on Sun03/24/24 at 2100, Until 03/26/24 at 0611, Begin infusion at 1,000 units [...] [place] RN)1040 (Rate/Dose Change - Provider: Marisol Magaña RN)1354 (AUG Hold - Provider: Admin Adt - Reason: Transfer to a Procedural area)1535 (AUG Unhold - Provider: Admin Adt) nitroGLYcerin (200 [...] Unit) 1545 (Rate/Dose Verify - Provider: Marisol Magaña RN) PRN Medication Order 03/25/2024 03/26/2024 03/27/2024 clopidogreL [...] (Intra-Procedure), Routine 1404 (Given - Provider: Juan C Rich, RN)1412 (Given - Provider: Juan Mix RN)1427 (Given - Provider: Juan Mix RN) heparin (porcine) (1,000 units/mL) injection 0-4,000 Units (CANCELED)(Linked Group 1) 0-4,000 Units, Intravenous, BOLUS PER HEPARIN PROTOCOL, Starting on Sun03/24/24 at 2032, Until 03/26/24 at 0611, Per Protocol, START ADJUSTMENT SCHEDULE [...] 0357 (Given - Provider: Dori France RN)1354 (MAR Hold - Provider: Admin Adt - Reason: [...] for discomfort with PIV insertion, Routine 1354 (MAR Hold - Provider: Admin Adt - Reason: Transfer to a Procedural area)1535 (MAR Unhold - Provider: Admin Adt) midazolam (pf) (Versed) (1 mg/mL) multi-dose injection (CANCELED) PRN, Starting on Sun03/25/24 at 1405, Until Sun03/25/24 at 1505, Intra-Operative (Intra-Procedure), Routine 1405 (Given - Provider: Juan Mix, RN)1426 (Given - Provider: Juan Mix RN) niCARdipine (Cardene) (100 mcg/mL) dilution ([employer]) (CANCELED) PRN, Starting on Sun03/25/24 at 1453, Until Sun03/25/24 at 1505, Intra-Operative (Intra-Procedure), Routine 1453 (Given - Provider: Suleiman Chapa MD)1456 (Given - Provider: Suleiman Chapa MD) nitroGLYcerin (Nitrostat) disintegrating tablet 0.4 mg 0.4 mg, Sublingual, EVERY 5 MIN PRN, Starting on 03/24/24 at 2026, Until Valerie 03/27/24 at 1414, Chest pain, May repeat every 5 minutes for a total of three doses. Notify provider if chest pain not relieved with nitroGLYcerin. Do not administer nitroGLYcerin if the patient has received or taken phosphodiesterase (PDE-5) inhibitors such as sildenafiL, tadalafiL or vardenafiL within the last 24 to 72 hours., Routine 1354 (AUG Hold - Provider: Admin Adt - Reason: Transfer to a Procedural area)1535 (AUG Unhold - Provider: Admin Adt) nitroGLYcerin 100 [...] area)1535 (AUG Unhold - Provider: Admin Adt) verapamiL (Isoptin) [...] Intravenous, BOLUS PER HEPARIN PROTOCOL, Starting on 03/24/24 at 2032, Until Sun03/26/24 at 0611, Per [...] Routine documented in this encounter Care Teams Epic Manager Relationship Specialty Start Date End Date Calderon Huynh MD [address] [place] [address] PCP - General Family Medicine 01/11/23 documented as of this encounter
--- OUTSIDE RECORDS SUMMARY | 2024-04-18 12:52 | XMS_ITS | Encounter Summary ---
[place] [address] Care Team Providers Care Luncheonette Manager Name Role Phone Calderon Huynh MD Primary Care Provider [phone] Encounter Details Date Type Department Care Team (Latest Contact Info) Description 01/11/2023 Travel Social History Tobacco Use Types Packs/Day Years [...] on filedocumented in this encounter Care Teams Luncheonette Manager Relationship Specialty Start Date End Date Calderno Huynh MD [address] [place], [place] [id number] PCP - General Family Medicine 01/11/23 documented as of this encounter
--- OUTSIDE RECORDS SUMMARY | 2024-04-18 12:52 | XMS_ITS | Encounter Summary ---
Author Organization [facility] Address [facility] [place] [address] Care Team Providers Care Janitor Cleaner Name Role Phone Calderon Huynh MD Primary Care Provider [phone] Encounter Details Date Type Department Care Team (Late st Contact Info) Description 03/23/2024 [place] [address] Kim Lozano MD [facility] [address] [place] [address] Social History Tobacco Use Types Packs/Day Years Used Date Smoking Tobacco: Former Cigarettes 0.5 30 Q uit: 12/2022 Smokeless Tobacco: Never Sex and Gender Information Value Date Recorded Sex Assigned at Not on file Gender Identity Not on file Sexual Orientation Not on file documented as of this encounter Miscellaneous Notes * Telephone Encounter - Kim Lozano MD - 03/23/2024 6:54 PM EDT Telephone Triage Note Initial contact date: 03/23/2024 Initial contact time: 7:02 PM Referring provider: Ajay Morales MD Patient location: [facility] Past medical history: 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 Per provider, the patient has been having intermittent chest pressure and epigastric discomfort thought to be 2/2 indigestion for a few days now. 2-3 nights ago, he woke up from chest pain which scared him. The pain did not last. Today, he went grocery shopping and noticed that this feeling of indigestion returned and was stronger, felt like a deep ache in his chest. He also noted left arm pain w/ that. Pain did not resolve w/ rest. He was taken to the ED and given sub nitro x2 which alleviate his pain. Of note, he has no cardiac history, and only was diagnosed w/ an incidental left common iliac artery aneurysm not long ago. He is former smoker, unknown duration. Pertinent vitals and labs are below. Pertinent diagnostic findings: Vitals: BP 113/71, HR 81 SaO2 93% , afebrile Labs: Troponin 1152 (ULN: 50) BNP: 868 Imaging: EKG: uploaded, pertinent for T wave inversion in aVL, poor R wave progression, and pathologic Q waves in anterior leads. CXR: none TTE: not available Assessment/Recommendations: This is a 63 y/o male w/ no significant prior cardiac history who present for evaluation of anginalchest pain alleviated w/ nitroglycerine, nonspecific ECG changes and significantly elevated troponin (>1000, ULN 50) concerning for type 1 NSTEMI. The [facility] team is seeking higher level of care at this time. I recommended treating him for ACS w/ the following: ASA loading dose 324mg Clopidogrel 600mg now Ensure home atorvastatin 40mg is administered AC w/ heparin gtt Continue w/ nitroglycerine for chest pain if BP allows for it, either sublingual or gtt Transfer to [facility] for further evaluation. We will obtain TTE on arrival since TTE is not available on transfer, trend troponins. The above recommendations were based on my discussion with the outside hospital provider. I have not personally interviewed or examined this patient. I advised the provider to call the transfer center back with any changes in the patient condition. Kim Lozano MD 03/23/2024 7:02 PM documented in this encounter Plan of Treatment Not on file documented as of this encounter Visit Diagnoses Not on filedocumented in this encounter Care Teams Janitor Cleaner Relationship Specialty Start Date End Date Calderon Huynh MD [address] [place] [address] PCP - General Family Medicine 01/11/23 documented as of this encounter
--- OUTSIDE RECORDS SUMMARY | 2024-04-18 12:52 | XMS_ITS | Encounter Summary ---
Author Organization [facility] Address [address] [place] [address] Care Team Providers Care Computer Language Coder Name Role Phone Aishwarya Deras NP Primary Care Provider + Encounter Details Date Type Department Care Team (Late st Contact Info) Description 04/27/2021 Lab Requisition [facility] Pathology & Laboratory Medicine - [facility] [address] [place] [address] Outr Resulting Lab, Provider Social History Tobacco Use Types Packs/Day Years Used Date Smoking Tobacco: Never Assessed Sex and Gender Information Value Date Recorded Sex Assigned at Not on file Gender Identity Not on file Sexual Orientation Not on file documented as of this encounter Plan of Treatment Not on file documented as of this encounter Procedures Procedure Name Priority Date/Time Associated Diagnosis Comments PSA TOTAL, DIAGNOSTIC Routine 04/27/2021 9:58 EST documented in this encounter Results * PSA TOTAL, DIAGNOSTIC (04/27/2021 9:58 EST) PSA 0.4 0.0 - 4.5 ng/mL 04/27/2021 22:41 EST [facility] Blood VENOUS BLOOD / Unknown 04/27/2021 9:58 EST 04/27/2021 21:38 EST Narrative [facility] - 04/27/2021 22:41 EST NOTE: Serum PSA concentration should not be interpreted as absolute evidence for the presence or absence of malignant disease. Assayed on Siemens ADVIA Centaur XPT using chemiluminescent technology.??Values obtained by using different assay methods cannot be used interchangeably. Provider Outr Resulting Lab CHEMISTRY & BLOOD GAS ORDERABLES [facility] [address] [place] [address] documented in this encounter Visit Diagnoses Not on filedocumented in this encounter Care Teams Computer Language Coder Relationship Specialty Start Date End Date Aishwarya Deras, [place] [address] PCP - General 04/23/15 documented as of this encounter
--- OUTSIDE RECORDS SUMMARY | 2024-04-18 12:52 | XMS_ITS | Encounter Summary ---
Author Organization [facility] Address [facility] [place] [address] Care Team Providers Care Forensic Locksmith Name Role Phone Unavailable Primary Care Provider Unavailabl e Encounter Details Date Type Department Care Team (Late st Contact Info) Description 04/20/2010 3:00 PM EDT [place] [address] Gen Pearson MD [facility] [place] [address] Social History Tobacco Use Types Packs/Day Years [...]
--- OUTSIDE RECORDS SUMMARY | 2024-04-18 12:52 | XMS_ITS | Encounter Summary ---
Author Organization [facility] Address [address] [place] [address] Care Team Providers Care Rag Collector Name Role Phone Aishwarya Deras NP Primary Care Provider + Encounter Details Date Type Department Care Team (Late st Contact Info) Description 12/09/2019 Lab Requisition [facility] Pathology & Laboratory Medicine - [address] [address] Outr Resulting Lab, Provider Social History Tobacco [...] Procedure Name Priority Date/Time Associated Diagnosis Comments AFB CULTURE/SMEAR, OTHER Routine 12/09/2019 9:00 EDT FUNGUS CULTURE/SMEAR Routine 12/09/2019 9:00 EDT documented in this encounter Results * FUNGUS CULTURE/SMEAR (12/09/2019 9:00 EDT) Organism ID Rare Yeast Not Cryptococcus or Dimorphic Fungi 01/06/2020 10:04 EDT [facility] Fungal Smear No Fungi Seen 0 10:04 EDT [facility] Sputum COLLECTION OF INDUCED SPUTUM / Unknown 12/09/2019 9:00 EDT 12/09/2019 22:08 EDT Provider Outr Resulting Lab MICROBIOLOGY - GENERAL ORDERABLES Performing Organization Address City/[facility]/ZIP Co de Phone Number [facility] [address] [place] [address] * AFB CULTURE/SMEAR, OTHER (12/09/2019 9:00 EDT) Organism ID No acid-fast bacilli isolated VITEK SUSCEPTIBILITY 02/04/2020 8:54 EDT [facility] AFB Smear No Acid Fast Bacilli Seen 02/04/2020 8:54 EDT [facility] Sputum COLLECTION OF INDUCED SPUTUM / Unknown 12/09/2019 9:00 EDT 12/09/2019 22:08 EDT Provider Outr Resulting Lab MICROBIOLOGY - GENERAL ORDERABLES Performing Organization Address City/[facility] Co de Phone Number [facility] [address] [place] [address] documented in this encounter Visit Diagnoses Not on filedocumented in this encounter Care Teams Rag Collector Relationship Specialty Start Date End Date Aishwarya Deras, [place] [address] PCP - General 04/23/15 documented as of this encounter
--- OUTSIDE RECORDS SUMMARY | 2024-04-18 12:52 | XMS_ITS | Encounter Summary ---
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; Common iliac aneurysm; Aneurysm of left common iliac artery Social History Tobacco Use Types Packs/Day Years Used Date Smoking Tobacco: Former Cigarettes 0.5 30 Q uit: 12/2022 Smokeless Tobacco: Never Sex and Gender Information Value Date Recorded Sex Assigned at Not on file Gender Identity Not on file Sexual Orientation Not on file documented as of this encounter Plan of Treatment Scheduled Orders Name Type Priority Associated Diagnoses Orde r Schedule Lipid Panel (Reflex Direct LDL) Lab Routine 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
--- OUTSIDE RECORDS SUMMARY | 2024-04-18 12:52 | XMS_ITS | Encounter Summary ---
Author Organization [facility] [place] [address] Care Team Providers Care System Archive Analyst Name Role Phone Calderon Huynh MD Primary Care Provider +1 [phone] Reason for Referral * Diagnostic Test (Routine) - Closed Specialty Diagnoses / Procedures Referred By Contac t Referred To Contact Radiology Diagnoses Common iliac aneurysm Procedures CT Angiogram Chest Abdomen Pelvis w Contrast Alexa Beth MD [facility] [place] [address] [facility] [place] [address] Referral ID Status Reason Start Date Expiration Date V isits Requested Visits Authorized [id number] Closed Specialty Service Requested 01/12/2023 07/15/2024 1 1 Reason for Visit * Diagnostic Test (Routine) - Closed Specialty Diagnoses / Procedures Referred By Contac t Referred To Contact Radiology Diagnoses Common iliac aneurysm Procedures CT Angiogram Chest Abdomen Pelvis w Contrast Alexa Beth MD [facility] [place] [address] [facility] [place] [address] Referral ID Status Reason Start Date Expiration Date V isits Requested Visits Authorized [id number] Closed Specialty Service Requested 01/12/2023 07/15/2024 1 1 Encounter Details Date Type Department Care Team (Latest Contact Info) Description 01/14/2024 2:04 PM EDT - 01/14/2024 11:59 PM EDT Hospital [place] [address] Alexa Beth MD [facility] DR [place] [address] Common iliac aneurysm Discharge Disposition: Home Social History Tobacco Use Types Packs/Day Years Used Date Smoking Tobacco: Former Cigarettes 0.5 30 Q uit: 12/2022 Smokeless Tobacco: Never Sex and Gender Information Value Date Recorded Sex Assigned at Not on file Gender Identity Not on file Sexual Orientation Not on file documented as of this encounter Medications at Time of Discharge Medication Sig Dispensed Refills Start Date End Date mirtazapine (Remeron) 45 mg tablet Take 45 [...] = 1 Tablet(s), PO, Twice daily,PRN 04/20/2010 atorvastatin (Lipitor) 40 mg tabletIndications:Aneury sm of left common iliac artery Take 1 tablet by mouth daily. 30 tablet 3 01/16/2024 03/27/2024 simvastatin (ZOCOR) 20 mg tablet 04/20/2010 03/27/2024 propranolol (INDERAL LA) 80 mg 24 hr capsule 80 MG = 1 Capsule(s), PO, Twice daily 04/20/2010 03/27/2024 documented as of this encounter Plan of Treatment Not on file documented as of this encounter Procedures Procedure Name Priority Date/Time Associated Diagnosis Comments CT ANGIOGRAM CHEST ABDOMEN PELVIS W CONTRAST Routine 01/14/2024 2:54 PM EDT Common iliac aneurysm documented in this encounter Results * CT Angiogram Chest Abdomen Pelvis w Contrast (01/14/2024 2:54 PM EDT) WORKSTATION ID [id number] RAD Anatomical Region Laterality Modality Abdomen, Chest Computed Tomogra phy Impressions 01/15/2024 2:51 PM EDT 1. ??Stable aneurysmal dilation of the left common iliac artery measuring 2.6 cm. 2. ??Mild dilation of the ascending aorta measuring 4.0 cm . Thank you for letting us participate in the care of this patient. ??If you are a health care provider and have any questions regarding this report, please contact the number below. ??For patients who have questions please contact the health care transition coordinator that requested your imaging first. ? Electronically signed by: Kamran Reid MD, [facility] ([phone]), at 01/15/2024 2:51 PM Narrative 01/15/2024 2:51 PM EDT EXAMINATION: CT ANGIOGRAM CHEST ABDOMEN PELVIS W CONTRAST CLINICAL HISTORY: Aortic aneurysm, known or suspected I72.3, Aneurysm of iliac artery TECHNIQUE: Helical CT angiogram of the chest, abdomen and pelvis following the intravenous administration of contrast. Administered 100.0 ml of OMNIPAQUE 350.00 mg/ml. Maximum intensity projection (MIP) were reformatted. 3-D images were generated on an independent workstation. COMPARISON: Noncontrast CT from 12/02/2022 FINDINGS: VASCULAR FINDINGS Heart: Normal size. Thoracic aorta: Mild fusiform dilation of the ascending aorta measuring 4.0 cm . No stenosis or dissection. Arch branch vessel origins: No stenosis. Pulmonary arteries: No central filling defects. Abdominal aorta: No stenosis or aneurysm. Celiac: No stenosis. Superior mesenteric artery: No stenosis. Right renal artery: 2 arteries, no stenosis. Left renal artery: No stenosis. Inferior mesenteric artery: Patent. Right: Common iliac artery: Small focal dissection at the origin. No stenosis. No aneurysmal dilation. Internal iliac artery: No stenosis. External iliac artery: No stenosis. Common femoral artery: No stenosis. Left: Common iliac artery: [Fusiform dilation of the distal vessel measuring 26 mm, unchanged. No stenosis. Internal iliac artery: Mild stenosis at the origin. External iliac artery: No stenosis. Common femoral artery: No stenosis. NON-VASCULAR FINDINGS Lungs and large airways: Diffuse emphysematous changes with mild progression at the lung bases. No focal lung consolidation. The central airways are patent. Pleura: No effusion. Mediastinum and catalina: No lymphadenopathy. Chest wall: Unremarkable. Liver: Normal size and attenuation without lesions. Bile ducts: Nondilated. Gallbladder: No calcified gallstones. Normal caliber wall. Pancreas: Normal attenuation without ductal dilatation. Spleen: Normal. Adrenals: Normal. Kidneys: Normal. Urinary Bladder: Normal. Lymph Nodes: No enlarged lymph nodes. Bowel: Minimal hiatal hernia. No dilated or thickened loops of bowel. Scattered colonic diverticula. Normal appendix. Peritoneum and retroperitoneum: No hemorrhage. No pneumoperitoneum. No fluid collection or mesenteric inflammation. Abdominal wall: Normal. Reproductive organs: Normal contours. Osseous structures: Right second rib sclerotic focus consistent with a bone island. No suspicious lesions. Procedure Note Kamran Reid MD - 01/15/2024 EXAMINATION: CT ANGIOGRAM CHEST ABDOMEN PELVIS W CONTRAST CLINICAL HISTORY: Aortic aneurysm, known or suspected I72.3, Aneurysm of iliac artery TECHNIQUE: Helical CT angiogram of the chest, abdomen and pelvis followingthe intravenous administration of contrast. Administered 100.0 ml ofOMNIPAQUE 350.00 mg/ml. Maximum intensity projection (MIP) were reformatted. 3-Dimages were generated on an independent workstation. COMPARISON: Noncontrast CT from 12/02/2022 FINDINGS: VASCULAR FINDINGS Heart: Normal size. Thoracic aorta: Mild fusiform dilation of the ascending aorta measuring4.0 cm . No stenosis or dissection. Arch branch vessel origins: No stenosis. Pulmonary arteries: No central filling defects. Abdominal aorta: No stenosis or aneurysm. Celiac: No stenosis. Superior mesenteric artery: No stenosis. Right renal artery: 2 arteries, no stenosis. Left renal artery: No stenosis. Inferior mesenteric artery: Patent. Right: Common iliac artery: Small focal dissection at the origin. No stenosis.No aneurysmal dilation. Internal iliac artery: No stenosis. External iliac artery: No stenosis. Common femoral artery: No stenosis. Left: Common iliac artery: [Fusiform dilation of the distal vessel measuring 26mm, unchanged. No stenosis. Internal iliac artery: Mild stenosis at the origin. External iliac artery: No stenosis. Common femoral artery: No stenosis. NON-VASCULAR FINDINGS Lungs and large airways: Diffuse emphysematous changes with mildprogression at the lung bases. No focal lung consolidation. The central airways arepatent. Pleura: No effusion. Mediastinum and catalina: No lymphadenopathy. Chest wall: Unremarkable. Liver: Normal size and attenuation without lesions. Bile ducts: Nondilated. Gallbladder: No calcified gallstones. Normal caliber wall. Pancreas: Normal attenuation without ductal dilatation. Spleen: Normal. Adrenals: Normal. Kidneys: Normal. Urinary Bladder: Normal. Lymph Nodes: No enlarged lymph nodes. Bowel: Minimal hiatal hernia. No dilated or thickened loops of bowel.Scattered colonic diverticula. Normal appendix. Peritoneum and retroperitoneum: No hemorrhage. No pneumoperitoneum. Nofluid collection or mesenteric inflammation. Abdominal wall: Normal. Reproductive organs: Normal contours. Osseous structures: Right second rib sclerotic focus consistent with abone island. No suspicious lesions. IMPRESSION 1. Stable aneurysmal dilation of the left common iliac artery measuring2.6 cm. 2. Mild dilation of the ascending aorta measuring 4.0 cm . Thank you for letting us participate in the care of this patient. If youare a health care provider and have any questions regarding this report,please contact the number below. For patients who have questions please contactthe health care transition coordinator that requested your imaging first. Alexa Beth MD IMG CT ORDERABLES documented in this encounter Visit Diagnoses Diagnosis Common iliac aneurysm Aneurysm of iliac artery documented in this encounter Administered Medications Inactive Administered Medications - up to 3 most recent administrations Medication Order MAR Action Action Date Dose Rate Site iohexoL (Omnipaque) (350 mg/mL) solution 0-200 mL 0-200 mL, Intravenous, ONCE PRN, 1 dose, Starting on Sun01/14/24 at 1453, Until Sun01/14/24 at 1453, Per Protocol, Warning Vesicant/Irritant Medication , Radiology Contrast, Routine Given 01/14/2024 2:53 PM EDT 100 mLs documented in this encounter Care Teams System Archive Analyst Relationship Specialty Start Date End Date Calderon Huynh MD [address] [place] [address] PCP - General Family Medicine 01/11/23 documented as of this encounter
--- OUTSIDE RECORDS SUMMARY | 2024-04-18 12:52 | XMS_ITS | Encounter Summary ---
Author Organization [facility] [place] [address] Care Team Providers Care Malt Specifications Control Assistant Name Role Phone Calderon Huynh MD Primary Care Provider [phone] Reason for Referral * Diagnostic Test (Routine) - New Request Specialty Diagnoses / Procedures Referred By Zac del toro Referred To Contact Diagnoses Infrarenal abdominal aortic aneurysm (AAA) without rupture Procedures Duplex Bilat AortoIliac Alexa Beth MD [facility] [place] [address] [facility] [address] [place] [phone] Referral ID Status Reason Start Date Expiration Date Visits Requested Visits Authorized [id number] New Request Specialty Service Requested 01/22/2024 01/21/2025 1 1 Encounter Details Date Type Department Care Team (Late st Contact Info) Description 01/14/2024 3:30 PM EDT Office Visit [place] [address] Alexa Beth MD [facility] [address] Aneurysm of left common iliac artery; Family history of aneurysm; Common iliac aneurysm; Aneurysm of ascending aorta without rupture; Infrarenal abdominal aortic aneurysm (AAA) without rupture Social History Tobacco Use Types Packs/Day Years Used Date Smoking Tobacco: Former Cigarettes 0.5 30 Q uit: 12/2022 Smokeless Tobacco: Never Tobacco Cessation:Counseling Given: Not Answered Sex and Gender Information Value Date Recorded Sex Assigned at Not on file Gender Identity Not on file Sexual Orientation Not on file documented as of this encounter Last Filed Vital Signs Vital Sign Reading Time Taken Comments Blood Pressure 120/76 01/14/2024 3:15 PM EDT Pulse 84 01/14/2024 3:15 PM EDT Temperature - - Respiratory Rate - - Oxygen Saturation - - Inhaled Oxygen Concentration - - Weight 83.9 kg (185 lb) 01/14/2024 3:15 PM EDT Height 190.5 cm (6' 3) 01/14/2024 3:15 PM EDT Body Mass Index 23.12 01/14/2024 3:15 PM EDT documented in this encounter Progress Notes * Alexa Beth MD - 01/14/2024 3:30 PM EDT Images from the original note were not included. [facility] [place] [address] [place] [address] OUTPATIENT VASCULAR SURGERY FOLLOW-UP SERVICE DATE: 01/14/2024 SERVICE TIME: 3:54 PM PRIMARY CARE PHYSICIAN: Calderon Huynh MD REFERRING PROVIDER: No referring provider defined for this encounter. Consult requested for an opinion regarding the evaluation and treatment of the above. My final impression and recommendations will be communicated back to the requesting physician by way of the shared medical record or letter via US mail. Subjective CHIEF COMPLAINT/HISTORY OF PRESENT ILLNESS: Chief Complaint: iliac aneurysm History of Present Illness: Blair Taveras is a 63 y.o. male referred for an opinion regarding management of iliac aneurysm. Severe right sided pain. He underwent a CT scan evaluating for renal stones. Incidentally there was found to have a left common iliac artery aneurysm and he is here for evaluation. He denies any other known personal history of aneurysms, dissections. He reports that his cousin from a brain aneurysm, and his brother had an aneurysm close to his heart. He denies any other known history of aneurysm, dissection, or unexplained sudden . Patient smoking 0.5ppd, wants to quit and working with PCP. Quit date January 16. Remote histroy incidental stroke. Patient denies past history of TIA/stroke, history of numbness orweakness of upper of lower extremities, amaurosis fugax, or speech or word finding difficulties. Stopped ASA 81 daily. PAST MEDICAL/SURGICAL/FAMILY/SOCIAL HISTORY Past Medical History: Diagnosis Date Depression GERD (gastroesophageal reflux disease) Kidney stone TIA (transient ischemic attack) Past Surgical History: Procedure Laterality Date CATARACT REMOVAL INGUINAL HERNIA REPAIR KIDNEY STONE SURGERY No family history on file. Social History Tobacco Use Smoking status: Former Current packs/day: 0.00 Average packs/day: 0.5 packs/day for 30.0 years (15.0 ttl pk-yrs) Types: Cigarettes Quit date: 12/2022 Years since quittin.0 Smokeless tobacco: Never Current Outpatient Medications Medication Sig Dispense Refill terazosin (Hytrin) 2 mg capsule Take 2 mg by mouth nightly. mirtazapine (Remeron) 45 mg tablet Take 45 mg by mouth nightly. pantoprazole (PROTONIX) 40 [...] MG = 1 Tablet(s), PO, Twice daily,PRN No current facility-administered medications for this visit. Allergies Allergen Reactions Bupropion Hcl CIS - edema Penicillins CIS - edema COMPLETE REVIEW OF SYSTEMS All other reviewed and negative other than HPI. Objective PHYSICAL EXAM Physical Exam Performed BP 120/76 (BP Location (NBP): Right arm, Patient Position: Sitting, BP Cuff Sizes: Adult (25-34 cm)) Pulse 84 Ht 190.5 cm (6' 3) Wt 83.9 kg (185 lb) BMI 23.12 kg/m?? CONSTITUTIONAL: alert, well developed, well nourished, in no acute distress NEUROLOGIC/PSYCHIATRIC: Grossly normal HEENT: normal atraumatic. LUNGS: Normal chest wall and respirations. Clear to auscultation. HEART: regular rate and rhythm ABDOMEN: soft, non-tender; bowel sounds normal; no masses, no organomegaly INTEGUMENTARY: Wound - none MUSCULOSKELETAL: no wounds or ulcerations Pulses/Signals: Brachial Radial Femoral Popliteal Dorsalis Pedis Posterior Tibial Right 2/2 2/2 2/2 2/2 2/2 2/2 Left 2/2 2/2 2/2 2/2 2/2 2/2 Pop pulses mildly prominent b/l DATA: Radiology: 01/14/2024 CTA c/a/p Mild dilation of the ascending aorta measuring 4.0 cm . 30mm L HELDER aneurysm 15mm R HELDER 27mm infrarenal aorta Infrarenal aorta maximum diameter 28 mm Left common iliac artery aneurysm 2.6 cm Normal caliber R iliac arteries 01/11/2023 Arterial Right PSV (cm/s) EDV Diameter AP (cm) Popliteal Artery, Above Knee 59 0 0.9 Popliteal Artery, Mid 60 6 0.8 Popliteal Artery, Below Knee 61 5 0.8 Left PSV (cm/s) EDV Diameter AP (cm) Popliteal Artery, Above Knee 53 0 0.7 Popliteal Artery, Mid 57 10 0.9 Popliteal Artery, Below Knee 58 7 0.8 Interpretation: Right: Patent popliteal artery. No evidence of popliteal artery aneurysm. Left: Patent popliteal artery. No evidence of popliteal artery aneurysm. Comparison: No previous study in our vascular lab database for comparison. I have personally reviewed the following images/data: duplex, CT Impression: 63 y.o. male with an incidental finding of left 2.7 cm common iliac artery aneurysm. Heis asymptomatic from this, and discussed that we will continue to surveilled this. Current guidelines recommend consideration for repair at 3.5 to 4.5 cm in an average risk patient. Given that we do not have any contrast within the scan, we will get a CTA chest abdomen pelvis to evaluate his aneurysm as well as rule out any ascending or thoracic aortic aneurysm given his family history of what sounds like an ascending aortic aneurysm in his brother. He did have prominent popliteal pulses today, however on duplex is noted to have no evidence of popliteal artery aneurysm. Plan: - 1 year with aortoiliac duplex - consider restarting statin - OK to have a colonoscopy from vascular surgery standpoint - lipid panel [facility] - start lipitor Thank you for allowing me to participate in the care of your patient. Please do not hesitate to contact me with any questions or concerns. SIGNATURE: Alexa Beth MD PATIENT NAME: Blair Taveras DATE: January 14, 2024 TIME: 3:54 PM documented in this encounter Plan of Treatment Pending Results Name Type Priority Associated Diagnoses Date /Time Lipid Panel (No Reflex) Lab Routine Aneurysm of left common iliac artery 01/16/2024 5:13 PM EDT Scheduled Orders Name Type Priority Associated Diagnoses Orde r Schedule Lipid Panel (No Reflex) Lab Routine Aneurysm of left common iliac artery One Time for 1 Occurrences starting 01/16/2024 until 01/16/2024 documented as of this encounter Visit Diagnoses Diagnosis Aneurysm of left common iliac artery Family history of aneurysm Family history of other condition Common iliac aneurysm Aneurysm of iliac artery Aneurysm of ascending aorta without rupture Infrarenal abdominal aortic aneurysm (AAA) without rupture documented in this encounter Care Teams Malt Specifications Control Assistant Relationship Specialty Start Date End Date Calderon Huynh MD [address] [place] [address] PCP - General Family Medicine 01/11/23 documented as of this encounter
--- OUTSIDE RECORDS SUMMARY | 2024-04-18 12:52 | XMS_ITS | Encounter Summary ---
[place] [address] Care Team Providers Care Kettle Fry Cook Operator Name Role Phone Calderon Huynh MD Primary Care Provider [phone] Encounter Details Date Type Department Care Team (Latest Contact Info) Description 01/14/2024 Travel Social History Tobacco Use Types Packs/Day [...] on filedocumented in this encounter Care Teams Kettle Fry Cook Operator Relationship Specialty Start Date End Date Calderon Huynh MD [address] [place], [place] [id number] PCP - General Family Medicine 01/11/23 documented as of this encounter
--- OUTSIDE RECORDS SUMMARY | 2024-04-18 12:52 | XMS_ITS | Encounter Summary ---
Author Organization [facility] Address [address] [place] [address] Care Team Providers Care Slate Handler Name Role Phone Aishwarya Deras NP Primary Care Provider + Encounter Details Date Type Department Care Team (Late st Contact Info) Description 01/26/2023 Lab Requisition [facility] Pathology & Laboratory Medicine - [facility] [address] [place] [address] Danyelle Vargas, DO [address] [facility] [address] [place], [place] [address] Encounter for screening for malignant neoplasm of colon Social History Tobacco Use Types Packs/Day Years Used Date Smoking Tobacco: Never Assessed Sex and Gender Information Value Date Recorded Sex Assigned at Not on file Gender Identity Not on file Sexual Orientation Not on file documented as of this encounter Plan of Treatment Not on file documented as of this encounter Procedures Procedure Name Priority Date/Time Associated Diagnosis Comments SURGICAL PATHOLOGY Today 01/26/2023 12 :45 EDT Encounter for screening for malignant neoplasm of colon documented in this encounter Results * SURGICAL PATHOLOGY (01/26/2023 12:45 EDT) Note to Patient The following pathology results have been interpreted by your pathologist and may be available to you before your health provider has had the opportunity to review them. Please allow time for your provider to receive these results and explore management options, if applicable. 01/29/2023 14:23 EDT [facility] Final Diagnosis A. COLON AT 20 CM, BIOPSY: - Polypoid colonic mucosa with lymphoid aggregate. B. COLON AT 50 CM, BIOPSY: Hyperplastic polyp. 01/29/2023 14:23 [facility] Attestation By the signature below, the attending physician certifies that they have 1) personally conducted a gross and/or microscopic examination of the described specimen(s), and/or personally interpreted the results of laboratory testing of the described specimen(s), and 2) personally rendered or confirmed the above diagnosis. 01/29/2023 14:23 [facility] at 1423 Clinical History Screening 01/29/2023 14:23 [facility] Gross Description A. Received in formalin labelled with proper patient identification (initials A, R) and 1. Polyp @ 20 cm x 2 are 3 estevez-brown focally brown tissues (0.5 x 0.2 x 0.1 cm to 0.3 x 0.2 x 0.1 cm). Entirely submitted in A1. B. Received in formalin labelled with proper patient identification (initials A, R) and 2. Polyp @ 50 cm is a single transparent estevez tissue (0.2 x 0.2 by less than 0.1 cm). Submitted intact in B1. Please note the specimen may not survive processing. Yani San 01/27/2023 13:16 01/29/2023 14:23 T [facility] Performing Lab [facility] 01/29/2023 14:23 T [facility] Scanned Images 01/29/2023 14:23 T [facility] Tissue COLON STRUCTURE / Unknown 01/26/2023 12:45 EDT 01/26/2023 17:38 EDT Tissue specimen (specimen) COLON STRUCTURE / Unknown 01/26/2023 12:45 EDT 01/26/2023 17:38 EDT Danyelle Vargas DO PATHOLOGY ORDERABLES [facility] [address] [place] [address] documented in this encounter Visit Diagnoses Diagnosis Encounter for screening for malignant neoplasm of colon Special screening for malignant neoplasms, colon documented in this encounter Care Teams Slate Handler Relationship Specialty Start Date End Date Aishwarya Deras, [place] [address] PCP - General 04/23/15 documented as of this encounter
--- OUTSIDE RECORDS SUMMARY | 2024-04-18 12:52 | XMS_ITS | Encounter Summary ---
Author Organization [facility] Address [address] [place] [address] Care Team Providers Care Origination Specialist Name Role Phone Aishwarya Deras NP Primary Care Provider + Encounter Details Date Type Department Care Team (Late st Contact Info) Description 05/03/2016 Results Only [facility] [phone] Beatriz Granados, DO [address] [facility] [place] [address] Social History Tobacco Use Types Packs/Day Years Used Date Smoking Tobacco: Never Assessed Sex and Gender Information Value Date Recorded Sex Assigned at Not on file Gender Identity Not on file Sexual Orientation Not on file documented as of this encounter Plan of Treatment Not on file documented as of this encounter Procedures Procedure Name Priority Date/Time Associated Diagnosis Comments SURGICAL PATHOLOGY Routine 05/03/2016 10 :25 EST documented in this encounter Results * SURGICAL PATHOLOGY (05/03/2016 10:25 EST) Pathology Report: SURGICAL PATHOLOGY REPORT Reports generated via electronic interface contain original data; however they are lacking the format of the original report. Caution should be taken when reading/interpret ing unformatted reports. Name: ? BLAIR TAVERAS ? Accession #: ? [id number] ? : ? 1960 (Age: 56) ??M ? Collect Date: ? 05/03/2016 ? Location: ? [facility] ? Receive Date: ? 05/04/2016 ? Provider: BEATRIZ GRANADOS DO Copy to: KAROL VELASQUEZ MD ? Final Pathologic Diagnosis: A. COLON, SIGMOID, POLYP, BIOPSY: - Fragments of tubular adenoma. B.COLON, SIGMOID, 35 CM, POLYP, BIOPSY: - Hyperplastic polyp. C. COLON, DISTAL SIGMOID, POLYP X 2, BIOPSY: - Fragments of hyperplastic polyp(s). Document reviewed and electronically signed by: ISIDRA RENNER MD Report ??Date: 05/05/2016 12:37 By the signature above, the attending physician certifies that he/she has personally conducted a gross and/or microscopic examination of the described specimens and rendered or confirmed the above diagnosis. Specimen(s) Received: A. ?Sigmoid colon polyp B. ? Sigmoid polyp at 35 cm C. ? Distal sigmoid polyp x2 Clinical History: Personal hx of colon polyps; clinical diagnosis code: ??Z86.010 Gross Description: A. ?Received in formalin labelled with proper patient identification (initials A, R) and 1. sigmoid colon polyp are two estevez-yellow granular tissues (0.3 x 0.2 x 0.1 cm and 0.7 x 0.3 x 0.2 cm). Entirely submitted in A1. B. ?Received in formalin labelled with proper patient identification (initials A, R) and 2. sigmoid polyp 35 cm is a single estevez-yellow polypoid tissue fragment (0.5 x 0.3 x 0.2 cm). Submitted intact in B1. C. ? Received in formalin labelled with proper patient identification (initials A, R) and 3. distal sigmoid polyp x2 are four estevez-yellow slightly polypoid tissues (0.3 x 0.2 x 0.1 cm to 0.4 x 0.3 x 0.2 cm). Entirely submitted in C1. Brittanyeris Keene 05/04/2016 11:20 AM End of Report [facility] 05/03/2016 10:2 5 EST 05/04/2016 10:25 EST Beatriz Granados DO PATHOLOGY ORDERABLES Performing Organization Address City/State/[facility] Co de Phone Number [facility] [address] [place] [address] documented in this encounter Visit Diagnoses Not on filedocumented in this encounter Care Teams Origination Specialist Relationship Specialty Start Date End Date Aishwarya Deras, INVESTMENT SPECIALIST [place] [address] PCP - General 04/23/15 documented as of this encounter
--- OUTSIDE RECORDS SUMMARY | 2024-04-18 12:52 | XMS_ITS | Encounter Summary ---
Author Organization [facility] [place] [address] Care Team Providers Care Property Assessment Monitor Name Role Phone Juancarlos Jamison MD Primary Care Provider [phone] Reason for Referral * Diagnostic Test (Routine) - Closed Specialty Diagnoses / Procedures Referred By Zac del toro Referred To Contact Diagnoses Common iliac aneurysm Procedures Arterial Duplex, Bilat Legs Ya Niño APRN [facility] [place] [address] [facility] [address] [place] [phone] Referral ID Status Reason Start Date Expiration Date V isits Requested Visits Authorized [id number] Closed Specialty Service Requested 12/04/2022 12/04/2023 1 1 Encounter Details Date Type Department Care Team (Late st Contact Info) Description 12/04/2022 Orders [place] [address] Ya Niño APRN [facility] [place] [address] Common iliac aneurysm Social History Tobacco Use Types Packs/Day Years Used Date Smoking Tobacco: Never Assessed Sex and Gender Information Value Date Recorded Sex Assigned at Not on file Gender Identity Not on file Sexual Orientation Not on file documented as of this encounter Plan of Treatment Not on file documented as of this encounter Results * Arterial Duplex, Bilat Legs (01/11/2023 12:27 PM EDT) VB Text Report Department: Vascular Surgery Lab Patient: [id number] (BLAIR TAVERAS) CPT: 50307 Referring Physician: YA NIÑO ?? Indications: 2.6 cm Left HELDER aneurysm ?? ? Popliteal aneurysm Findings: Right ? PSV (cm/s) ??EDV ??Diameter AP (cm) ?? Popliteal Artery, Above Knee ?59 ?0 ? 0.9 ?? Popliteal Artery, Mid ? 60 ?6 ? 0.8 ?? Popliteal Artery, Below Knee ?61 ?5 ? 0.8 ?? Left ?PSV (cm/s) ??EDV ??Diameter AP (cm) ?? Popliteal Artery, Above Knee ?53 ?0 ? 0.7 ?? Popliteal Artery, Mid ? 57 ?? 10 ? 0.9 ?? Popliteal Artery, Below Knee ?58 ?7 ? 0.8 ?? Interpretatio n: Right: Patent popliteal artery. ??No evidence of popliteal artery aneurysm. Left: Patent popliteal artery. ??No evidence of popliteal artery aneurysm. Comparison: ??No previous study in our vascular lab database for comparison. 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
--- OUTSIDE RECORDS SUMMARY | 2024-04-18 12:52 | XMS_ITS | Encounter Summary ---
Author Organization [facility] Address [address] [place] [address] Care Team Providers Care Geographic Information Scientist Name Role Phone Aishwarya Deras NP Primary Care Provider + Encounter Details Date Type Department Care Team (Late st Contact Info) Description 05/25/2023 Lab Requisition [facility] Pathology & Laboratory Medicine - [facility] [address] [place] [address] Outr Resulting Lab, Provider Social History Tobacco [...] Associated Diagnosis Comments PSA TOTAL, DIAGNOSTIC Routine 05/25/2023 9:52 EST documented in this encounter Results * PSA TOTAL, DIAGNOSTIC (05/25/2023 9:52 EST) PSA 0.4 <=4.5 ng/mL 05/25/2023 19:59 EST [facility] Blood VENOUS BLOOD / Unknown 05/25/2023 9:52 EST 05/25/2023 19:37 EST Narrative [facility] - 05/25/2023 19:59 EST NOTE: Serum PSA concentration should not be interpreted as absolute evidence for the presence or absence of malignant disease. Assayed on Siemens [employer] XPT using chemiluminescent technology.??Values obtained by using different assay methods cannot be used interchangeably. Provider Outr Resulting Lab CHEMISTRY & BLOOD GAS ORDERABLES [facility] [address] [place] [address] documented in this encounter Visit Diagnoses Not on filedocumented in this encounter Care Teams Geographic Information Scientist Relationship Specialty Start Date End Date Aishwarya Deras, [place] [address] PCP - General 04/23/15 documented as of this encounter
--- OUTSIDE RECORDS SUMMARY | 2024-04-18 12:52 | XMS_ITS | Encounter Summary ---
Author Organization [facility] Address [address] [place] [address] Care Team Providers Care Grinder Tender Name Role Phone Unavailable Primary Care Provider Unavailabl e Encounter Details Date Type Department Care Team (Late st Contact Info) Description 05/20/2001 Results Only [facility] [address] [place] [address] John Pitts, DO [address] [facility] [address] [place], [place] [id number] Social History Tobacco Use Types Packs/Day Years Used Date Smoking Tobacco: Never Assessed Sex and Gender Information Value Date Recorded Sex Assigned at Not on file Gender Identity Not on file Sexual Orientation Not on file documented as of this encounter Plan of Treatment Not on file documented as of this encounter Procedures Procedure Name Priority Date/Time Associated Diagnosis Comments SURGICAL PATHOLOGY Routine 05/20/2001 0:00 EST documented in this encounter Results * SURGICAL PATHOLOGY (05/20/2001 0:00 EST) Pathology Report: SURGICAL PATHOLOGY REPORT Reports generated via electronic interface contain original data; however they are lacking the format of the original report. Caution should be taken when reading/interpreti ng unformatted reports. Name: ? BLAIR TAVERAS Russel ? Accession #: ? [id number] ? : ? 1960 (Age: 41) ??M ? Collect Date: ? 05/20/2001 ? Location: ? [facility] ? Receive Date: ? 05/20/2001 ? Provider: JOHN PITTS DO Copy to: FIFI CARABALLO MD ? Final Pathologic Diagnosis: A. ?Colon, sigmoid, at 25 cm, biopsy: 1. ?Mild focal basal cryptitis. ??See comment. B. ?Rectum, at 15 cm, biopsy: 1. ?Fragments of tubular adenoma. ?? Comment: ? The significance of focal basal cryptitis identified at 25 cm is not histopathologicall y apparent. ??However, it may be consistent with a low grade infectious colitis. ??Recommend clinical correlation. ??(Dr. Alvarenga)/[facility] Document reviewed and electronically signed by: LUCIAN ALVARENGA MD Report ??Date: 05/21/2001 16:14 By the signature above, the attending physician certifies that he/she has personally conducted a gross and/or microscopic examination of the described specimens and rendered or confirmed the above diagnosis. Specimen(s) Received: A. ?Bx sigmoid at 25 cm (#1) B. ?Bx rectum at 15 cm (#2) Clinical History: ? Hematochezia; constipation Gross Description: ? Received in Hollande' s fixative labelled Nitin and sigmoid at 25 cm is a 0.3 x 0.2 x 0.2 cm smooth irregularly shaped soft tissue fragment. ??The specimen is submitted entirely as (A). Received in Hollande' s fixative labelled Nitin and 15 cm rectum are three smooth polypoid soft tissue fragments that range from 0.2 x 0.2 x 0.2 cm to 0.3 x 0.2 x 0.2 cm. ??The specimen is submitted entirely as (B). ??(Issa Pepe)/[facility] End of Report COURTNEY RAMOS 05/20/2001 05/20/2001 15: 14 EST John Pitts DO PATHOLOGY ORDER J[facility]ON COURTNEY RAMOS [address] [place] [address] documented in this encounter Visit Diagnoses Not on filedocumented in this encounter
--- OUTSIDE RECORDS SUMMARY | 2024-04-18 12:52 | XMS_ITS | Encounter Summary ---
[place] [address] Care Team Providers Care Crown Assembly Machine Operator Name Role Phone Juancarlos Jamison MD Primary Care Provider Reason for Referral * Consultation (Routine) - Closed Specialty Diagnoses / Procedures Referred By Zac del toro Referred To Contact Vascular Surgery Diagnoses Aneurysm artery, iliac ROUTINE, , JEANINE ART DUP/CTA Devin Gao APRN [address] [place] [address] [place] [address] [facility] [address] [place] [address] Referral ID Status Reason Start Date Expiration Date V isits Requested Visits Authorized [id number] Closed Consult, Test & Treat 12/04/2022 12/04/2023 1 1 Encounter Details Date Type Department Care Team (Late st Contact Info) Description 12/04/2022 Transcribe Orders eDH Incoming Referrals [phone] Devin Gao APRN [facility] [facility] [place] [address] Aneurysm artery, iliac Social History Tobacco Use Types Packs/Day Years Used Date Smoking Tobacco: Never Assessed Sex and Gender Information Value Date Recorded Sex Assigned at Not on file Gender Identity Not on file Sexual Orientation Not on file documented as of this encounter Plan of Treatment Scheduled Referrals Name Type Priority Associated Diagnoses Orde r Schedule Referral to Vascular Surgery Outpatient Referral Routine Aneurysm artery, iliac Ordered: 12/04/2022 documented as of this encounter Visit Diagnoses Diagnosis Aneurysm artery, iliac Aneurysm of iliac artery documented in this encounter Care Teams Crown Assembly Machine Operator Relationship Specialty Start Date End Date Juancarlos Jamison MD [address] [place] [address] PCP - General 05/10/10 01/10/23 documented as of this encounter
--- OUTSIDE RECORDS SUMMARY | 2024-04-18 12:52 | XMS_ITS | Encounter Summary ---
Author Organization [facility] Address [address] [place] [address] Care Team Providers Care Slot Router Name Role Phone Unavailable Primary Care Provider Unavailabl e Encounter Details Date Type Department Care Team (Late st Contact Info) Description 02/14/2005 Results Only [facility] [address] [place] [address] John Pitts, DO [address] [facility] [address] [place], [place] [id number] Social History Tobacco Use Types Packs/Day Years Used Date Smoking Tobacco: Never Assessed Sex and Gender Information Value Date Recorded Sex Assigned at Not on file Gender Identity Not on file Sexual Orientation Not on file documented as of this encounter Plan of Treatment Not on file documented as of this encounter Procedures Procedure Name Priority Date/Time Associated Diagnosis Comments SURGICAL PATHOLOGY Routine 02/14/2005 0:00 EDT documented in this encounter Results * SURGICAL PATHOLOGY (02/14/2005 0:00 EDT) Pathology Report: SURGICAL PATHOLOGY REPORT Reports generated via electronic interface contain original data; however they are lacking the format of the original report. Caution should be taken when reading/interpreti ng unformatted reports. Name: ? BLAIR SCHROEDER ? Accession #: ? [id number] ? : ? 1960 (Age: 44) ??M ? Collect Date: ? 02/14/2005 ? Location: ? [facility] ? Receive Date: ? 02/14/2005 ? Provider: JOHN PITTS DO Copy to: BASSAM VALDOVINOS PRINCIPAL PROCESS ENGINEER ? Final Pathologic Diagnosis: ? Colon, 20 cm, polyp, biopsy: 1. ?Hyperplastic polyp. 2. ?No adenomatous mucosa identified. Document reviewed and electronically signed by: KAMILAH BRUSH MD Report ??Date: 02/15/2005 18:22 By the signature above, the attending physician certifies that he/she has personally conducted a gross and/or microscopic examination of the described specimens and rendered or confirmed the above diagnosis. Specimen(s) Received: ? Polyp 20 cm Clinical History: ? Hx polyps Gross Description: ? Received in Hollande's fixative labeled Nitin and polyp 20 cm are two estevez-pink polypoid soft tissues averaging 0.2 x 0.1 x 0.1 cm. ??Submitted in toto in one cassette. ??(Cheikh Rizvi)/[facility] [place] End of Report COURTNEY RAMOS 02/14/2005 02/14/2005 15: 04 EDT John Pitts DO PATHOLOGY ORDER [facility] COURTNEY RAMOS [address] [place] [address] documented in this encounter Visit Diagnoses Not on filedocumented in this encounter
--- OUTSIDE RECORDS SUMMARY | 2024-04-18 12:52 | XMS_ITS | Encounter Summary ---
[place] [address] Care Team Providers Care Distillery Miller Name Role Phone Calderon Huynh MD Primary Care Provider [phone] Encounter Details Date Type Department Care Team (Late st Contact Info) Description 01/11/2023 12:30 PM EDT Tech [place] [address] Janelle Chavez Common iliac aneurysm Social History Tobacco Use [...] Procedure Name Priority Date/Time Associated Diagnosis Comments ARTERIAL DUPLEX LEGS BILATERAL Routine 01/11/2023 12:27 PM EDT Common iliac aneurysm documented in this encounter Results * Arterial Duplex, Bilat Legs (01/11/2023 12:27 PM EDT) VB Text Report Department: Vascular Surgery Lab Patient: [id number] (BLAIR TAVERAS) CPT: 26084 Referring Physician: YA NIÑO ?? Indications: 2.6 [...] artery documented in this encounter Care Teams Distillery Miller Relationship Specialty Start Date End Date Calderon Huynh MD [address] [facility] [address] [place] [address] PCP - General Family Medicine 01/11/23 documented as of this encounter
--- OUTSIDE RECORDS SUMMARY | 2024-04-18 12:52 | XMS_ITS | Clinical Summary ---
Author Organization [facility] Address [address] [place] [address] Care Team Providers Care Ski Patrol Director Name Role Phone Aishwarya Deras NP Primary Care Provider + Social History Tobacco Use Types Packs/Day Years Used Date Smoking Tobacco: Never Assessed Sex and Gender Information Value Date Recorded Sex Assigned at Not on file Gender Identity Not on file Sexual Orientation Not on file Plan of Treatment Health Maintenance Due Date Last Done Comments Hepatitis C Screen 1960 RSV Immunization ( o r 60+ Years) (1 - 1-dose 60+ series) 2019 COVID-19 Vaccine (2022- season) 2023 Care Teams Ski Patrol Director Relationship Specialty Start Date End Date Aishwarya Deras, IN TUBE CONVERSION TECHNICIAN [address] [place] [address] PCP - General 04/23/15
--- OUTSIDE RECORDS SUMMARY | 2024-04-18 12:52 | XMS_ITS | Encounter Summary ---
Author Organization [facility] [place] [address] Care Team Providers Care Finance Assistant Name Role Phone Calderon Huynh MD Primary Care Provider [phone] Reason for Referral * Diagnostic Test (Routine) - Closed Specialty Diagnoses / Procedures Referred By Contac t Referred To Contact Radiology Diagnoses Common iliac aneurysm Procedures CT Angiogram Chest Abdomen Pelvis w Contrast Alexa Beth MD [facility] [place] [address] [facility] [place] [address] Referral ID Status Reason Start Date Expiration Date V isits Requested Visits Authorized [id number] Closed Specialty Service Requested 01/12/2023 07/15/2024 1 1 Reason for Visit * Consultation (Routine) - Closed Specialty Diagnoses / Procedures Referred By Contarchana t Referred To Contact Vascular Surgery Diagnoses Aneurysm artery, iliac ROUTINE, , BILAT ART DUP/CTA Devin Gao, MANAGER MARKETING [address] [facility] [place] [address] [facility] [address] [place] [address] Referral ID Status Reason Start Date Expiration Date V isits Requested Visits Authorized [id number] Closed Consult, Test & Treat 12/04/2022 12/04/2023 1 1 Encounter Details Date Type Department Care Team (Late st Contact Info) Description 01/11/2023 1:30 PM EDT Office Visit Vascular Surgery at [facility] [place] [address] Alexa Beth MD [facility] [place] [address] Common iliac aneurysm; Family history of aneurysm Social History Tobacco Use Types Packs/Day Years Used Date Smoking Tobacco: Every Day Cigarettes 0.5 30 Smokeless Tobacco: Never Tobacco Cessation:Ready to Q uit: Not Asked; Counseling Given: Not Answered Sex and Gender Information Value Date Recorded Sex Assigned at Not on file Gender Identity Not on file Sexual Orientation Not on file documented as of this encounter Last Filed Vital Signs Vital Sign Reading Time Taken Comments Blood Pressure 117/87 01/11/2023 1:15 PM EDT Pulse 77 01/11/2023 1:15 PM EDT Temperature - - Respiratory Rate - - Oxygen Saturation - - Inhaled Oxygen Concentration - - Weight 83.9 kg (185 lb) 01/11/2023 1:15 PM EDT Height 190.5 cm (6' 3) 01/11/2023 1:15 PM EDT Body Mass Index 23.12 01/11/2023 1:15 PM EDT documented in this encounter Progress Notes * Alexa Beth MD - 01/11/2023 1:30 PM EDT Images from the original note were not included. [facility] [place] [address] OUTPATIENT VASCULAR SURGERY INITIAL CONSULT SERVICE DATE: 01/11/2023 SERVICE TIME: 1:44 PM PRIMARY CARE PHYSICIAN: Calderon Huynh MD REFERRING PROVIDER: Devin Gao, MANAGER MARKETING [address] [facility] [place] [address] Consult requested for an opinion regarding the evaluation and treatment of the above. My final impression and recommendations will be communicated back to the requesting physician by way of the shared medical record or letter via US mail. Subjective CHIEF COMPLAINT/HISTORY OF PRESENT ILLNESS: Chief Complaint: iliac aneurysm History of Present Illness: Blair Taveras is a 62 y.o. male referred for an opinion regarding [...] fugax, or speech or word finding difficulties. PAST MEDICAL/SURGICAL/FAMILY/SOCIAL HISTORY Past Medical History: Diagnosis Date Depression GERD (gastroesophageal reflux disease) Kidney stone TIA (transient ischemic attack) Past Surgical History: Procedure Laterality Date CATARACT REMOVAL INGUINAL HERNIA REPAIR KIDNEY STONE SURGERY No family history on file. Social History Tobacco Use Smoking status: Every Day Packs/day: 0.50 Years: 30.00 Pack years: 15.00 Types: Cigarettes Smokeless tobacco: Never Current Outpatient Medications Medication Sig Dispense Refill mirtazapine (Remeron) 45 mg tablet Take 45 mg by mouth nightly. terazosin (Hytrin) 2 mg capsule Take 2 mg by mouth nightly. aspirin (BABY ASPIRIN) 81 mg chewable tablet pantoprazole (PROTONIX) 40 mg tablet topiramate (TOPAMAX) 50 mg tablet 50 MG = 1 Tablet(s), PO, QHS simvastatin (ZOCOR) 20 mg tablet propranolol (INDERAL [...] Objective PHYSICAL EXAM Physical Exam Performed BP 117/87 (BP Location (NBP): Right arm, Patient Position: Sitting, BP Cuff Sizes: Adult (25-34 cm)) Pulse 77 Ht 190.5 cm (6' 3) Wt 83.9 [...] 2/2 2/2 Left 2/2 2/2 2/2 2/2 2/ 2 Pop pulses mildly prominent b/l DATA: Radiology: 12/02/2022 CT a/p non Infrarenal aorta maximum diameter 28 mm Left [...] reviewed the following images/data: duplex, CT Impression: 62 y.o. male with an incidental finding of left 2.6 cm common iliac artery aneurysm. Heis asymptomatic [...] evidence of popliteal artery aneurysm. Plan: - cta c/a/p 1 year for next visit, then will likely follow-up with duplex - consider restarting statin - OK to have a colonoscopy from vascular surgery standpoint Thank you for allowing me to participate in the care of your patient. Please do not hesitate to contact me with any questions or concerns. SIGNATURE: Alexa Beth MD PATIENT NAME: Blair Taveras DATE: January 11, 2023 TIME: 1:44 PM documented in this encounter Plan of Treatment Not on file documented as of this encounter Results * CT Angiogram Chest Abdomen Pelvis w Contrast (01/14/2024 2:54 PM EDT) WORKSTATION ID [id number] RAD Anatomical Region Laterality Modality Abdomen, Chest [...] have questions please contact the health care administrative tech that requested your imaging first. ? Narrative 01/15/2024 2:51 PM EDT EXAMINATION: CT [...] who have questions please contactthe health care administrative tech that requested your imaging first. Alexa Beth MD IMG CT ORDERABLES * Creatinine (01/14/2024 12:50 PM EDT) Creatinine 0.94 0.80 - 1.50 mg/dL [facility] Est Glomerular Filtration Rate 91 >=60 mL/min/1. 73 m?? [facility] Comment: This patient's estimated [...] urine creatinine clearance. Assignment of CKD stage 1-5 for patients with an eGFR near the transition point between stages may be based on clinical assessment of muscle mass and symptoms in addition to eGFR. Blood 01/14/2024 12:5 0 PM EDT 01/14/2024 1:05 PM EDT Narrative Resulting Agency Comment Spec In Lab Alexa Beth MD CHEMISTRY ORDERABLES [facility] [place] [address] documented in this encounter Visit Diagnoses Diagnosis Common iliac aneurysm Aneurysm of iliac artery Family history of aneurysm Family history of other condition Common iliac aneurysm Aneurysm of iliac artery documented in this encounter Care Teams Finance Assistant Relationship Specialty Start Date End Date Calderon Huynh MD [address] [place] [address] [address] [place] [address] PCP - General Family Medicine 01/11/23 documented as of this encounter
--- OUTSIDE RECORDS SUMMARY | 2024-04-18 12:52 | XMS_ITS | Encounter Summary ---
Author Organization [facility] [place] [address] Care Team Providers Care Banking Officer Name Role Phone Calderon Huynh MD Primary Care Provider [phone] Reason for Visit * Reason Onset Date Comments Appointment 02/07/2023 CT Encounter Details Date Type Department Care Team (Late st Contact Info) Description 02/07/2023 Telephone [place] [id number] Hitesh Olvera, RN Appointment (CT) Social History Tobacco Use Types Packs/Day Years Used Date Smoking Tobacco: Every Day Cigarettes 0.5 30 Smokeless Tobacco: Never Sex and Gender Information Value Date Recorded Sex Assigned at Not on file Gender Identity Not on file Sexual Orientation Not on file documented as of this encounter Miscellaneous Notes * Telephone Encounter - Hitesh Olvera RN - 02/07/2023 10:17 AM EDT Spoke to patient and discussed scheduling his 1 year follow-up clinic and CT imaging appointments. Patient was provided the contact number to vascular surgery and then transferred to coordinate scheduling both of these appointments. documented in this encounter Plan of Treatment Not on file documented as of this encounter Visit Diagnoses Not on filedocumented in this encounter Care Teams Banking Officer Relationship Specialty Start Date End Date Calderon Huynh MD [address] [place] [address] PCP - General Family Medicine 01/11/23 documented as of this encounter
--- OUTSIDE RECORDS SUMMARY | 2024-04-18 12:52 | XMS_ITS | Referral Summary ---
Author Organization [facility] Address [address] [place] [address] Care Team Providers Care Battery Wrecker Operator Name Role Phone Aishwarya Deras NP Primary Care Provider + Social History Tobacco Use Types Packs/Day Years Used Date Smoking Tobacco: Never Assessed Sex and Gender Information Value Date Recorded Sex Assigned at Not on file Gender Identity Not on file Sexual Orientation Not on file Plan of Treatment Not on file Care Teams Battery Wrecker Operator Relationship Specialty Start Date End Date Aishwarya Deras, FINGERNAIL TECHNICIAN [place] [address] [place] [address] PCP - General 04/23/15
--- OUTSIDE RECORDS SUMMARY | 2024-04-18 12:52 | XMS_ITS | Encounter Summary ---
[place] [address] Care Team Providers Care Coal Shoveler Name Role Phone Calderon Huynh MD Primary Care Provider [phone] [phone] Encounter Details Date Type Department Care Team (Latest Contact Info) Description 01/14/2024 1:15 PM EDT Laboratory Appointment Lab [address] [place] [address] Common iliac aneurysm Social History Tobacco Use [...] Procedure Name Priority Date/Time Associated Diagnosis Comments CREATININE STAT 01/14/2024 12:50 PM EDT Common iliac aneurysm documented in this encounter Results * Creatinine (01/14/2024 12:50 PM EDT) Creatinine 0.94 0.80 - 1.50 mg/dL [facility] Est Glomerular Filtration Rate 91 >=60 mL/min/1. 73 m?? [facility] Comment: This patient's estimated [...] In Lab Alexa Beth MD CHEMISTRY ORDERABLES [facility] [place] [address] documented in this encounter Visit Diagnoses Diagnosis Common iliac aneurysm Aneurysm of iliac artery documented in this encounter Care Teams Coal Shoveler Relationship Specialty Start Date End Date Calderon Huynh MD [address] [place] [address] PCP - General Family Medicine 01/11/23 documented as of this encounter
[2024-04-18 13:01] LABS: Abs Immature Grans 0.02 10^3/uL (0.0-0.06); Absolute Basophil Count 0.05 10^3/uL (0.0-0.2); Absolute Eosinophil Count 0.06 10^3/uL (0.0-0.7); Absolute Lymphocyte Count 0.94 10^3/uL (1.2-3.4); Absolute Monocyte Count 0.51 10^3/uL (0.1-0.8); Absolute Neutrophil Count 6.12 10^3/uL (1.2-6.7); Basophils % 0.6 %; Eosinophils % 0.8 %; HCT 43.7 % (40.0-50.0); HGB 14.9 g/dL (13.5-17.5); Immature Grans % 0.3 %; Lymphocytes % 12.2 %; MCH 30.7 pg (27.0-33.0); MCHC 34.1 % (32.0-36.0); MCV 90 fL (80-95); MPV 10.7 fL (8.0-11.0); Monocytes % 6.6 %; Neutrophils % 79.5 %; Platelet Count 155 10^3/uL (130-400); RBC 4.85 10^6/uL (4.36-5.78); RDW 11.9 % (11.8-14.1); RDW-SD 39.4 fL
[2024-04-18 13:26] LABS: INR 1.1 (0.9-1.1); Prothrombin Time 11.1 sec (9.1-11.1)
[2024-04-18 13:28] LABS: ALT 60 U/L (16-63); AST 26 U/L (15-37); Albumin 3.5 g/dL (3.4-5.0); Alkaline Phosphatase 95 U/L (46-116); Anion Gap 9.6 mmol/L (3-11); BUN 15 mg/dL (7-18); Bilirubin, Total 0.55 mg/dL (0.2-1.0); CO2 26.4 mmol/L (21.0-32.0); Chloride 105 mmol/L (98-107); Estimated GFR 84.05 (mL/min/1.73m2); Glucose 135 mg/dL (74-106); Magnesium 1.9 mg/dL (1.8-2.4); NT-proBNP 360 pg/mL (<300); Potassium 3.7 mmol/L (3.5-5.1); Sodium 141 mmol/L (136-145); Total Protein 7.1 g/dL (6.4-8.2); Troponin I 27 ng/L (<or=76)
[2024-04-18] MEDS: Normal Saline - Diluent 50 ML VIAL IJ (13:50)
--- NOTE | 2024-04-18 13:50 | ED.GENADUL_ITS ---
Discharge Plan Disposition Patient Disposition: Home Condition: Stable Discharge Details Clinical Impression: Dissection of iliac artery, Chest discomfort Primary Care Provider: Calderon Huynh ED Provider: Ajay Morales Home Meds and New Rx's Prescriptions: No Action terazosin 2 mg capsule 2 mg PO QHS Qty: 90 3RF pantoprazole [Protonix] [address] for susp in packet 40 mg PO DAILY Qty: 30 0RF atorvastatin 80 mg tablet 80 mg PO DAILY Rx Instructions: Per [facility] 03/27/24 clopidogrel 75 mg tablet 75 mg PO DAILY Rx Instructions: Per [facility] [place] 03/27/24 losartan 25 mg tablet 12.5 mg PO DAILY Rx Instructions: Per [facility] [place] 03/27/24 metoprolol succinate 25 mg tablet extended release 24 hr 25 mg PO DAILY Rx Instructions: Per [facility] 03/27/24 nitroglycerin 0.4 mg tablet, sublingual 0.4 mg sublingual Q5M PRN Rx Instructions: do not exceed 3 doses per episode Per [facility] 03/27/24 aspirin 81 mg tablet,chewable 81 mg PO DAILY Discharge Instructions Additional Instructions: * You were found to had a very small dissection of your right common iliac artery. This is located in approximately the same area as the left sided aneurysm that vascular surgery follows you for. Vascular surgery reviewed the images, and there is no intervention necessary at this time. This is likely an incidental finding and unrelated to your symptoms that you came to the emergency department for * Please keep a daily log of blood pressure and heart rate to make sure that these are well-controlled. Return to the emergency department if your heart rate is persistently elevated or if your blood pressure is greater than 140. * Continue cardiac rehab and follow-up with your primary care provider and vascular surgery as scheduled. HPI General Date/Time Provider Initiated Documentation: 04/18/24 12:52 . Limitations to Documentation: no limitations . Information obtained by: patient . HPI Narrative: 63-year-old gentleman with past medical history of CAD, recent NSTEMI, presents for evaluation of chest pain. Patient did cardiac rehab this morning. He reports that his heart rate was elevated after the session and so here to stay for little bit longer. He states that he had no discomfort or chest pain or shortness of breath during his rehab session. He states that he went home and after about an hour of being home he started having some chest discomfort radiated to his back. He states that it hurts to take a deep breath but he does not feel short of breath. So he went to [facility] for evaluation. They were concerned given his history. They noted that his blood pressure was low systolic less than 100, his heart rate was slightly elevated around 110. He was given about 300cc of IV fluids Related Data Home Medications ?Medication ?Instructions ?Recorded ?Confirmed terazosin 2 mg capsule 2 mg PO QHS #90 caps 05/22/23 04/18/24 aspirin 81 mg chewable tablet 81 mg PO DAILY 03/28/24 04/18/24 atorvastatin 80 mg tablet 80 mg PO DAILY 03/28/24 04/18/24 clopidogrel 75 mg tablet 75 mg PO DAILY 03/28/24 04/18/24 losartan 25 mg tablet 12.5 mg PO DAILY 03/28/24 04/18/24 metoprolol succinate 25 mg 25 mg PO DAILY 03/28/24 04/18/24 tablet,extended release 24 hr nitroglycerin 0.4 mg sublingual 0.4 mg sublingual Q5M PRN 03/28/24 04/18/24 tablet pantoprazole 40 mg granules 40 mg PO DAILY #30 ea 04/03/24 04/18/24 delayed-release for susp in packet (Protonix) Previous Rx's ?Medication ?Instructions ?Recorded terazosin 2 mg capsule 2 mg PO QHS #90 caps 05/22/23 pantoprazole 40 mg granules 40 mg PO DAILY #30 ea 04/03/24 delayed-release for susp in packet (Protonix) Allergies Allergy/AdvReac Type Severity Reaction Status Date / Time bupropion HCl (From Zyban) Allergy Severe swelling, Verified 04/18/24 12:48 throat-diffuse Penicillins Allergy Severe Swelling , Verified 04/18/24 12:48 throat diffuse General Stated Complaint: Chest Pain ROB: 3 Exam Narrative Exam Narrative: Review of Systems: All systems reviewed & are unremarkable except as noted in HPI and below Well-developed, no acute distress NCAT RRR no murmur Unlabored respiratory effort slight crackles in bilateral bases Nondistended abdomen soft nontender Trace edema bilateral lower extremities 2+ DP pulses bilateral Course Vital Signs Vital signs: Vital Signs Temperature 36.6 C 04/18/24 12:41 Pulse 82 04/18/24 12:41 Blood Pressure 130/72 04/18/24 12:41 Pulse Oximetry 94 04/18/24 12:41 Temperature 36.6 C 04/18/24 12:41 Temperature Source Oral 04/18/24 12:41 Pulse 90 04/18/24 13:01 Pulse 94 H 04/18/24 13:01 Respiratory Rate 13 04/18/24 13:01 Respiratory Effort Normal 04/18/24 13:03 Respiratory Depth Normal 04/18/24 13:03 Respiratory Pattern Normal 04/18/24 13:03 Blood Pressure 115/91 H 04/18/24 13:01 Blood Pressure Mean 97 04/18/24 13:01 Blood Pressure Position Supine 04/18/24 12:41 Pulse Oximetry 94 04/18/24 13:01 Oxygen Delivery Method Room Air 04/18/24 12:41 Oxygen Flow Rate 0 04/18/24 12:41 Lab/Test Results Lab/Test Results: Laboratory Tests Range/Units 04/18/24 12:48 WBC (4.4-10.8) 10^3/uL 7.70 RBC (4.36-5.78) 10^6/uL 4.85 Hgb (13.5-17.5) g/dL 14.9 Hct (40.0-50.0) % 43.7 MCV (80-95) fL 90 MCH (27.0-33.0) pg 30.7 MCHC (32.0-36.0) % 34.1 RDW (11.8-14.1) % 11.9 Plt Count (130-400) 10^3/uL 155 MPV (8.0-11.0) fL 10.7 Immature Gran % % 0.3 Neutrophils % % 79.5 Lymphocytes % % 12.2 Monocytes % % 6.6 Eosinophils % % 0.8 Basophils % % 0.6 Nucleated RBC % (0.0-0.3) % 0.0 Absolute Neutrophils (1.2-6.7) 10^3/uL 6.12 Absolute Lymphocytes (1.2-3.4) 10^3/uL 0.94 L Absolute Monocytes (0.1-0.8) 10^3/uL 0.51 Absolute Eosinophils (0.0-0.7) 10^3/uL 0.06 Absolute Basophils (0.0-0.2) 10^3/uL 0.05 PT (9.1-11.1) sec 11.1 INR (0.9-1.1) 1.1 APTT (23.6-32.8) sec 23.0 L Sodium (136-145) mmol/L 141 Potassium (3.5-5.1) mmol/L 3.7 Chloride (98-107) mmol/L 105 Carbon Dioxide (21.0-32.0) mmol/L 26.4 Anion Gap (3-11) mmol/L 9.6 BUN (7-18) mg/dL 15 Creatinine (0.70-1.30) mg/dL 1.0 Est GFR (CKD-EPI 2020) (mL/min/1.73m2) 84.05 Glucose (74-106) mg/dL 135 H Calcium (8.5-10.1) mg/dL 9.0 Magnesium (1.8-2.4) mg/dL 1.9 Total Bilirubin (0.2-1.0) mg/dL 0.55 AST (15-37) U/L 26 ALT (16-63) U/L 60 Alkaline Phosphatase (46-116) U/L 95 Troponin I (<or=76) ng/L 27 NT-Pro-B Natriuret Pep (<300) pg/mL 360 H Total Protein (6.4-8.2) g/dL 7.1 Albumin (3.4-5.0) g/dL 3.5 Medical Decision Making Emergent evaluation of chest discomfort in a patient with a recent NSTEMI. Initial differential includes ACS, dissection, CHF. The discharge summary from outside facility was reviewed. He did get PCI with stenting in the mid LAD. He is currently on dual antiplatelet therapy of aspirin and Plavix daily. EKG does not show acute ischemic changes. EKG reviewed and independently interpreted: Sinus 83 left axis with T wave inversions no change from prior. Currently denies any chest pressure or discomfort, but does report some pain with deep breath. He did receive a full dose aspirin by EMS. Currently hemodynamically stable. Apparently did have lower blood pressures at outside facility, but that seems to have improved. Given that he has crackles and trace edema, will stop any additional IV fluids. Given his history and chest pain radiating to the back, will get CT to evaluate for thoracic dissection. 1400 Lab work reviewed. White blood cell count 7. No anemia. INR normal. No electrolyte derangement mild hyperglycemia without DKA. Troponin is 27 which is considerably lower given his prior NSTEMI. His BNP is slightly elevated at 360 though this is also lower from his last hospitalization. [address] findings with radiologist. There is concern for a new right common iliac dissection. There is a known left common iliac aneurysm and this is unchanged. The other aneurysmal dilations of the aorta are stable. I reevaluated the patient and he does have good pulses bilaterally with warm well- perfused legs. I reviewed the medical record and noted that for his PCI, the patient had right radial access and did not have groin access. I reviewed prior vascular surgery documentation on this patient as well and there is no known issue in the right common iliac artery. I have reached out to [facility] vascular surgery for consultation regarding this new finding. Serial troponins have been flat. BP and HR are well controlled at this time. [address] Gregorio, [facility] [place] [place]. He has reviewed the images, and there is no intervention necessary based on the size and appearance of this dissection. They are following the patient for the aneurysm and they will continue to follow for the dissection. He recommends blood pressure control. This is likely an incidental finding and unrelated to the symptoms that he presented with. Patient is medically optimized since his recent PCI. Discussed findings, consultation and disposition plan with the patient and his . They are comfortable with going home and all questions answered. Continue cardiac rehab and close follow-up with PCP. Return precautions advised. Quality:SDOH Health Related Social Needs: No Data to Display PFSH All Active Problems (Updated 04/18/24 @ 15:32 by Ajay Morales MD) Chest discomfort (Acute) Dissection of iliac artery (Acute) Hypertension (Chronic) Acute non-ST elevation myocardial infarction (NSTEMI) (Acute) NSTEMI (non-ST elevated myocardial infarction) (Acute) 03/24/24 [facility] for cath with stent to LCX Right lower lobe pulmonary infiltrate (Acute) Emphysema lung (Acute) Chronic idiopathic constipation (Acute) Adenomatous polyps (Acute) Atherosclerosis of aorta (Acute) TIA (transient ischemic attack) (Acute) GERD (gastroesophageal reflux disease) (Chronic) Depression (Chronic) Right sided abdominal pain (Acute) Aneurysm (Acute) Screening for colon cancer (Acute) Pinna infection, acute (Acute) Cervical lymphadenopathy (Acute) Mood disorder (Acute) Left ureteral stone (Acute) Kidney stone (Chronic) Toe pain, left (Acute) Lung nodule (Acute) Tobacco abuse (Acute) Insomnia (Acute) Epididymal cyst (Acute) Bradycardia (Acute) Impacted cerumen of both ears (Acute) History of cataract removal with insertion of prosthetic lens (Acute 02/17/16) History of esophagogastroduodenoscopy (Acute) Status post hernia repair (Acute 06/02/15) BPH (benign prostatic hyperplasia) (Chronic) Bilateral nephrolithiasis (Chronic) Reflux esophagitis (Chronic) Nodule of right lung (Chronic 05/08/17) 04/20/17 RIGHT UPPER LOBE Hyperlipidemia (Chronic) Headache (Acute) Personal history of colonic polyps (Chronic) Medical History Hyperlipidemia Headache Colon polyp Reflux esophagitis Surgical History H/O heart artery stent s/p stent in mid LAD artery and angioplasty of prox D1 lesion 03/24/24 H/O right inguinal hernia repair (~2014) Dr. Tapia Colonoscopy - IV Sedation (01/2023) 05/03/16 Extraction of cataract 02/17/16; LEFT Family History Mother , AGE 67 Heart disease Father , AGE 72 Heart disease Sister Essential hypertension Sister No problems noted. Sister No problems noted. Sister No problems noted. Brother Essential hypertension Brother No problems noted. Brother No problems noted. Brother No problems noted. Brother No problems noted. Daughter No problems noted. Daughter Depression Social History Smoking/Tobacco Use Status: Former Tobacco Use Tobacco: How many years used: 30 Smokeless tobacco user: other Quit status: has quit before Smoking risk assessment performed?: Yes Alcohol Intake: former Drug use: Never Substance use type: does not use Caregiver/Support person: No Household members: significant other Housing: house Communication Needs: None Do you need help understanding health information?: Never Pets and animals: Yes Pets and animals: cat(s) Sexually active: No Do you think of yourself as: straight/heterosexual Current gender identity: male What is your relationship status?: living with partner How often do you talk on the phone with friends or family?: decline to answer How often do you get together with friends or relatives?: decline to answer How often do you attend zoroastrianism or episcopal services?: decline to answer Do you belong to any clubs or organized social groups?: decline to answer Panel score (0-1 are the most socially isolated patients): 1 What type of physical activity do you participate in: none Taylor/Synagogue: None Special taylor needs: No Seatbelt use: always Helmet use: No Drive intox or ride w/intox wagon driver salesperson: No Do you feel safe at home: Yes Do you feel safe in your relationship?: Yes
[2024-04-18] MEDS: Omnipaque 350 MG/ML 100 ML BTL IJ (13:51)
--- NOTE | 2024-04-18 14:10 | DI.CT_ITS ---
Exam(s) CT THORAX ABD/PEL CTA EXAM: CT THORAX ABD/PEL CTA CLINICAL HISTORY: eval for dissection. TECHNIQUE: Imaging Protocol: Axial computed tomography images with coronal and sagittal reformatted images were created and reviewed CONTRAST MATERIAL: Intravenous: Omnipaque 350 Contrast volume:100 ml Oral: None COMPARISON: CT CT RENAL COLIC WO from 12/02/[address] CHEST LUNG CANCER SCREEN from 06/05/2023 FINDINGS: CHEST: AORTA: The diameter of the ascending thoracic aorta is enlarged, measuring 4 cm. The diameter of the mid aortic arch is upper normal. Diameter of the descending thoracic aorta is prominent measuring 3 cm. There is, however, no evidence of thoracic aortic dissection nor pericardial effusion. Great v essels off the aortic arch are patent. Both vertebral arteries originated conventional fashion off o f the subclavian arteries and these appear patent in the field of view of this chest study. The abdominal aorta exhibits a fusiform infrarenal abdominal aortic aneurysm with maximum diameter 2. 7 cm, this above the inferior mesenteric artery takeoff point. The LISA is patent as are the SMA and celiac and both renal arteries. There Arctic bifurcation is patent. 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 Diameter at this level is upper normal. Flow is seen distal to th is focal dissection within the distal common iliac artery as well as the right external iliac artery and common femoral artery as well as within the mildly aneurysmal right internal iliac artery peak There is no dissection evident in the left common iliac artery. However, there is significant aneury sm dilatation of the mid-distal left common iliac artery which exhibits luminal diameter of 2.6 cm. No dissection at this level. There is minimal atherosclerotic disease in the ipsilateral left lamp wirer al iliac artery and there the left internal iliac artery is patent. LUNGS: There COPD emphysematous changes in the lung pinedo. Scarring and subpleural infiltrate in th e posterior aspect of the right lower lobe are again noted and a lesser amount of the same appears st able in the left lung when compared to prior CT scan of 06/05/2023. The previously described small 3 -4 mm nodule in the anterior segment of the right upper lobe remains unchanged. There are no new sig nificant lung nodules evident. There are no pleural effusions. MEDIASTINUM: There are slightly prominent bilateral hilar and subcarinal lymph nodes. Nor mediastina l adenopathy. Visualized thyroid unremarkable.No hiatal hernia. CARDIAC: Heart size is normal. There is no pericardial effusion. ABDOMEN: GI: There are no ischemic appearing bowel loops and there is no ascites. No evidence of bowel obstru ction, free air, nor abscess. Abundant fecal material is noted throughout the colon. There is no re ctal fecal impaction. No significant diverticular disease and no evidence of appendicitis. LIVER: There are no focal hepatic lesions nor dilatation of intrahepatic ducts. GALLBLADDER/BILIARY: No obvious gallbladder pathology. CBD is not dilated. PANCREAS: No evidence of pancreatic mass nor dilatation of the pancreatic duct. SPLEEN: Spleen is not enlarged. There are no intrasplenic lesions. Splenic and portal veins are rose nt. ADRENALS: There are no significant adrenal masses. KIDNEYS: No cysts evident. No calculi nor hydronephrosis. No solid renal masses. ABDOMINAL AORTA: See above LYMPH NODES: There is no retroperitoneal nor para-aortic adenopathy. No obvious mesenteric masses. ABDOMINAL WALL: No evidence of significant anterior abdominal wall hernia. GI: There is no evidence of bowel obstruction, free air, nor abscess. PELVIS: LYMPH NODES: There is no intrapelvic nor inguinal adenopathy. GI: No evidence of appendicitis.No evidence of sigmoid diverticulitis. URINARY BLADDER: No calculi nor masses evident REPRODUCTIVE: Prostate not enlarged. Seminal vesicles unremarkable. OSSEOUS: No significant osseous lesions. No acute fractures. There are multilevel so aloe Schmorl's node invagination XXXX in the thoracic spinal column. There i s also mild wedging of T7 vertebral body with approximately 20 percent height loss. This does not givens ve acute appearance and is unchanged from CT scan of May 2023. IMPRESSION: 1. There is a focal nonocclusive dissection on the medial wall of the proximal aspect of the right co mmon iliac artery this dissection flap extends for distance of 1.3 cm long medial wall. The diameter of the common iliac artery at this level is upper normal, and indeed the most significant dilatation of the iliac arteries is a significant aneurysm in distal half of the opposite-left common iliac art manoj which exhibits a diameter of 2.6 cm but no dissection. 2. The ascending thoracic aorta diameter is prominent, measuring 4 cm but with no evidence of dissect ion and there is no pericardial effusion. 3. There is a relatively focal fusiform aneurysm in the abdominal aorta located 3.5 cm above the aort ic bifurcation, this above the level of the inferior mesenteric artery takeoff and exhibiting maximum diameter of 2.7 cm. 4. Stable appearing chronic-type infiltrate and scarring in the right lower lobe. No new lung infilt rates. Stable 4 mm right upper lobe nodule. Other findings as above Report called by myself to ER physician 04/18/2024 2:40 p.m. RADIATION DOSE DELIVERED: 931.25mGy.cm Total DLP DATA REPOSITORY: All CT scans at this facility are submitted to the National Radiology Data Registry (NRDR) Dose Index Registry (DIR) with the [employer] (ACR). RADIATION OPTIMIZATION: All CT scans at this facility use at least one of these dose optimization te chniques: automated exposure control; mA and/or kV adjustment per patient size (includes targeted exa ms where dose is matched to clinical indication); or iterative reconstruction.
[2024-04-18 14:40] LABS: Troponin I 32 ng/L (<or=76)
== END 2024-04-18 15:43 | disposition home or self-care (01) ==
PROVIDERS: Emergency Provider Emergency Medicine; PCP Family Medicine
DX: I77.72 Dissection of iliac artery (principal); R07.89 Other chest pain; I25.2 Old myocardial infarction
CPT/HCPCS: 71275; 80053; 93005; 99285; 74174; 83735; 83880; 84484; 85025; 85610; 85730; 93010; 99284; J3490

== ENCOUNTER 2024-05-14 09:46 | Outpatient (RCR) | payer BC, MEDICARE, SELFPAY | END 2024-05-17 23:59 | disposition home or self-care (01) | LOC: CR 09:46 | PROVIDERS: PCP Family Medicine; Visit Provider Internal Medicine Cardiovascular Disease | DX: I21.4 Non-ST elevation (NSTEMI) myocardial infarction (principal); Z51.89 Encounter for other specified aftercare | CPT/HCPCS: S9472 ==

== ENCOUNTER 2024-05-19 09:08 | Outpatient (CLI) | payer BC, SELFPAY ==
[2024-05-19 12:36] LABS: Anion Gap 8.1 mmol/L (3-11); BUN 15 mg/dL (7-18); CO2 28.9 mmol/L (21.0-32.0); CREATININE 0.9 mg/dL (0.70-1.30); Calcium 9.1 mg/dL (8.5-10.1); Chloride 105 mmol/L (98-107); Estimated GFR 94.78 (mL/min/1.73m2); Glucose 93 mg/dL (74-106); Potassium 4.3 mmol/L (3.5-5.1); Sodium 142 mmol/L (136-145)
[2024-05-19 13:17] LABS: D-Dimer 594 ng/mlFEU (<500)
== END 2024-05-19 09:09 | disposition home or self-care (01) ==
LOC: LOS 09:09
PROVIDERS: PCP Family Medicine; Referring Provider Nurse Practitioner Family; Visit Provider Nurse Practitioner Family
DX: M25.562 Pain in left knee (principal)
CPT/HCPCS: 36415; 80048; 84550; 85379

== ENCOUNTER 2024-05-19 10:58 | Outpatient (CLI) | payer BC, SELFPAY ==
--- NOTE | 2024-05-19 09:45 | DI.US_ITS ---
Exam(s) US LOWER EXTREMITY VENOUS LT EXAM: US LOWER EXTREMITY VENOUS LT CLINICAL HISTORY: increased pain and swelling, LLE, M79.89. TECHNIQUE: Lower extremity venous ultrasound performed using grayscale, color-flow, and spectral Do ppler analysis. COMPARISON: No exams were available for comparison FINDINGS: The common femoral, femoral and popliteal veins demonstrate normal compressibility, augmentation, and color Doppler. The posterior tibial veins are patent. No saphenous vein thrombosis or other superfi cial venous thrombosis is seen. There is a Mars's cyst measuring 2.1 x 0.8 x 1.3 cm IMPRESSION: Small Mars's cyst. No evidence of DVT. DATA REPOSITORY:
--- NOTE | 2024-05-19 10:29 | DI.RAD_ITS ---
Exam(s) XR KNEE LT 3V AP,LAT,TYE EXAM: XR KNEE LT 3V AP,LAT,TYE CLINICAL HISTORY: increased swelling and pain, Lt knee, M25.562. TECHNIQUE: 2D digital imaging was performed. Three views. COMPARISON: No exams were available for comparison FINDINGS: BONES: No acute fracture is present. No bony destructive lesion is seen. Small enthesophyte at myron driceps insertion. JOINTS: The knee is normally aligned. Small joint effusion is seen. Femoral tibial joint spaces are maintained. SOFT TISSUE: Normal. IMPRESSION: Small joint effusion. DATA REPOSITORY: RADIATION DOSE DELIVERED:
== END 2024-05-19 11:18 ==
PROVIDERS: PCP Family Medicine; Visit Provider Nurse Practitioner Family
DX: M79.89 Other specified soft tissue disorders (principal); M25.562 Pain in left knee
CPT/HCPCS: 73562; 93971

== ENCOUNTER 2024-06-06 09:54 | Outpatient (RCR) | payer BC, MEDICARE, SELFPAY | END 2024-06-17 23:59 | disposition home or self-care (01) | LOC: CR 09:54 | PROVIDERS: PCP Family Medicine; Visit Provider Internal Medicine Cardiovascular Disease | DX: I21.4 Non-ST elevation (NSTEMI) myocardial infarction (principal); Z51.89 Encounter for other specified aftercare | CPT/HCPCS: S9472 ==

== ENCOUNTER 2024-06-13 09:04 | Outpatient (RCR) | payer BC, SELFPAY ==
--- NOTE | 2024-05-28 09:45 | RT.EKG_ITS ---
APPROVED REPORT Exam: Resting ECG Reason for Exam: 08/25 chest tightness Patient Location: O HR:73 bpm ECG Measurements Heart Rate 73 AXIS IL 165 P 82 QRSd 85 QRS -2 QT 376 T 78 QTc 415 Conclusion Sinus rhythm...normal P axis, V-rate 50- 99 Borderline low voltage, extremity leads...all extremity leads <0.6mV I have reviewed and I agree with the emergency room physician's ECG interpretation.
--- NOTE | 2024-05-28 11:17 | NUR.NOTE ---
Nursing Note: Pt. presented for CR session this morning. Pt. complained of 3/10 chest tightness after using the rower ( at 1000). States he increased resistance to 6 on the rower and really pushed it. Noted pain was slightly worse when he pushed on the area on his chest. VS noted to be BP 100/65, HR 87 and O2 sat 93% RA. EKG performed and nitro x1 taken be patients own rx (at 1006). VS 5 min post nitro noted to be BP 87/57, HR 81 and O2 92% RA. Patient noted pain to be at a 1/10 at this time. Yu Wise NP in to asses patient and viewed EKG. Patient declined to go to ED and stated CP had resolved and if CP returned patient would take another nitro and go to ED for urgent assessment. Pt. left ambulatory in no apparent distress. 3 lead Telemetry: NSR.
--- NOTE | 2024-06-13 13:32 | NUR.NOTE ---
Nursing Note: Pt. came in to the CR gym this morning (Sunday06/13/24 at approximately 0900) and informed nursing staff that he didn't think he would be able to participate in the CR program anymore related to pain control issues with his knee. Pt. stated that despite taking acetaminophen (Tylenol) and applying various topical analgesic creams, his pain was still difficult to manage, and that the day after each CR session he was experiencing moderate to significant pain that was making ambulation/transfer difficult. Pt. stated that he had seen his PCP regarding this issue and that his PCP was questioning if he has a Mars's cyst. Nursing staff encouraged pt. not to make an immediate decision regarding the CR program and instead, in dicussion with the pt., decided that they would put the pt. on the on hold list for the CR program until he had further follow-up with his PCP. Nursing staff instructed pt. to contact his PCP and ask for a referral to see an orthopedic surgeon to get further consultation and to develop a treatment plan. Nursing staff informed pt. that they couldn't speak to exactly what an orthopedic surgeon might suggest as a treatment plan, but did inform pt. that sometimes cysts can be drained, or that the pt. might be able to receive a steroid injection in his knee. Pt. verbalized understanding and agreed to the plan of care to be put on the on hold list for the CR program for now. Pt. stated that he would drive to his PCP's office and speak with someone this morning to discuss getting a referral. Nursing staff encouraged pt. to call and update the CR staff regarding his progress. Pt. verbalized that he would do so. Pt. then left the CR gym.
== END 2024-06-17 23:59 | disposition home or self-care (01) ==
LOC: CR 09:04
PROVIDERS: PCP Family Medicine; Visit Provider Internal Medicine Cardiovascular Disease
DX: I21.4 Non-ST elevation (NSTEMI) myocardial infarction (principal); Z51.89 Encounter for other specified aftercare
CPT/HCPCS: S9472

== ENCOUNTER 2024-08-07 21:52 | Emergency (ER) | payer BC, MEDICARE, SELFPAY ==
--- NOTE | 2024-08-07 21:45 | RT.EKG_ITS ---
APPROVED REPORT Exam: Resting ECG Reason for Exam: chest pain Patient Location: E HR:64 bpm ECG Measurements Heart Rate 64 AXIS MI 168 P 75 QRSd 96 QRS -23 QT 411 T 63 QTc 424 Conclusion Sinus rhythm. 64 normal axis no stemi
[2024-08-07 21:54] VITALS: BP 128/81; PULSE 72; RESP 16; O2SAT 99
--- NOTE | 2024-08-07 22:00 | DI.RAD_ITS ---
Exam(s) XR PORTABLE CHEST AP EXAM: XR PORTABLE CHEST AP CLINICAL HISTORY: chest pain TECHNIQUE: 2D digital imaging was performed of the chest. Two images were obtained. AP views were obtained. COMPARISON: CR,XR XR PORTABLE CHEST AP from 03/23/2024 FINDINGS: MEDIASTINUM: Normal. HEART: Normal. PULMONARY VASCULATURE: Normal. LUNGS: The lungs are hyperinflated with flattened diaphragms suggesting underlying COPD. No focal co nsolidating infiltrates are seen. PLEURAL SPACE: No pleural effusion or pneumothorax. BONE:Within normal limits for the patient's age. OTHER FINDINGS:Normal. IMPRESSION: No acute pulmonary findings. DATA REPOSITORY: RADIATION DOSE DELIVERED:
[2024-08-07 22:03] VITALS: RESP 15
--- NOTE | 2024-08-07 22:11 | W.ED.GENAD ---
Discharge Plan Disposition Condition: Stable Discharge Details Chief Complaint: Chest Pain Clinical Impression: Chest pain Primary Care Provider: Calderon Huynh ED Provider: Richard Kwan Home Meds and New Rx's Prescriptions: Continued terazosin 2 mg capsule 2 mg PO QHS Qty: 90 3RF atorvastatin 80 mg tablet 80 mg PO DAILY Rx Instructions: [place] [facility] [place] clopidogrel 75 mg tablet 75 mg PO DAILY Rx Instructions: [place] [facility] [place] losartan 25 mg tablet 12.5 mg PO DAILY Rx Instructions: [place] [facility] [place]24 metoprolol succinate 25 mg tablet extended release 24 hr 25 mg PO DAILY Rx Instructions: [place] [facility] [place]24 nitroglycerin 0.4 mg tablet, sublingual 0.4 mg sublingual Q5M PRN Rx Instructions: do not exceed 3 doses per episode Per [facility] [place]24 aspirin 81 mg tablet,chewable 81 mg PO DAILY Discharge Instructions Additional Instructions: Your blood work and x-ray did not show any concerning findings tonight. Follow-up with your primary care provider or cardiologst. If you feel more ill, have severe worsening pain or difficulty breathing return to the emergency department for reevaluation. HPI General Date/Time Provider Initiated Documentation: 08/07/24 21:53. Limitations to Documentation: no limitations. Information obtained by: patient. History of Present Illness 64 year old M presents to the emergency department with the chief complaint of chest pain, described as moderate, Quality is described as sharp, and is localized to the chest. Patient reports no radiation. Patient started experiencing this hour(s) (1) and it has been constant. No relieving factors improve symptom(s), No exacerbating factors reported . Patient notes no other symptoms.. Patient did receive the following treatments prior to arrival, none Related Data Home Medications ?Medication ?Instructions ?Recorded ?Confirmed aspirin 81 mg chewable tablet 81 mg PO DAILY 03/28/24 08/07/24 atorvastatin 80 mg tablet 80 mg PO DAILY 03/28/24 08/07/24 clopidogrel 75 mg tablet 75 mg PO DAILY 03/28/24 08/07/24 losartan 25 mg tablet 12.5 mg PO DAILY 03/28/24 08/07/24 metoprolol succinate 25 mg 25 mg PO DAILY 03/28/24 08/07/24 tablet,extended release 24 hr nitroglycerin 0.4 mg sublingual 0.4 mg sublingual Q5M PRN 03/28/24 08/07/24 tablet terazosin 2 mg capsule 2 mg PO QHS #90 caps 05/27/24 08/07/24 Previous Rx's ?Medication ?Instructions ?Recorded terazosin 2 mg capsule 2 mg PO QHS #90 caps 05/27/24 Allergies Allergy/AdvReac Type Severity Reaction Status Date / Time bupropion HCl (From Zyban) Allergy Severe swelling, Verified 08/07/24 22:06 throat-diffuse Penicillins Allergy Severe Swelling , Verified 08/07/24 22:06 throat diffuse General Stated Complaint: Chest Pain ROB: 2 Review of Systems All systems reviewed & are unremarkable except as noted in HPI and below Constitutional Constitutional: Denies chills, Denies fever(s) and Denies weakness Cardiovascular Cardiovascular: Reports chest pain and Denies dyspnea Respiratory Respiratory: Denies cough and Denies dyspnea Gastrointestinal Gastrointestinal: Denies abdominal pain, Denies nausea and Denies vomiting Musculoskeletal Musculoskeletal: Denies joint swelling Neurologic Neurologic: Denies weakness Exam Const General: no acute distress Orientation: alert [facility] Head: normal to inspection Ears: external ears normal General nose exam: external nose normal Mouth: moist mucous membranes Eyes General: appearance normal, both eyes and all related structures Neck Neck: normal visual inspection Resp Effort & Inspection: normal respiratory effort and able to speak in complete sentences Auscultation: clear to auscultation bilaterally Cardio Jugular venous pressure: no JVD Rate: regular rate GI Palpation: soft and nontender Skin General skin exam: no rashes or lesions noted Neuro General: patient alert and patient oriented x3 Extrem General: normal to inspection Psych Mental Status: mental status grossly normal Course Vital Signs Vital signs: Vital Signs Pulse 72 08/07/24 21:54 Respiratory Rate 16 08/07/24 21:54 Blood Pressure 128/81 08/07/24 21:54 Pulse Oximetry 99 08/07/24 21:54 Pulse 72 08/07/24 21:54 Respiratory Rate 15 08/07/24 22:03 Respiratory Effort Normal, Non-Labored 08/07/24 22:03 Blood Pressure 128/81 08/07/24 21:54 Blood Pressure Position Sitting 08/07/24 21:54 Pulse Oximetry 99 08/07/24 21:54 Oxygen Delivery Method Room Air 08/07/24 21:54 Oxygen Flow Rate 0 02/20/25 21:54 Pain Level 5 08/07/24 21:54 Medical Decision Making 64-year-old male with a history of coronary artery disease with an NSTEMI in March 2024 and had a stent placed to the LAD comes in with sharp and pressure-like sensation in the anterior chest starting around 9:00 tonight when he was driving. He states he felt well all day, denies any fevers or other symptoms during the day. He states he took a few nitro without any significant change in his pain so came here. He denies having diaphoresis, vomiting, radiation of pain. He is stable on arrival, he has no JVD, clear lung sounds, soft nontender abdomen. Given his history we will send CBC CMP and troponins. I have low suspicion for PE will send D-dimer. He has no tearing back pain and equal peripheral pulses so doubt dissection. Initial troponin negative and so far blood work unremarkable. X-ray on my read shows no acute findings, V rad read pending. He is stable. I discussed results with him and advised if his follow-up troponin is negative that he can likely follow-up with director organizational and primary care and he is in agreement with this plan. Patient will be signed out to oncoming provider to follow-up on vRad read of the x-ray and delta troponin. Plan for if he remains stable with negative troponins to discharge with PCP or cardiology follow-up Differential Diagnosis Differential Diagnosis: NSTEMI, esophageal spasm, PE Medical Records Medical records reviewed: Yes I reviewed the patient's medical records. Lab Data Lab results reviewed: Yes I reviewed the patient's lab results. ECG Data Attestation: I personally reviewed and interpreted this ECG (s) as follows: Prior ECG tracings: available for review Interpretation: Sinus rhythm, rate of 64, ID [id number], no STEMI Quality:SDOH Health Related Social Needs: No Data to Display [facility] All Active Problems (Updated 08/07/24 @ 22:34 by Richard Kwan MD) Chest pain (Acute) Left knee pain (Acute) Hypertension (Chronic) NSTEMI (non-ST elevated myocardial infarction) (Acute) 03/24/24 [facility] [place] for cath with stent to LCX Right lower lobe pulmonary infiltrate (Acute) Emphysema lung (Acute) Chronic idiopathic constipation (Acute) Adenomatous polyps (Acute) Atherosclerosis of aorta (Acute) TIA (transient ischemic attack) (Acute) GERD (gastroesophageal reflux disease) (Chronic) Depression (Chronic) Right sided abdominal pain (Acute) Aneurysm (Acute) Screening for colon cancer (Acute) Pinna infection, acute (Acute) Cervical lymphadenopathy (Acute) Mood disorder (Acute) Left ureteral stone (Acute) Kidney stone (Chronic) Toe pain, left (Acute) Lung nodule (Acute) Tobacco abuse (Acute) Insomnia (Acute) Epididymal cyst (Acute) Bradycardia (Acute) Impacted cerumen of both ears (Acute) History of cataract removal with insertion of prosthetic lens (Acute 02/17/16) History of esophagogastroduodenoscopy (Acute) Status post hernia repair (Acute 06/02/15) BPH (benign prostatic hyperplasia) (Chronic) Bilateral nephrolithiasis (Chronic) Reflux esophagitis (Chronic) Nodule of right lung (Chronic 05/08/17) 04/20/17 RIGHT UPPER LOBE Hyperlipidemia (Chronic) Headache (Acute) Personal history of colonic polyps (Chronic) Medical History (Updated 08/07/24 @ 22:34 by Richard Kwan MD) Hyperlipidemia Headache Colon polyp Reflux esophagitis Surgical History H/O heart artery stent s/p stent in mid LAD artery and angioplasty of prox D1 lesion 03/24/24 H/O right inguinal hernia repair (~2014) Dr. Tapia Colonoscopy - IV Sedation (01/2023) 05/03/16 Extraction of cataract 02/17/16; LEFT Family History Mother , AGE 67 Heart disease Father , AGE 72 Heart disease Sister Essential hypertension Sister No problems noted. Sister No problems noted. Sister No problems noted. Brother Essential hypertension Brother No problems noted. Brother No problems noted. Brother No problems noted. Brother No problems noted. Daughter No problems noted. Daughter Depression Social History Smoking/Tobacco Use Status: Former Tobacco Use Tobacco: How many years used: 30 Smokeless tobacco user: other Quit status: has quit before Smoking risk assessment performed?: Yes Alcohol Intake: former Drug use: Never Substance use type: does not use Caregiver/Support person: No Household members: significant other Housing: house Communication Needs: None Do you need help understanding health information?: Never Pets and animals: Yes Pets and animals: cat(s) Sexually active: No Do you think of yourself as: straight/heterosexual Current gender identity: male What is your relationship status?: living with partner How often do you talk on the phone with friends or family?: decline to answer How often do you get together with friends or relatives?: decline to answer How often do you attend hinduism or protestant services?: decline to answer Do you belong to any clubs or organized social groups?: decline to answer Panel score (0-1 are the most socially isolated patients): 1 What type of physical activity do you participate in: none Taylor/Restoration: None Special taylor needs: No Seatbelt use: always Helmet use: No Drive intox or ride w/intox 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
[2024-08-07 22:15] LABS: Abs Immature Grans 0.02 10^3/uL (0.0-0.06); Absolute Basophil Count 0.06 10^3/uL (0.0-0.2); Absolute Eosinophil Count 0.17 10^3/uL (0.0-0.7); Absolute Lymphocyte Count 1.82 10^3/uL (1.2-3.4); Absolute Neutrophil Count 4.32 10^3/uL (1.2-6.7); Basophils % 0.8 %; Eosinophils % 2.4 %; HCT 42.1 % (40.0-50.0); HGB 14.2 g/dL (13.5-17.5); Immature Grans % 0.3 %; Lymphocytes % 25.3 %; MCH 31.2 pg (27.0-33.0); MCHC 33.7 % (32.0-36.0); MCV 93 fL (80-95); MPV 10.5 fL (8.0-11.0); Monocytes % 11.1 %; Neutrophils % 60.1 %; Platelet Count 169 10^3/uL (130-400); RBC 4.55 10^6/uL (4.36-5.78); RDW 11.9 % (11.8-14.1); RDW-SD 41.1 fL; WBC 7.19 10^3/uL (4.4-10.8)
[2024-08-07] MEDS: Aspirin 81 MG CHEW 243 MG CH (22:19)
[2024-08-07 22:31] LABS: ALT 63 U/L (16-63); AST 28 U/L (15-37); Albumin 3.6 g/dL (3.4-5.0); Alkaline Phosphatase 108 U/L (46-116); Anion Gap 4.2 mmol/L (3-11); BUN 12 mg/dL (7-18); Bilirubin, Total 0.37 mg/dL (0.2-1.0); CO2 29.8 mmol/L (21.0-32.0); CREATININE 0.8 mg/dL (0.70-1.30); Calcium 8.9 mg/dL (8.5-10.1); Chloride 107 mmol/L (98-107); Estimated GFR 98.21 (mL/min/1.73m2); Glucose 96 mg/dL (74-106); Lipase 49 U/L (<78); Magnesium 1.9 mg/dL (1.8-2.4); Potassium 3.8 mmol/L (3.5-5.1); Sodium 141 mmol/L (136-145); Total Protein 6.8 g/dL (6.4-8.2)
[2024-08-07 22:34] LABS: PTT Activated 24.6 sec (20.6-30.2); Prothrombin Time 10.5 sec (9.1-11.1); Troponin I 9 ng/L (<or=76)
[2024-08-07 22:40] LABS: D-Dimer 506 ng/mlFEU (<500)
--- NOTE | 2024-08-07 22:45 | DI.CT_ITS ---
Exam(s) CT CHEST PE CTA EXAM: CT CHEST PE CTA CLINICAL HISTORY: chest pain + dimer. TECHNIQUE: Imaging Protocol: Axial CT angiography was performed with multi-slice acquisition and mu lti-planar and/or 3D reconstructions. Lung Computer Aided Detection (CAD) was utilized. CONTRAST MATERIAL: Intravenous: Omnipaque 350 contrast volume:100 mL COMPARISON: CT CT CHEST LUNG CANCER SCREEN from 06/05/[address] THORAX ABD/PEL CTA from 04/18/2024 CR,XR XR PORTABLE CHEST AP from 08/07/2024 FINDINGS: Tracheobronchial tree: Patent where visualized. No bronchiectasis. There is mild bronchial wall thic kening present particularly in the lower lobes. Pulmonary parenchyma: Moderate centrilobular emphysematous changes are present. There is a stable no dule in the anterior aspect of the right upper lobe (series 12, image 90). There is again seen an ar ea of scarring in the posterior aspect of the right lower lobe. There is scarring or atelectasis see n in the lung bases bilaterally. No new focal infiltrates are appreciated. Pulmonary Arteries: No evidence of filling defect to suggest pulmonary emboli. Mediastinum and Rissa: No dominant adenopathy or fluid collection. The esophagus is unremarkable. Visualized thyroid gland: Unremarkable. Pleura: No effusion or pneumothorax. Heart: The heart is not dilated. Single-vessel coronary artery catheterization patient is present. N o pericardial effusion. Aorta: The ascending thoracic aorta measures 4.4 x 4.1 cm. Due to the timing of the bolus, the thora cic aorta is not adequately opacified. Upper abdomen: Unremarkable. Soft tissues: Unremarkable. Bones: Within normal limits for the patient's age. IMPRESSION: 1. No evidence of a pulmonary embolism. 2. The ascending thoracic aorta measures 4.4 x 4.1 cm. 3. Moderate centrilobular emphysema. 4. Mild peribronchial wall thickening in the lower lobes which can be seen with bronchitis. Please c orrelate clinically. RADIATION DOSE DELIVERED: 81.49mGy.cm Total DLP DATA REPOSITORY: All CT scans at this facility are submitted to the National Radiology Data Registry (NRDR) Dose Index Registry (DIR) with the [employer] [place] [employer] (ACR). RADIATION OPTIMIZATION: All CT scans at this facility use at least one of these dose optimization te chniques: automated exposure control; mA and/or kV adjustment per patient size (includes targeted exa ms where dose is matched to clinical indication); or iterative reconstruction.
[2024-08-07] MEDS: Omnipaque 350 MG/ML 100 ML BTL IJ (22:54)
[2024-08-07] MEDS: Normal Saline - Diluent 50 ML VIAL IJ (22:54)
--- NOTE | 2024-08-07 23:09 | DI.VRAD_ITS ---
PROCEDURE INFORMATION: Exam: XR Chest Exam date and time: 08/07/2024 10:27 PM Age: 64 years old Clinical indication: Chest wall pain TECHNIQUE: Imaging protocol: Radiologic exam of the chest. Views: 1 view. COMPARISON: CT THORAX ABD/PEL CTA 04/18/2024 1:58 PM FINDINGS: Lungs: Unremarkable. No consolidation. Pleural spaces: Unremarkable. No pleural effusion. No pneumothorax. Heart/Mediastinum: Unremarkable. No cardiomegaly. Bones/joints: Unremarkable. IMPRESSION: No acute findings. Dictated and Authenticated by: Kwesi Rodriguez MD. Orderin Aquiles Ramos MD
[2024-08-07 23:35] LABS: Troponin I 8 ng/L (<or=76)
--- NOTE | 2024-08-07 23:39 | DI.VRAD_ITS ---
PROCEDURE INFORMATION: Exam: CTA Chest With Contrast Exam date and time: 08/07/2024 11:00 PM Age: 64 years old Clinical indication: Other: Chest pain + dimer; Prior surgery; Surgery date: 1-6 months; Surgery type: Stent 03/2024 TECHNIQUE: Imaging protocol: Computed tomographic angiography of the chest with contrast. Exam focused on the arteries. 3D rendering (Not supervised by radiologist): MIP and/or 3D reconstructed images were created by the technologist. Contrast material: OMNIPAQUE 350; Contrast volume: 100 ml; Contrast route: INTRAVENOUS (IV); COMPARISON: CT THORAX ABD/PEL CTA 04/18/2024 1:58 PM FINDINGS: Pulmonary arteries: Normal. No pulmonary emboli. Aorta: Unremarkable. No aortic aneurysm. No aortic dissection. Lungs: Moderate centrilobular emphysematous changes are present. Bilateral lower lobe atelectasis. There is no evidence of focal pulmonary consolidation. Pleural spaces: Unremarkable. No pneumothorax. No pleural effusion. Heart: Unremarkable. No cardiomegaly. No pericardial effusion. Coronary arteries: LAD stent is seen. Lymph nodes: Unremarkable. No enlarged lymph nodes. Bones/joints: The thoracic spine demonstrates mild degenerative changes at multiple levels. Soft tissues: Unremarkable. IMPRESSION: 1. No pulmonary embolism. 2. No acute infiltrates. Dictated and Authenticated by: Isidoro Triplett MD. Orderin Qasim Luis MD
[2024-08-07] MEDS: Acetaminophen 500 MG TAB 1000 MG PO (23:55)
--- NOTE | 2024-08-08 00:01 | W.EDPROG ---
Date of service: 08/07/24 Time of Service: 22:45 Medical Decision Making This patient was signed out to me. Please see previous notes for H&P and initial eval. In brief, 64yo M with hx CAD with NSTEMI in March of last year with LAD stent placed at that time presenting today for chest pain onset 9pm at rest unrelieved by nitro at home. EKG and CXR reassuring as well as initial labs. Signed out pending dimer and troponin. Dimer +; CTA ordered and independently reviewed, no large saddle embolus on my view, radiology read with no acute findings. Delta troponin stable (9, 8). On my assessment patient is well appearing with reassuring vital signs. Still has some mild chest discomfort but 'much better' than when he came in. Moderate risk heart score. 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 Discharged home; discharge instructions and return precautions were reviewed with patient who verablized understanding. All questions were answered and he is in full agreement with the plan. Lab Data Lab results reviewed: Yes I reviewed the patient's lab results. Quality:[facility] Health Related Social Needs: No Data to Display Discharge Plan Disposition Patient Disposition: Home Condition: Good Discharge Details Clinical Impression: Chest pain Primary Care Provider: Calderon Huynh ED Provider: Janelle Tripp Home Meds and New Rx's Prescriptions: Continued terazosin 2 mg capsule 2 mg PO QHS Qty: 90 3RF atorvastatin 80 mg tablet 80 mg PO DAILY Rx Instructions: Per [facility] [place] clopidogrel 75 mg tablet 75 mg PO DAILY Rx Instructions: Per [facility] [place] 03/27/24 losartan 25 mg tablet 12.5 mg PO DAILY Rx Instructions: Per [facility] [place] 03/27/24 metoprolol succinate 25 mg tablet extended release 24 hr 25 mg PO DAILY Rx Instructions: Per [facility] [place] 03/27/24 nitroglycerin 0.4 mg tablet, sublingual 0.4 mg sublingual Q5M PRN Rx Instructions: do not exceed 3 doses per episode Per [facility] [place] 03/27/24 aspirin 81 mg tablet,chewable 81 mg PO DAILY Discharge Instructions Additional Instructions: Your blood work and x-ray did not show any concerning findings tonight. Follow-up with your primary care provider or cardiologst; call in the morning to schedule an appointment for within one week. If you feel more ill, have severe worsening pain or difficulty breathing or feel like you are going to pass out, please return to the emergency department for reevaluation.
[2024-08-08 00:13] VITALS: BP 127/78; PULSE 59; RESP 15; TEMP 37; O2SAT 96
--- NOTE | 2024-08-08 18:57 | NUR.NOTE ---
Addendum entered by Winifred Cortes 08/11/24 08:27: Was able to match the EKG to the order and the duplicate EKG was deleted. Addendum entered by Winifred Cortes 08/11/24 07:13: Still accessing chart to be able to match the EKG to the order. Original Note: Access chart to reconcile EKG orders with EKG's in [facility]. Nursing Note:
== END 2024-08-08 00:13 | disposition home or self-care (01) ==
PROVIDERS: Emergency Medicine; Emergency Provider Student in an Organized Health Care Education/Training Program; PCP Family Medicine
DX: R07.9 Chest pain, unspecified (principal); I10 Essential (primary) hypertension; E78.5 Hyperlipidemia, unspecified; I25.10 Atherosclerotic heart disease of native coronary artery without angina pectoris; I25.2 Old myocardial infarction; Z86.73 Personal history of transient ischemic attack (TIA), and cerebral infarction without residual deficits; Z79.01 Long term (current) use of anticoagulants; Z95.2 Presence of prosthetic heart valve; Z79.82 Long term (current) use of aspirin
CPT/HCPCS: 00123; 71275; 80053; 83690; 93005; 99285; 71045; 83735; 84484; 85025; 85379; 85610; 85730; 93010; 99284; J3490

== ENCOUNTER 2024-08-19 09:28 | Outpatient (CLI) | payer BC, SELFPAY ==
--- NOTE | 2024-08-19 09:15 | RT.EKG_ITS ---
APPROVED REPORT Exam: Resting ECG Reason for Exam: ED FU - Continued chest pain Patient Location: O HR:53 bpm ECG Measurements Heart Rate 53 AXIS MO 184 P 141 QRSd 85 QRS 209 QT 430 T 130 QTc 404 Conclusion Right and left arm electrode reversal, interpretation assumes no reversal Sinus rhythm...P axis (-45,135) Poor R wave progression
== END 2024-08-19 09:29 | disposition home or self-care (01) ==
LOC: DI.CM 09:29
PROVIDERS: PCP Family Medicine; Visit Provider Family Medicine
DX: R07.9 Chest pain, unspecified (principal)
CPT/HCPCS: 93010

== ENCOUNTER 2024-08-21 00:50 | Outpatient (CLI) | payer BC, SELFPAY ==
--- NOTE | 2024-08-21 06:45 | DI.NM_ITS ---
APPROVED REPORT Exam: Pharmacologic Patient Location: Out-Patient Room/Bed: Stress Nurse: Emily Acosta RN Ordering Provider:PA FERNANDEZ, Contact Number: [phone] BMI: 24.24 Baseline Rhythm: Sinus Rhythm Indications: Chest pain, S/P LAD stent Medical History Medical History: S/P PCI to LAD (06/10), HTN, aneurysm, L knee pain, atheroclerosis of aorta, GERD, T IA, depresion, HLD Cardiac Medications: Aspirin, atorvastatin, clopidogrel, losartan, metoprolol succinate, nitro, teraz osin Allergies: Bupropion, penicillins Cardiac Risk Factors: Family hx, HTN, HLD, Former smoker, CVD Previous Cardiac Procedures: PCI (06/10) Pretest Chest Pain Characteristics: None Exercise History: Physically active Physical Disabilities: None Lung Sounds: Clear to auscultation Heart Sounds: Regular Stress Test Details Test: Pharmacologic stress was paired with low level exercise. Reason for pharmacologic stress test: Beta tee. Nuclear Acquisition: Rest Tc-99m/Stress Tc-99m 1 day Rest Isotope: Tc-99m Sestamibi. Dose: 10.0 Date: 08/21/2024 Injection Time: 0900 Stress Isotope: Tc-99m Sestamibi. Dose: 30.0 Date: 08/21/2024 Injection Time: 1020 HR Resting HR Supine: 62 bpm Max Heart Rate (APMHR): 155 bpm Resting HR Standin bpm Target HR (85% APMHR): 132 bpm Max HR Achieved: 108 bpm % of APMHR: 70 Recovery HR: 71 bpm BP Resting BP Supine: 108/77 mmHg Resting BP Standin/74 mmHg Max BP: 128/70 mmHg Recovery BP: 118/74 mmHg ECG Resting ECG: Sinus Rhythm Ectopy: None Stress ECG: Sinus Tachycardia ST Change: Nondiagnostic low heart rate Arrhythmia: Rare PAC's Recovery ECG: Sinus Rhythm Recovery ST Change: Nondiagnostic low heart rate Recovery Arrhythmia: None Clinical Stress Symptoms: Mod SOB, 2/10 sharp chest pain Angina Score: Non-Limiting Rate Pressure Product: [id number] Stress ECG Conclusion 1. Resting electrocardiogram showed low voltage, late transition 2. Patient underwent testing using a combination of low-level exercise and pharmacologic stress with regadenoson 3. Blunted hemodynamics. Peak heart rate achieved was 70% of maximal predicted for age 4. The electrocardiographic portion of the test was nondiagnostic 5. See MPI report Stress Test Summary STAGE HR BP SpO2 Symptoms NOTES Supine 62 108/77 94% Standing 67 118/74 1 min post Lexiscan injection 77 128/70 92% 3 min post Lexiscan injection 87 122/70 96% Mod SOB/2/10 sharp chest pain 6 min post Lexiscan injection 71 118/74 95% All symptoms resolved MPI Conclusion There is no evidence of myocardial ischemia. The apex is minimally thinned, but does not suggest inf arction. Calculated EF is 52%. Wall motion is normal
[2024-08-21] MEDS: Regadenoson 0.4 MG/5 ML SYR IVP (10:31)
== END 2024-08-21 01:10 ==
LOC: DI 00:50
PROVIDERS: PCP Family Medicine; Visit Provider Family Medicine
DX: R07.9 Chest pain, unspecified (principal); R03.1 Nonspecific low blood-pressure reading
CPT/HCPCS: 78452; 93017; J2785

== ENCOUNTER 2024-09-23 02:17 | Outpatient (CLI) | payer BC, SELFPAY ==
[2024-09-23 10:53] LABS: CREATININE 0.8 mg/dL (0.70-1.30); Calculated LDL 36 mg/dL (<100); Cholesterol 85 mg/dL (<200); Estimated GFR 98.21 (mL/min/1.73m2); HDL Cholesterol 35 mg/dL (>or=40); Potassium 3.8 mmol/L (3.5-5.1); Triglyceride 70 mg/dL (<150)
== END 2024-09-23 02:18 | disposition home or self-care (01) ==
LOC: LBO 02:17
PROVIDERS: PCP Family Medicine; Visit Provider Family Medicine
DX: I10 Essential (primary) hypertension (principal); E78.5 Hyperlipidemia, unspecified
CPT/HCPCS: 36415; 80061; 82565; 84132

== ENCOUNTER 2025-01-29 20:52 | Outpatient (REF) | payer BC, SELFPAY ==
[2025-01-29 21:11] LABS: Abs Immature Grans 0.03 10^3/uL (0.0-0.06); HCT 42.8 % (40.0-50.0); HGB 14.8 g/dL (13.5-17.5); Immature Grans % 0.4 %; MCH 31.3 pg (27.0-33.0); MCHC 34.6 % (32.0-36.0); MCV 91 fL (80-95); MPV 11.3 fL (8.0-11.0); Platelet Count 182 10^3/uL (130-400); RBC 4.73 10^6/uL (4.36-5.78); RDW 11.8 % (11.8-14.1); RDW-SD 38.8 fL; WBC 7.79 10^3/uL (4.4-10.8)
[2025-01-29 21:12] LABS: ESR 5 mm/hr (0-20)
[2025-02-02 10:56] LABS: Lyme Ab w Rflx to Lyme Confirm Negative (Negative)
[2025-02-02 13:13] LABS: B. miyamotoi PCR Negative (Negative); Babesia divergens/MO-1 Negative (Negative); Ehrlichia muris eauclairensis Negative (Negative)
== END 2025-01-29 20:53 | disposition home or self-care (01) ==
LOC: LBN 20:52
PROVIDERS: PCP Family Medicine; Visit Provider Physician Assistant
DX: R51.9 Headache, unspecified (principal)
CPT/HCPCS: 85652; 87798; 85025; 86618